=== PATIENT | female | born 1955 | race Caucasian/White ===

== ENCOUNTER 2020-05-07 06:13 | Outpatient (REF) | payer OTHER, SELFPAY ==
[2020-05-07 07:21] LABS: COVID-19 Test Negative (Negative)
== END 2020-05-07 06:14 | disposition home or self-care (01) ==
LOC: HO.EMPCOV 06:13
PROVIDERS: Visit Provider Internal Medicine
DX: Z20.828 Contact with and (suspected) exposure to other viral communicable diseases (principal)
CPT/HCPCS: 87635; C9803

== ENCOUNTER 2020-05-07 15:28 | Outpatient (REF) | payer OTHER, SELFPAY ==
--- NOTE | 2020-05-07 | MM_ITS ---
EXAMINATION: MM SCREENING DIGITAL BREAST TOMOSYNTHESIS, BILATERAL CLINICAL INFORMATION: Screening. Asymptomatic. The lifetime risk of breast cancer based on the Tyrer-Cuzick Model is 3%. COMPARISON: Mammography: 05/05/2019, 04/19/2018, 04/13/2017, 04/10/2016 TECHNIQUE: Digital breast tomosynthesis is performed in both the craniocaudal and mediolateral oblique views along with computer-aided detection (CAD). Synthesized 2D images are generated from the tomosynthesis. FINDINGS: The breasts are heterogeneously dense, which may obscure small masses (ACR BI-RADS breast composition Category c). There are no significant masses, abnormal calcifications, or other abnormalities. Parenchymal pattern is similar to prior studies. There is no developing density. The axilla and skin contours are unremarkable. MM/MM tomosynthesis screening BI IMPRESSION: No mammographic evidence of malignancy. ASSESSMENT: BI-RADS 1: Negative RECOMMENDATION: Routine annual mammography screening. This patient's information was entered into a reminder system with a target due date for their next mammogram.
== END 2020-05-07 15:29 | disposition home or self-care (01) ==
LOC: HO.MAMMO 15:28
PROVIDERS: Visit Provider Internal Medicine
DX: Z12.31 Encounter for screening mammogram for malignant neoplasm of breast (principal)
CPT/HCPCS: 77063; 77067

== ENCOUNTER 2020-05-28 06:59 | Outpatient (REF) | payer OTHER, SELFPAY ==
[2020-06-25 09:49] LABS: SARS-COV-2 PCR UMBRL Not Detected
== END 2020-05-28 07:00 | disposition home or self-care (01) ==
LOC: HO.LAB 06:59
PROVIDERS: Visit Provider Internal Medicine
DX: Z20.828 Contact with and (suspected) exposure to other viral communicable diseases (principal)
CPT/HCPCS: C9803; U0003

== ENCOUNTER 2020-07-30 10:12 | Outpatient (REF) | payer OTHER, SELFPAY ==
--- NOTE | ~2020-07-30 | XR_ITS ---
EXAMINATION: XR BILATERAL SHOULDERS CLINICAL INFORMATION: Pain. COMPARISON: Right shoulder . TECHNIQUE: 3 views each shoulder. FINDINGS: Right Shoulder: There is loss of right glenohumeral joint space with moderate inferior periarticular spurring. There are several amorphous loose bodies seen along the lateral aspect of the proximal humerus and the neck. These are new since 2013 right shoulder exam. No visible fracture or lytic process seen. Left Shoulder: There is moderate loss of glenohumeral joint space with inferior periarticular spurring. There is a small loose body seen inferior to the periarticular spur. The AC joint is unremarkable. The soft tissues are normal. XR/XR shoulder LT min 2V IMPRESSION: Several amorphous loose bodies seen in the right shoulder joint, question old injury or pigmented villonodular synovitis or synovial osteochondromatosis. Consider MRI of both shoulders. There is a solitary loose body seen in the left shoulder joint. Significant loss of glenohumeral joint space with inferior periarticular spurring both joints, likely secondary to osteoarthritis.
--- NOTE | ~2020-07-30 | XR_ITS ---
EXAMINATION: XR BILATERAL SHOULDERS CLINICAL INFORMATION: Pain. COMPARISON: Right shoulder . TECHNIQUE: 3 views each shoulder. FINDINGS: Right Shoulder: There is loss of right glenohumeral joint space with moderate inferior periarticular spurring. There are several amorphous loose bodies seen along the lateral aspect of the proximal humerus and the neck. These are new since 2013 right shoulder exam. No visible fracture or lytic process seen. Left Shoulder: There is moderate loss of glenohumeral joint space with inferior periarticular spurring. There is a small loose body seen inferior to the periarticular spur. The AC joint is unremarkable. The soft tissues are normal. XR/XR shoulder RT min 2V IMPRESSION: Several amorphous loose bodies seen in the right shoulder joint, question old injury or pigmented villonodular synovitis or synovial osteochondromatosis. Consider MRI of both shoulders. There is a solitary loose body seen in the left shoulder joint. Significant loss of glenohumeral joint space with inferior periarticular spurring both joints, likely secondary to osteoarthritis.
== END 2020-07-30 10:13 | disposition home or self-care (01) ==
LOC: HO.HOSX 10:12
PROVIDERS: Visit Provider Orthopaedic Surgery
DX: M25.511 Pain in right shoulder (principal); M25.512 Pain in left shoulder
CPT/HCPCS: 73030

== ENCOUNTER → 2020-07-31 13:36 | Outpatient (BNVA) | payer OTHER, SELFPAY | PROVIDERS: Visit Provider Orthopaedic Surgery | DX: M25.519 Pain in unspecified shoulder (principal); M25.511 Pain in right shoulder | CPT/HCPCS: 99212 ==

== ENCOUNTER → 2020-08-09 09:02 | Outpatient (BNVA) | payer OTHER, SELFPAY | PROVIDERS: PCP Internal Medicine; Visit Provider Orthopaedic Surgery | DX: M75.40 Impingement syndrome of unspecified shoulder (principal) | CPT/HCPCS: 20610; J1040 ==

== ENCOUNTER 2020-09-30 06:13 | Outpatient (REF) | payer OTHER, SELFPAY ==
[2020-09-30 07:54] LABS: MANUAL DIFF FLAG NO
[2020-09-30 08:05] LABS: Basophils Percent Auto 0.8 % (0-2); Eosinophils Absolute Auto 0.2 X10*3/uL (0.0-0.4); Eosinophils Percent Auto 4.5 % (0-4); Hematocrit 38.5 % (37-47); Hemoglobin 12.8 g/dl (12.0-16.0); Imm Gran Abs Auto 0.01 X10*3/uL (0.00-0.03); Imm Gran Pct Auto 0.3 % (0.0-0.4); Lymphocytes Percent Auto 25.9 % (20-40); Mean Corpuscular HGB Conc 33.2 g/dl (31.0-35.0); Mean Corpuscular Hemoglobin 32.9 pg (27.0-33.0); Mean Platelet Volume 9.3 fL (9.4-12.3); Monocytes Absolute Auto 0.4 X10*3/uL (0.1-1.2); Monocytes Percent Auto 9.3 % (2-11); Neutrophils Absolute Auto 2.2 X10*3/uL (2.0-8.3); Neutrophils Percent Auto 59.2 % (45-73); Platelet Count 201 X10*3/uL (160-400); Red Blood Count 3.89 X10*6/uL (4.20-5.50); White Blood Count 3.8 X10*3/uL (4.8-10.8)
[2020-09-30 08:23] LABS: Alanine Aminotransferase 23 U/L (0-31); Albumin Level 4.1 g/dL (3.5-5.0); Alkaline Phosphatase 83 U/L (39-117); Anion Gap 15 (12-20); Aspartate Amino Transferase 29 U/L (5-31); Bilirubin Total 0.7 mg/dL (0.0-1.0); Blood Urea Nitrogen 19 mg/dL (9-16); Calcium 8.7 mg/dL (8.4-10.2); Carbon Dioxide 23 mmol/L (22-29); Chloride 104 mmol/L (96-108); Cholesterol 230 mg/dL; Estimated Glomerular Filt Rate > 60; Glucose Fasting 111 mg/dL (60-99); HDL Cholesterol 99 mg/dL; LDL Cholesterol Calculated 121 mg/dl; Potassium 4.3 mmol/L (3.3-5.1); Sodium 138 mmol/L (135-145); Total Protein 6.9 g/dL (6.5-8.0); Triglycerides 50 mg/dL
[2020-09-30 08:44] LABS: Free T4 (Free Thyroxine) 0.84 ng/dL (0.71-1.85)
== END 2020-09-30 06:14 | disposition home or self-care (01) ==
LOC: HO.LAB 06:13
PROVIDERS: PCP Internal Medicine; Visit Provider Internal Medicine
DX: I10 Essential (primary) hypertension (principal); E03.9 Hypothyroidism, unspecified; K21.9 Gastro-esophageal reflux disease without esophagitis
CPT/HCPCS: 36415; 80053; 80061; 84439; 84443; 85025

== ENCOUNTER 2020-10-13 17:39 | Emergency (ER) | payer OTHER, SELFPAY ==
--- NOTE | ~2020-10-13 | XR_ITS ---
EXAMINATION: 1. RADIOGRAPHS LEFT HIP 2. RADIOGRAPHS LEFT KNEE CLINICAL INFORMATION: Pain. No trauma. COMPARISON: Pelvic and left hip x-rays 07/02/2015 TECHNIQUE: 2 views of the left tibia and 4 views of the left knee were obtained. FINDINGS: Left hip: Metallic ring is intact. Sacroiliac joints are symmetric. Left total hip arthroplasty again demonstrated with good anatomical alignment. There is no periprosthetic fracture. Heterotopic ossifications again noted adjacent to the greater trochanter. There are mild degenerative changes of the right hip. Left knee: No fracture or dislocation. No suprapatellar joint effusion. Medial and lateral joint spaces are well-maintained. Tiny marginal osteophytes noted of the medial and lateral joint compartments. Subtle chondrocalcinosis appreciated. XR/XR hip LT w PEL1V IMPRESSION: 1. No dislocation of the left femoral prosthesis. No periprosthetic fracture. 2. Minimal degenerative changes of the left knee.
--- NOTE | ~2020-10-13 | US_ITS ---
EXAMINATION: LEFT LOWER EXTREMITY DEEP VENOUS ULTRASOUND CLINICAL INFORMATION: Pain in left calf and behind left knee COMPARISON: None. TECHNIQUE: Duplex Doppler imaging with compression maneuvers were performed of the left lower extremity deep venous system. FINDINGS: The visualized common femoral, femoral and popliteal veins demonstrate normal compressibility and color flow without evidence of venous thrombosis. Visualized portions of the calf veins demonstrate normal color fill-in suggesting patency. There is no evidence of a Gaitan's cyst. US/US venous duplex LE LT IMPRESSION: No evidence of deep venous thrombosis involving the left lower extremity.
--- NOTE | ~2020-10-13 | XR_ITS ---
EXAMINATION: 1. RADIOGRAPHS LEFT HIP 2. RADIOGRAPHS LEFT KNEE CLINICAL INFORMATION: Pain. No trauma. COMPARISON: Pelvic and left hip x-rays 07/02/2015 TECHNIQUE: 2 views of the left tibia and 4 views of the left knee were obtained. FINDINGS: Left hip: Metallic ring is intact. Sacroiliac joints are symmetric. Left total hip arthroplasty again demonstrated with good anatomical alignment. There is no periprosthetic fracture. Heterotopic ossifications again noted adjacent to the greater trochanter. There are mild degenerative changes of the right hip. Left knee: No fracture or dislocation. No suprapatellar joint effusion. Medial and lateral joint spaces are well-maintained. Tiny marginal osteophytes noted of the medial and lateral joint compartments. Subtle chondrocalcinosis appreciated. XR/XR knee LT 4V IMPRESSION: 1. No dislocation of the left femoral prosthesis. No periprosthetic fracture. 2. Minimal degenerative changes of the left knee.
[2020-10-13 17:42] VITALS: BP 197/91; PULSE 84; RESP 16; TEMP 36.8; O2SAT 97; BMI 23.3
--- NOTE | 2020-10-13 19:35 | ED_ITS ---
HPI - General Adult General Chief complaint: Extremity Problem Stated complaint: leg pain Time Seen by Provider: 10/13/20 19:17 Source: patient Mode of arrival: ambulatory Limitations: no limitations History of Present Illness HPI narrative: 65-year-old female with a past medical history of a left hip replacement, hypothyroidism, hypertension here with complaints of left hip and left knee pain x3 days. No injury or trauma. Patient tells me that she feels pain when she bears weight on her legs both in her knee and her hip.. No redness, swelling, warmth, fevers, chills. Also complaining of right ankle swelling status post twisting injury several weeks ago. Seen at Urgent Care and had x-rays which were negative. Patient tells me that she has no pain but still has some residual swelling She does have some left calf pain, and pain in the left posterior knee. No swelling of the leg. No CP/SOB. No h/o DVT/PE. Related Data Home Medications Medication Instructions Recorded Confirmed allopurinol 300 mg tablet 150 mg PO DAILY 07/31/20 cephalexin 750 mg capsule 750 mg PO BID 07/31/20 levothyroxine 25 mcg capsule 25 mcg PO DAILY 07/31/20 losartan 50 mg tablet 50 mg PO BID 07/31/20 trazodone 50 mg tablet 25 mg PO DAILY 07/31/20 Previous Rx's Medication Instructions Recorded oxycodone 5 mg PO Q6H PRN #10 tab 10/13/20 Allergies Allergy/AdvReac Type Severity Reaction Status Date / Time diphenhydramine Allergy Intermediate ANXIETY/HYP Unverified 03/07/20 15:00 [From BENADRYL] ERALERTNESS Sulfa (Sulfonamide Allergy Intermediate SWELLING, Unverified 03/07/20 15:00 Antibiotics) facial swelling Benadryl Allergy Unknown aggitation Unverified 11/01/19 00:00 latex [LATEX] Allergy Unknown RASH Unverified 03/07/20 15:00 Latex Allergy Unknown Uncoded 04/20/19 00:00 latex Allergy Unknown Uncoded 11/01/19 00:00 Review of Systems Review of Systems: Yes all other systems are reviewed and are negative Constitutional: Constitutional: Reports no additional constitutional complaints, Denies body ache(s), Denies chills, Denies fever(s), Denies headache(s) and Denies weakness Eyes: Eyes: Reports no additional eye complaints and Denies change in vision ENT: Reports system reviewed and no additional complaints, except as documented, Denies dizziness, Denies headache(s), Denies nasal congestion, Denies nasal discharge and Denies neck pain Cardiovascular: Cardiovascular: Reports no additional cardiovascular complaints, Denies chest pain, Denies leg edema and Denies dyspnea Respiratory: Respiratory: Reports no additional respiratory complaints, Denies cough and Denies dyspnea Gastrointestinal: Gastrointestinal: Reports no additional gastrointestinal complaints, Denies abdominal pain, Denies diarrhea, Denies nausea and Denies vomiting Genitourinary: Genitourinary: Reports no additional female genitourinary complaints and Denies urinary incontinence Musculoskeletal: Musculoskeletal: Reports no additional musculoskeletal complaints, Denies back pain, Reports arthralgias, Reports joint swelling, Denies neck pain, Denies numbness and Denies tingling Integumentary/Breasts: Skin/Breast: Reports system reviewed and no additional complaints, except as docu and Denies rash Neurologic: Reports system reviewed and no additional complaints, except as documented, Denies Abnormal speech present, Denies dizziness, Denies headache(s), Denies numbness, Denies tingling and Denies weakness PMFSH Past Medical History Attestation statement: The following information was validated with the patient. 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[employer] 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 Physical Exam Vital Signs: Vital Signs: Last Vital Signs Temp 98.3 F 10/13/20 17:42 Pulse 84 10/13/20 17:42 Resp 16 10/13/20 17:42 BP 197/91 H 10/13/20 17:42 Pulse Ox 97 10/13/20 17:42 Body Mass Index 23.3 Const: General: cooperative, healthy appearing, comfortable and no acute distress Orientation/consciousness: patient oriented x3 Limitations: no limitations HENMT: Head: Yes normal to inspection Ears: hearing grossly normal bilaterally General nose exam: Normal external nose present Face and sinus: Yes normal facial exam Mouth: Normal oral and palatal mucosa present Throat: Yes posterior oropharynx normal Eyes: General: appearance normal, both eyes and all related structures Pupils: Equal, round and reactive pupils present Neck: Neck: Yes normal visual inspection Chest: Chest palpation & inspection: normal inspection of the chest Resp: Effort & Inspection: normal respiratory effort Auscultation: clear to auscultation bilaterally Cardio: Rate: regular rate Rhythm: regular rhythm Peripheral pulses: Peripheral pulses 2+ throughout GI: Inspection: Yes normal to inspection Palpation (GI): Soft to palpation and nontender Auscultation: normal bowel sounds Back/Spine/Pelvis: Thoracic/Lumbar Spine: thoracic and lumbar spine normal to inspection Skin: General skin exam: no rashes or lesions noted Neuro: General: patient oriented x3, no focal motor deficits and normal sensat ion to monofilament Cranial nerves: Yes Equal, round and reactive pupils present Cognition (Neuro): normal cognition Speech: No Abnormal speech present Gait exam (Neuro): Normal gait present Motor exam (neuro): 5/5 mo tor strength present throughout Extrem: Other: Tenderness to the left lateral hip with pain with abduction and abduction. No obvious shortening, rotation or deformity. Tenderness to the left anterior knee and posterior knee. Full range of motion. No ligamental laxity. Tenderness to the left calf with no swelling or warmth noted. Neurovascularly intact distally Mild swelling to the right lateral ankle with full range of motion and no pain on exam General: Yes normal to inspection Course Course Course Narrative: 65 yo female here with complaints left hip and left knee pain which is worsened with weight-bearing. No injury or trauma. On exam the patient has more pain over the left knee both anterior and posterior however has full range of motion with no erythema, warmth or swelling. There is some mild posterior tenderness and left calf tenderness. No swelling or erythema in the calf noted. No shortness of breath or chest pain. Will check x-rays of hip and knee. Also check ultrasound to rule out DVT. 2100-x-ray of left hip show stable joint replacement with no fracture or dislocation. X-ray of the left knee shows degenerative changes. Ultrasound negative for DVT or Gaitan cyst. Reviewed findings with the patient. Recommended follow-up outpatient with orthopedics. Reviewed worrisome signs and symptoms of when to return to the emergency department. Comfortable discharge home. Medical Decision Making Medical Records Medical records reviewed: Yes I reviewed the patient's medical records. Lab Data Lab results reviewed: Yes I reviewed the patient's lab results. Imaging Data left hip/knee xray: Attestation: I personally reviewed and interpreted this imaging study as follows: Radiologist's impression: IMPRESSION: 1. No dislocation of the left femoral prosthesis. No periprosthetic fracture. 2. Minimal degenerative changes of the left kne Venous US: Attestation: I personally reviewed and interpreted this imaging study as follows: Radiologist's impression: CLINICAL INFORMATION: Pain in left calf and behind left knee COMPARISON: None. TECHNIQUE: Duplex Doppler imaging with compression maneuvers were performed of the left lower extremity deep venous system. FINDINGS: The visualized common femoral, femoral and popliteal veins demonstrate normal compressibility and color flow without evidence of venous thrombosis. Visualized portions of the calf veins demonstrate normal color fill-in suggesting patency. There is no evidence of a Gaitan's cyst. US/US venous duplex LE LT IMPRESSION: No evidence of deep venous thrombosis involving the left lower extremity. Discharge Plan Discharge Clinical Impression: Osteoarthritis Qualifiers: Osteoarthritis location: knee Osteoarthritis type: primary Laterality: left Qualified Code(s): M17.12 - Unilateral primary osteoarthritis, left knee Patient Disposition: Home, Self-Care Instructions: Arthritis (ED) Additional Instructions: Heat or ice Gentle stretching Follow-up with [facility] Prescriptions: New oxycodone 5 mg tablet 5 mg PO Q6H PRN (Reason: pain) Qty: 10 RF: 0 Referrals: Brooklyn Marks MD [Physician] - 2 days Stand Alone Forms: Work/School Release Discharge Date/Time: 10/13/20 21:10
[2020-10-13] MEDS: Ibuprofen 800 MG TABLET PO (20:36)
== END 2020-10-13 21:10 | disposition home or self-care (01) ==
PROVIDERS: Emergency Provider Emergency Medicine Emergency Medical Services; PCP Internal Medicine
DX: M17.12 Unilateral primary osteoarthritis, left knee (principal); M25.562 Pain in left knee; R60.0 Localized edema; Z79.899 Other long term (current) drug therapy
CPT/HCPCS: 73502; 73564; 93971; 99284

== ENCOUNTER → 2020-10-18 09:52 | Outpatient (BNVA) | payer OTHER, SELFPAY | PROVIDERS: Visit Provider Physician Assistant ==

== ENCOUNTER 2020-11-08 09:00 | Outpatient (RCR) | payer OTHER, SELFPAY ==
--- NOTE | 2020-10-25 09:48 | MHC.PT.EP ---
[facility] [place] Office [place] Office [place] Office [address] Myrna Christine [address] [phone] F: [phone] F: [phone] F: [phone] F: [phone] Physical Therapy Plan of Care Date of Evaluation: Date of Surgery: N/A Diagnosis: sciatica Assessment: pt's signs and symptoms consistent w/ lumbar radiculopathy. pt presents to physical therapy with pain, decreased range of motion, decreased strength, impaired functional mobility, impaired postural awareness, and gait deviations. pt is a good candidate for skilled PT due to age, potential remediation of impairments, typical disease/condition progression and prognosis, comorbidities, and motivation. pt would benefit from tailored strengthening and stretching exercise program, functional training, gait training, postural re-training, neuromuscular re-education, modalities as needed for pain, equipment safety demonstration. Frequency and Duration: The patient will be seen 2x/wk for 4 wks Short Term Goals: pt will be I w/ HEP to promote self-management of condition. pt will demo proper sitting posture w/ lumbar roll to facilitate neutral spine. Long-Term Goals: pt will report a statistically significant improvement in self-reported outcome measure, Loreta, to promote return to PLOF. pt will lift 20# from floor height x 5 reps w/ subjective reports of <1/10 back pain using proper lifting mechanics to facilitate pain-free return to work. Treatment Plan: Modalities to reduce pain, spasms and effusion. Manual therapy to restore motion and function. Therapeutic exercise to improve strength and flexibility. Neuromuscular re-education for posture and balance. Therapeutic activities to return to functional activities of daily living. Electronically signed by: Patricia Gonsales PT, DPT Please sign and return to therapist. Thank you for your referral.
--- NOTE | 2020-12-03 11:26 | MHC.PT.DC ---
[facility] [place] Office [place] Office [place] Office [address] Myrna Christine 140 [facility] [phone] F: [phone] F: [phone] F: [phone] F: [phone] Physical Therapy Discharge Report Diagnosis: sciatica Date of Surgery: N/A Date of Evaluation: 10/25/20 Date of Discharge: 12/03/20 Treatments to Date: 4 Cancellations to Date: 6 No Shows to Date: 0 Discharge Status: Visit Non-compliance Discharge Summary: The patient called to cancel the remainder of her appointments. She has not called to reschedule any future appointments. She has not been seen in this office for 25 days. She is discharged from this physical therapy plan of care. Electronically signed by: Patricia Gonsales PT, DPT Please sign and return to therapist. Thank you for your referral.
== END 2020-12-03 11:27 | disposition other institution (70) ==
LOC: HO.PT 09:00
PROVIDERS: Visit Provider Physician Assistant
DX: M54.30 Sciatica, unspecified side (principal)
CPT/HCPCS: 97110; 97112; 97161

== ENCOUNTER 2020-12-25 11:23 | Outpatient (REF) | payer OTHER, SELFPAY ==
--- NOTE | ~2020-12-25 | XR_ITS ---
EXAMINATION: XR SHOULDER, LEFT XR CERVICAL SPINE CLINICAL INFORMATION: Shoulder pain. COMPARISON: 07/31/2020 TECHNIQUE: Three views left shoulder and 5-view cervical spine. FINDINGS: There is no evidence of acute fracture or dislocation of the left shoulder. There is some narrowing of the glenohumeral joint space with prominent inferior spurring about the femoral head and question loose body. There is also noted to be calcification in the subcoracoid location consistent with subcoracoid bursitis. No widening of the coracoclavicular space is noted. Views of the cervical spine do not demonstrate any abnormal prevertebral soft tissue swelling. No acute cervical spine fracture is noted. There is mild narrowing of the C5-C6 and C6-C7 disc spaces. There is degenerative change within the facet joints bilaterally, predominantly at the C2 through C4 levels. There is some spurring of the joints of Luschka present causing what appears to be moderate left-sided neural foraminal narrowing at the C6-C7 level. There is mild anterior neural foraminal encroachment on the right at the C6-C7 level. XR/XR cervical spine min 6V IMPRESSION: Degenerative change of the glenohumeral joint left shoulder. Question loose body inferior aspect of the glenohumeral joint. Left subcoracoid calcific bursitis. Cervical spondylosis at the C5 through C7 levels with some neural foraminal encroachment, left greater than right, at the C6-C7 levels.
--- NOTE | ~2020-12-25 | XR_ITS ---
EXAMINATION: XR SHOULDER, LEFT XR CERVICAL SPINE CLINICAL INFORMATION: Shoulder pain. COMPARISON: 07/31/2020 TECHNIQUE: Three views left shoulder and 5-view cervical spine. FINDINGS: There is no evidence of acute fracture or dislocation of the left shoulder. There is some narrowing of the glenohumeral joint space with prominent inferior spurring about the femoral head and question loose body. There is also noted to be calcification in the subcoracoid location consistent with subcoracoid bursitis. No widening of the coracoclavicular space is noted. Views of the cervical spine do not demonstrate any abnormal prevertebral soft tissue swelling. No acute cervical spine fracture is noted. There is mild narrowing of the C5-C6 and C6-C7 disc spaces. There is degenerative change within the facet joints bilaterally, predominantly at the C2 through C4 levels. There is some spurring of the joints of Luschka present causing what appears to be moderate left-sided neural foraminal narrowing at the C6-C7 level. There is mild anterior neural foraminal encroachment on the right at the C6-C7 level. XR/XR shoulder LT min 2V IMPRESSION: Degenerative change of the glenohumeral joint left shoulder. Question loose body inferior aspect of the glenohumeral joint. Left subcoracoid calcific bursitis. Cervical spondylosis at the C5 through C7 levels with some neural foraminal encroachment, left greater than right, at the C6-C7 levels.
== END 2020-12-25 11:24 | disposition home or self-care (01) ==
LOC: HO.XRAY 11:23
PROVIDERS: PCP Internal Medicine; Visit Provider Internal Medicine
DX: M54.2 Cervicalgia (principal); M25.512 Pain in left shoulder
CPT/HCPCS: 72052; 73030

== ENCOUNTER 2021-01-08 08:54 | Outpatient (REF) | payer OTHER, SELFPAY ==
--- NOTE | ~2021-01-08 | MR_ITS ---
MR CERVICAL SPINE WITHOUT IV CONTRAST CLINICAL INFORMATION: Neck pain radiating to the left shoulder. Rule out stenosis. COMPARISON: None available. TECHNIQUE: MRI of the cervical spine was obtained using routine sequences without contrast. FINDINGS: Straightening of the cervical lordosis. There is mild anterior subluxation of C3 on C4. The vertebral body heights are maintained. There is mild to moderate disc volume loss at the C5-C6 and C6-C7 levels. There is significant marrow edema involving the left C2 and C3 facets, most likely degenerative or inflammatory however septic facet arthritis should be considered in the appropriate clinical context. C2-C3: Disc osteophyte and ligamentum flavum thickening mildly narrow the central canal. Uncovertebral joint spurring and advanced facet arthropathy result in moderate left-sided foraminal stenosis. C3-C4: Mild anterior subluxation. Advanced bilateral facet arthropathy and uncovertebral joint spurring result in moderate bilateral foraminal stenosis. C4-C5: Right paracentral disc osteophyte mildly narrows the central canal. Advanced facet arthropathy and uncovertebral joint spurring result in severe right-sided foraminal stenosis. C5-C6: Disc osteophyte and ligamentum flavum thickening mildly narrow the central canal. Uncovertebral joint spurring and facet arthropathy result in mild bilateral foraminal encroachment. C6-C7: Disc osteophyte mildly narrows the central canal. Uncovertebral joint spurring and facet arthropathy result in moderate bilateral foraminal stenosis. C7-T1: Disc contour is normal. No central canal stenosis and no foraminal stenosis. MR/MR cervical spine wo con IMPRESSION: - There is junctional prominence versus aneurysmal dilatation of the basilar artery tip that would be better assessed with a CTA or MRA of the head. -There is significant marrow edema involving the left C2 and C3 facets, most likely degenerative or inflammatory however septic facet arthritis should be considered in the appropriate clinical context. - Multilevel cervical spondylosis. Spondylitic changes result in moderate left C2-C3, moderate bilateral C3-C4, severe right C4-C5, and moderate bilateral C6-C7 foraminal stenosis. No severe central canal stenosis within the cervical spine.
== END 2021-01-08 08:55 | disposition home or self-care (01) ==
LOC: HO.MRI 08:54
PROVIDERS: PCP Internal Medicine; Visit Provider Internal Medicine
DX: M54.2 Cervicalgia (principal); M25.512 Pain in left shoulder
CPT/HCPCS: 72141

== ENCOUNTER 2021-04-17 07:38 | Outpatient (REF) | payer MEDICARE, SELFPAY ==
--- NOTE | ~2021-04-17 | XR_ITS ---
EXAMINATION: XR KNEE, BILATERAL XR KNEE, RIGHT CLINICAL INFORMATION: Pain COMPARISON: 10/13/2020 TECHNIQUE: AP standing view of both knees. 2 views of the right knee. FINDINGS: Right knee: No fracture or subluxation. Compartmental joint spaces are maintained. Small marginal osteophytes at the lateral compartment. Small joint effusion. Left knee: On this single frontal view there is no fracture or subluxation. Mild narrowing of the medial compartment with small medial and lateral compartmental marginal osteophytes. XR/XR knee standing BI IMPRESSION: Small marginal osteophytes of the right knee lateral compartment. Small joint effusion.
--- NOTE | ~2021-04-17 | XR_ITS ---
EXAMINATION: XR KNEE, BILATERAL XR KNEE, RIGHT CLINICAL INFORMATION: Pain COMPARISON: 10/13/2020 TECHNIQUE: AP standing view of both knees. 2 views of the right knee. FINDINGS: Right knee: No fracture or subluxation. Compartmental joint spaces are maintained. Small marginal osteophytes at the lateral compartment. Small joint effusion. Left knee: On this single frontal view there is no fracture or subluxation. Mild narrowing of the medial compartment with small medial and lateral compartmental marginal osteophytes. XR/XR knee RT 2V IMPRESSION: Small marginal osteophytes of the right knee lateral compartment. Small joint effusion.
== END 2021-04-17 07:39 | disposition home or self-care (01) ==
LOC: HO.HOSX 07:38
PROVIDERS: Visit Provider Physician Assistant
DX: M17.11 Unilateral primary osteoarthritis, right knee (principal)
CPT/HCPCS: 73560; 73565; 99212

== ENCOUNTER 2021-08-02 08:56 | Outpatient (REF) | payer MEDICARE, SELFPAY ==
--- NOTE | ~2021-08-02 | MM_ITS ---
EXAMINATION: MM SCREENING DIGITAL BREAST TOMOSYNTHESIS, BILATERAL CLINICAL INFORMATION: Screening. Asymptomatic. The lifetime risk of breast cancer based on the Tyrer-Cuzick Model is 5%. COMPARISON: Mammography: 05/07/2020, 05/05/2019, 04/19/2018 TECHNIQUE: Digital breast tomosynthesis is performed in both the craniocaudal and mediolateral oblique views along with computer-aided detection (CAD). Synthesized 2D images are generated from the tomosynthesis. FINDINGS: The breasts are heterogeneously dense, which may obscure small masses (ACR BI-RADS breast composition Category c). There are no significant masses, abnormal calcifications, or other abnormalities. There are scattered stable minor asymmetries similar to prior studies. No developing density. No significant changes. MM/MM tomosynthesis screening BI IMPRESSION: No mammographic evidence of malignancy. ASSESSMENT: BI-RADS 2: Benign RECOMMENDATION: Routine annual mammography screening. This patient's information was entered into a reminder system with a target due date for their next mammogram.
== END 2021-08-02 08:57 | disposition home or self-care (01) ==
LOC: HO.MAMMO 08:56
PROVIDERS: PCP Internal Medicine; Visit Provider Internal Medicine
DX: Z12.31 Encounter for screening mammogram for malignant neoplasm of breast (principal)
CPT/HCPCS: 77063; 77067

== ENCOUNTER 2021-12-31 18:40 | Inpatient (IN) | payer MEDICARE, SELFPAY ==
--- NOTE | ~2021-12-31 | XR_ITS ---
EXAMINATION: XR shoulder LT min 2V, XR forearm LT 2V CLINICAL INFORMATION: Reason for Exam fall. Fracture? COMPARISON: Left shoulder radiographs 12/25/2020, left wrist radiographs 08/03/2016 TECHNIQUE: 2 views left forearm; 3 views left shoulder FINDINGS: Left forearm: Mildly displaced ulnar styloid fracture, new since prior of 2016. No other acute fracture or dislocation. Left shoulder: No acute fracture or dislocation. Severe glenohumeral joint space narrowing with [id number] apposition, subchondral sclerosis, large humeral head marginal osteophyte and 6 mm intra-articular body in the axillary pouch region. Appearance is similar to prior. Acromiohumeral interval is maintained. AC joint is congruent and intact. Visualized left upper lung is grossly clear. XR/XR forearm LT 2V IMPRESSION: 1. Mildly displaced ulnar styloid fracture. 2. No acute fracture identified elsewhere in the forearm or the left shoulder. 3. Severe left glenohumeral joint osteoarthritis.
--- NOTE | ~2021-12-31 | XR_ITS ---
EXAMINATION: XR tibia fibula LT 2V, XR tibia fibula RT 2V CLINICAL INFORMATION: Reason for Exam ecchymosis . fall COMPARISON: None. TECHNIQUE: AP and lateral views of the tibia and fibula bilaterally FINDINGS: Right tibia and fibula: No fracture or malalignment. No osseous lesion. Mild spurring of the tibial spines at the knee. Left tibia and fibula: No fracture or malalignment. Mild spurring of the tibial spines at the knee and mild chondrocalcinosis. No osseous lesion. XR/XR tibia fibula RT 2V IMPRESSION: No acute fracture or dislocation identified.
--- NOTE | ~2021-12-31 | XR_ITS ---
EXAMINATION: XR FOREARM, RIGHT CLINICAL INFORMATION: ECMO cysts and fall COMPARISON: None TECHNIQUE: AP and lateral views of the right forearm were obtained. FINDINGS: No acute fracture or dislocation. No appreciable elbow joint effusion. Pronator fat pad is intact. XR/XR forearm RT 2V IMPRESSION: No acute fracture identified.
--- NOTE | ~2021-12-31 | XR_ITS ---
EXAMINATION: XR tibia fibula LT 2V, XR tibia fibula RT 2V CLINICAL INFORMATION: Reason for Exam ecchymosis . fall COMPARISON: None. TECHNIQUE: AP and lateral views of the tibia and fibula bilaterally FINDINGS: Right tibia and fibula: No fracture or malalignment. No osseous lesion. Mild spurring of the tibial spines at the knee. Left tibia and fibula: No fracture or malalignment. Mild spurring of the tibial spines at the knee and mild chondrocalcinosis. No osseous lesion. XR/XR tibia fibula LT 2V IMPRESSION: No acute fracture or dislocation identified.
--- NOTE | ~2021-12-31 | XR_ITS ---
EXAMINATION: XR shoulder LT min 2V, XR forearm LT 2V CLINICAL INFORMATION: Reason for Exam fall. Fracture? COMPARISON: Left shoulder radiographs 12/25/2020, left wrist radiographs 08/03/2016 TECHNIQUE: 2 views left forearm; 3 views left shoulder FINDINGS: Left forearm: Mildly displaced ulnar styloid fracture, new since prior of 2016. No other acute fracture or dislocation. Left shoulder: No acute fracture or dislocation. Severe glenohumeral joint space narrowing with [id number] apposition, subchondral sclerosis, large humeral head marginal osteophyte and 6 mm intra-articular body in the axillary pouch region. Appearance is similar to prior. Acromiohumeral interval is maintained. AC joint is congruent and intact. Visualized left upper lung is grossly clear. XR/XR shoulder LT min 2V IMPRESSION: 1. Mildly displaced ulnar styloid fracture. 2. No acute fracture identified elsewhere in the forearm or the left shoulder. 3. Severe left glenohumeral joint osteoarthritis.
--- NOTE | ~2021-12-31 | CT_ITS ---
EXAMINATION: CT CHEST, ABDOMEN AND PELVIS WITHOUT CONTRAST CLINICAL INFORMATION: Reason for Exam fall down stairs COMPARISON: CT abdomen pelvis 01/08/2019 TECHNIQUE: Multidetector volumetric imaging was performed from the thoracic inlet through the pubic symphysis without IV contrast. Sagittal and coronal reformatted images were obtained on the technologist's workstation. This CT examination was performed using dose optimization techniques as appropriate, variously including the following: *Automated exposure control *Adjustment of mA and/or kV according to patient size (this includes techniques or standardized protocols for targeted exams where dose is matched to indication/reason for exam; i.e. extremities or head) *Use of iterative reconstruction technique DLP: 252 plus 531 mGy-cm FINDINGS: CHEST: Lungs and Pleura: Biapical pleural-parenchymal scarring is present. Emphysematous changes are present. Some small pulmonary micronodules are seen, none larger than 3 mm. The lungs are otherwise clear without worrisome focal opacity or nodule. Mediastinum: The mediastinum is normal. The central vascular structures are unremarkable. No hilar or mediastinal lymphadenopathy. Pericardium/Pleura: No significant effusion. No pleural mass or thickening. Chest Wall/Axilla: Unremarkable ABDOMEN/PELVIS: Peritoneal Space: No significant free air or free fluid identified. Liver, Gallbladder, Biliary Tree: The liver is enlarged measuring over 19 cm in greatest length and demonstrates decreased attenuation consistent with hepatic steatosis. No focal hepatic lesion or biliary ductal dilatation is present. The gallbladder is unremarkable with no evidence of radiopaque gallstones, gallbladder wall thickening, or obvious pericholecystic inflammatory changes. Pancreas: Unremarkable. The small hypodensity seen in the pancreas is again noted and measures fat density (-103 Hounsfield units) consistent with a tiny lipoma. Spleen: Unremarkable Adrenal Glands: Unremarkable Kidneys and Ureters: The kidneys are normal in size, shape, and attenuation. No hydronephrosis, hydroureter, or calculi seen. No perinephric stranding. Bladder: Unremarkable Gastrointestinal Tract: The small and large bowel are unremarkable. The appendix is is not identified but there is no evidence of appendicitis.. Abdominal Wall: No significant hernia is appreciated. Lymph Nodes: No lymphadenopathy. Vascular: Marked calcific changes present in the aorta and iliofemoral vessels without aneurysm.. The IVC appears unremarkable. PELVIC VISCERA: An small anteverted uterus is present with calcified fibroid OSSEUS STRUCTURES: Moderate degenerative changes are noted in the spine, predominantly at L4-L5. No bony destructive lesions are seen. Left hip prosthesis is present. No traumatic acute fractures are seen. CT/CT abdomen pelvis wo con IMPRESSION: 1. No evidence of a traumatic injury in the chest abdomen or pelvis. 2. Enlarged liver fatty liver. 3. Other incidental findings described above including small uterus with fibroids, small pancreatic lipoma, degenerative changes L4-L5 and other findings described above Fleischner guidelines were followed.
--- NOTE | ~2021-12-31 | CT_ITS ---
EXAMINATION: NONCONTRAST HEAD CT NONCONTRAST CERVICAL SPINE CT INDICATION INFORMATION: Fall down stairs COMPARISON: Head CT 04/05/2019 TECHNIQUE: Separate noncontrast CT examinations of the head and cervical spine were performed. Coronal and sagittal images were created for each examination at the technologist workstation. This CT examination was performed using dose optimization techniques as appropriate, variously including the following: *Automated exposure control *Adjustment of mA and/or kV according to patient size (this includes techniques or standardized protocols for targeted exams where dose is matched to indication/reason for exam; i.e. extremities or head) *Use of iterative reconstruction technique DLP: 950 mGy-cm FINDINGS: HEAD: No intra or extra-axial fluid collection, hemorrhage, or mass. No ventriculomegaly. No midline shift or herniation. Basal cisterns are patent. Short-white matter differentiation is maintained. No territorial encephalomalacia. No significant volume loss. There is no abnormal attenuation within the brain parenchyma. No calvarial fracture or soft tissue abnormality. The mastoid air cells and visualized portions of the paranasal sinuses are well aerated. CERVICAL SPINE: Alignment: Slight reversal the normal cervical lordosis. Minimal grade 1 anterolisthesis at C2-C3, C3-C4, C4-C5. Mild retrolisthesis at C6-C7. Vertebra: No acute fracture. No prevertebral soft tissue swelling. Degenerative disc disease: Moderate disc height loss at C5-C6 and C6-C7 with endplate sclerosis and proliferative change. Otherwise, mild multilevel degenerative disc disease throughout the remainder the cervical spine. Advanced multilevel bilateral facet arthrosis most marked at C2-C3 and C3-C4 and on the right at C4-C5. Other findings: Biapical pleural parenchymal thickening/scarring. Thyroid gland appears relatively diminutive/atrophic. No cervical lymphadenopathy or mass identified. CT/CT cervical spine wo con IMPRESSION: 1. No intracranial hemorrhage or calvarial fracture. 2. No traumatic subluxation or acute cervical spine fracture.
[2021-12-31 18:46] VITALS: BP 110/60; BP 130/86; PULSE 100; PULSE 105; RESP 18; TEMP 37.2; O2SAT 96; O2SAT 98; BMI 24.0
--- NOTE | 2021-12-31 19:05 | PC.NURSE ---
pt states she fell going up stairs yesterday carrying laundry. ecchymosis to bilateral knees. multiple scabs to upper and lower extremities in different stages of healing. pt states she then fell backwards on the stairs and landed on her rt shoulder. ecchymosis to rt shoulder. ambulatory at home, states that she came in today after her daughter told her to come
[2021-12-31 19:13] VITALS: PULSE 105; RESP 17; O2SAT 98
--- NOTE | 2021-12-31 19:15 | ECG_ITS ---
Test Reason : FTT Blood Pressure : / mmHG Vent. Rate : 080 BPM Atrial Rate : 080 BPM P-R Int : 162 ms QRS Dur : 080 ms QT Int : 392 ms P-R-T Axes : 046 011 059 degrees QTc Int : 452 ms Normal sinus rhythm Normal ECG When compared with ECG of 06-APR-2019 06:57, No significant change was found Referred By: Jose D Beasley Electronically Signed By:JIMMIE COLEMAN MD
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
[2021-12-31] MEDS: 0.9 % Sodium Chloride 1,000 ML 999 ML IV ×2 (19:30→21:26)
[2021-12-31 20:00] LABS: MANUAL DIFF FLAG NO
[2021-12-31 20:13] LABS: Ethanol 145 mg/dL
[2021-12-31 20:16] LABS: Basophils Percent Auto 0.2 % (0-2); Hematocrit 32.7 % (37.0-47.0); Hemoglobin 11.2 g/dl (12.0-16.0); Imm Gran Abs Auto 0.01 X10*3/uL (0.00-0.03); Imm Gran Pct Auto 0.2 % (0.0-0.4); Lymphocytes Absolute Auto 0.8 X10*3/uL (1.2-4.9); Lymphocytes Percent Auto 14.8 % (20-40); Mean Corpuscular HGB Conc 34.3 g/dl (31.0-35.0); Mean Corpuscular Hemoglobin 34.9 pg (27.0-33.0); Mean Corpuscular Volume 101.9 fL (80.0-98.0); Mean Platelet Volume 9.6 fL (9.4-12.3); Monocytes Absolute Auto 0.5 X10*3/uL (0.1-1.2); Neutrophils Absolute Auto 4.1 x10*3/uL (2.0-8.3); Neutrophils Percent Auto 75.8 % (45-73); Platelet Count 156 X10*3/uL (160-400); Red Blood Count 3.21 X10*6/uL (4.20-5.50); Red Cell Distribution Width 14.6 % (11.0-16.0); White Blood Count 5.3 X10*3/uL (4.8-10.8)
[2021-12-31 20:20] LABS: Alanine Aminotransferase 166 U/L (0-31); Albumin Level 4.3 g/dL (3.5-5.0); Alkaline Phosphatase 264 U/L (39-117); Anion Gap 20 (12-20); Aspartate Amino Transferase 207 U/L (5-31); Bilirubin Total 1.4 mg/dL (0.0-1.0); Blood Urea Nitrogen 31 mg/dL (9-16); Carbon Dioxide 19 mmol/L (22-29); Chloride 103 mmol/L (96-108); Creatinine Clr Calc Pharmacy 18.4; Estimated Glomerular Filt Rate 17; Glucose Random 100 mg/dL (60-115); Magnesium 1.6 mg/dL (1.6-2.6); Potassium 3.7 mmol/L (3.3-5.1); Sodium 138 mmol/L (135-145); Total Protein 7.6 g/dL (6.5-8.0)
[2021-12-31 20:22] LABS: Troponin-I High Sensitivity 11.7 ng/L (<3.5-17.0)
[2021-12-31 20:23] LABS: COVID-19 Test Negative (Negative); IDNOW Serial# 16C4AD1C
[2021-12-31] MEDS: chlordiazePOXIDE HCl 25 MG CAPSULE 50 MG PO (21:25)
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
[2021-12-31 23:28] VITALS: BP 128/57; PULSE 82; RESP 16; TEMP 36.8; O2SAT 97
[2021-12-31 23:54] LABS: Troponin-I High Sensitivity 7.5 ng/L (<3.5-17.0)
[2022-01-01] VITALS (7 sets, daily range): BP systolic 109–143; BP diastolic 53–70; PULSE 61–97; RESP 12–18; TEMP 36–36.7; O2SAT 91–99; BMI 24.0
[2022-01-01 00:02] LABS: Alanine Aminotransferase 133 U/L (0-31); Albumin Level 3.7 g/dL (3.5-5.0); Alkaline Phosphatase 221 U/L (39-117); Anion Gap 18 (12-20); Aspartate Amino Transferase 158 U/L (5-31); Bilirubin Total 1.2 mg/dL (0.0-1.0); Blood Urea Nitrogen 29 mg/dL (9-16); Carbon Dioxide 17 mmol/L (22-29); Chloride 109 mmol/L (96-108); Creatinine Clr Calc Pharmacy 23.8; Estimated Glomerular Filt Rate 23; Glucose Random 98 mg/dL (60-115); Potassium 3.8 mmol/L (3.3-5.1); Sodium 140 mmol/L (135-145); Total Protein 6.4 g/dL (6.5-8.0)
[2022-01-01] MEDS: Thiamine HCL 100 MG TABLET PO ×2 (01:52→07:52)
[2022-01-01] MEDS: oxyCODONE HCl Immed Release 5 MG TABLET PO ×2 (01:52→21:08)
[2022-01-01] MEDS: Acetaminophen 325 MG TABLET 650 MG PO ×2 (01:52→21:09)
[2022-01-01] MEDS: Lactated Ringers 1,000 ML 125 ML IVCONT ×2 (01:53→13:52)
--- NOTE | 2022-01-01 03:31 | PC.NURSE ---
pt resting in bed comfortably. in no distress.
[2022-01-01 04:32] LABS: MANUAL DIFF FLAG NO
[2022-01-01 04:33] LABS: Basophils Percent Auto 0.5 % (0-2); Eosinophils Percent Auto 0.3 % (0-4); Hematocrit 26.3 % (37.0-47.0); Hemoglobin 8.8 g/dl (12.0-16.0); Imm Gran Abs Auto 0.01 X10*3/uL (0.00-0.03); Imm Gran Pct Auto 0.3 % (0.0-0.4); Lymphocytes Absolute Auto 0.8 X10*3/uL (1.2-4.9); Lymphocytes Percent Auto 20.2 % (20-40); Mean Corpuscular HGB Conc 33.5 g/dl (31.0-35.0); Mean Corpuscular Hemoglobin 34.2 pg (27.0-33.0); Mean Corpuscular Volume 102.3 fL (80.0-98.0); Mean Platelet Volume 9.5 fL (9.4-12.3); Monocytes Absolute Auto 0.5 X10*3/uL (0.1-1.2); Neutrophils Absolute Auto 2.5 x10*3/uL (2.0-8.3); Neutrophils Percent Auto 65.7 % (45-73); Platelet Count 104 X10*3/uL (160-400); Red Blood Count 2.57 X10*6/uL (4.20-5.50); Red Cell Distribution Width 14.6 % (11.0-16.0); White Blood Count 3.9 X10*3/uL (4.8-10.8)
[2022-01-01 04:47] LABS: Anion Gap 12 (12-20); Blood Urea Nitrogen 31 mg/dL (9-16); Calcium 7.7 mg/dL (8.4-10.2); Carbon Dioxide 18 mmol/L (22-29); Chloride 107 mmol/L (96-108); Creatinine Clr Calc Pharmacy 28.8; Estimated Glomerular Filt Rate 29; Glucose Random 119 mg/dL (60-115); Potassium 3.6 mmol/L (3.3-5.1); Sodium 133 mmol/L (135-145)
--- NOTE | 2022-01-01 06:02 | PM.IMHP ---
History of Present Illness Date of Service: 01/01/22 Chief Complaint: dehydration, frequent falls this is a 66-year-old female past medical history of hypertension hyperthyroidism who presents to the hospital after frequent falls and heavy drinking. Patient was brought in by her family stating that she has had frequent falls. Patient is alert, oriented, but has evidence of withdrawals, with shaking, anxious, reports that she has been falling specially: Of the stairs in her house, reports no loss of consciousness, she reports dizziness, although she denies alcohol use, patient is currently intoxicated. according to her daughter patient has been drinking heavily in the past 2 weeks due to depression. Patient herself denies any chest pain, no shortness of breath, no abdominal pain nausea or vomiting, no diarrhea constipation, no urinary symptoms and no lower extremity edema. No headache or change in vision, no numbness tingling. On arrival to the ED patient hemodynamically stable with a heart rate of 105 otherwise no significant abnormality in vitals Labs are significant for WBC count 3.9 ( chronically low), hemoglobin of 8.8, hematocrit 26.3, MCV of 102.3, BUN of 31, creatinine of 2.76, total bili of 1.4, AST of 207, ALT of 166, alk-phos of 264, CPK of 387, ethyl level of 145 patient underwent multiple imaging studies which showed ulnar fracture with no other abnormality has high CIWA score patient will be admitted for further evaluation Review of Systems Review of Systems: Yes all other systems are reviewed and are negative [facility] Medical History Hypertension Hyperthyroidism Social History Alcohol intake: current Alcohol intake frequency: 0-2 drinks per day Alcohol type: hard liquor Patient Tobacco Use Status: Never used Tobacco Use of substances other than those prescribed or required for medical reasons: No Advance Directives: No Advance Directives Information Provided: Yes Current occupational status: retired 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[place] - 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 Meds Allergies Allergy/AdvReac Type Severity Reaction Status Date / Time diphenhydramine Allergy Intermediate ANXIETY/HYP Verified 04/17/21 10:38 [From BENADRYL] ERALERTNESS Sulfa (Sulfonamide Allergy Intermediate SWELLING, Verified 04/17/21 10:38 Antibiotics) facial swelling Benadryl Allergy Unknown aggitation Verified 04/17/21 10:38 latex [LATEX] Allergy Unknown RASH Verified 04/17/21 10:38 Latex Allergy Mild rash Uncoded 04/17/21 10:38 latex Allergy Mild rash Uncoded 04/17/21 10:38 Active Medications: Current Medications Acetaminophen (Acetaminophen 325 Mg Tablet) 650 mg PO Q6H PRN PRN Reason: Pain, Mild (Pain Scale 1-3) Last Admin: 01/01/22 01:52 Dose: 650 mg Folic Acid (Folic Acid 1 Mg Tablet) 1 mg PO DAILY [facility] Lactated Ringer's (Lr) 1,000 mls @ 125 mls/hr IVCONT .Q8H [facility] Last Admin: 01/01/22 01:53 Dose: 125 mls/hr Ondansetron HCl (Ondansetron Hcl 4 Mg/2 Ml Vial) 4 mg IVPUSH Q8H PRN PRN Reason: Nausea and Vomiting Oxycodone HCl (Oxycodone Hcl Immed Release 5 Mg Tablet) 5 mg PO Q6H PRN PRN Reason: Pain, Severe (Pain Scale 7-10) Last Admin: 01/01/22 01:52 Dose: 5 mg Pharmacy Consult (Consult Rx Etoh Phenob Po Only) 1 each MISCELLANE ONCE PRN; Protocol PRN Reason: Consult order Phenobarbital 100 mg/Phenobarbital 60 mg/Phenobarbital 15 mg 175 mg PO Q3H [facility] Stop: 01/01/22 08:16 Sodium Chloride (0.9 % Sodium Chloride Flush 3 Ml Syringe) 3 ml IVFLUSH QSHIFT [facility] Thiamine HCl (Thiamine Hcl 100 Mg Tablet) 100 mg PO DAILY [facility] Last Admin: 01/01/22 01:52 Dose: 100 mg Home Medications Medication Instructions Recorded Confirmed Last Taken Type levothyroxine 25 mcg capsule 25 mcg PO DAILY 07/31/20 01/01/22 Unknown History losartan 50 mg tablet 50 mg PO BID 07/31/20 01/01/22 Unknown History amlodipine 5 mg tablet 1 tab PO DAILY 01/01/22 01/01/22 Unknown History hydroxyzine HCl 25 mg tablet 1 tab PO DAILY 01/01/22 01/01/22 Unknown History trazodone 150 mg tablet 1 tab PO BEDTIME 01/01/22 01/01/22 Unknown History Physical Exam Vital Signs and Narrative: Vital Signs: Last Vital Signs Temp 97.6 F 01/01/22 04:57 Pulse 74 01/01/22 04:57 Resp 14 01/01/22 04:57 BP 109/53 L 01/01/22 04:57 Pulse Ox 94 01/01/22 04:57 O2 Del Method 01/01/22 04:57 BMI result Body Mass Index 24.0 Const: General: cooperative and no acute distress Orientation/consciousness: patient oriented x3 Eyes: General: appearance normal, both eyes and all related structures Resp: Effort & Inspection: normal respiratory effort Auscultation: clear to auscultation bilaterally Cardio: Rate: regular rate Rhythm: regular rhythm GI: Palpation (GI): Soft to palpation Auscultation: normal bowel sounds Skin: General skin exam: no rashes or lesions noted Neuro: Other: asterixis present General: patient oriented x3 Cognition (Neuro): normal cognition Extrem: General: Yes normal to inspection and Yes no pedal edema Results Labs CBC and Chem 7: 01/01/22 04:23 01/01/22 04:23 Labs: Laboratory Results - last 24 hr 12/31/21 12/31/21 12/31/21 19:54 19:54 19:54 MCV 101.9 H MCH 34.9 H MCHC 34.3 RDW 14.6 Plt Count 156 L MPV 9.6 Immature Gran % (Auto) 0.2 Neut % (Auto) 75.8 H Lymph % (Auto) 14.8 L [place] % (Auto) 9.0 Eos % (Auto) 0.0 Baso % (Auto) 0.2 Lymph # (Auto) 0.8 L [place] # (Auto) 0.5 Eos # (Auto) 0.0 Baso # (Auto) 0.0 Abs Immat Gran (auto) 0.01 Absolute Neuts (auto) 4.1 Absolute Nucleated RBC 0.000 Nucleated RBC % (auto) 0.0 Anion Gap 20 Estim Creat Clear Calc 18.4 Estimated GFR 17 Random Glucose 100 Calcium 9.0 Magnesium 1.6 Total Bilirubin 1.4 H AST 207 H ALT 166 H Alkaline Phosphatase 264 H D Total Creatine Kinase 387 H Troponin I High Sens Total Protein 7.6 Albumin 4.3 Ethyl Alcohol 145 COVID-19 (RANJIT) COVID-19 Clin Com 12/31/21 12/31/21 12/31/21 19:54 19:54 19:54 MCV MCH MCHC RDW Plt Count MPV Immature Gran % (Auto) Neut % (Auto) Lymph % (Auto) [place] % (Auto) Eos % (Auto) Baso % (Auto) Lymph # (Auto) [place] # (Auto) Eos # (Auto) Baso # (Auto) Abs Immat Gran (auto) Absolute Neuts (auto) Absolute Nucleated RBC Nucleated RBC % (auto) Anion Gap Estim Creat Clear Calc Estimated GFR Random Glucose Calcium Magnesium Total Bilirubin AST ALT Alkaline Phosphatase Total Creatine Kinase Cancelled Troponin I High Sens 11.7 Total Protein Albumin Ethyl Alcohol COVID-19 (RANJIT) Negative COVID-19 Clin Com See Note 12/31/21 12/31/21 01/01/22 23:27 23:27 04:23 MCV 102.3 H MCH 34.2 H MCHC 33.5 RDW 14.6 Plt Count 104 L D MPV 9.5 Immature Gran % (Auto) 0.3 Neut % (Auto) 65.7 Lymph % (Auto) 20.2 [place] % (Auto) 13.0 H Eos % (Auto) 0.3 Baso % (Auto) 0.5 Lymph # (Auto) 0.8 L [place] # (Auto) 0.5 Eos # (Auto) 0.0 Baso # (Auto) 0.0 Abs Immat Gran (auto) 0.01 Absolute Neuts (auto) 2.5 Absolute Nucleated RBC 0.000 Nucleated RBC % (auto) 0.0 Anion Gap 18 Estim Creat Clear Calc 23.8 Estimated GFR 23 Random Glucose 98 Calcium 8.0 L D Magnesium Total Bilirubin 1.2 H AST 158 H ALT 133 H Alkaline Phosphatase 221 H Total Creatine Kinase Troponin I High Sens 7.5 Total Protein 6.4 L Albumin 3.7 Ethyl Alcohol COVID-19 (RANJIT) COVID-19 Clin Com 01/01/22 04:23 MCV MCH MCHC RDW Plt Count MPV Immature Gran % (Auto) Neut % (Auto) Lymph % (Auto) [place] % (Auto) Eos % (Auto) Baso % (Auto) Lymph # (Auto) [place] # (Auto) Eos # (Auto) Baso # (Auto) Abs Immat Gran (auto) Absolute Neuts (auto) Absolute Nucleated RBC Nucleated RBC % (auto) Anion Gap 12 Estim Creat Clear Calc 28.8 Estimated GFR 29 Random Glucose 119 H Calcium 7.7 L Magnesium Total Bilirubin AST ALT Alkaline Phosphatase Total Creatine Kinase Troponin I High Sens Total Protein Albumin Ethyl Alcohol COVID-19 (RANJIT) COVID-19 Clin Com Imaging Radiologist's Impressions: Impressions Forearm X-Ray 12/31/21 19:45 IMPRESSION: 1. Mildly displaced ulnar styloid fracture. 2. No acute fracture identified elsewhere in the forearm or the left shoulder. 3. Severe left glenohumeral joint osteoarthritis. Forearm X-Ray 12/31/21 19:45 IMPRESSION: No acute fracture identified. Shoulder X-Ray 12/31/21 19:45 IMPRESSION: 1. Mildly displaced ulnar styloid fracture. 2. No acute fracture identified elsewhere in the forearm or the left shoulder. 3. Severe left glenohumeral joint osteoarthritis. Tibia/Fibula X-Ray 12/31/21 19:45 IMPRESSION: No acute fracture or dislocation identified. Tibia/Fibula X-Ray 12/31/21 19:45 IMPRESSION: No acute fracture or dislocation identified. Abdomen/Pelvis CT 12/31/21 19:55 IMPRESSION: 1. No evidence of a traumatic injury in the chest abdomen or pelvis. 2. Enlarged liver fatty liver. 3. Other incidental findings described above including small uterus with fibroids, small pancreatic lipoma, degenerative changes L4-L5 and other findings described above Fleischner guidelines were followed. Cervical Spine CT 12/31/21 19:55 IMPRESSION: 1. No intracranial hemorrhage or calvarial fracture. 2. No traumatic subluxation or acute cervical spine fracture. Chest CT 12/31/21 19:55 IMPRESSION: 1. No evidence of a traumatic injury in the chest abdomen or pelvis. 2. Enlarged liver fatty liver. 3. Other incidental findings described above including small uterus with fibroids, small pancreatic lipoma, degenerative changes L4-L5 and other findings described above Fleischner guidelines were followed. Head CT 12/31/21 19:55 IMPRESSION: 1. No intracranial hemorrhage or calvarial fracture. 2. No traumatic subluxation or acute cervical spine fracture. Assessment and Plan (1) Acute kidney failure: Status: Acute (2) Alcohol abuse with withdrawal: Status: Acute (3) Fall: Status: Acute (4) Macrocytic anemia: Status: Acute Plan 66-year-old female with past medical history of hypothyroidism and hypertension presents to the hospital with alcohol intoxication, multiple falls, found to have PIEDAD # PIEDAD - likely secondary to alcohol abuse, low oral intake, dehydration - abdominal CT negative for any obstruction, - UA pending - will treat with IV fluids - follow BMP # alcohol abuse with withdrawal - drinks heavily daily according to her daughter - has a high CIWA - will treat with phenobarb protocol - folic acid and thiamine supplement # acute microcytic anemia - likely in the setting of alcohol abuse - no overt blood loss this time - will obtain B12, folic acid, ferritin levels - occult stool blood test - follow CBC # frequent falls - likely secondary to intoxication - consider PT OT prior to discharge # hypertension - stable - continue amlodipine, hold losartan in the setting of PIEDAD # hypothyroidism - continue levothyroxine DVT prophylaxis: Lovenox given the PIEDAD, as well as severe alcohol withdrawal patient will require minimum 2 night hospital stay for IV fluids and further monitoring Quality Stroke Does the patient have a stroke diagnosis?: No VTE Prior VTE?: No VTE Risk Level:: Medical - moderate - high VTE Device Contraindication: Treatment Not Indicated VTE Drug Contraindication: N/A - Med Ordered
[2022-01-01 07:07] LABS: Ferritin 719 ng/mL (10-250)
--- NOTE | 2022-01-01 07:17 | PC.NURSE ---
Report received from ED. Pt resting in stretcher, NAD and sleeping at this time. Chest rise and fall visualized, pt snoring. Provided with breakfast tray. Daughter called and was updated. Callbell and belongings within reach.
[2022-01-01] MEDS: amLODIPine Besylate 5 MG TABLET PO (07:51)
[2022-01-01] MEDS: hydrOXYzine HCL 25 MG TABLET PO (07:52)
[2022-01-01] MEDS: Folic Acid 1 MG TABLET PO (07:52)
[2022-01-01] MEDS: Levothyroxine Sodium 75 MCG TABLET PO (08:27)
[2022-01-01 08:54] LABS: Folate 2.9 ng/mL (> or = 4.0); Vitamin B12 322 pg/mL (200-900)
[2022-01-01 10:08] LABS: Hematocrit 26.8 % (37.0-47.0); Hemoglobin 8.9 g/dl (12.0-16.0); Mean Corpuscular HGB Conc 33.2 g/dl (31.0-35.0); Mean Corpuscular Hemoglobin 34.6 pg (27.0-33.0); Mean Corpuscular Volume 104.3 fL (80.0-98.0); Mean Platelet Volume 10.5 fL (9.4-12.3); Red Blood Count 2.57 X10*6/uL (4.20-5.50); Red Cell Distribution Width 14.6 % (11.0-16.0); White Blood Count 3.6 X10*3/uL (4.8-10.8)
[2022-01-01 10:12] LABS: Platelet Count 96 X10*3/uL (160-400)
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
--- NOTE | 2022-01-01 13:15 | MHC.CM.PN ---
Met with patient in regards to discharge planning. Patient was seen by NANCY Slade last night because patient was originally a case management consult. Patient was admitted. IMM explained and signed. HCP verified to be on file. Patient received 3 Pfizer vaccines. Patient feels she can safely return home when medically stable and her daughter will transport her. Daughter is concern about patient's alcohol abuse. Patient may need a recovery team consult prior to discharge. Continue to monitor for d/c needs.
[2022-01-01 14:13] LABS: Hematocrit 27.4 % (37.0-47.0); Hemoglobin 9.2 g/dl (12.0-16.0); Mean Corpuscular HGB Conc 33.6 g/dl (31.0-35.0); Mean Corpuscular Hemoglobin 34.3 pg (27.0-33.0); Mean Corpuscular Volume 102.2 fL (80.0-98.0); Platelet Count 108 X10*3/uL (160-400); Red Blood Count 2.68 X10*6/uL (4.20-5.50); Red Cell Distribution Width 14.6 % (11.0-16.0)
[2022-01-01 14:41] LABS: Lactate Dehydrogenase 460 U/L (122-220)
--- NOTE | 2022-01-01 15:57 | MHC.RECOVRN ---
Pt asleep when t/w attempted to meet. Chart reviewed, will follow up tomorrow.
--- NOTE | 2022-01-01 16:47 | PHA.MEDREC ---
Pharmacy Consult ? Medication Reconciliation Pharmacy has completed the medication reconciliation. Reviewed med rec done by nursing.
--- NOTE | 2022-01-01 16:47 | PC.NURSE ---
PATIENT WAS VERY UNSTEADY TO BEDSIDE COMMODE ,VOIDED LARGE AMOUNT .
--- NOTE | 2022-01-01 18:43 | PC.NURSE ---
pt IV pump beeping while pt eating dinner. IV dislodged from her arm. fluid stopped at this time until new IV inserted
[2022-01-01] MEDS: PHENobarbitaL 15 MG TABLET 45 MG PO (21:08)
[2022-01-02 03:56] VITALS: BP 130/74; PULSE 76; RESP 18; TEMP 36.3; O2SAT 94
[2022-01-02] MEDS: Lactated Ringers 1,000 ML 80 ML IVCONT ×2 (04:09→14:40)
[2022-01-02] MEDS: Levothyroxine Sodium 75 MCG TABLET PO (06:29)
[2022-01-02 07:58] VITALS: BP 148/85; PULSE 66; RESP 20; TEMP 36.9; O2SAT 98
[2022-01-02] MEDS: Folic Acid 1 MG TABLET PO (09:19)
[2022-01-02] MEDS: Thiamine HCL 100 MG TABLET PO (09:19)
[2022-01-02] MEDS: PHENobarbitaL 15 MG TABLET 45 MG PO (09:19)
[2022-01-02] MEDS: hydrOXYzine HCL 25 MG TABLET PO (09:19)
[2022-01-02 09:25] LABS: Hematocrit 32.1 % (37.0-47.0); Hemoglobin 10.9 g/dl (12.0-16.0); Mean Corpuscular Hemoglobin 34.8 pg (27.0-33.0); Mean Corpuscular Volume 102.6 fL (80.0-98.0); Mean Platelet Volume 9.6 fL (9.4-12.3); Platelet Count 122 X10*3/uL (160-400); Red Blood Count 3.13 X10*6/uL (4.20-5.50); Red Cell Distribution Width 14.5 % (11.0-16.0); White Blood Count 3.8 X10*3/uL (4.8-10.8)
[2022-01-02 11:32] VITALS: BP 137/72; PULSE 79; RESP 20; TEMP 36.7; O2SAT 96
[2022-01-02 13:59] LABS: Alanine Aminotransferase 117 U/L (0-31); Albumin Level 3.5 g/dL (3.5-5.0); Alkaline Phosphatase 273 U/L (39-117); Anion Gap 12 (12-20); Aspartate Amino Transferase 161 U/L (5-31); Bilirubin Total 1.1 mg/dL (0.0-1.0); Blood Urea Nitrogen 21 mg/dL (9-16); Calcium 8.2 mg/dL (8.4-10.2); Carbon Dioxide 23 mmol/L (22-29); Chloride 106 mmol/L (96-108); Creatinine Clr Calc Pharmacy 42.9; Estimated Glomerular Filt Rate 45; Glucose Random 109 mg/dL (60-115); Potassium 4.3 mmol/L (3.3-5.1); Sodium 137 mmol/L (135-145); Total Protein 6.2 g/dL (6.5-8.0)
[2022-01-02 14:26] VITALS: BP 137/72; PULSE 79; O2SAT 96
[2022-01-02] MEDS: Acetaminophen 325 MG TABLET 650 MG PO (14:38)
[2022-01-02 15:22] VITALS: BP 174/89; PULSE 94; RESP 18; TEMP 36.2; O2SAT 98
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
--- NOTE | 2022-01-02 15:38 | MHC.CM.PN ---
PLAN IS DC HOME BY WEDNESDAY RN AWARE.
--- NOTE | 2022-01-02 15:41 | P.DS_ITS ---
DS: Providers Provider Date of Service: 01/02/22 Date of admission: 01/01/22 00:55 Primary care physician: Nadeem Conn MD Consults: 01/01/22 06:04 Consult to Care Team Routine Comment: Reason for consultation: alcohol abuse, depression DS: Diagnosis Discharge Diagnosis (1) Acute kidney failure: Status: Acute (2) Alcohol abuse with withdrawal: Status: Acute (3) Fall: Status: Acute (4) Macrocytic anemia: Status: Acute DS: Summary Hospital Course Hospital Course: From the admission H&P: this is a 66-year-old female past medical history of hypertension hyperthyroidism who presents to the hospital after frequent falls and heavy drinking.? Patient was brought in by her family stating that she has had frequent falls.? Patient is alert, oriented, but has evidence of withdrawals, with shaking, anxious, reports that she has been falling specially: Of the stairs in her house, reports no loss of consciousness, she reports dizziness, although she denies alcohol use, patient is currently intoxicated. according to her daughter patient has been drinking heavily in the past 2 weeks due to depression. ? Patient herself denies any chest pain, no shortness of breath, no abdominal pain nausea or vomiting, no diarrhea constipation, no urinary symptoms and no lower extremity edema.? No headache or change in vision, no numbness tingling.? On arrival to the ED patient hemodynamically stable with a heart rate of 105 otherwise no significant abnormality in vitals Labs are significant for WBC count 3.9? ( chronically low), hemoglobin of 8.8, hematocrit 26.3,? MCV of 102.3, BUN of 31, creatinine of 2.76, total bili of 1.4, AST of 207, ALT of 166, alk-phos of 264, CPK of 387,? ethyl level of 145 ?patient underwent multiple imaging studies which showed ulnar fracture with no other abnormality ?has high CIWA score ?patient will be admitted for further evaluation Hospital Course: Patient was started on phenobarbital for alcohol withdrawal. For her acute kidney injury she was treated with aggressive fluid resuscitation. With these measures her alcohol withdrawal resolved and her renal function normalized. Patient was seen by Addiction Medicine and will be following up with them early next week to start treatment for alcohol dependence. Patient was evaluated by Physical therapy who recommended short-term rehabilitation, however the patient declined and opted to go home without services. Patient is to have repeat chemistries completed in 1 week and should follow-up with PCP in the same timeframe as well. Of note, patient has a wrist fracture sustained from her fall. This has been placed in the splint. She should follow-up with orthopedics in several weeks. Time Spent with Patient Time attestation: Total time spent providing and/or coordinating discharge services: Discharge coordination time: Greater than 30 minutes Quality: Safe Use of Opioids Does Pt have an Active Cancer Diagnosis on the Problem List?: No Quality: Stroke Does the patient have a stroke diagnosis?: No Physical Exam Vital Signs: Vital Signs: Last Vital Signs Temp 97.1 F 01/02/22 15: Pulse 94 01/02/22 15:22 Resp 18 01/02/22 15:22 BP 174/89 H 01/02/22 15:22 Pulse Ox 98 01/02/22 15:22 O2 Del Method 01/02/22 15:22 BMI result Body Mass Index 24.0 Const: Other: General - no acute distress, appears comfortable Cardiovascular - regular rate and rhythm, S1-S2 Lungs - normal respiratory effort, clear to auscultation bilaterally, no wheezing Abdomen - soft, nontender, no rebound or guarding Extremities - L wrist in splint Neuro - awake and alert, no focal deficits; aaox3 skin -- multiple areas of brusing at different stages throughout the body DS: Data Data Completed and Pending Labs on day of discharge: Laboratory Results - last 24 hr 01/02/22 01/02/22 09:19 13:20 WBC 3.8 L RBC 3.13 L Hgb 10.9 L Hct 32.1 L MCV 102.6 H MCH 34.8 H MCHC 34.0 RDW 14.5 Plt Count 122 L MPV 9.6 Absolute Nucleated RBC 0.000 Nucleated RBC % (auto) 0.0 Sodium 137 Potassium 4.3 Chloride 106 Carbon Dioxide 23 Anion Gap 12 BUN 21 H Creatinine 1.19 Estim Creat Clear Calc 42.9 Estimated GFR 45 Random Glucose 109 Calcium 8.2 L D Total Bilirubin 1.1 H AST 161 H ALT 117 H Alkaline Phosphatase 273 H D Total Protein 6.2 L Albumin 3.5 Discharge Plan Discharge Patient Disposition: Home, Self-Care Discharge Diagnosis: PIEDAD Alcohol abuse and dependence, withdrawal Alcoholic liver disease Referrals: Nadeem Conn MD [Primary Care Provider] - 1 Week Bill Blas PA-C [Physician Radio Antenna Installer] - 1 Week Discharge Medications: Continued amlodipine 5 mg tablet 1 tab PO DAILY hydroxyzine HCl 25 mg tablet 1 tab PO DAILY trazodone 150 mg tablet 1 tab PO BEDTIME levothyroxine 75 mcg tablet 1 tab PO MOTUWETHFRSA Rx Instructions: 75 mcg M-SA 112.5 mcg SUN levothyroxine 75 mcg tablet 112.5 mcg PO POTTER losartan 50 mg tablet 50 mg PO BID Discharge Orders: Discharge Order (Routine); Ordered 01/02/22 Ordered By: Chevy Molina Diet: Advance to usual diet Activity on Discharge: As tolerated Stand Alone Forms: Patient Portal Discharge page Other Ambulatory Orders: Comprehensive Met. Panel (Routine) Timeframe: 1 Week Facility: [facility] - Location: Laboratory Ordered By: Chevy Molina Care Plan Goals: To stay healthy and out of the hospital. To get treatment for alcohol dependence Health Concerns: Alcohol abuse and dependence Acute kidney injury Abnormal LFTs Plan of Treatment: Stop drinking alcohol and follow-up with Addiction Medicine for further treatment. Take your medications as you normally do. Repeat blood work next week Follow-up with Dr. Conn Assessment: see discharge summary
--- NOTE | 2022-01-02 15:53 | MHC.RECOVRN ---
[facility], CM aware.
[2022-01-02] MEDS: amLODIPine Besylate 5 MG TABLET PO (16:12)
--- NOTE | 2022-01-02 16:58 | HO.ADDICTCON ---
History of Present Illness Date of Service: 01/02/2022 Chief Complaint: PIEDAD Reason for Consult: AUD HPI Narrative: Patient is a 66 year old female medically admitted after presenting to ED with fall-presumed to be related to alcohol intoxication. Patient met with [facility] following consult to address alcohol use, and patient expressed interest in trial of naltrexone. Please [facility]N note for further details. Patient denies any treatment history and somewhat limited insight into current alcohol use and concern related to this. She does identify hand tremors when she does not have anything to drink. Denies any hx of seizures or other complications of alcohol withdrawal. Reviewed medication goals, dosing, side effects and follow up with patient. Questions answered. Review of Systems Constitutional: Reports as per HPI Diagnostics Vital Signs (24Hr): Vital Signs - 24 hr 01/01/22 20:42 01/01/22 23:42 01/02/22 03:56 Temperature 97.4 F 96.8 F 97.3 F Pulse Rate 97 61 76 Respiratory Rate 18 18 18 Blood Pressure 143/69 H 129/70 130/74 Pulse Oximetry 99 94 94 Oxygen Delivery Method Room Air Room Air Room Air 01/02/22 07:58 01/02/22 11:32 01/02/22 14:26 Temperature 98.4 F 98.0 F Pulse Rate 66 79 79 Respiratory Rate 20 20 Blood Pressure 148/85 H 137/72 137/72 Pulse Oximetry 98 96 96 Oxygen Delivery Method Room Air Room Air 01/02/22 15:22 Temperature 97.1 F Pulse Rate 94 Respiratory Rate 18 Blood Pressure 174/89 H Pulse Oximetry 98 Oxygen Delivery Method Room Air BMI result Body Mass Index 24.0 Labs Results: 01/02/22 09:19 01/02/22 13:20 Labs: Laboratory Results - last 48 hr 12/31/21 12/31/21 12/31/21 19:54 19:54 19:54 WBC 5.3 RBC 3.21 L Hgb 11.2 L Hct 32.7 L MCV 101.9 H MCH 34.9 H MCHC 34.3 RDW 14.6 Plt Count 156 L MPV 9.6 Immature Gran % (Auto) 0.2 Neut % (Auto) 75.8 H Lymph % (Auto) 14.8 L Donley % (Auto) 9.0 Eos % (Auto) 0.0 Baso % (Auto) 0.2 Lymph # (Auto) 0.8 L Donley # (Auto) 0.5 Eos # (Auto) 0.0 Baso # (Auto) 0.0 Abs Immat Gran (auto) 0.01 Absolute Neuts (auto) 4.1 Absolute Nucleated RBC 0.000 Nucleated RBC % (auto) 0.0 Sodium 138 Potassium 3.7 Chloride 103 Carbon Dioxide 19 L Anion Gap 20 BUN 31 H Creatinine 2.76 H Estim Creat Clear Calc 18.4 Estimated GFR 17 Random Glucose 100 Calcium 9.0 Magnesium 1.6 Ferritin Total Bilirubin 1.4 H AST 207 H ALT 166 H Alkaline Phosphatase 264 H D Lactate Dehydrogenase Total Creatine Kinase 387 H Troponin I High Sens Total Protein 7.6 Albumin 4.3 Vitamin B12 Folate Ethyl Alcohol 145 COVID-19 (RANJIT) COVID-19 Clin Com BELINDA, Polyspecific Positive BELINDA Work-up 12/31/21 12/31/21 12/31/21 19:54 19:54 19:54 WBC RBC Hgb Hct MCV MCH MCHC RDW Plt Count MPV Immature Gran % (Auto) Neut % (Auto) Lymph % (Auto) Donley % (Auto) Eos % (Auto) Baso % (Auto) Lymph # (Auto) Donley # (Auto) Eos # (Auto) Baso # (Auto) Abs Immat Gran (auto) Absolute Neuts (auto) Absolute Nucleated RBC Nucleated RBC % (auto) Sodium Potassium Chloride Carbon Dioxide Anion Gap BUN Creatinine Estim Creat Clear Calc Estimated GFR Random Glucose Calcium Magnesium Ferritin Total Bilirubin AST ALT Alkaline Phosphatase Lactate Dehydrogenase Total Creatine Kinase Cancelled Troponin I High Sens 11.7 Total Protein Albumin Vitamin B12 Folate Ethyl Alcohol COVID-19 (RANJIT) Negative COVID-19 Clin Com See Note BELINDA, Polyspecific Positive BELINDA Work-up 12/31/21 12/31/21 01/01/22 23:27 23:27 04:23 WBC 3.9 L RBC 2.57 L Hgb 8.8 L D Hct 26.3 L MCV 102.3 H MCH 34.2 H MCHC 33.5 RDW 14.6 Plt Count 104 L D MPV 9.5 Immature Gran % (Auto) 0.3 Neut % (Auto) 65.7 Lymph % (Auto) 20.2 Donley % (Auto) 13.0 H Eos % (Auto) 0.3 Baso % (Auto) 0.5 Lymph # (Auto) 0.8 L Donley # (Auto) 0.5 Eos # (Auto) 0.0 Baso # (Auto) 0.0 Abs Immat Gran (auto) 0.01 Absolute Neuts (auto) 2.5 Absolute Nucleated RBC 0.000 Nucleated RBC % (auto) 0.0 Sodium 140 Potassium 3.8 Chloride 109 H Carbon Dioxide 17 L Anion Gap 18 BUN 29 H Creatinine 2.14 H Estim Creat Clear Calc 23.8 Estimated GFR 23 Random Glucose 98 Calcium 8.0 L D Magnesium Ferritin Total Bilirubin 1.2 H AST 158 H ALT 133 H Alkaline Phosphatase 221 H Lactate Dehydrogenase Total Creatine Kinase Troponin I High Sens 7.5 Total Protein 6.4 L Albumin 3.7 Vitamin B12 Folate Ethyl Alcohol COVID-19 (RANJIT) COVID-19 Clin Com BELINDA, Polyspecific Positive EBLINDA Work-up 01/01/22 01/01/22 01/01/22 04:23 06:14 06:14 WBC RBC Hgb Hct MCV MCH MCHC RDW Plt Count MPV Immature Gran % (Auto) Neut % (Auto) Lymph % (Auto) Donley % (Auto) Eos % (Auto) Baso % (Auto) Lymph # (Auto) Donley # (Auto) Eos # (Auto) Baso # (Auto) Abs Immat Gran (auto) Absolute Neuts (auto) Absolute Nucleated RBC Nucleated RBC % (auto) Sodium 133 L Potassium 3.6 Chloride 107 Carbon Dioxide 18 L Anion Gap 12 BUN 31 H Creatinine 1.77 H Estim Creat Clear Calc 28.8 Estimated GFR 29 Random Glucose 119 H Calcium 7.7 L Magnesium Ferritin 719 H Total Bilirubin AST ALT Alkaline Phosphatase Lactate Dehydrogenase Total Creatine Kinase Troponin I High Sens Total Protein Albumin Vitamin B12 322 Folate 2.9 L Ethyl Alcohol COVID-19 (RANJIT) COVID-19 Clin Com BELINDA, Polyspecific Positive BELINDA Work-up 01/01/22 01/01/22 01/01/22 09:39 09:39 14:07 WBC 3.6 L 3.0 L RBC 2.57 L 2.68 L Hgb 8.9 L 9.2 L Hct 26.8 L 27.4 L MCV 104.3 H 102.2 H MCH 34.6 H 34.3 H MCHC 33.2 33.6 RDW 14.6 14.6 Plt Count 96 L 108 L MPV 10.5 10.0 Immature Gran % (Auto) Neut % (Auto) Lymph % (Auto) Donley % (Auto) Eos % (Auto) Baso % (Auto) Lymph # (Auto) Donley # (Auto) Eos # (Auto) Baso # (Auto) Abs Immat Gran (auto) Absolute Neuts (auto) Absolute Nucleated RBC 0.000 0.000 Nucleated RBC % (auto) 0.0 0.0 Sodium Potassium Chloride Carbon Dioxide Anion Gap BUN Creatinine Estim Creat Clear Calc Estimated GFR Random Glucose Calcium Magnesium Ferritin Total Bilirubin AST ALT Alkaline Phosphatase Lactate Dehydrogenase Total Creatine Kinase Troponin I High Sens Total Protein Albumin Vitamin B12 Folate Ethyl Alcohol COVID-19 (RANJIT) COVID-19 Clin Com BELINDA, Polyspecific NEGATIVE Positive BELINDA Work-up TNP 01/01/22 01/02/22 01/02/22 14:07 09:19 13:20 WBC 3.8 L RBC 3.13 L Hgb 10.9 L Hct 32.1 L MCV 102.6 H MCH 34.8 H MCHC 34.0 RDW 14.5 Plt Count 122 L MPV 9.6 Immature Gran % (Auto) Neut % (Auto) Lymph % (Auto) Donley % (Auto) Eos % (Auto) Baso % (Auto) Lymph # (Auto) Donley # (Auto) Eos # (Auto) Baso # (Auto) Abs Immat Gran (auto) Absolute Neuts (auto) Absolute Nucleated RBC 0.000 Nucleated RBC % (auto) 0.0 Sodium 137 Potassium 4.3 Chloride 106 Carbon Dioxide 23 Anion Gap 12 BUN 21 H Creatinine 1.19 Estim Creat Clear Calc 42.9 Estimated GFR 45 Random Glucose 109 Calcium 8.2 L D Magnesium Ferritin Total Bilirubin 1.1 H AST 161 H ALT 117 H Alkaline Phosphatase 273 H D Lactate Dehydrogenase 460 H Total Creatine Kinase Troponin I High Sens Total Protein 6.2 L Albumin 3.5 Vitamin B12 Folate Ethyl Alcohol COVID-19 (RANJIT) COVID-19 Clin Com BELINDA, Polyspecific Positive BELINDA Work-up Imaging Radiology Impressions: ITS Impressions Forearm X-Ray 12/31/21 19:45 IMPRESSION: 1. Mildly displaced ulnar styloid fracture. 2. No acute fracture identified elsewhere in the forearm or the left shoulder. 3. Severe left glenohumeral joint osteoarthritis. Forearm X-Ray 12/31/21 19:45 IMPRESSION: No acute fracture identified. Shoulder X-Ray 12/31/21 19:45 IMPRESSION: 1. Mildly displaced ulnar styloid fracture. 2. No acute fracture identified elsewhere in the forearm or the left shoulder. 3. Severe left glenohumeral joint osteoarthritis. Tibia/Fibula X-Ray 12/31/21 19:45 IMPRESSION: No acute fracture or dislocation identified. Tibia/Fibula X-Ray 12/31/21 19:45 IMPRESSION: No acute fracture or dislocation identified. Abdomen/Pelvis CT 12/31/21 19:55 IMPRESSION: 1. No evidence of a traumatic injury in the chest abdomen or pelvis. 2. Enlarged liver fatty liver. 3. Other incidental findings described above including small uterus with fibroids, small pancreatic lipoma, degenerative changes L4-L5 and other findings described above Fleischner guidelines were followed. Cervical Spine CT 12/31/21 19:55 IMPRESSION: 1. No intracranial hemorrhage or calvarial fracture. 2. No traumatic subluxation or acute cervical spine fracture. Chest CT 12/31/21 19:55 IMPRESSION: 1. No evidence of a traumatic injury in the chest abdomen or pelvis. 2. Enlarged liver fatty liver. 3. Other incidental findings described above including small uterus with fibroids, small pancreatic lipoma, degenerative changes L4-L5 and other findings described above Fleischner guidelines were followed. Head CT 12/31/21 19:55 IMPRESSION: 1. No intracranial hemorrhage or calvarial fracture. 2. No traumatic subluxation or acute cervical spine fracture. Mental Status Exam Mental Status Exam Patient Appearance: Appropriate Level of Consciousness: Awake and Alert Patient Behavior: Guarded and Cooperative Judgement: Fair Medications Medications Current Medications Acetaminophen (Acetaminophen 325 Mg Tablet) 650 mg PO Q6H PRN PRN Reason: Pain, Mild (Pain Scale 1-3) Last Admin: 01/02/22 14:38 Dose: 650 mg Folic Acid (Folic Acid 1 Mg Tablet) 1 mg PO DAILY [facility] Last Admin: 01/02/22 09:19 Dose: 1 mg Hydroxyzine HCl (Hydroxyzine Hcl 25 Mg Tablet) 25 mg PO DAILY [facility] Last Admin: 01/02/22 09:19 Dose: 25 mg Lactated Ringer's (Lr) 1,000 mls @ 80 mls/hr IVCONT .[id number] [facility] Last Admin: 01/02/22 14:40 Dose: 80 mls/hr Levothyroxine Sodium (Levothyroxine Sodium 75 Mcg Tablet) 75 mcg PO [id number] [facility] Last Admin: 01/02/22 06:29 Dose: 75 mcg Levothyroxine Sodium (Levothyroxine Sodium 112 Mcg Tablet) 112 mcg PO [email or web address] [facility] Ondansetron HCl (Ondansetron Hcl 4 Mg/2 Ml Vial) 4 mg IVPUSH Q8H PRN PRN Reason: Nausea and Vomiting Oxycodone HCl (Oxycodone Hcl Immed Release 5 Mg Tablet) 5 mg PO Q6H PRN PRN Reason: Pain, Severe (Pain Scale 7-10) Last Admin: 01/01/22 21:08 Dose: 5 mg Pharmacy Consult (Consult Rx Etoh Phenob Po Only) 1 each MISCELLANE ONCE PRN; Protocol PRN Reason: Consult order Phenobarbital (Phenobarbital 15 Mg Tablet) 45 mg PO BID [facility]; Protocol Stop: 01/03/22 09:01 Last Admin: 01/02/22 09:19 Dose: 45 mg Phenobarbital (Phenobarbital 30 Mg Tablet) 30 mg PO BID [facility]; Protocol Stop: 01/05/22 09:01 Phenobarbital (Phenobarbital 30 Mg Tablet) 30 mg PO DAILY [facility]; Protocol Stop: 01/07/22 09:01 Sodium Chloride (0.9 % Sodium Chloride Flush 3 Ml Syringe) [facility] Last Admin: 01/02/22 09:22 Dose: Not Given Thiamine HCl (Thiamine Hcl 100 Mg Tablet) 100 mg PO DAILY [facility] Last Admin: 01/02/22 09:19 Dose: 100 mg Allergies Allergies Allergy/AdvReac Type Severity Reaction Status Date / Time diphenhydramine Allergy Intermediate ANXIETY/HYP Verified 04/17/21 10:38 [From BENADRYL] ERALERTNESS Sulfa (Sulfonamide Allergy Intermediate SWELLING, Verified 04/17/21 10:38 Antibiotics) facial swelling Benadryl Allergy Unknown aggitation Verified 04/17/21 10:38 latex [LATEX] Allergy Unknown RASH Verified 04/17/21 10:38 Latex Allergy Mild rash Uncoded 04/17/21 10:38 latex Allergy Mild rash Uncoded 04/17/21 10:38 Assessment & Plan Assessment & Plan (1) Alcohol use disorder, severe, dependence: Status: Acute Code(s): F10.20 - Alcohol dependence, uncomplicated Assessment and Plan: naltrexone prescription sent to patients pharmacy reviewed medication interactions follow up appt at [facility] scheduled for 01/08 I spent 35_ minutes with the patient and/or on the patient floor today, greater than?50% of which was spent counseling/coordinating care. 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
== END 2022-01-02 17:50 | disposition home or self-care (01) | DRG 683 ==
LOC: HO.ED 01-01 01:16 → HO.EDOVER 01-01 01:35 → HO.S3 01-01 18:37
PROVIDERS: Physician Assistant; Admitting Provider Internal Medicine; Emergency Provider Student in an Organized Health Care Education/Training Program; PCP Internal Medicine; Visit Provider Family Medicine
DX: N17.9 Acute kidney failure, unspecified (principal); F10.239 Alcohol dependence with withdrawal, unspecified; S52.612A Displaced fracture of left ulna styloid process, initial encounter for closed fracture; E03.9 Hypothyroidism, unspecified; I10 Essential (primary) hypertension; E86.0 Dehydration; R29.6 Repeated falls; D64.9 Anemia, unspecified; W10.9XXA Fall (on) (from) unspecified stairs and steps, initial encounter; Z91.81 History of falling; Z20.822 Contact with and (suspected) exposure to COVID-19; Z91.040 Latex allergy status; Z88.2 Allergy status to sulfonamides; Z88.8 Allergy status to other drugs, medicaments and biological substances; Z79.890 Hormone replacement therapy; Z79.899 Other long term (current) drug therapy
CPT/HCPCS: 36415; 70450; 71250; 72125; 73030; 73090; 73590; 74176; 80048; 80053; 82077; 82550; 82607; 82728; 82746; 83615; 83735; 84484; 85025; 85027; 86880; 87635; 93005; 96360; 97162; 99218; 99285

== ENCOUNTER 2022-01-07 09:50 | Outpatient (REF) | payer MEDICARE, SELFPAY ==
[2022-01-07 10:36] LABS: Basophils Percent Auto 0.9 % (0-2); Eosinophils Absolute Auto 0.1 X10*3/uL (0.0-0.4); Hematocrit 30.4 % (37.0-47.0); Hemoglobin 10.2 g/dl (12.0-16.0); Imm Gran Abs Auto 0.02 X10*3/uL (0.00-0.03); Imm Gran Pct Auto 0.6 % (0.0-0.4); Lymphocytes Absolute Auto 0.7 X10*3/uL (1.2-4.9); Lymphocytes Percent Auto 20.8 % (20-40); MANUAL DIFF FLAG SCAN; Mean Corpuscular HGB Conc 33.6 g/dl (31.0-35.0); Mean Corpuscular Hemoglobin 34.3 pg (27.0-33.0); Mean Corpuscular Volume 102.4 fL (80.0-98.0); Mean Platelet Volume 9.3 fL (9.4-12.3); Monocytes Absolute Auto 0.7 X10*3/uL (0.1-1.2); Monocytes Percent Auto 20.5 % (2-11); Neutrophils Absolute Auto 1.9 x10*3/uL (2.0-8.3); Neutrophils Percent Auto 55.2 % (45-73); Platelet Count 242 X10*3/uL (160-400); Red Blood Count 2.97 X10*6/uL (4.20-5.50); Red Cell Distribution Width 14.6 % (11.0-16.0); SCAN SMEAR FLAG 1; White Blood Count 3.5 X10*3/uL (4.8-10.8)
[2022-01-07 10:48] LABS: Alanine Aminotransferase 56 U/L (0-31); Albumin Level 3.7 g/dL (3.5-5.0); Alkaline Phosphatase 241 U/L (39-117); Anion Gap 14 (12-20); Aspartate Amino Transferase 47 U/L (5-31); Bilirubin Total 0.9 mg/dL (0.0-1.0); Blood Urea Nitrogen 5 mg/dL (9-16); Calcium 8.3 mg/dL (8.4-10.2); Carbon Dioxide 26 mmol/L (22-29); Chloride 104 mmol/L (96-108); Cholesterol 196 mg/dL; Estimated Glomerular Filt Rate > 60; Glucose Fasting 99 mg/dL (60-99); HDL Cholesterol 59 mg/dL; LDL Cholesterol Calculated 116 mg/dl; Potassium 3.9 mmol/L (3.3-5.1); Sodium 140 mmol/L (135-145); Total Protein 6.7 g/dL (6.5-8.0); Triglycerides 108 mg/dL
[2022-01-07 10:53] LABS: Alanine Aminotransferase 56 U/L (0-31); Albumin Level 3.7 g/dL (3.5-5.0); Alkaline Phosphatase 242 U/L (39-117); Anion Gap 14 (12-20); Aspartate Amino Transferase 47 U/L (5-31); Bilirubin Total 0.9 mg/dL (0.0-1.0); Blood Urea Nitrogen 5 mg/dL (9-16); Calcium 8.2 mg/dL (8.4-10.2); Carbon Dioxide 27 mmol/L (22-29); Chloride 104 mmol/L (96-108); Estimated Glomerular Filt Rate > 60; Glucose Random 100 mg/dL (60-115); Sodium 141 mmol/L (135-145); Total Protein 6.7 g/dL (6.5-8.0)
[2022-01-07 11:12] LABS: Free T4 (Free Thyroxine) 1.12 ng/dL (0.71-1.85); Thyroid Stimulating Hormone 0.94 uIU/mL (0.32-4.0)
[2022-01-07 11:21] LABS: SLIDE REVIEW VERIFIED
== END 2022-01-07 09:51 | disposition home or self-care (01) ==
LOC: HO.10HDL 09:50
PROVIDERS: Internal Medicine; Visit Provider Family Medicine
DX: I12.9 Hypertensive chronic kidney disease with stage 1 through stage 4 chronic kidney disease, or unspecified chronic kidney disease (principal); N18.9 Chronic kidney disease, unspecified; N17.9 Acute kidney failure, unspecified; E78.00 Pure hypercholesterolemia, unspecified; K21.9 Gastro-esophageal reflux disease without esophagitis; E03.9 Hypothyroidism, unspecified
CPT/HCPCS: 36415; 80053; 80061; 84439; 84443; 85025

== ENCOUNTER → 2022-01-08 10:27 | Outpatient (BNVA) | payer MEDICARE, SELFPAY | PROVIDERS: PCP Internal Medicine; Visit Provider Nurse Practitioner Psychiatric/Mental Health | DX: F10.20 Alcohol dependence, uncomplicated (principal) | CPT/HCPCS: 99212 ==

== ENCOUNTER 2022-01-14 11:16 | Outpatient (REF) | payer MEDICARE, SELFPAY | END 2022-01-14 11:17 | disposition home or self-care (01) | LOC: HO.10HDL 11:16 | PROVIDERS: Visit Provider Internal Medicine | DX: L03.115 Cellulitis of right lower limb (principal) | CPT/HCPCS: 87071; 87077; 87186; 87205 ==

== ENCOUNTER → 2022-01-22 08:57 | Outpatient (BNVA) | payer MEDICARE, SELFPAY | PROVIDERS: PCP Internal Medicine; Visit Provider Nurse Practitioner Psychiatric/Mental Health | DX: Z51.81 Encounter for therapeutic drug level monitoring (principal); F10.20 Alcohol dependence, uncomplicated | CPT/HCPCS: 99212 ==

== ENCOUNTER → 2022-02-05 09:00 | Outpatient (BNVA) | payer MEDICARE, SELFPAY | PROVIDERS: PCP Internal Medicine; Visit Provider Nurse Practitioner Psychiatric/Mental Health | DX: F10.20 Alcohol dependence, uncomplicated (principal) | CPT/HCPCS: 99212 ==

== ENCOUNTER → 2022-02-18 09:52 | Outpatient (BNVA) | payer MEDICARE, SELFPAY | PROVIDERS: PCP Internal Medicine; Visit Provider Nurse Practitioner Psychiatric/Mental Health | DX: Z51.81 Encounter for therapeutic drug level monitoring (principal); F10.20 Alcohol dependence, uncomplicated; Z79.899 Other long term (current) drug therapy | CPT/HCPCS: 99212 ==

== ENCOUNTER → 2022-03-04 09:58 | Outpatient (BNVA) | payer MEDICARE, SELFPAY | PROVIDERS: PCP Internal Medicine; Visit Provider Nurse Practitioner Psychiatric/Mental Health | DX: F10.20 Alcohol dependence, uncomplicated (principal) | CPT/HCPCS: 80305; 99212 ==

== ENCOUNTER 2022-03-10 10:16 | Outpatient (REF) | payer MEDICARE, SELFPAY ==
[2022-03-10 11:02] LABS: MANUAL DIFF FLAG NO
[2022-03-10 11:15] LABS: Basophils Percent Auto 1.1 % (0-2); Eosinophils Absolute Auto 0.1 X10*3/uL (0.0-0.4); Eosinophils Percent Auto 1.9 % (0-4); Hematocrit 36.3 % (37.0-47.0); Hemoglobin 11.8 g/dl (12.0-16.0); Imm Gran Abs Auto 0.01 X10*3/uL (0.00-0.03); Imm Gran Pct Auto 0.3 % (0.0-0.4); Lymphocytes Absolute Auto 0.8 X10*3/uL (1.2-4.9); Lymphocytes Percent Auto 21.3 % (20-40); Mean Corpuscular HGB Conc 32.5 g/dl (31.0-35.0); Mean Corpuscular Hemoglobin 31.8 pg (27.0-33.0); Mean Corpuscular Volume 97.8 fL (80.0-98.0); Mean Platelet Volume 9.2 fL (9.4-12.3); Monocytes Absolute Auto 0.4 X10*3/uL (0.1-1.2); Monocytes Percent Auto 11.2 % (2-11); Neutrophils Absolute Auto 2.4 x10*3/uL (2.0-8.3); Neutrophils Percent Auto 64.2 % (45-73); Platelet Count 307 X10*3/uL (160-400); Red Blood Count 3.71 X10*6/uL (4.20-5.50); Red Cell Distribution Width 12.6 % (11.0-16.0); White Blood Count 3.7 X10*3/uL (4.8-10.8)
[2022-03-10 11:44] LABS: Alanine Aminotransferase 16 U/L (0-31); Albumin Level 4.1 g/dL (3.5-5.0); Alkaline Phosphatase 101 U/L (39-117); Anion Gap 16 (12-20); Aspartate Amino Transferase 16 U/L (5-31); Bilirubin Total 0.4 mg/dL (0.0-1.0); Blood Urea Nitrogen 7 mg/dL (9-16); Calcium 9.8 mg/dL (8.4-10.2); Carbon Dioxide 26 mmol/L (22-29); Chloride 103 mmol/L (96-108); Estimated Glomerular Filt Rate > 60; Glucose Random 97 mg/dL (60-115); Potassium 4.4 mmol/L (3.3-5.1); Sodium 141 mmol/L (135-145); Total Protein 7.1 g/dL (6.5-8.0)
[2022-03-10 12:04] LABS: Free T4 (Free Thyroxine) 1.11 ng/dL (0.71-1.85); Thyroid Stimulating Hormone 0.19 uIU/mL (0.32-4.0)
== END 2022-03-10 10:17 | disposition home or self-care (01) ==
LOC: HO.10HDL 10:16
PROVIDERS: Visit Provider Internal Medicine
DX: D64.9 Anemia, unspecified (principal); E03.9 Hypothyroidism, unspecified
CPT/HCPCS: 36415; 80053; 84439; 84443; 85025

== ENCOUNTER 2022-03-18 10:24 | Outpatient (REF) | payer MEDICARE, SELFPAY ==
[2022-03-25 08:31] LABS: Codeine, Ur NEGATIVE; Hydrocodone, Ur NEGATIVE; Hydromorphone, Ur NEGATIVE; Morphine, Ur NEGATIVE; Norhydrocodone, Ur NEGATIVE; Noroxycodone, Ur NEGATIVE; Oxycodone, Ur NEGATIVE; Oxymorphone, Ur NEGATIVE
== END 2022-03-18 10:25 | disposition home or self-care (01) ==
LOC: HO.LAB 10:24
PROVIDERS: Visit Provider Nurse Practitioner Psychiatric/Mental Health
DX: F10.20 Alcohol dependence, uncomplicated (principal); Z51.81 Encounter for therapeutic drug level monitoring; Z79.899 Other long term (current) drug therapy
CPT/HCPCS: 80305; 80364; 80365; 99212

== ENCOUNTER → 2022-04-01 09:50 | Outpatient (BNVA) | payer MEDICARE, SELFPAY | PROVIDERS: PCP Internal Medicine; Visit Provider Nurse Practitioner Psychiatric/Mental Health | DX: Z51.81 Encounter for therapeutic drug level monitoring (principal); F10.20 Alcohol dependence, uncomplicated | CPT/HCPCS: 80305; 99212 ==

== ENCOUNTER → 2022-04-06 10:01 | Outpatient (RCR) | payer OTHER, SELFPAY ==
[2020-04-30 06:37] LABS: COVID-19 Test Negative (Negative)
[2020-05-14 09:37] LABS: COVID-19 Test Negative (Negative); IDNOW Serial# 55D5AD1C
[2020-05-21 07:29] LABS: COVID-19 Test Negative (Negative)
[2020-06-07 13:20] LABS: SARS-COV-2 PCR UMBRL Not Detected
[2020-06-13 12:32] LABS: SARS-COV-2 PCR UMBRL Not Detected
[2020-06-27 09:45] LABS: SARS-COV-2 PCR UMBRL Not Detected
[2020-07-04 13:26] LABS: SARS-COV-2 PCR UMBRL Not Detected
== END | disposition home or self-care (01) ==
LOC: HO.EMPCOV 04-30 06:10
PROVIDERS: Visit Provider Internal Medicine
DX: Z20.828 Contact with and (suspected) exposure to other viral communicable diseases (principal)
CPT/HCPCS: 36415; 87635; C9803; U0003

== ENCOUNTER → 2022-04-22 09:47 | Outpatient (BNVA) | payer MEDICARE, SELFPAY | PROVIDERS: PCP Internal Medicine; Visit Provider Nurse Practitioner Psychiatric/Mental Health | DX: Z51.81 Encounter for therapeutic drug level monitoring (principal); F10.20 Alcohol dependence, uncomplicated | CPT/HCPCS: 80305; 99212 ==

== ENCOUNTER → 2022-05-07 09:16 | Outpatient (BNVA) | payer MEDICARE, SELFPAY | PROVIDERS: PCP Internal Medicine; Visit Provider Nurse Practitioner Psychiatric/Mental Health | DX: Z51.81 Encounter for therapeutic drug level monitoring (principal); F10.20 Alcohol dependence, uncomplicated | CPT/HCPCS: 99212 ==

== ENCOUNTER → 2022-05-21 09:16 | Outpatient (BNVA) | payer MEDICARE, SELFPAY | PROVIDERS: PCP Internal Medicine; Visit Provider Nurse Practitioner Psychiatric/Mental Health | DX: Z51.81 Encounter for therapeutic drug level monitoring (principal); F11.20 Opioid dependence, uncomplicated | CPT/HCPCS: 80305; 99212 ==

== ENCOUNTER 2022-06-09 09:58 | Outpatient (REF) | payer MEDICARE, SELFPAY ==
[2022-06-09 10:26] LABS: MANUAL DIFF FLAG NO
[2022-06-09 10:35] LABS: Basophils Absolute Auto 0.1 X10*3/uL (0.0-0.2); Basophils Percent Auto 1.5 % (0-2); Eosinophils Absolute Auto 0.2 X10*3/uL (0.0-0.4); Eosinophils Percent Auto 7.4 % (0-4); Hematocrit 36.3 % (37.0-47.0); Hemoglobin 12.2 g/dl (12.0-16.0); Imm Gran Abs Auto 0.01 X10*3/uL (0.00-0.03); Imm Gran Pct Auto 0.3 % (0.0-0.4); Lymphocytes Absolute Auto 0.9 X10*3/uL (1.2-4.9); Mean Corpuscular HGB Conc 33.6 g/dl (31.0-35.0); Mean Corpuscular Hemoglobin 29.2 pg (27.0-33.0); Mean Corpuscular Volume 86.8 fL (80.0-98.0); Mean Platelet Volume 8.7 fL (9.4-12.3); Monocytes Absolute Auto 0.4 X10*3/uL (0.1-1.2); Monocytes Percent Auto 13.2 % (2-11); Neutrophils Absolute Auto 1.6 x10*3/uL (2.0-8.3); Neutrophils Percent Auto 49.6 % (45-73); Platelet Count 262 X10*3/uL (160-400); Red Blood Count 4.18 X10*6/uL (4.20-5.50); Red Cell Distribution Width 13.6 % (11.0-16.0); White Blood Count 3.3 X10*3/uL (4.8-10.8)
[2022-06-09 14:07] LABS: Alanine Aminotransferase 16 U/L (0-31); Albumin Level 4.1 g/dL (3.5-5.0); Alkaline Phosphatase 105 U/L (39-117); Anion Gap 14 (12-20); Aspartate Amino Transferase 21 U/L (5-31); Bilirubin Total 0.3 mg/dL (0.0-1.0); Blood Urea Nitrogen 10 mg/dL (9-16); Calcium 9.4 mg/dL (8.4-10.2); Carbon Dioxide 26 mmol/L (22-29); Chloride 102 mmol/L (96-108); Estimated Glomerular Filt Rate > 60; Free T4 (Free Thyroxine) 1.04 ng/dL (0.71-1.85); Glucose Fasting 106 mg/dL (60-99); Potassium 4.6 mmol/L (3.3-5.1); Sodium 137 mmol/L (135-145); Thyroid Stimulating Hormone 1.63 uIU/mL (0.32-4.0)
== END 2022-06-09 09:59 | disposition home or self-care (01) ==
LOC: HO.10HDL 09:58
PROVIDERS: Visit Provider Internal Medicine
DX: F10.20 Alcohol dependence, uncomplicated (principal); I10 Essential (primary) hypertension; E03.9 Hypothyroidism, unspecified; Z51.81 Encounter for therapeutic drug level monitoring; Z79.899 Other long term (current) drug therapy
CPT/HCPCS: 36415; 80053; 80305; 82306; 84439; 84443; 85025; 99212

== ENCOUNTER → 2022-07-07 13:40 | Outpatient (BNVA) | payer MEDICARE, SELFPAY | PROVIDERS: PCP Internal Medicine; Visit Provider Physician Assistant | DX: M19.012 Primary osteoarthritis, left shoulder (principal); M75.02 Adhesive capsulitis of left shoulder | CPT/HCPCS: 99212 ==

== ENCOUNTER 2022-07-20 13:16 | Outpatient (REF) | payer MEDICARE, SELFPAY ==
--- NOTE | ~2022-07-20 | FL_ITS ---
EXAMINATION: FL LEFT SHOULDER ARTHROGRAM/STEROID INJECTION CLINICAL INFORMATION: Primary osteoarthritis left shoulder. COMPARISON: None TECHNIQUE: Following explaining fluoroscopy-guided left shoulder arthrogram and steroid injection procedure, benefits and risks, a written consent was obtained. Patient was placed supine on fluoroscopy table and anterior aspect left shoulder was cleaned and draped in usual sterile manner. 1% Xylocaine was inserted at puncture site. A 22-gauge needle was advanced from the skin into the joint space under fluoroscopy. 2 mL of nonionic contrast was injected and single image was obtained. Subsequently 7 mL 1% lidocaine and 1 mL of 80 mg of Depo-Medrol was injected and needle withdrawn. Complete hemostasis achieved at puncture site. Sterile Band-Aid applied postprocedure. Patient tolerated the procedure extremely well. FINDINGS: On preliminary imaging of left shoulder is severe loss of left glenohumeral joint space with a large osteophyte arising off the inferior head of the humerus. No lytic process seen. The AC joint is unremarkable. Fluoroscopy-guided left shoulder arthrogram and steroid injection performed. FLUOROSCOPY TIME: 1.5 minutes DOSE AREA PRODUCT: 4.345 uGy-m2 (microgray-meter squared) FL/FL arthrogram shoulder LT IMPRESSION: Successful fluoroscopy-guided left shoulder steroid injection.
== END 2022-07-20 13:17 | disposition home or self-care (01) ==
LOC: HO.XRAY 13:16
PROVIDERS: PCP Internal Medicine; Visit Provider Physician Assistant
DX: M19.012 Primary osteoarthritis, left shoulder (principal); M75.02 Adhesive capsulitis of left shoulder
CPT/HCPCS: 23350; 73040

== ENCOUNTER 2022-08-05 10:01 | Outpatient (REF) | payer MEDICARE, SELFPAY ==
--- NOTE | ~2022-08-05 | MM_ITS ---
EXAMINATION: MM SCREENING DIGITAL BREAST TOMOSYNTHESIS, BILATERAL CLINICAL INFORMATION: Screening. Asymptomatic. The lifetime risk of breast cancer based on the Tyrer-Cuzick Model is 3%. COMPARISON: Mammography: 08/02/2021, 05/07/2020, 05/05/2019 TECHNIQUE: Digital breast tomosynthesis is performed in both the craniocaudal and mediolateral oblique views along with computer-aided detection (CAD). Synthesized 2D images are generated from the tomosynthesis. Additional left MLO view is provided. FINDINGS: The breasts are heterogeneously dense, which may obscure small masses (ACR BI-RADS breast composition Category c). There are no significant masses, abnormal calcifications, or other abnormalities. Parenchymal pattern is similar to prior studies. There is no developing density or architectural abnormality. The axilla and skin contours are unremarkable. No significant changes. MM/MM tomosynthesis screening BI IMPRESSION: No mammographic evidence of malignancy. ASSESSMENT: BI-RADS 1: Negative RECOMMENDATION: Routine annual mammography screening. This patient's information was entered into a reminder system with a target due date for their next mammogram.
== END 2022-08-05 10:02 | disposition home or self-care (01) ==
LOC: HO.MAMMO 10:01
PROVIDERS: PCP Internal Medicine; Visit Provider Internal Medicine
DX: Z12.31 Encounter for screening mammogram for malignant neoplasm of breast (principal)
CPT/HCPCS: 77063; 77067

== ENCOUNTER 2022-11-26 11:03 | Outpatient (REF) | payer MEDICARE, SELFPAY ==
[2022-11-26 13:10] LABS: MANUAL DIFF FLAG NO
[2022-11-26 13:29] LABS: Basophils Percent Auto 0.8 % (0-2); Eosinophils Percent Auto 1.1 % (0-4); Hemoglobin 11.7 g/dl (12.0-16.0); Imm Gran Abs Auto 0.01 X10*3/uL (0.00-0.03); Imm Gran Pct Auto 0.3 % (0.0-0.4); Lymphocytes Absolute Auto 0.8 X10*3/uL (1.2-4.9); Lymphocytes Percent Auto 22.5 % (20-40); Mean Corpuscular HGB Conc 32.5 g/dl (31.0-35.0); Mean Corpuscular Hemoglobin 28.9 pg (27.0-33.0); Mean Corpuscular Volume 88.9 fL (80.0-98.0); Monocytes Absolute Auto 0.4 X10*3/uL (0.1-1.2); Monocytes Percent Auto 9.8 % (2-11); Neutrophils Absolute Auto 2.3 x10*3/uL (2.0-8.3); Neutrophils Percent Auto 65.5 % (45-73); Platelet Count 318 X10*3/uL (160-400); Red Blood Count 4.05 X10*6/uL (4.20-5.50); Red Cell Distribution Width 13.2 % (11.0-16.0); White Blood Count 3.6 X10*3/uL (4.8-10.8)
[2022-11-26 13:45] LABS: Alanine Aminotransferase 20 U/L (0-31); Albumin Level 4.4 g/dL (3.5-5.0); Alkaline Phosphatase 113 U/L (39-117); Anion Gap 13 (12-20); Aspartate Amino Transferase 23 U/L (5-31); Bilirubin Total 0.4 mg/dL (0.0-1.0); Blood Urea Nitrogen 13 mg/dL (9-16); Calcium 9.7 mg/dL (8.4-10.2); Carbon Dioxide 27 mmol/L (22-29); Chloride 102 mmol/L (96-108); Cholesterol 211 mg/dL; Estimated Glomerular Filt Rate 51; Glucose Random 93 mg/dL (60-115); HDL Cholesterol 63 mg/dL; LDL Cholesterol Calculated 134 mg/dl; Potassium 4.9 mmol/L (3.3-5.1); Sodium 137 mmol/L (135-145); Total Protein 7.5 g/dL (6.5-8.0); Triglycerides 72 mg/dL
[2022-11-26 13:58] LABS: Free T4 (Free Thyroxine) 1.09 ng/dL (0.71-1.85)
== END 2022-11-26 11:04 | disposition home or self-care (01) ==
LOC: HO.10HDL 11:03
PROVIDERS: Visit Provider Internal Medicine
DX: I10 Essential (primary) hypertension (principal); K21.9 Gastro-esophageal reflux disease without esophagitis; E03.9 Hypothyroidism, unspecified
CPT/HCPCS: 36415; 80053; 80061; 84439; 85025

== ENCOUNTER 2023-02-25 11:05 | Outpatient (REF) | payer MEDICARE, SELFPAY ==
[2023-02-25 11:57] LABS: MANUAL DIFF FLAG NO
[2023-02-25 12:22] LABS: Eosinophils Absolute Auto 0.1 X10*3/uL (0.0-0.4); Eosinophils Percent Auto 2.6 % (0-4); Hematocrit 35.4 % (37.0-47.0); Hemoglobin 11.4 g/dl (12.0-16.0); Imm Gran Abs Auto 0.01 X10*3/uL (0.00-0.03); Imm Gran Pct Auto 0.3 % (0.0-0.4); Lymphocytes Percent Auto 26.3 % (20-40); Mean Corpuscular HGB Conc 32.2 g/dl (31.0-35.0); Mean Corpuscular Hemoglobin 27.3 pg (27.0-33.0); Mean Corpuscular Volume 84.9 fL (80.0-98.0); Mean Platelet Volume 9.1 fL (9.4-12.3); Monocytes Absolute Auto 0.4 X10*3/uL (0.1-1.2); Monocytes Percent Auto 10.5 % (2-11); Neutrophils Absolute Auto 2.3 x10*3/uL (2.0-8.3); Neutrophils Percent Auto 59.3 % (45-73); Platelet Count 301 X10*3/uL (160-400); Red Blood Count 4.17 X10*6/uL (4.20-5.50); Red Cell Distribution Width 14.2 % (11.0-16.0); White Blood Count 3.9 X10*3/uL (4.8-10.8)
[2023-02-25 12:44] LABS: Alanine Aminotransferase 19 U/L (0-31); Albumin Level 4.5 g/dL (3.5-5.0); Alkaline Phosphatase 105 U/L (39-117); Anion Gap 12 (12-20); Aspartate Amino Transferase 24 U/L (5-31); Bilirubin Total 0.3 mg/dL (0.0-1.0); Blood Urea Nitrogen 12 mg/dL (9-16); Calcium 9.7 mg/dL (8.4-10.2); Carbon Dioxide 28 mmol/L (22-29); Chloride 101 mmol/L (96-108); Estimated Glomerular Filt Rate 56; Glucose Random 101 mg/dL (60-115); Iron 47 mcg/dL (30-160); Percent Iron Saturation 11 % (15-50); Potassium 4.6 mmol/L (3.3-5.1); Sodium 136 mmol/L (135-145); Total Iron Binding Capacity 436 mcg/dL (228-428); Total Protein 7.8 g/dL (6.5-8.0); Unsaturated Iron Binding 389 ug/dL
[2023-02-25 12:47] LABS: Free T4 (Free Thyroxine) 0.88 ng/dL (0.71-1.85)
== END 2023-02-25 11:06 | disposition home or self-care (01) ==
LOC: HO.10HDL 11:05
PROVIDERS: Visit Provider Internal Medicine
DX: I12.9 Hypertensive chronic kidney disease with stage 1 through stage 4 chronic kidney disease, or unspecified chronic kidney disease (principal); N18.9 Chronic kidney disease, unspecified; D64.9 Anemia, unspecified; E03.9 Hypothyroidism, unspecified
CPT/HCPCS: 36415; 80053; 83540; 84439; 84443; 85025

== ENCOUNTER 2023-05-27 09:55 | Outpatient (REF) | payer MEDICARE, SELFPAY ==
[2023-05-27 10:23] LABS: MANUAL DIFF FLAG NO
[2023-05-27 11:27] LABS: Basophils Absolute Auto 0.1 X10*3/uL (0.0-0.2); Basophils Percent Auto 1.3 % (0-2); Eosinophils Absolute Auto 0.1 X10*3/uL (0.0-0.4); Eosinophils Percent Auto 2.3 % (0-4); Hematocrit 34.6 % (37.0-47.0); Hemoglobin 11.1 g/dl (12.0-16.0); Imm Gran Abs Auto 0.01 X10*3/uL (0.00-0.03); Imm Gran Pct Auto 0.3 % (0.0-0.4); Lymphocytes Percent Auto 24.4 % (20-40); Mean Corpuscular HGB Conc 32.1 g/dl (31.0-35.0); Mean Corpuscular Hemoglobin 27.1 pg (27.0-33.0); Mean Corpuscular Volume 84.6 fL (80.0-98.0); Mean Platelet Volume 8.5 fL (9.4-12.3); Monocytes Absolute Auto 0.4 X10*3/uL (0.1-1.2); Monocytes Percent Auto 10.3 % (2-11); Neutrophils Absolute Auto 2.4 x10*3/uL (2.0-8.3); Neutrophils Percent Auto 61.4 % (45-73); Platelet Count 308 X10*3/uL (160-400); Red Blood Count 4.09 X10*6/uL (4.20-5.50); Red Cell Distribution Width 14.4 % (11.0-16.0); White Blood Count 3.9 X10*3/uL (4.8-10.8)
[2023-05-27 12:02] LABS: Alanine Aminotransferase 18 U/L (0-31); Albumin Level 4.3 g/dL (3.5-5.0); Alkaline Phosphatase 99 U/L (39-117); Anion Gap 12 (12-20); Aspartate Amino Transferase 24 U/L (5-31); Bilirubin Total 0.3 mg/dL (0.0-1.0); Blood Urea Nitrogen 14 mg/dL (9-16); Calcium 9.4 mg/dL (8.4-10.2); Carbon Dioxide 30 mmol/L (22-29); Chloride 101 mmol/L (96-108); Estimated Glomerular Filt Rate > 60; Glucose Random 98 mg/dL (60-115); Potassium 4.6 mmol/L (3.3-5.1); Sodium 138 mmol/L (135-145); Total Protein 7.5 g/dL (6.5-8.0)
[2023-05-27 12:12] LABS: Thyroid Stimulating Hormone 3.18 uIU/mL (0.32-4.0)
== END 2023-05-27 09:56 | disposition home or self-care (01) ==
LOC: HO.LAB 09:55
PROVIDERS: PCP Internal Medicine; Visit Provider Internal Medicine
DX: I12.9 Hypertensive chronic kidney disease with stage 1 through stage 4 chronic kidney disease, or unspecified chronic kidney disease (principal); D64.9 Anemia, unspecified; E03.9 Hypothyroidism, unspecified; N18.9 Chronic kidney disease, unspecified; D63.1 Anemia in chronic kidney disease
CPT/HCPCS: 36415; 80053; 84439; 84443; 85025

== ENCOUNTER 2023-08-11 10:18 | Outpatient (REF) | payer MEDICARE, SELFPAY | END 2023-08-11 10:19 | disposition home or self-care (01) | LOC: HO.MAMMO 10:18 | PROVIDERS: PCP Internal Medicine; Visit Provider Internal Medicine | DX: Z12.31 Encounter for screening mammogram for malignant neoplasm of breast (principal) | CPT/HCPCS: 77063; 77067 ==

== ENCOUNTER → 2023-08-11 10:30 | Outpatient (BNV) | payer MEDICARE, SELFPAY | PROVIDERS: PCP Internal Medicine; Visit Provider Radiology Diagnostic Radiology | DX: Z12.31 Encounter for screening mammogram for malignant neoplasm of breast (principal) | CPT/HCPCS: 77063; 77067 ==

== ENCOUNTER 2023-08-26 10:31 | Outpatient (REF) | payer MEDICARE, SELFPAY ==
--- NOTE | ~2023-08-26 | XR_ITS ---
EXAMINATION: XR HIP, RIGHT CLINICAL INFORMATION: Right hip pain. COMPARISON: Radiographs pelvis of 10/13/2020. TECHNIQUE: Two views of the right hip. FINDINGS: The bones are diffusely demineralized. Degenerative changes on limited images of the lower lumbar spine. Moderate degenerative changes in the right sacroiliac joint. Coarse, heterogeneous calcifications in the pelvis is characteristic of fibroid and CT scan abdomen and pelvis of 12/31/2021 demonstrated calcified fibroids. Progression of [id number] degenerative changes in the right hip, loss of the joint space, particularly along the superior medial aspects, hypertrophic change and subchondral cystic and lucent changes. Increased periosteal reaction along the medial right intertrochanteric region. XR/XR hip RT min 2V IMPRESSION: Progression of [id number] degenerative changes in the right hip. Increased periosteal reaction along the medial right intertrochanteric region. Additional imaging with MRI recommended if there is clinical concern for fracture or an underlying pathology.
== END 2023-08-26 10:32 | disposition home or self-care (01) ==
LOC: HO.XRAY 10:31
PROVIDERS: PCP Internal Medicine; Visit Provider Internal Medicine
DX: M25.551 Pain in right hip (principal)
CPT/HCPCS: 73502

== ENCOUNTER 2023-09-07 13:04 | Outpatient (REF) | payer MEDICARE, SELFPAY ==
--- NOTE | ~2023-09-07 | US_ITS ---
EXAMINATION: BILATERAL LOWER EXTREMITY DUPLEX CLINICAL INFORMATION: PAD COMPARISON: None TECHNIQUE: Real-time ultrasound and Doppler techniques (integrating B-mode 2-D vascular images, Doppler spectral analysis and color flow Doppler imaging) were utilized to interrogate the lower extremities. FINDINGS: RIGHT LEG: Common femoral artery: 201 cm/s, triphasic Profunda femoris artery: 142 cm/s, triphasic Superficial femoral artery (proximal): 153 cm/s, triphasic Superficial femoral artery (mid): 101 cm/s, triphasic Superficial femoral artery (distal): 91.9 cm/s, triphasic Popliteal artery: 62.5 cm/s, biphasic Posterior tibial artery: 73.1 cm/s, biphasic LEFT LEG: Common femoral artery: 148 cm/s, triphasic Profunda femoris artery: 139 cm/s, triphasic Superficial femoral artery (proximal): 190 cm/s, triphasic Superficial femoral artery (mid): 89.7 cm/s, triphasic Superficial femoral artery (distal): 109 cm/s, triphasic Popliteal artery: 63.6 cm/s, triphasic Posterior tibial artery: 74.5 cm/s, biphasic US/US arterial duplex LE BI IMPRESSION: Small amount of plaque in the bilateral common femoral arteries causing at most mild stenosis.
== END 2023-09-07 13:05 | disposition home or self-care (01) ==
LOC: HO.US 13:04
PROVIDERS: PCP Internal Medicine; Visit Provider Internal Medicine
DX: I73.9 Peripheral vascular disease, unspecified (principal)
CPT/HCPCS: 93925

== ENCOUNTER 2023-09-08 08:57 | Outpatient (REF) | payer MEDICARE, SELFPAY ==
--- NOTE | ~2023-09-08 | MM_ITS ---
EXAMINATION: BONE DENSITOMETRY CLINICAL INDICATION: Post menopausal. COMPARISON: Previous BD dated 07/07/2016 and baseline BD dated 10/01/2009. TECHNIQUE: Using a [employer] DXA System (software version: 13.1) manufactured by [employer], dual-energy x-ray absorptiometry was performed of the lumbar spine and right hip. The patient has had a left hip replacement. The images are of good technical quality. Summary results are attached. FINDINGS: AP SPINE L1-L4: Current: BMD 1.180 g/cm2, Z-score 1.1, T-score 0.0, normal, 1.5% increase from previous, 11.4% increase from baseline (<5% change is not significant). Prior: BMD 1.162 g/cm2. Baseline: BMD 1.059 g/cm2. RIGHT FEMUR, NECK: Current: BMD 0.891 g/cm2, Z-score 0.2, T-score -1.1, osteopenia. Prior: BMD 0.886 g/cm2. Baseline: BMD 0.947 g/cm2. RIGHT FEMUR, TOTAL: Current: BMD 0.849 g/cm2, Z-score -0.3, T-score -1.3, osteopenia, 5.7% decrease from previous, 12.6% decrease from baseline (<5% change is not significant). Prior: BMD 0.900 g/cm2. Baseline: BMD 0.971 g/cm2. IDENTIFIED RISK FACTORS: History of adult fracture. Alcohol (3 or more units per day). Height loss. Parental hip fracture. Secondary osteoporosis (hyperthyroidism, early menopause). HISTORY OF FRACTURE: Spine. Femur/hip. Wrist. MEDICATIONS: Calcium supplement and/or multivitamin. Vitamin D. MM/XR DEXA axial skeleton IMPRESSION: 1. DIAGNOSIS: Osteopenia based on the lowest T-score value of -1.3 in the total femur applying World Health Organization criteria. 2. 10-YEAR FRACTURE RISK PREDICTION, FRAX: Major osteoporotic fracture (clinical spine, forearm, hip or shoulder) 25.8%. Hip fracture 4.0%. 3. Treatment Recommendations: NOF guidelines recommend consideration for treatment in postmenopausal women and men age 50 and older presenting with the following: -A hip or vertebral (clinical or morphometric) fracture. -T-score less than or equal to -2.5 at the femoral neck or spine after appropriate evaluation to exclude secondary causes. -Low bone mass at the hip or spine and a 10-year fracture probability by FRAX of greater than or equal to 3% for hip fracture or greater than or equal to 20% for major osteoporotic fracture based on the [place] adapted WHO algorithm. 4. Other Recommendations: All treatment decisions require clinical judgment and consideration of individual patient factors, including patient preferences, comorbidities, previous drug use, risk factors not captured in the FRAX model (e.g. frailty, falls, vitamin D deficiency, increased bone turnover, interval significant decline in bone density) and possible under or overestimation of fracture risk by FRAX. Additional medical evaluation for secondary cause of low bone mineral density may be appropriate. FUTURE SCAN RECOMMENDATION: People with diagnosed cases of osteoporosis or at high risk for fracture should have regular bone mineral density tests. For patients eligible for Medicare, routine testing is allowed once every 2 years. The testing frequency can be increased to one year for patients who have rapidly progressing disease, those who are receiving or discontinuing medical therapy to restore bone mass, or have additional risk factors.
== END 2023-09-08 08:58 | disposition home or self-care (01) ==
LOC: HO.MAMMO 08:57
PROVIDERS: PCP Internal Medicine; Visit Provider Internal Medicine
DX: Z13.820 Encounter for screening for osteoporosis (principal); Z78.0 Asymptomatic menopausal state
CPT/HCPCS: 77080

== ENCOUNTER 2023-11-26 10:53 | Outpatient (REF) | payer MEDICARE, SELFPAY ==
[2023-11-26 13:24] LABS: MANUAL DIFF FLAG NO
[2023-11-26 13:29] LABS: Basophils Percent Auto 0.9 % (0-2); Eosinophils Absolute Auto 0.1 X10*3/uL (0.0-0.4); Eosinophils Percent Auto 1.9 % (0-4); Hematocrit 34.5 % (37.0-47.0); Hemoglobin 11.2 g/dl (12.0-16.0); Imm Gran Abs Auto 0.02 X10*3/uL (0.00-0.03); Imm Gran Pct Auto 0.5 % (0.0-0.4); Lymphocytes Percent Auto 23.2 % (20-40); Mean Corpuscular HGB Conc 32.5 g/dl (31.0-35.0); Mean Corpuscular Hemoglobin 27.3 pg (27.0-33.0); Mean Corpuscular Volume 84.1 fL (80.0-98.0); Mean Platelet Volume 8.5 fL (9.4-12.3); Monocytes Absolute Auto 0.3 X10*3/uL (0.1-1.2); Monocytes Percent Auto 6.5 % (2-11); Neutrophils Absolute Auto 2.9 x10*3/uL (2.0-8.3); Platelet Count 291 X10*3/uL (160-400); Red Cell Distribution Width 16.1 % (11.0-16.0); White Blood Count 4.3 X10*3/uL (4.8-10.8)
[2023-11-26 13:55] LABS: Alanine Aminotransferase 19 U/L (0-31); Albumin Level 4.4 g/dL (3.5-5.0); Alkaline Phosphatase 106 U/L (39-117); Anion Gap 14 (12-20); Aspartate Amino Transferase 24 U/L (5-31); Bilirubin Total 0.3 mg/dL (0.0-1.0); Blood Urea Nitrogen 9 mg/dL (9-16); Calcium 9.5 mg/dL (8.4-10.2); Carbon Dioxide 26 mmol/L (22-29); Chloride 101 mmol/L (96-108); Estimated Glomerular Filt Rate > 60; Glucose Random 108 mg/dL (60-115); Potassium 3.9 mmol/L (3.3-5.1); Sodium 137 mmol/L (135-145); Total Protein 7.6 g/dL (6.5-8.0)
[2023-11-26 13:58] LABS: Free T4 (Free Thyroxine) 1.05 ng/dL (0.71-1.85); Thyroid Stimulating Hormone 1.57 uIU/mL (0.32-4.0); Vitamin D 25-OH Total 62.6 ng/mL (>30)
== END 2023-11-26 10:54 | disposition home or self-care (01) ==
LOC: HO.10HDL 10:53
PROVIDERS: Visit Provider Internal Medicine
DX: M19.91 Primary osteoarthritis, unspecified site (principal); E03.9 Hypothyroidism, unspecified; K21.9 Gastro-esophageal reflux disease without esophagitis
CPT/HCPCS: 36415; 80053; 82306; 84439; 84443; 85025

== ENCOUNTER → 2024-08-15 10:00 | Outpatient (BNV) | payer MEDICARE, SELFPAY | PROVIDERS: PCP Internal Medicine; Visit Provider Internal Medicine | DX: Z12.31 Encounter for screening mammogram for malignant neoplasm of breast (principal) | CPT/HCPCS: 77063; 77067 ==

== ENCOUNTER 2024-08-15 10:06 | Outpatient (REF) | payer MEDICARE, SELFPAY ==
--- OUTSIDE RECORDS SUMMARY | 2024-08-15 11:49 | XMS_ITS | Data Portability ---
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 HPI: 68-year-old woman, refractory left shoulder pain taken to the operating room for reverse arthroplasty. Past medical history:GERD, hypertension, thyroid disease Review of systems: Negative Medications:Levoth yroxine, omeprazole, trazodone, losartan, hydroxyzine Allergies: Latex, sulfa, Benadrryl Past surgical history:Left total hip arthroplasty Social history: Alcohol use: Social Smoker: Negative PHYSICAL EXAMINATION: The patient is well appearing and in no apparent distress. Alert and oriented x3. Height 5 feet 6 inches Weight 1184 pounds Gait: symmetri HEENT: Benign Chest: Clear to auscultation bilaterally Heart: Regular rate and rhythm, no murmurs or gallops Abdomen: Soft and nontender, no masses Neurovascular: Within normal limits Skin: Within normal limits Pertinent extremity exam:Left shoulder limited motion with pain DIAGNOSIS:Left shoulder end-stage arthritis PLAN:The patient is taken to the operating room for left reverse total shoulder arthroplasty. Detailed discussion regarding the patient? s pathoanatomy, and treatment options conducted. The risks and benefits, potential complications including but not limited to infection, stiffness, neurovascular injury, fracture, early or late prosthetic loosening, need for hardware removal, dislocation all discussed in detail. I explained that not all patients experience complete pain relief and temple of full function with this procedure, and that significant limitations in use, as well as pain, may be present in spite of the operation. I explained that patients who have undergone shoulder arthroplasty are not cleared for unlimited use of the shoulder, and that they should expect permanent functional restrictions to be recommended after the procedure. I explained that failure to adhere to these restrictions may result in prosthetic failure and need for revision surgery. The patient was given the opportunity to ask questions to their satisfaction. Based on our discussion, I believe the patient has made an informed decision to proceed with surgery. tereso Not available 02/03/2024 11:14:49 03/01/2024 03/01/2024 Procedure/Date:L ef t rTSA 02/23/2024 History: Doing well, no complications Exam: Wound benignComment neurovascular intact Radiographs: 4 views, no implant complications Clinical Status: Doing well postoperatively Work Status/Plan:Not applicable Physical Therapy Status: Continue per protocol Medication Prescriptions: [none given] Plan/Follow up:6 weeks [employer] [facility] speech recognition ceo ziff dav[employer] software was used to create portions of this document. An attempt at proofreading has been made to minimize errors. Please call for corrections. [email or web address] Not available 03/01/2024 17:00:44 06/12/2024 06/12/2024 Dx:left rTSA 02/23/2024 Interval History:doing well, minimal pain, happy with status. SocHx: nonsmoker, nondrinker Past Medical/Surgical History/Meds/Aller gies reviewed and charted ROS: negative Physical Exam: afebrile, vital signs stable, in no apparent distress, oriented to person/place/time. Gait symmetric. Skin intact without erythema. Heart RRR Lungs: clear Abdomen soft, nontender. leftSHOULDER: no redness, warmth, deformity. Range of motionactive forward elevation 120, ER 30 comfortably . Neurovascular Exam wnl. New Studies: none Impression:doing well status post left rTSA Plan: 1.precautions reviewed, follow-up 3 months, sooner with any issues. [employer] [facility] speech recognition ceo ziff davis software was used to create portions of this document. An attempt at proofreading has been made to minimize errors. Please call for corrections. tereso Not available 06/12/2024 15:26:11 Plan of Treatment Reminders Order Date Submit Date Provider Last Modified By Organization Details Last Modified Time Details Appointments RECHECK 15 2024 08:15A M Johan Lake PA-C Not available Not available Not available Lab None recorded. Referral physical therapist referral - Start PROM, Flexion to 90 degrees (No IR) ER 30 degrees immediate ly post opStart PROM, Flexion to 120 degrees (No IR), ER to tolerate 3 wks post opStart AA/AROM (P) IR less than 50 degrees 6 wks post opStart PS/Delt/R C light strengthe tommie 9 wks post opProgres s strengthe tommie 12 wks post opIndepen dant HEP 9 wks post op 2023 024 [email or web address] [place], [address] [place], [address], [place], [address], 04/12/2024 12:08:02 Procedures None recorded. Surgeries None recorded. Imaging XR, shoulder, 2 or more view - 4v lt shoulder with marker room 212 2023 024 [email or web address] [facility] Office, [address], [place], [address], 02/29/2024 11:53:06 Medication Orders None recorded. Patient TargetsNo targets recorded. Patient InstructionsNo instructions recorded. Reason for Referral Physical Therapist Referral for History of reverse prosthetic total arthroplasty of left shoulder Start PROM, Flexion to 90 degrees (No IR) ER 30 degrees immediately post opStart PROM, Flexion to 120 degrees (No IR), ER to tolerate 3 wks post opStart AA/AROM (P) IR less than 50 degrees 6 wks post opStart PS/Delt/RC light strengthening 9 wks post opProgress strengthening 12 wks post opIndependant HEP 9 wks post op Referring Physician: Mehul Mendez, Orthopedic Surgery, [id number] Encounter Date: 03/21/2024 Results Created Date Observation Date Name Description Value Unit Range Abnormal Flag Note LastModifiedBy Organization Detail LastModifiedTime 02/03/20 24 02/03/2024 XR, shoul isela, 2 or more view [email or web address]:/ [email or web address] ?Encry pted=s hAaTro YD8dLq bEUv6g %2BXZw aYqtaq 0bqfl% 2Fg9IQ a4ajBk vP9nXo QUaueC m3YtLR FvZlgJ JJ8mAn HZtai3 7n9631 AC0KoY 3iDVaP eUC8mr 84%3D INTERFACE [facility] [address], [place], [address], 02/03/2024 10:41:47 02/03/20 24 02/03/2024 XR, susan isela, 2 or more view [email or web address] ?Encry pted=s hAaTro YD8dLq bEUv6g %2BXZw aYqtaq 0bqfl% 2Fg9IQ a4ajBk vP9nXo QUaueC m3YtLR FvZlgJ JJ8mAn HZtai3 1t8432 AC0KoY 3iDVaP eUC8mr 84%3D INTERFACE [facility] [address], [place], [address], 02/03/2024 10:41:49 02/18/20 24 07/05/2023 imagi ng/di agnos tic resul t No observ ation record ed. [email or web address] Not Available 01/21 15:58:08 03/01/20 24 03/01/2024 NEERU, susan weiss, 2 or more view [email or web address]:/ [email or web address] ?Encry pted=s hAaTro YD8dLq bEUv6g %2BXZw aYqtaq 0bqfl% 2Fg9IQ a4ajBk vP9nXo QUaueC m3YtLR FvZlgJ JJ8mAn HZtai3 6p8619 AC0Kqa n6FU6K jKiQtr MwF INTERFACE [facility] [address], [place], [address], 03/01/2024 15:58:13 03/01/20 24 03/01/2024 XR, shoul isela, 2 or more view [email or web address]:/ [email or web address] ?Encry pted=s Jesse YD8dLq bEUv6g %2BXZw aYqtaq 0bqfl% 2Fg9IQ a4ajBk vP9nXo QUaueC m3YtLR FvZlgJ JJ8mAn HZtai3 8g6178 AC0Kqa n6FU6K jKiQtr MwF INTERFACE [facility] [address], [place], [address], 03/01/2024 15:58:15 Result Notes None recorded. Procedures Surgical History None recorded. Imaging Results Imaging Date Name Status LastModified by [facility]iz [facility] Details LastModified Time 02/03/2024 XR, shoulder, 2 or more view completed INTERFACE [facility] [address], [place], [address], 02/03/2024 10:41:47 02/03/2024 XR, shoulder, 2 or more view completed INTERFACE [facility] [address], [place], [address], 02/03/2024 10:41:49 07/05/2023 imaging/diag nostic result completed [email or web address] Information not available 02/18/2024 15:58:08 03/01/2024 XR, shoulder, 2 or more view completed INTERFACE [facility] [address], [place], [address], 03/01/2024 15:58:13 03/01/2024 XR, shoulder, 2 or more view completed [facility]FACE [facility] [address], [place], [address], 03/01/2024 15:58:15 Procedure Notes None recorded. Medical Equipment None Reported. Allergies Allergen ID Allergen Name Allergen Category Reaction Reaction Severity Criticality Documentation Date Start Date Code Code System Note Provider Name and Address Organization Details Recorded Time 772045 latex environme nt,medica tion Not available Not available Not available 12/14/20232023 59523 91 RxNorm Not Available [facility] 4 09:09:41 843510 Substance with sulfonami de structure and antibacte rial mechanism of action (substanc e) medicatio n Not available Not available Not available 12/14/20232023 56652 8003 SNOMED Not Available [facility] 4 09:09:41 572531 Benadryl medicatio n Not available Not available Not available 02/02/202414029 7 RxNorm LASHONDA nunez [place] - [place] [facility] 4 12:46:30 Medications Name Sig Start Date Stop Date Status Note LastModified by Organization Details LastModified Time losartan 50 mg tablet TAKE 1 TABLET BY MOUTH TWICE A DAY active Not Available Not Available No t Available ibuprofen 800 mg tablet TAKE 1 TABLET BY MOUTH 3 TIMES A DAY NEEDED FOR PAIN active Not Available Not Available No t Available naltrexone 50 mg tablet TAKE 1 TABLET BY MOUTH EVERY DAY 03/21 completed Not Available Not Available Not Available omeprazole 40 mg capsule,del ayed release TAKE 1 CAPSULE BY MOUTH EVERY DAY active Not Available Not Available No t Available tramadol 50 mg tablet TAKE 1 TABLET EVERY 4 TO 6 HOURS DIRECTED NEEDED FOR PAIN DO NOT DRIVE 03/21 completed Not Available Not Available Not Available levothyroxi ne 75 mcg tablet TAKE 1 TABLET BY MOUTH EVERY DAY AND TAKE 1 AND 1/2 TABLET ON WEDNESDAY active Not Available Not Available No t Available trazodone 150 mg tablet TAKE 1 TABLET BY MOUTH EVERYDAY AT BEDTIME active Not Available Not Available No t Available prednisone 50 mg tablet TAKE 1 TABLET BY MOUTH EVERY DAY FOR 5 DAYS active Not Available Not Available No t Available hydroxyzine HCl 25 mg tablet TAKE 1 TABLET BY MOUTH EVERY DAY active Not Available Not Available No t Available gabapentin 100 mg capsule TAKE 1 CAPSULE(S ) BY MOUTH THREE TIMES A DAY NEEDED active Not Available Not Available No t Available ibuprofen 600 mg tablet TAKE 1 TABLET BY MOUTH THREE TIMES A DAY NEEDED FOR PAIN 03/21 completed Not Available Not Available Not Available oxycodone 5 mg tablet TAKE 1 TABLET EVERY 4-6 HOURS BY ORAL ROUTE NEEDED FOR 7 DAYS, FOR POST OPERATIVE PAIN. 03/21 completed Not Available Not Available Not Available Paxlovid 300 mg (150 mg x 2)-100 mg tablets in a dose pack TAKE 3 TABLET (ORAL) EVERY 12 HOURS FOR 5 DAYS 03/21 completed Not Available Not Available Not Available Vitals Date Recorded Body height Body mass index (BMI) Body weight Provider Name and Address Organization Details Last Updated DateTime 03/21/2024 167.64 cm 29.7 kg/m2 08323 g Daniela Bowen [facility] 03/21/2024 09:54:59 Date Recorded Body height Body mass index (BMI) Body weight Provider Name and Address Organization Details Last Updated DateTime 06/12/2024 167.64 cm 29.7 kg/m2 82869 g LASHONDA CARLISLE [facility] 06/12/2024 14:46:47 Social History None recorded. Functional Status None recorded. Mental Status None recorded. Family History Nothing Reported. Medical History No medical history recorded. Gynecological HistoryNo gynecological history recorded. Obstetrics History GPAL:G 0 P 0 0 0 0 Past Encounters Encounter ID Performer Location Encounter Start Date Encounter Closed Date Diagnosis/Indication Diagnosis SNOMED-CT Code Diagnosis ICD10 Code Diagnosis Note [id number] MD Roman Duque [facility] [address] [place] [address] 02/03/2024 10:14:18 02/29/2024 11:53:05 Pain of left shoulder joint 9057155851 6064185 M25.897 [id number] MD Roman Duque [facility] [address] [place] [address] 03/01/2024 14:45:50 03/22/2024 10:47:37 History of reverse prosthetic total arthroplasty of left shoulder 2618746021 1452829 Z96.175 [id number] MARTY Nair [facility] [address] [place] [address] 03/21/2024 09:19:23 04/12/2024 12:08:02 History of reverse prosthetic total arthroplasty of left shoulder 6507068026 2472797 Z96.224 [id number] MD Roman Duque [facility] [address] [place] [address] 06/12/2024 14:31:29 06/30/2024 16:21:35 History of reverse prosthetic total arthroplasty of left shoulder 3323061657 5723268 Z96.612 Health Concerns Section Related Observation LastModified by Organization Detai ls LastModified Time None Recorded Concern Status LastModified by Organization Details LastModified Time None Recorded Advance Directives Directive None Recorded Payers Encounter Date Sequence Insurance Name Policy Number Policy Recinos Covered Member ID Recinos Member ID Guarantor Name 02/03/2024 1 [employer] (MEDICARE REPLACEMENT PPO) [id number] Sanket Osuna [id number] Sanket Osuna 02/03/2024 2 [place] [employer] [employer] Sanket Osuna [id number] Sanket Osuna 03/01/2024 1 [employer] (MEDICARE REPLACEMENT PPO) [id number] Sanket Osuna [id number] Sanket Osuna 03/21/2024 1 [employer] (MEDICARE REPLACEMENT PPO) [id number] Sanket Osuna [id number] Sanket Osuna 06/12/2024 1 [employer] (MEDICARE REPLACEMENT PPO) [id number] Sanket Osuna [id number] Sanket Osuna Notes Date Note Type Note Provider Name and Address Organization Details Recorded Time text/html I am seeing the patient today under the supervision of Dr. Latif who was available but who did not see the patient.Procedure/Date:Lef t rTSA 02/23/2024History: Ms. Osuna returns now 1 month from surgery. Doing well. Performing home exercise pendulums without issue. Denies any local or systemic signs of infection.Exam: Incision is nicely healed. Tolerates passive low-level glide of the shoulder comfortably. Deltoid is intact with 2+ pulses distally.Radiographs: 4 views, no implant complicationsClinical Status: Doing well postoperativelyWork Status/Plan:Not applicablePhysical Therapy Status: PT printed out and providedMedication Prescriptions: None requiredPlan/Follow up: [facility] speech recognition ceo ziff dav[employer] software was used to create portions of this document. An attempt at proofreading has been made to minimize errors. Please call for corrections. MARTY [address], [place], [address], [facility] - [place] [facility] 03/21/2024 10:12:22 OBGyn Episode No OBEpisode recorded.
--- OUTSIDE RECORDS SUMMARY | 2024-08-15 11:49 | XMS_ITS ---
Author Organization [facility] Address [address] [place] [address] Care Team Providers Care Wireless Sales Consultant Name Role Phone Nadeem Conn MD Primary Care Provider Unavaila Pallavi Linda Unavailable [phone] Allergies Allergen (clinical drug ingredient) Drug/Non Drug Allergy documented on EMR Reaction Allergy Type Onset Date Status Latex Latex Unknown Allergy Active Substance with sulfonamide structure and antibacterial mechanism of action (substance) Sulfa Antibiotics rash Drug Allergy Active REASON FOR VISIT Painful Nail(s) aggrevated by shoes and causing difficulty standing/walking., Toe Irritation Medications Medication SIG (Take, Route, Frequency, Duration) Notes Start Date End Date Status Cipro 500 MG 1 tablet Orally ever y 12 hrs for 10 day(s) 02/12/2020 Not-Taking Keflex 500 MG 1 capsule Orally yina ry 12 hrs for 10 day(s) 11/02/2017 Not-Taking traMADol HCl 50 MG 1 tablet as needed Orally every 6 hrs Not-Taking Bactrim DS 800-160 MG 1 tablet Orally Tw ice a day for 10 day(s) 02/07/2020 Not-Taking LamISIL 250 MG 1 tablet Orally Once a day for 7 days then stop for 3 weeks repeat cylce for 12 months for 365 days 06/07/2017 Not-Taking amLODIPine Besylate 5 MG 1 tablet Orally Once a day Not-Taking Keflex 750 MG as directed Orally B ID for 10 days 07/26/2020 Not-Taking Ibuprofen 600 MG 1 tablet Orally Thre e times a day Active Work Note . . . . for . Not-Ta wolf hydrOXYzine HCl 25 MG 1 tablet as needed Orally every 8 hrs Active Trazodone & Diet Manage Prod Active Losartan Potassium 25 MG 1 tablet Orally Once a day Active Levothyroxine Sodium 25 MCG 1 tablet every morning on an empty stomach Orally Once a day for 30 day(s) Active Omeprazole Active Skin Beauty & Wellness Active Social History Tobacco Use: Social History Observation Description Date Details (start date - stop date) Former Smoker NA - NA Tobacco Use/Smoking Question Answer Notes Are you a: former smoker Additional Findings: Tobacco Non-User Current no n-smoker Alcohol Screen Question Answer Notes Did you have a drink containing alcohol in the p ast year? No Points 0 Interpretation Negative Tobacco use other than smoking: Question Answer Notes Are you an other tobacco user? No Section Notes: Pt has been sober for 9 willis hs Vital Signs Height 5ft 6in in 02/09/2024 Weight 183 lbs 02/09/2024 BMI 29.53 kg/m2 02/09/2024 Procedures Procedure Date Ordered Date Performed Result Body Sit e 30171-[id number] NAIL, 6 OR MORE 02/09/2024 N/A Encounters Encounter Location Date Provider Diagnosis [facility] [address] [address] 02/09/2024 Pallavi Black Tinea unguium B35.1 ; Other hammer toe(s) (acquired), right foot M20.41 ; Pain in right toe(s) M79.674 ; Pain in left toe(s) M79.675 and Other hammer toe(s) (acquired), left foot M20.42 Assessments Encounter Date Diagnosis (ICD Code) Assessment Notes Treatment Notes Treatment Clinical Notes Section Notes 02/09/2024 Tinea unguium (ICD-10 - B35.1) 02/09/2024 Other hammer toe(s) (acquired), right foot (ICD-10 - M20.41) 02/09/2024 Pain in right toe(s) (ICD-10 - M79.674) 02/09/2024 Pain in left toe(s) (ICD-10 - M79.675) 02/09/2024 Other hammer toe(s) (acquired), left foot (ICD-10 - M20.42) Plan Of Treatment Pending Test Test Name Order Date 81303-KIXGAIE NAIL, 6 OR MORE 02/09/2024 Next Appt Details Follow Up: prn, Reason: Provider Name:Pallavi Dover Speedy , 11/14/2024 09:00:00 AM, [address] [facility], [place], [address], Procedure Notes * Category Sub-Category Detail Notes Debride Nail 6-10 Nail debridement Nail debridem ent performed extensively to reduce/remove overall nail length and girth, subungual debris, and necrotic tissue, by manual and electrical means with use of a nail nipper and/or dremel, to more viable healthy nail plate or bed tissue 6-10. Silver nitrate used for any petechial bleeding as necessary. Patient chooses, no pharmaceutical tx (07888) Progress Notes * ENRRIQUE Sanket ADOB: (68 yo F)Acc No.[id number]:02/09/2024 Progress Note Patient:?Sanket Osuna Provider:?Pallavi Ruff DPM :1955???Age:68 Y???Sex:Female D ate:02/09/2024 Address:[address] [place], [place] [id number] Pcp:Nadeem Conn MD Subjective: * Chief Complaints: * ???Painful Nail(s) aggrevate d by shoes and causing difficulty standing/walking.Toe Irritation * HPI: ???Painful Nails:?Pt States Last PCP Visit:?Date:?11/11/2023 ???Toe pain:?Nature:?stiffness , aching.?Location:?B/L feet , 2nd toe.?Duration:?several years.?Aggravated by:?shoes, any pressure.?Treatments:?change in shoes-.? * ROS:?General/Constitutional:?Nausea?denies.?Vomiting?denies.?Hunger Thirst?denies.?Loss appetite?denies.?Chills?denies.?Fatigue?denies.?Fever?denies.?Night Sweats?denies.?Unexplained weight loss?denies.?Unexplained weight gain?denies.?HEENTM:?Dentures?denies.?Dizziness?denies.?Glasses/contacts?denies.?Retinopathy?de nies.?Blurred/double vision?denies.?TMJ?denies.?Discharge/drainage?denies.?Implants?denies.?Sore throat?denies.?Dental implants?denies.?Hard of hearing ?denies.?Difficulty chewing/swallowing/speaking?denies.?Nose bleeds?denies.?Sore mouth?denies.?Respiratory:?On Oxygen?denies.?Pneumonia/pleurisy?denies.?Bronchitis?denies.?Emphysema?denies.?C oughing?denies.?Cough blood?denies.?Shortness of breath?denies.?Wheezing?denies.?Cardiovascular:?Pacemaker?denies.?MVP?denies.?WPW?denies.?CHF?denies.?Heart attack?denies.?Septal defect?denies.?Rapid beat?denies.?Chest pain ?denies.?Atrial Fib.?denies.?Murmur/Palpitations?denies.?Gastrointestinal:?Hemorrhoids?denies.?Stomach/Abdominal pain?denies.?Dark blood stool?denies.?Irritable bowel ?denies.?Constipation?denies.?Diarrhea?denies.?Hematology:?Swelling?denies.?Clots?denies.?Varicose Veins?denies.?Bruising?denies.?Bleeding problem?denies.?Genitourinary:?Blood urine?denies.?Frequent/Painfu/urination/bladder control?denies.?Kidney stones?denies.?Infection (UTI)?denies.?Nephropathy?denies.?sex trans dis (STD)?denies.?Prostate?denies.?Musculoskeletal:?Hammertoes?admits.?Bunions?denies.?Back Pain?denies.?Muscle Cramps/ Resting?denies.?Muscle cramps / walking?denies.?Generalized aches and pains?denies.?Weakness?denies.?Integ.:?García?denies.?Scars?denies.?Corns/calluses?denies.?Ingrown nails?denies.?Painful nails?admits.?Open Sores?denies.?Rashes?denies.?Neurologic:?Difficulty sleeping?denies.?Brain disorder?denies.?Numbness?denies.?Balance trouble?denies.?Confusion?denies.?Fainting/blackouts?denies.?Tingling?denies.?Tr emors?denies.? * Medical History:? * Surgical History:?foot surge ry 1998left hip replacement 07/16/2014 * Hospitalization/Major Diagno stic Procedure:?Went to [facility] for severe contusion to left rib 01/2014[facility] Hip Replacement 07/16/2014[facility] Hypertension 04/05/19[facility]- Sprained ankle 09/2020[facility] fell 01/02/22 * Family History:?Mother: dece ased, diagnosed with Other malignant neoplasm of unspecified site.?Father: .?Daughter(s): alive.?Son(s): alive.?Paternal Grand Mother: kidney/liver disease.?1 son(s) , 1 daughter(s) . .? * Social History:?Tobacco Use:?Tobacco Use/Smoking?Are you a:?former smoker ?Additional Findings: Tobacco Non-User?Current non-smoker ?Tobacco use other than smoking?Are you an other tobacco user??No ???Drugs/Alcohol:?Drugs?Have you used drugs other than those for medical reasons in the past 12 months??No ?Alcohol Screen?Did you have a drink containing alcohol in the past year??No ?Points?0 ?Interpretation?Negative ???Miscellaneous:?Caffeine: yes, frequency:, 1-2 cups per day. ?Children: yes, two. ?Exercise: yes, walking. ?Marital status: . 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 ???Pt has been sober for 9 months. * Medications:?TakingLevothyro xine Sodium 25 MCG Tablet 1 tablet every morning on an empty stomach Orally Once a dayOmeprazole Trazodone & Diet Manage Prod Losartan Potassium 25 MG Tablet 1 tablet Orally Once a daySkin Beauty & Wellness hydrOXYzine HCl 25 MG Tablet 1 tablet as needed Orally every 8 hrsIbuprofen 600 MG Tablet 1 tablet Orally Three times a dayTaking Levothyroxine Sodium 25 MCG Tablet 1 tablet every morning on an empty stomach Orally Once a dayTaking Omeprazole Taking Trazodone & Diet Manage Prod Taking Losartan Potassium 25 MG Tablet 1 tablet Orally Once a dayTaking Skin Beauty & Wellness Taking hydrOXYzine HCl 25 MG Tablet 1 tablet as needed Orally every 8 hrsTaking Ibuprofen 600 MG Tablet 1 tablet Orally Three times a dayNot-Taking/PRNWork Note . . . . .amLODIPine Besylate 5 MG Tablet 1 tablet Orally Once a dayKeflex 750 MG Capsule as directed Orally BIDCipro 500 MG Tablet 1 tablet Orally every 12 hrsBactrim DS 800-160 MG Tablet 1 tablet Orally Twice a dayLamISIL 250 MG Tablet 1 tablet Orally Once a day for 7 days then stop for 3 weeks repeat cylce for 12 monthsKeflex 500 MG Capsule 1 capsule Orally every 12 hrstraMADol HCl 50 MG Tablet 1 tablet as needed Orally every 6 hrsMedication List reviewed and reconciled with the patientNot-Taking/PRN Work Note . . . . .Not-Taking/PRN amLODIPine Besylate 5 MG Tablet 1 tablet Orally Once a dayNot-Taking/PRN Keflex 750 MG Capsule as directed Orally BIDNot-Taking/PRN Cipro 500 MG Tablet 1 tablet Orally every 12 hrsNot-Taking/PRN Bactrim DS 800-160 MG Tablet 1 tablet Orally Twice a dayNot-Taking/PRN LamISIL 250 MG Tablet 1 tablet Orally Once a day for 7 days then stop for 3 weeks repeat cylce for 12 monthsNot-Taking/PRN Keflex 500 MG Capsule 1 capsule Orally every 12 hrsNot-Taking/PRN traMADol HCl 50 MG Tablet 1 tablet as needed Orally every 6 hrsMedication List reviewed and reconciled with the patient * Allergies:?Sulfa Antibiotics : rashLatexyes[Allergies Verified] Objective: * Vitals:?Ht: 5ft 6in, Wt:183, BMI:29.53, Shoe size: 8, Ht-cm: 167.64 cm, Wt-k.01 kg. * Examination: ???General Examination: ?GENERAL APPEARANCE:?Reveals a pleasant, alert, well nourished, well- developed, well hydrated individual, who demonstrates proper attention to hygiene/body habitus, and is in no acute distress.?Vascular: ?DORSALIS PEDIS PULSE:?2/4, B/L.?POSTERIOR TIBIAL PULSE:?2/4, B/L.?Dermatologic: ?SKIN FINDINGS:?Skin exam reveals normal texture, elasticity, and tugor. There are no masses. The interspaces are clear , Skin exam reveals Keratotic lesion(s) located at , DIPJ , T1 , T6.?Nails: ?NAILS are:?elongated,overgrown,dystrophic,greater than 3mm thick,discolored and friable with crumbly malodorous subungual debris, with pain on palpation, 1-5 Right foot, 2-5 Left foot.?Orthopedic: ?MUSCLE STRENGTH:?5/5 all groups in a symmetrical fashion , B/L.?DIGITAL DEFORMITIES:?Digital contracture, PIPJ, 2-5 B/L, incompl-reducible to push-up test, no over, nor underlapping, Reveals resolving swelling/redness/enlargement of PIPJs, with evidence of NO shoe producing skin irritation 2nd digits b/l.?FOOTWEAR:?worn, nonsupportive, shoegear properties exacerbate patient's foot/toe deformity .?Neurological: ?SENSORY:?Neurological exam reveals intact sensorium, pain sensation normal, vibration sensation intact, pinprick sensation is normal in the lower extremities, Pt denies, anesthesia, burning, paresthesia, tingling, B/L.?TINEL'S COMPRESSION:?Negative tarsal tunnel, reji pedis, and medial calcaneal nerves.?Neuroma Pain: ?PALPATION:?No interspace pain noted on palpation , B/L.? Assessment: * Assessment: 1.?Tinea unguium - B35.1?2.? Other hammer toe(s) (acquired), right foot - M20.41 (Primary), Chronic problem, Stable (1=3,2=4)?3.?Pain in right toe(s) - M79.674?4.?Pain in left toe(s) - M79.675?5.?Other hammer toe(s) (acquired), left foot - M20.42, Chronic problem, Stable (1=3,2=4)? Plan: * Treatment: * Procedures:?Debride Nail 6-10:?Nail debridement?Nail debridement performed extensively to reduce/remove overall nail length and girth, subungual debris, and necrotic tissue, by manual and electrical means with use of a nail nipper and/or dremel, to more viable healthy nail plate or bed tissue 6-10. Silver nitrate used for any petechial bleeding as necessary. Patient chooses, no pharmaceutical tx (63575).? * Procedure Codes:?33961 DEBRI DE NAIL, 6 OR MORE, Modifiers: XS * Preventive Medicine:? ??Counseling:?Discussion:?-13: Office or other outpatient visit for the evaluation and management of an established patient, which required a medically appropriate history and/or examination and LOW level of DECISION MAKING for: 1 STABLE ACUTE UNCOMPLICATED PROBLEM, 2 OR MORE MINOR PROBLEMS, OR 1 STABLE CHRONIC PROBLEM, THAT POSE(S) A LOW RISK FOR MORBIDITY/MORTALITY. The visit on the day of the encounter encompassed interpreting the data and educating the patient as to the nature of their condition, treatment options available according to their individual PMH, meds, allergies, and overall health/living conditions, as well as any potential risks or complications that may occur from a failure to adhere to, and participate in, the recommended course of therapy. The discussion included a complete verbal, and/or written explanation of the examination results, any x-rays taken, the proposed diagnosis, and outline of the treatment plan. A schedule for future care needs was also explained. The patient verbalized an understanding of the instructions at this time and agreed to be an active participant in their treatment. If the patient should think of any questions or concerns after the visit, I have encouraged the patient to call the office.?Digital Treatment:?Recomm, rest, ice, proper shoegear, padding, orthotics, anti-inflammatories or tylenol as tolerated, topical analgesics, cortisone injections.?Shoe Gear Counseling:?The patient and I reviewed the types of shoes they should be wearing. My recommendation included obtaining a well-fitted shoe with a good supportive, non-foldable nor twistable sole, plenty of toe/room for the forefoot, and proper arch support. Based on todays examination, I recommended the patient look for new shoes, by having their feet professionally measured. We discussed that generally the best time of the day for a shoe fitting is the afternoon. Different shoes types and brands to best match the patients occupation and vocation were discussed. Specific brand selection will be up to the patient, their individual foot condition/deformities, and fit. The patient and I reviewed the standard new shoe break in period by wearing them for a few hours a day while checking for redness or sores as wear time is increased. The patient verbally confirmed to understanding the information discussed.? * Follow Up:?prn * Images: * Sign off status: Completed true * Provider:?Pallavi Ruff DPM Date:?2023 Generated for Luis F umaña/Hong/Tristansmitting on:?08/15/2024 11:48 AM EST History and Physical Notes * HPI (History of Present Illness) Category Sub-Category Detail Notes Category Not es Toe pain Nature: stiffness , aching Location: B/L feet , 2nd toe Duration: several years Aggravated by: shoes, any pressure Treatments: change in shoes- Painful Nails Pt States Last PCP Visit: Date:: 11/11/2023 Examination Category Sub-Category Detail Notes Category Not es Neuroma Pain PALPATION: No interspace pain noted on palpation , B/L Neurological SENSORY: Neurological exa m reveals intact sensorium, pain sensation normal, vibration sensation intact, pinprick sensation is normal in the lower extremities, Pt denies, anesthesia, burning, paresthesia, tingling, B/L TINEL'S COMPRESSION: Negative tarsal artie cristofer, reji pedis, and medial calcaneal nerves Dermatologic SKIN FINDINGS: Skin exam reveal s normal texture, elasticity, and tugor. There are no masses. The interspaces are clear , Skin exam reveals Keratotic lesion(s) located at , DIPJ , T1 , T6 Orthopedic FOOTWEAR: worn, nonsupport sindy, shoegear properties exacerbate patient's foot/toe deformity DIGITAL DEFORMITIES: Digital contracture , PIPJ, 2-5 B/L, incompl-reducible to push-up test, no over, nor underlapping, Reveals resolving swelling/redness/enlargement of PIPJs, with evidence of NO shoe producing skin irritation 2nd digits b/l MUSCLE STRENGTH: 5/5 all groups in a symmetrical fashion , B/L Vascular DORSALIS PEDIS PULSE: 2/4, B/L POSTERIOR TIBIAL PULSE: 2/4, B/L General Examination GENERAL APPEARANCE: Reveals a pleasant, alert, well nourished, well-developed, well hydrated individual, who demonstrates proper attention to hygiene/body habitus, and is in no acute distress Nails NAILS are: elongated,overgr own,dystrophic,greater than 3mm thick,discolored and friable with crumbly malodorous subungual debris, with pain on palpation, 1-5 Right foot, 2-5 Left foot
--- OUTSIDE RECORDS SUMMARY | 2024-08-15 11:49 | XMS_ITS ---
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 Supervisor Name Role Phone Nadeem Conn MD Primary Care Provider Unavaila Pallavi Linda Unavailable [phone] Allergies Allergen (clinical drug ingredient) Drug/Non Drug Allergy documented on EMR Reaction Allergy Type Onset Date Status diphenhydramine Benadryl Unknown Drug Allergy A ctive Latex Latex Unknown Allergy Active Substance with sulfonamide structure and antibacterial mechanism of action (substance) Sulfa Antibiotics rash Drug Allergy A ctive REASON FOR VISIT Painful nail(s) aggravated by shoes causing difficulty standing/walking, At Risk Footcare Medications Medication SIG (Take, Route, Frequency, Duration) Notes Start Date End Date Status amLODIPine Besylate 5 MG 1 tablet Orally Once a day Not-Taking Work Note . . . . for . Not-Ta wolf Cipro 500 MG 1 tablet Orally ever y 12 hrs for 10 day(s) 02/12/2020 Not-Taking Keflex 750 MG as directed Orally B ID for 10 days 07/26/2020 Not-Taking Bactrim DS 800-160 MG 1 tablet Orally Tw ice a day for 10 day(s) 02/07/2020 Not-Taking Ibuprofen 600 MG 1 tablet Orally Thre e times a day Active hydrOXYzine HCl 25 MG 1 tablet as needed Orally every 8 hrs Active Trazodone & Diet Manage Prod Active Skin Beauty & Wellness Active Losartan Potassium 25 MG 1 tablet Orally Once a day Active Levothyroxine Sodium 25 MCG 1 tablet every morning on an empty stomach Orally Once a day for 30 day(s) Active Keflex 500 MG 1 capsule Orally yina ry 12 hrs for 10 day(s) 11/02/2017 Not-Taking Omeprazole Active LamISIL 250 MG 1 tablet Orally Once a day for 7 days then stop for 3 weeks repeat cylce for 12 months for 365 days 06/07/2017 Not-Taking traMADol HCl 50 MG 1 tablet as needed Orally every 6 hrs Not-Taking Social History Tobacco Use: Social History Observation Description Date Details (start date - stop date) Never Smoker NA - NA Tobacco use other than smoking: Question Answer Notes Are you an other tobacco user? No Tobacco Control (Standard) Question Answer Notes Tobacco use: Nonsmoker Additional Findings: Tobacco non-user Current no nsmoker AUDIT-C (Standard) Question Answer Notes Did you have a drink containing alcohol in the p ast year? No Points 0 Interpretation Negative Section Notes: Pt has been sober for 9 willis hs Problems Problem Type SNOMED Code ICD Code Onset Dates Problem Status W/U Status Risk Notes Problem Atherosclerosis of [place] artery of both lower extremities, with unspecified presence of clinical manifestation (I70.203) Active confirmed Q7(A), Q8(2B), Q9(1B,2C) Vital Signs Height 5ft 6in in 05/12/2024 Weight 189 lbs 05/12/2024 BMI 30.5 kg/m2 05/12/2024 Encounters Encounter Location Date Provider Diagnosis [facility] [address] [address] 05/12/2024 Pallavi Black Onychomycosis B35.1 ; Atherosclerosis of [place] artery of both lower extremities, with unspecified presence of clinical manifestation I70.203 ; Pain in right toe(s) M79.674 and Pain in left toe(s) M79.675 Assessments Encounter Date Diagnosis (ICD Code) Assessment Notes Treatment Notes Treatment Clinical Notes Section Notes 05/12/2024 Onychomycosis (ICD-10 - B35.1) 05/12/2024 Atherosclerosis of [place] artery of both lower extremities, with unspecified presence of clinical manifestation (ICD-10 - I70.203) Q7(A), Q8(2B), Q9(1B,2C) 05/12/2024 Pain in right toe(s) (ICD-10 - M79.674) 05/12/2024 Pain in left toe(s) (ICD-10 - M79.675) Plan Of Treatment Next Appt Details Follow Up: prn, Reason: Provider Name:Pallavi Ruff , 11/14/2024 09:00:00 AM, [address] [facility], [place], [address], Procedure Notes * Category Sub-Category Detail Notes Debride Nail 6-10 Nail debridement Performance o f this nail treatment by a nonprofessional would put this patients foot and overall health at risk. Therefore, debridement to affected nail(s), as described in exam, was performed extensively to reduce/remove overall nail length, girth, thickness, subungual debris, and necrotic tissue, by manual and/or electrical means through the use of a nail nipper and/or dremel-type rubber grinder, to a more viable healthy nail plate or bed tissue 6-10 nails in total. Silver nitrate was used for any petechial bleeding as necessary. Definitive antifungal treatment options, both pharmaceutical and surgical, have been reviewed and discussed with the patient. The patient solely prefers the use of intermittent/as needed professional debridement services for their nail condition and understands the need for additional periodic treatments to maintain effectiveness in symptomatic relief - 02993 Keratoma Treatment Parring or Cutting o f Benign Hyperkeratotic Lesion(s) , (-57) More than 4 Lesions - The Benign hyperkeratotic lesions, ( 7 ) in total, locations as stated and described in exam, were pared, and/or cut utilizing a sterile 15 blade, tissue nippers, and/or power dremel instrumentation - 83492 Progress Notes * Sanket OSUNA ADOB: (69 yo F)Acc No.[id number]:05/12/2024 Progress Note Patient:?Sanket OSUNA Provider:?Pallavi Ruff DPM :1955???Age:69 Y???Sex:Female D ate:05/12/2024 Address:[address] [place] [id number] Pcp:Nadeem Conn MD Subjective: * Chief Complaints: * ???Painful nail(s) aggravate d by shoes causing difficulty standing/walkingAt Risk Footcare * HPI: ???Painful Nails:?Pt States Last PCP Visit:?Date:?11/11/2023 ???At Risk footcare:?Pt States Last PCP Visit:?Date?11/11/2023 * Medical History:? * Surgical History:?foot surge ry 1998left hip replacement 07/16/2014 * Hospitalization/Major Diagno stic Procedure:?Went to [facility] for severe contusion to left rib 01/2014[facility] Hip Replacement 07/16/2014[facility] Hypertension 04/05/19[facility]- Sprained ankle 09/2020[facility] fell 01/02/22 * Family History:?Mother: dece ased, diagnosed with Other malignant neoplasm of unspecified site.?Father: .?Daughter(s): alive.?Son(s): alive.?Paternal Grand Mother: kidney/liver disease.?1 son(s) , 1 daughter(s) . .? * Social History:?Tobacco Use:?Tobacco use other than smoking?Are you an other tobacco user??No ?Tobacco Control (Standard)?Tobacco use:?Nonsmoker ?Additional Findings: Tobacco non-user?Current nonsmoker ???Drugs/Alcohol:?Drugs?Have you used drugs other than those for medical reasons in the past 12 months??No ???Miscellaneous:?Caffeine: yes, frequency:, 1-2 cups per day. ?Children: yes, two. ?Exercise: yes, walking. ?Marital status: . 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 ???Drug/Alcohol:?AUDIT-C (Standard)?Did you have a drink containing alcohol in the past year??No ?Points?0 ?Interpretation?Negative ???Pt has been sober for 9 months. * Medications:?TakingLevothyro xine Sodium 25 MCG Tablet 1 tablet every morning on an empty stomach Orally Once a day Omeprazole Trazodone & Diet Manage Prod Losartan Potassium 25 MG Tablet 1 tablet Orally Once a day Skin Beauty & Wellness hydrOXYzine HCl 25 MG Tablet 1 tablet as needed Orally every 8 hrs Ibuprofen 600 MG Tablet 1 tablet Orally Three times a day Taking Levothyroxine Sodium 25 MCG Tablet 1 tablet every morning on an empty stomach Orally Once a day Taking Omeprazole Taking Trazodone & Diet Manage Prod Taking Losartan Potassium 25 MG Tablet 1 tablet Orally Once a day Taking Skin Beauty & Wellness Taking hydrOXYzine HCl 25 MG Tablet 1 tablet as needed Orally every 8 hrs Taking Ibuprofen 600 MG Tablet 1 tablet Orally Three times a day Not-Taking/PRNWork Note . . . . . amLODIPine Besylate 5 MG Tablet 1 tablet Orally Once a day Keflex 750 MG Capsule as directed Orally BID Cipro 500 MG Tablet 1 tablet Orally every 12 hrs Bactrim DS 800-160 MG Tablet 1 tablet Orally Twice a day LamISIL 250 MG Tablet 1 tablet Orally Once a day for 7 days then stop for 3 weeks repeat cylce for 12 months Keflex 500 MG Capsule 1 capsule Orally every 12 hrs traMADol HCl 50 MG Tablet 1 tablet as needed Orally every 6 hrs Medication List reviewed and reconciled with the patientNot-Taking/PRN Work Note . . . . . Not-Taking/PRN amLODIPine Besylate 5 MG Tablet 1 tablet Orally Once a day Not-Taking/PRN Keflex 750 MG Capsule as directed Orally BID Not-Taking/PRN Cipro 500 MG Tablet 1 tablet Orally every 12 hrs Not-Taking/PRN Bactrim DS 800-160 MG Tablet 1 tablet Orally Twice a day Not-Taking/PRN LamISIL 250 MG Tablet 1 tablet Orally Once a day for 7 days then stop for 3 weeks repeat cylce for 12 months Not-Taking/PRN Keflex 500 MG Capsule 1 capsule Orally every 12 hrs Not-Taking/PRN traMADol HCl 50 MG Tablet 1 tablet as needed Orally every 6 hrs Medication List reviewed and reconciled with the patient * Allergies:?Sulfa Antibiotics : rashLatexBenadrylyes[Allergies Verified] Objective: * Vitals:?Ht: 5ft 6in, Wt:189, BMI:30.5, Shoe size: 8, Ht-cm: 167.64 cm, Wt-k.73 kg. * Examination: ???General Examination: ?GENERAL APPEARANCE:?Reveals a pleasant, alert, well nourished, well- developed, well hydrated individual, who demonstrates proper attention to hygiene/body habitus, and is in no acute distress, Pt serves as own historian for office visit today.?ORIENTED:?person, place, and time.?Nails: ?NAILS are:??elongated,overgrown,dystrophic,greater than 3mm thick,discolored and friable with crumbly malodorous subungual debris, with pain on palpation, 1- 5 Right foot, 2-5 Left foot.?Vascular: ?DP PULSES(B):?, 1/4, B/L.?PT PULSES(B):? 0/4, B/L.?CAPILLARY FILL TIME:? delayed, all digits, B/L.?TROPHIC CONDITION-TEXTURE/ELASTICITY/TURGOR/HAIR GROWTH(B):? decreased, fragile, thin, shiny skin, with sparse to absent hair growth, B/L.?TEMPERTURE GRADIENT(C):? decreased, cool to cool, proximal to distal, B/L.?PIGMENTATION:?pale, B/L.?EDEMA(C):?, 1/4, B/L.?CLAUDICATION(C):?denies, B/L.?REST PAIN:?denies, B/L.?PARESTHESIA(C):?absent, B/L.?BURNING(C):?absent, B/L.?Dermatologic: ?SKIN FINDINGS:?Skin exam reveals Keratotic lesion(s) located at, IPJ, TA, T5, SUB MTH (s), 1, 2, 5, Right, 1, 5, Left , Skin exam reveals normal texture, elasticity, and tugor. There are no masses. The interspaces are clear ,.?Orthopedic: ?MUSCLE STRENGTH:?5/5 all groups in a symmetrical fashion, B/L.?Neurological: ?SENSORY:?Neurological exam reveals intact sensorium, pain sensation normal, vibration sensation intact, pinprick sensation is normal in the lower extremities, Pt denies, anesthesia, burning, paresthesia, tingling, B/L.? Assessment: * Assessment: 1.?Onychomycosis - B35.1???2 .?Atherosclerosis of [place] artery of both lower extremities, with unspecified presence of clinical manifestation - I70.203 (Primary)???Notes :Q7(A), Q8(2B), Q9(1B,2C)???3.?Pain in right toe(s) - M79.674???4.?Pain in left toe(s) - M79.675??? Plan: * Treatment: * Procedures:?Debride Nail 6-10:?Nail debridement?Performance of this nail treatment by a nonprofessional would put this patients foot and overall health at risk. Therefore, debridement to affected nail(s), as described in exam, was performed extensively to reduce/remove overall nail length, girth, thickness, subungual debris, and necrotic tissue, by manual and/or electrical means through the use of a nail nipper and/or dremel-type rubber grinder, to a more viable healthy nail plate or bed tissue 6-10 nails in total. Silver nitrate was used for any petechial bleeding as necessary. Definitive antifungal treatment options, both pharmaceutical and surgical, have been reviewed and discussed with the patient. The patient solely prefers the use of intermittent/as needed professional debridement services for their nail condition and understands the need for additional periodic treatments to maintain effectiveness in symptomatic relief - 81135.?Keratoma Treatment:?Parring or Cutting of Benign Hyperkeratotic Lesion(s)?, (-57) More than 4 Lesions - The Benign hyperkeratotic lesions, ( 7 ) in total, locations as stated and described in exam, were pared, and/or cut utilizing a sterile 15 blade, tissue nippers, and/or power Padcom instrumentation - 10323.? * Procedure Codes:?63207 DEBRI DE NAIL, 6 OR MORE, Modifiers: XS 67639 TRIM SKIN LESIONS, OVER 4, Modifiers: Q8 , XS * Follow Up:?prn * Images: * Sign off status: Completed true * Provider:?Pallavi Ruff DPM Date:?2023 Generated for Luis F umaña/Hong/eTransmitting on:?08/15/2024 11:49 AM EST History and Physical Notes * HPI (History of Present Illness) Category Sub-Category Detail Notes Category Not es Painful Nails Pt States Last PCP Visit: Date:: 11/11/2023 At Risk footcare Pt States Last PCP Visit: Date: Examination Category Sub-Category Detail Notes Category Not es Neurological SENSORY: Neurological exa m reveals intact sensorium, pain sensation normal, vibration sensation intact, pinprick sensation is normal in the lower extremities, Pt denies, anesthesia, burning, paresthesia, tingling, B/L Dermatologic SKIN FINDINGS: Skin exam reveal s Keratotic lesion(s) located at, IPJ, TA, T5, SUB MTH (s), 1, 2, 5, Right, 1, 5, Left , Skin exam reveals normal texture, elasticity, and tugor. There are no masses. The interspaces are clear , Orthopedic MUSCLE STRENGTH: 5/5 all groups in a symmetrical fashion, B/L General Examination GENERAL APPEARANCE: Reveals a pleasant, alert, well nourished, well-developed, well hydrated individual, who demonstrates proper attention to hygiene/body habitus, and is in no acute distress, Pt serves as own historian for office visit today ORIENTED: person, place, and t max Vascular DP PULSES (B): , 1/4, B/L PT PULSES (B): 0/4, B/L CAPILLARY FILL TIME: delayed, all digits , B/L TEMPERTURE GRADIENT (C): decreased, cool to cool, proximal to distal, B/L TROPHIC CONDITION-TEXTURE/ELASTICITY/TURGOR/HAIR GROWTH (B): decreased, fragile, thin, shiny skin, wi th sparse to absent hair growth, B/L EDEMA (C): , 1/4, B/L CLAUDICATION (C): denies, B/L REST PAIN: denies, B/L PIGMENTATION: pale, B/L PARESTHESIA (C): absent, B/L BURNING (C): absent, B/L Nails NAILS are: elongated,overgr own,dystrophic,greater than 3mm thick,discolored and friable with crumbly malodorous subungual debris, with pain on palpation, 1-5 Right foot, 2-5 Left foot
--- OUTSIDE RECORDS SUMMARY | 2024-08-15 11:49 | XMS_ITS ---
Author Organization [facility] Address [address] [place] [address] Care Team Providers Care Compliance Program Manager Name Role Phone Nadeem Conn MD Primary Care Provider Unavaila Pallavi Linda Unavailable [phone] Allergies Allergen (clinical drug ingredient) Drug/Non Drug Allergy documented on EMR Reaction Allergy Type Onset Date Status diphenhydramine Benadryl Unknown Drug Allergy A ctive Latex Latex Unknown Allergy Active Substance with sulfonamide structure and antibacterial mechanism of action (substance) Sulfa Antibiotics rash Drug Allergy A ctive REASON FOR VISIT At Risk Footcare, Painful nail(s) aggravated by shoes causing difficulty standing/walking, Ingrown Nail, Open sore - Toe Medications Medication SIG (Take, Route, Frequency, Duration) Notes Start Date End Date Status traMADol HCl 50 MG 1 tablet as needed Orally every 6 hrs Not-Taking Keflex 500 MG 1 capsule Orally yina ry 12 hrs for 10 day(s) 11/02/2017 Not-Taking LamISIL 250 MG 1 tablet Orally Once a day for 7 days then stop for 3 weeks repeat cylce for 12 months for 365 days 06/07/2017 Not-Taking Bactrim DS 800-160 MG 1 tablet Orally Tw ice a day for 10 day(s) 02/07/2020 Not-Taking Cipro 500 MG 1 tablet Orally ever y 12 hrs for 10 day(s) 02/12/2020 Not-Taking hydrOXYzine HCl 25 MG 1 tablet as needed Orally every 8 hrs Active Keflex 750 MG as directed Orally B ID for 10 days 07/26/2020 Not-Taking amLODIPine Besylate 5 MG 1 tablet Orally Once a day Not-Taking Work Note . . . . for . Not-Ta wolf Ibuprofen 600 MG 1 tablet Orally Thre e times a day Active Skin Beauty & Wellness Active Losartan Potassium 25 MG 1 tablet Orally Once a day Active Trazodone & Diet Manage Prod Active Omeprazole Active Levothyroxine Sodium 25 MCG 1 tablet every morning on an empty stomach Orally Once a day for 30 day(s) Active Social History Tobacco Use: Social History [...] 9 willis hs Vital Signs Height 5ft 6 in in 08/11/2024 Weight 189 lbs 08/11/2024 BMI 30.5 kg/m2 08/11/2024 Blood pressure systolic 149 mm Hg 08/11/19 25 Blood pressure diastolic 92 mm Hg 025 Heart Rate 88 /min 08/11/2024 Procedures Procedure Date Ordered Date Performed Result Body Sit e 99068-XDOPZJP NAIL, 6 OR MORE 08/11/2024 N/A 00943-Pewbkatn Plate 08/11/2024 N/A 46114- Debride <25 sq cm 08/11/2024 N/A 39059-ZYGT SKIN LESIONS, OVER 4 08/11/2024 N/A Encounters Encounter Location Date Provider Diagnosis [facility] [address] [address] 08/11/2024 Pallavi Black Onychomycosis B35.1 ; Atherosclerosis of [place] artery of both lower extremities, with unspecified presence of clinical manifestation I70.203 ; Pain in right toe(s) M79.674 ; Pain in left toe(s) M79.675 ; Ingrown nail L60.0 and Skin ulcer of toe of left foot, limited to breakdown of skin L97.521 Assessments Encounter Date Diagnosis (ICD Code) Assessment Notes Treatment Notes Treatment Clinical Notes Section Notes 08/11/2024 Onychomycosis (ICD-10 - B35.1) 08/11/2024 Atherosclerosis of [place] artery of both lower extremities, with unspecified presence of clinical manifestation (ICD-10 - I70.203) Q7(A), Q8(2B), Q9(1B,2C) 08/11/2024 Pain in right toe(s) (ICD-10 - M79.674) 08/11/2024 Pain in left toe(s) (ICD-10 - M79.675) 08/11/2024 Ingrown nail (ICD-10 - L60.0) 08/11/2024 Skin ulcer of toe of left foot, limited to breakdown of skin (ICD-10 - L97.521) Response to treatment Nonapplicable Patient Educated with: WOUND CARE INSTRUCTIONS. pdf (WOUND CARE INSTRUCTIONS. pdf) 08/11/2024 Other Plan Of Treatment Treatment Notes Assessment Notes Skin ulcer of toe of left fo ot, limited to breakdown of skin Patient Educated with: WOUND CARE INSTRUCTIONS.pdf (WOUND CARE INSTRUCTIONS.pdf) Pending Test Test Name Order Date 46982-KANYEQM NAIL, 6 OR MORE 08/11/2024 94947-Ftcidfgo Plate 08/11/2024 67584- Debride <25 sq cm 08/11/2024 92248-MVWL SKIN LESIONS, OVER 4 08/11/19 Next Appt Details Follow Up: 3-4 Weeks, Reason : Provider Name:Pallavi Dover Speedy , 11/14/2024 09:00:00 AM, [address] [facility], [place], [address], Procedure Notes * Category Sub-Category Detail Notes Nail Avulsion Procedure A fine sterile e levator was placed between the eponychium, nail fold, and nail plate to separate the structures. A sterile nail splitter, and/or sterile 316 blade, was then used to longitudinally section the nail along its entire length through the eponychium to the area under the nail fold. The offending portion of nail was from the nail bed with a rolling action and then removed with a hemostat. No underlying bone was identified. There was minimal bleeding as hemostasis was achieved through the temporary use of either a digital tourniquet or the aforementioned local with epinephrine. A bacitracin sterile dressing was applied. Local wound aftercare instructions were discussed and dispensed. The patient was informed of both conservative and future surgical procedures to prevent recurrence. Tylenol or Motrin was recommended for pain or discomfort (16951), CIRCULATION: Matricectomy deferred at this time due to compromised circulation risk Anesthesia , was accomplished T OPICALLY with Lidocaine Hydrochloride Jelly 2 percent Location , Bilateral nail bor isela, T2 Debride Nail 6-10 Nail debridement Due to the cl inical pathology outlined in the exam findings, performance of this nail treatment is medically necessary as its management by an unskilled/untrained nonprofessional would put this patients foot and overall health at risk. Therefore, debridement to affected nail(s), as described in exam ( TA, T3, T4, T5, T6, T7, T8, T9, ), was performed exclusively by the physician of record to reduce/remove overall nail length, girth, thickness, subungual debris, and necrotic tissue, by manual and/or electrical means through the use of a nail nipper and/or dremel-type centerless grinder set up operator, to a more viable healthy nail plate [...] to maintain effectiveness in symptomatic relief - 80869 Debride skin< 25 sq cm Open wound Physician of record performed open wound selective debridement of first 25 sq cm or less, of devitilized necrotic/nonviable soft tissue, fibrin, and exudate extending from the epidermis through the dermis, utilizing sharp dissection with sterile 15 blade, and/or tissue nippers. Sterile antibiotic dressing applied, ANESTHESIA- was accomplished TOPICALLY with Lidocaine Hydrochloride Jelly 2 percent. Hemostasis was achieved through direct pressure. Post debridement measurements: 5 mm x 6 mm x 2mm. Character of the wound post debridement is stable (63511) Keratoma Treatment Parring or Cutting o f Benign Hyperkeratotic Lesion(s) (-57) More than 4 Lesions - Due to the at risk nature of the patients medical condition as documented in the exam findings, performance of this keratoderma treatment is medically necessary as its management by an unskilled/untrained nonprofessional would put this patients foot and overall health at risk. Therefore, the benign hyperkeratotic lesions, ( 7 ) in total, locations as stated and described in the exam ( IPJ, TA, T5, SUB MTH (s), 1, 2, 5, Right, 1, 5, Left , ), were pared, and/or cut utilizing a sterile 15 blade, tissue nippers, and/or power dremel instrumentation by the physician of record - 63439 Progress Notes * Sanket OSUNA ADOB: [birth year] (69 yo F)Acc No.[id number]:08/11/2024 Progress Note Patient:?Sanket OSUNA Provider:?Pallavi Ruff DPM :1955???Age:69 Y???Sex:Female D ate:08/11/2024 Address:[address] [place] [id number] Pcp:Nadeem Conn MD Subjective: * Chief Complaints: * ???At Risk FootcarePainful n ail(s) aggravated by shoes causing difficulty standing/walkingIngrown NailOpen sore - Toe * HPI: ???Painful Nails:?Pt States Last PCP Visit:?Date:?07/12/2024 ???At Risk footcare:?Pt States Last PCP Visit:?Date?07/12/2024 ???Skin problems:?Treatments:?, none.? * ROS:?General/Constitutional:?Nausea?denies.?Vomiting?denies.?Hunger Thirst?denies.?Loss appetite?denies.?Chills?denies.?Fatigue?denies.?Fever?denies.?Night Sweats?denies.?Unexplained weight loss?denies.?Unexplained weight gain?denies.?HEENTM:?Dentures?denies.?Dizziness?denies.?Glasses/contacts?denies.?Retinopathy?de nies.?Blurred/double vision?denies.?TMJ?denies.?Discharge/drainage?denies.?Implants?denies.?Sore throat?denies.?Dental implants?denies.?Hard of hearing ?denies.?Difficulty chewing/swallowing/speaking?denies.?Nose bleeds?denies.?Sore mouth?denies.?Respiratory:?On Oxygen?denies.?Pneumonia/pleurisy?denies.?Bronchitis?denies.?Emphysema?denies.?C oughing?denies.?Cough blood?denies.?Shortness of breath?denies.?Wheezing?denies.?Cardiovascular:?Pacemaker?denies.?MVP?denies.?WPW?denies.?CHF?denies.?Heart attack?denies.?Septal defect?denies.?Rapid beat?denies.?Chest pain ?denies.?Atrial Fib.?denies.?Murmur/Palpitations?denies.?Gastrointestinal:?Hemorrhoids?denies.?Stomach/Abdominal pain?denies.?Dark blood stool?denies.?Irritable bowel ?denies.?Constipation?denies.?Diarrhea?denies.?Hematology:?Swelling?denies.?Clots?denies.?Varicose Veins?denies.?Bruising?denies.?Bleeding problem?denies.?Genitourinary:?Blood urine?denies.?Frequent/Painfu/urination/bladder control?denies.?Kidney stones?denies.?Infection (UTI)?denies.?Nephropathy?denies.?sex trans dis (STD)?denies.?Prostate?denies.?Musculoskeletal:?Hammertoes?admits.?Bunions?denies.?Back Pain?denies.?Muscle Cramps/ Resting?denies.?Muscle cramps / walking?denies.?Generalized aches and pains?denies.?Weakness?denies.?Integ.:?García?denies.?Scars?denies.?Corns/calluses?admits.?Ingrown nails?, admits.?Painful nails?admits.?Open Sores?, admits.?Rashes?denies.?Neurologic:?Difficulty sleeping?denies.?Brain disorder?denies.?Numbness?denies.?Balance trouble?denies.?Confusion?denies.?Fainting/blackouts?denies.?Tingling?denies.?Tr emors?denies.? * Medical History:? * Surgical History:?foot surge ry 1998left hip replacement 07/16/2014shoulder replacement 02/23/2024 * Hospitalization/Major Diagno stic Procedure:?Went to [facility] for severe contusion to left rib 01/2014[facility] Hip Replacement 07/16/2014[facility] Hypertension 04/05/19[facility]- Sprained ankle 09/2020[facility] fell 01/02/22 * Family History:?Mother: dece ased, diagnosed with Other malignant neoplasm of unspecified site.?Father: .?Daughter(s): alive.?Son(s): alive.?Paternal Grand Mother: kidney/liver disease.?Spouse: alive.?1 son(s) , 1 daughter(s) . .? * [...] Allergies:?Sulfa Antibiotics : rashLatexBenadrylyes[Allergies Verified] Objective: * Vitals:?Ht:5ft 6 in, Wt:189, BMI:30.5, Shoe size:8, BP:149/92mm Hg, HR:88/min, Ht-cm: 167.64 cm, Wt-k.73 kg. * Examination: ???General Examination: ?GENERAL APPEARANCE:?Reveals a pleasant, alert, well nourished, well- developed, well hydrated individual, who demonstrates proper attention to hygiene/body habitus, and is in no acute distress, Pt serves as own historian for office visit today.?ORIENTED:?person, place, and time.?Nails: ?NAILS are:?elongated,overgrown,dystrophic,greater than 3mm thick,discolored and friable with crumbly malodorous subungual debris, with pain on palpation, , TA,? T3, T4, T5, T6, T7, T8, T9.?Vascular: ?DP PULSES (B):?, 1, B/L.?PT PULSES (B):? 0/4, B/L.?CAPILLARY FILL TIME:? delayed, all digits, B/L.?TROPHIC CONDITION-TEXTURE/ELASTICITY/TURGOR/HAIR GROWTH (B):? decreased, fragile, thin, shiny skin, with sparse to absent hair growth, B/L.?TEMPERTURE GRADIENT (C):? decreased, cool to cool, proximal to distal, B/L.?PIGMENTATION:?pale, B/L.?EDEMA (C):?, 1/4, B/L.?CLAUDICATION (C):?denies, B/L.?REST PAIN:?denies, B/L.?PARESTHESIA (C):?absent, B/L.?BURNING (C):?absent, B/L.?Dermatologic: ?SKIN FINDINGS:?Skin exam reveals Keratotic lesion(s) located at, IPJ, TA, T5, SUB MTH (s), 1, 2, 5, Right, 1, 5, Left ,.?ULCER:? LOCATION,Distal,T1, SIZE, 4mm X 5mm X 2mm, BASE, granular, RIM, hyperkeratotic, UNDERMINING, absent, TRACKING, Full thickness breakdown of skin, DRAINAGE, serosanguineous, mild, NECROTIC TISSUE, loosely-adherent, yellow slough, MALODOR, absent, CALOR, absent, ERYTHEMA, absent, PAIN ON PALPATION, present.?Neurological: ?SENSORY:?Neurological exam reveals intact sensorium, pain sensation normal, vibration sensation intact, pinprick sensation is normal in the lower extremities, Pt denies, anesthesia, burning, paresthesia, tingling, B/L.?Ingrown Nail: ?INSPECTION:?Reveals nail incurvation, pain on palpation, groove hypertrophy, groove ischemia, Bilateral nail borders, T2.? Assessment: * Assessment: 1.?Onychomycosis - B35.1???2 .?Atherosclerosis of [place] artery of both lower extremities, with unspecified presence of clinical manifestation - I70.203 (Primary)???Notes :Q7(A), Q8(2B), Q9(1B,2C)???3.?Pain in right toe(s) - M79.674???4.?Pain in left toe(s) - M79.675???5.?Ingrown nail - L60.0???6.?Skin ulcer of toe of left foot, limited to breakdown of skin - L97.521???Notes :Response to treatment Nonapplicable??? Plan: * Treatment: 2.?Onychomycosis?Procedure: 41629-FDIYUST NAIL, 6 OR MORE 3.?Ingrown nail?Procedure: 63240-Kvxixdkq Plate 4.?Skin ulcer of toe of left foot, limited to breakdown of skin?Procedure: 41094- Debride <25 sq cm Notes: Patient Educated with: WOUND CARE INSTRUCTIONS.pdf (WOUND CARE INSTRUCTIONS.pdf)?? * Procedures:?Debride Nail 6-10:?Nail debridement?Due to the clinical pathology outlined in the exam findings, performance of this nail treatment is medically necessary as its management by an unskilled/untrained nonprofessional would put this patients foot and overall health at risk. Therefore, debridement to affected nail(s), as described in exam ( TA, T3, T4, T5, T6, T7, T8, T9, ), was performed exclusively by the physician of record to reduce/remove overall nail length, girth, thickness, subungual debris, and necrotic tissue, by manual and/or electrical means through the use of a nail nipper and/or dremel-type centerless grinder set up operator, to a more viable healthy nail plate [...] to maintain effectiveness in symptomatic relief - 43892.?Debride skin< 25 sq cm:?Open wound?Physician of record performed open wound selective debridement of first 25 sq cm or less, of devitilized necrotic/nonviable soft tissue, fibrin, and exudate extending from the epidermis through the dermis, utilizing sharp dissection with sterile 15 blade, and/or tissue nippers. Sterile antibiotic dressing applied, ANESTHESIA- was accomplished TOPICALLY with Lidocaine Hydrochloride Jelly 2 percent. Hemostasis was achieved through direct pressure. Post debridement measurements: 5 mm x 6 mm x 2mm. Character of the wound post debridement is stable (35222).?Keratoma Treatment:?Parring or Cutting of Benign Hyperkeratotic Lesion(s)?(-57) More than 4 Lesions - Due to the at risk nature of the patients medical condition as documented in the exam findings, performance of this keratoderma treatment is medically necessary as its management by an unskilled/untrained nonprofessional would put this patients foot and overall health at risk. Therefore, the benign hyperkeratotic lesions, ( 7 ) in total, locations as stated and described in the exam ( IPJ, TA, T5, SUB MTH (s), 1, 2, 5, Right, 1, 5, Left , ), were pared, and/or cut utilizing a sterile 15 blade, tissue nippers, and/or power dremel instrumentation by the physician of record - 19419.?Nail Avulsion:?Location?, Bilateral nail border, T2.?Anesthesia?, was accomplished TOPICALLY with Lidocaine Hydrochloride Jelly 2 percent.?Procedure?A fine sterile elevator was placed between the eponychium, nail fold, and nail plate to separate the structures. A sterile nail splitter, and/or sterile 316 blade, was then used to longitudinally section the nail along its entire length through the eponychium to the area under the nail fold. The offending portion of nail was from the nail bed with a rolling action and then removed with a hemostat. No underlying bone was identified. There was minimal bleeding as hemostasis was achieved through the temporary use of either a digital tourniquet or the aforementioned local with epinephrine. A bacitracin sterile dressing was applied. Local wound aftercare instructions were discussed and dispensed. The patient was informed of both conservative and future surgical procedures to prevent recurrence. Tylenol or Motrin was recommended for pain or discomfort (35416), CIRCULATION: Matricectomy deferred at this time due to compromised circulation risk.? * Procedure Codes:?57790 DEBRI DE NAIL, 6 OR MORE, Modifiers: XS 43381 Avulsion Plate, Modifiers: T2 31498 ACTIVE WOUND CARE/20 CM OR <, Modifiers: T1 53949 TRIM SKIN LESIONS, OVER 4, Modifiers: Q8 , XS * Preventive Medicine:? ??Counseling:?Ulcer:?The patient is to cont the local wound care as directed till completely healed.? ??Screening/Special Tests:?Fall Risk?Screening:?No falls in the past year ?FALLS: Screening for Future Fall Risk?Have you had any falls with injury in the past year??No * Follow Up:?3-4 Weeks * Images: * Sign off status: Completed true * Provider:?Pallavi Ruff DPM Date:?2024 Generated for Luis F umaña/Hong/eTclintsmlukas on:?08/15/2024 11:49 AM EST History and Physical Notes * HPI (History of Present Illness) Category Sub-Category Detail Notes Category Not es Painful Nails Pt States Last PCP Visit: Date:: 07/12/2024 Skin problems Treatments: , none At Risk footcare Pt States Last PCP Visit: Date: Examination Category Sub-Category Detail Notes Category Not es Ingrown Nail INSPECTION: Reveals nail inc urvation, pain on palpation, groove hypertrophy, groove ischemia, Bilateral nail borders, T2 Neurological SENSORY: Neurological exa m reveals intact sensorium, pain sensation normal, vibration sensation intact, pinprick sensation is normal in the lower extremities, Pt denies, anesthesia, burning, paresthesia, tingling, B/L Dermatologic SKIN FINDINGS: Skin exam reveal s Keratotic lesion(s) located at, IPJ, TA, T5, SUB MTH (s), 1, 2, 5, Right, 1, 5, Left , ULCER: LOCATION,Distal,T1, SIZE, 4mm X 5mm X 2mm, BASE, granular, RIM, hyperkeratotic, UNDERMINING, absent, TRACKING, Full thickness breakdown of skin, DRAINAGE, serosanguineous, mild, NECROTIC TISSUE, loosely-adherent, yellow slough, MALODOR, absent, CALOR, absent, ERYTHEMA, absent, PAIN ON PALPATION, present General Examination GENERAL APPEARANCE: Reveals a pleasant, [...] malodorous subungual debris, with pain on palpation, , TA, T3, T4, T5, T6, T7, T8, T9
== END 2024-08-15 10:07 | disposition home or self-care (01) ==
LOC: HO.MAMMO 10:06
PROVIDERS: PCP Internal Medicine; Visit Provider Internal Medicine
DX: Z12.31 Encounter for screening mammogram for malignant neoplasm of breast (principal)
CPT/HCPCS: 77063; 77067

== ENCOUNTER 2024-09-07 09:09 | Outpatient (AMB) | payer MEDICARE, SELFPAY ==
--- NOTE | 2024-09-07 09:12 | A.OFFPC_ITS ---
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 Required: No Accompanied by: Self / Same As Patient Allergies diphenhydramine [From BENADRYL] Allergy (Intermediate, Verified 09/07/24 09:12) ANXIETY/HYPERALERTNESS Sulfa (Sulfonamide Antibiotics) Allergy (Intermediate, Verified 09/07/24 09:12) SWELLING, facial swelling Benadryl Allergy (Unknown, Verified 09/07/24 09:12) aggitation latex [LATEX] Allergy (Unknown, Verified 09/07/24 09:12) RASH Latex Allergy (Mild, Uncoded 09/07/24 09:12) rash latex Allergy (Mild, Uncoded 09/07/24 09:12) rash Tobacco use date assessed: 09/07/24 Fall risk assessment: No Falls in past year Last assessed Fall Risk: 09/07/24 Dental Screening Dental Screen Date: 09/07/24 Did you have a dental visit in the last 12 months?: No Did you have a dental problem in the last 6 months where you did not have access to dental care?: No Was dental information given to patient?: No (has dentures) HPI HPI Comments History of Present Illness Details The patient is a 69 year old female with a past medical history of hypothyroid, hypertension, GERD, CKD, OA, presenting for follow up Endocrine: hypothyroid on levothyroxine BH: insomnia on trazodone, hydroxyzine. continued sobriety x 3 years MSK: On gabapentin, ibuprofen.-right hip oa sp replacement. Painful 1.5cm boil left shoulder. No head or exudate but mildly fluctuant Mammogram 07/2024 DXA 08/2023 Colonoscopy 10/2013-recommend repeat 5 years. ROS see hpi PHYSICAL EXAM: GENERAL: Alert and oriented x 3. NAD EYES: EOMI. Anicteric. HENT: Moist mucous membranes. No scleral icterus. No cervical lymphadenopathy. LUNGS: Clear to auscultation bilaterally. CARDIOVASCULAR: Regular rate and rhythm. No murmur. No JVD. ABDOMEN: Soft, non-tender +bs EXTREMITIES: No edema. Non-tender. SKIN: boil left shoulder NEUROLOGIC: No focal neurological deficits. CN II-XII grossly intact PSYCHIATRIC: Cooperative. Appropriate mood and affect [facility] Medical History Macrocytic anemia Fall Alcohol abuse with withdrawal Acute kidney failure Hyperthyroidism Hypertension Family History Father No problems noted. Mother Alcohol abuse Cancer Social History Housing: House Do you presently have visiting nurse or other home services: No Alcohol intake: current Alcohol intake frequency: does not drink Patient Tobacco Use Status: Former Tobacco user Advance Directives Date on File: 01/01/22 service: No Current occupational status: retired Cognitive needs: No Hearing needs: No Vision needs: Yes (rx glasses) Questionnaire PHQ-9 Over the last 2 weeks, how often have you been bothered by any of the following problems? 1. Little interest or pleasure in doing things: not at all 2. Feeling down, depressed, or hopeless: not at all 3. Trouble falling or staying asleep, or sleeping too much: not at all 4. Feeling tired or having little energy: not at all 5. Poor appetite or overeating: not at all 6. Feeling bad about yourself - or that you are a failure or have let yourself or your family down: not at all 7. Trouble concentrating on things, such as reading the newspaper or watching television: not at all 8. Moving or speaking so slowly that other people could have noticed. Or the opposite - being so fidgety or restless that you have been moving around a lot more than usual: not at all 9. Thoughts that you would be better off or of hurting yourself in some way: not at all Total score: 0 Depression Screening Interpretation: Negative Depression Screening Done: Yes 97975 - PHQ-9 Billing: Yes Source: Developed by Drs. Smith Rosas, Kianna Hector, Elan Hagan and colleagues, with an educational keron from [employer]. Thrive Questionnaire Date Thrive assessed: 09/07/24 I am a: Patient What is your living situation today?: I have a steady place to live Within the past 12 months, did the food you bought not last and you didn't have the money to get more?: Never true Within the past 12 months, did you worry whether your food would run out before you got money to buy more?: Never true Do you have trouble paying for medicines?: No Do you have trouble getting transportation to medical appointments?: No Do you have trouble paying your heating and electricity bill?: No Do you have trouble taking care of your child, family member or friend?: No Do you have trouble with day-to-day activities such as bathing, preparing meals, shopping, managing finances, etc.?: No Are you currently unemployed and looking for a job?: No Are you interested in more education?: No Please select the resources that you would like help with: None THRIVE Score: 0 AUDIT C Alcohol Use Questionnaire (AUDIT-C) 1. How often do you have a drink containing alcohol?: Never 3. How often do you have six or more drinks on one occasion?: Never Total Score: 0 FRANCIS-7 AMB Questionnaire FRANCIS-7 Date FRANCIS - 7 assessed: 09/07/24 Feeling nervous, anxious, or on edge: 0 = Not at all Not being able to stop or control worryin = Not at all Worrying too much about different things: 0 = Not at all Trouble relaxin = Not at all Being so restless that it is hard to sit still: 0 = Not at all Becoming easily annoyed or irritable: 0 = Not at all Feeling afraid as if something awful might happen: 0 = Not at all Total FRANCIS-7 score (0-4 normal; 5-9 mild; 10-14 moderate; 15-21 severe): 0 Source: Developed by Drs. Smith Rosas, Kianna Hector, Elan Hagan and colleagues, with an educational keron from [employer]. Physical exam (Primary Care) Vital Signs: Last Vital Signs Temp 97.9 F 09/07/24 09:14 Pulse 82 09/07/24 09:14 Resp 16 09/07/24 09:14 BP 138/88 09/07/24 09:14 Pulse Ox 99 09/07/24 09:14 Oxygen Delivery Method Room Air 09/07/24 09:14 BMI result Body Mass Index 30.1 Tobacco/Smoking Status: Tobacco use Status Tobacco use date assessed 09/07/24 09/07/24 09:23 Patient Tobacco Use Status Former Tobacco user 09/07/24 09:23 PHQ-9: PHQ-9 Score PHQ-9: Total score 0 09/07/24 09:23 Depression Screening Interpretation: Negative Thrive Assessment: Date of Thrive Assessment Date Thrive assessed 09/07/24 09/07/24 09:23 Coding Level of Care Code New Pt Level 4 (43943) Complex EM visit Add On G2211 Diagnoses Encounter to establish care Z76.89 Primary hypertension I10 Hypertension type: primary hypertension Hypothyroidism, unspecified type E03.9 Hypothyroidism type: unspecified Anemia, unspecified type D64.9 Anemia type: unspecified type Additional Codes PHQ-9 - 09889 - PHQ-9 Billing: Yes ([id number]) Time Spent (min) 50 Assessment & Plan Assessment & Plan (1) Encounter to establish care: Code(s): Z76.89 - Persons encountering health services in other specified circumstances Category: Medical (2) Hypertension: Code(s): I10 - Essential (primary) hypertension Category: Medical Qualifiers: Hypertension type: primary hypertension Qualified Code(s): I10 - Essential (primary) hypertension (3) Hypothyroid: Code(s): E03.9 - Hypothyroidism, unspecified Category: Medical Qualifiers: Hypothyroidism type: unspecified Qualified Code(s): E03.9 - Hypothyroidism, unspecified (4) Anemia: Code(s): D64.9 - Anemia, unspecified Category: Medical Qualifiers: Anemia type: unspecified type Qualified Code(s): D64.9 - Anemia, unspecified Plan 69 y/o to establish care. Past medical, surgical, social, family history reviewed Medications reconciled Due for labs -ordered BP well controlled Colonoscopy due-referral placed left shoulder boil-referral gen surg. doxy ordered Orders: Orders Complete Blood Count Auto Diff Today D64.9 - Anemia, unspecified, E03.9 - Hypothyroidism, unspecified, I10 - Essential (primary) hypertension IRON PROFILE Today D64.9 - Anemia, unspecified, E03.9 - Hypothyroidism, unspecified, I10 - Essential (primary) hypertension Comprehensive Met. Panel Today D64.9 - Anemia, unspecified, E03.9 - Hypothyroidism, unspecified, I10 - Essential (primary) hypertension Lipid Panel Today D64.9 - Anemia, unspecified, E03.9 - Hypothyroidism, unspecified, I10 - Essential (primary) hypertension TSH reflex Free T4 Today D64.9 - Anemia, unspecified, E03.9 - Hypothyroidism, unspecified, I10 - Essential (primary) hypertension Hemoglobin A1c Today D64.9 - Anemia, unspecified, E03.9 - Hypothyroidism, unspecified, I10 - Essential (primary) hypertension Referrals General Surgery Referral L02.92 - Furuncle, unspecified Gastroenterology Referral Z12.11 - Encounter for screening for malignant shadi plasm of colon Medications: New cholecalciferol (vitamin D3) 25 mcg PO DAILY 90 caps 3RF gabapentin 100 mg PO TID 270 caps 3RF doxycycline hyclate 100 mg PO BID 20 tabs 0RF Changed From trazodone 1 tab PO BEDTIME To trazodone 150 mg PO BEDTIME 90 tabs 3RF From levothyroxine 112.5 mcg PO POTTER To levothyroxine 75 mcg PO DAILY 90 days 90 tabs 3RF From hydroxyzine HCl 25 mg PO DAILY To hydroxyzine HCl 25 mg PO BEDTIME 90 tabs 3RF Discontinued naltrexone Discontinued Reason: Doctor's Order 50 mg PO DAILY 30 tabs 5RF
[2024-09-07 09:14] VITALS: BP 138/88; PULSE 82; RESP 16; TEMP 36.6; O2SAT 99; BMI 30.1
--- OUTSIDE RECORDS SUMMARY | 2024-09-07 09:45 | XMS_ITS | Patient Health Record ---
Author Organization [facility] Address [address] [place] [address] Care Team Providers Care Embalmer/Funeral Director Name Role Phone Nadeem Conn MD Primary Care Provider Unavaila nereida RuffBlanke Unavailable [phone] Allergies Allergen (clinical drug ingredient) Drug/Non Drug Allergy documented on EMR Reaction Allergy Type Onset Date Status diphenhydramine Benadryl Unknown Drug Allergy A ctive Latex Latex Unknown Allergy Active Substance with sulfonamide structure and antibacterial mechanism of action (substance) Sulfa Antibiotics rash Drug Allergy A ctive Reason For Referral No Information Medications Medication SIG (Take, Route, Frequency, Duration) Notes Start Date End Date Status hydrOXYzine HCl 25 MG 1 tablet as needed Orally every 8 hrs Active Skin Beauty & Wellness Active Losartan Potassium 25 MG 1 tablet Orally Once a day Active traMADol HCl 50 MG 1 tablet as needed Orally every 6 hrs Not-Taking Trazodone & Diet Manage Prod Active Keflex 500 MG 1 capsule Orally yina ry 12 hrs for 10 day(s) 11/02/2017 Not-Taking Omeprazole Active LamISIL 250 MG 1 tablet Orally Once a day for 7 days then stop for 3 weeks repeat cylce for 12 months for 365 days 06/07/2017 Not-Taking Levothyroxine Sodium 25 MCG 1 tablet every morning on an empty stomach Orally Once a day for 30 day(s) Active Bactrim DS 800-160 MG 1 tablet Orally [...] Orally Thre e times a day Active Immunizations Vaccine Route Administration Date Status Comme nts COVID-19 Pfizer BioNT[employer] Vaccine Unknown 06/27/2020 Administered 1st vaccine Social History Tobacco Use: Social History Observation [...] has been sober for 9 willis hs Pt has been sober for 9 willis hs Pt has been sober for 9 willis hs Pt has been sober for 9 iwllis hs Problems Problem Type SNOMED Code ICD Code Onset Dates Problem Status W/U Status Risk Notes Problem Acquired hammer toe of right foot ([id number] 40297) Other hammer toe(s) (acquired), right foot (M20.41) Active confirmed Problem Acquired hammer toe of left foot (34303275860 26538) Other hammer toe(s) (acquired), left foot (M20.42) Active confirmed Problem Non-pressure ulcer lower limb (808375438) Non-pressure chronic ulcer of other part of right foot limited to breakdown of 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) Active confirmed Problem Atherosclerosis of [place] artery of both lower extremities, with unspecified presence of clinical manifestation (I70.203) Active confirmed Q7(A), Q8(2B), Q9(1B,2C ) Vital Signs Heart Rate 88 /min 08/11/2024 Blood pressure diastolic 92 mm Hg 08/11/2024 Height 5ft 6 in in 08/11/2024 Blood pressure systolic 149 mm Hg 08/11/2024 Weight 189 lbs 08/11/2024 BMI 30.5 kg/m2 08/11/2024 Procedures Procedure Date Ordered Date Performed Result Body Sit e 53987-JUBKGKN NAIL, 6 OR MORE 02/09/2024 N/A 08644-UDGSVBU NAIL, 6 OR MORE 08/11/2024 N/A 19241-Hjtgsbvd Plate 08/11/2024 N/A 83907- Debride <25 sq cm 08/11/2024 N/A 06363-KTWF SKIN LESIONS, OVER 4 08/11/2024 N/A Encounters Encounter Location Date Provider Diagnosis [address] [address] 02/09/2024 Pallavi Black Tinea unguium B35.1 ; Other hammer toe(s) (acquired), right foot M20.41 ; Pain in right toe(s) M79.674 ; Pain in left toe(s) M79.675 and Other hammer toe(s) (acquired), left foot M20.[address] [address] 05/12/2024 Pallavi Black Onychomycosis B35.1 ; Atherosclerosis of [place] artery of both lower extremities, with unspecified presence of clinical manifestation I70.203 ; Pain in right toe(s) M79.674 and Pain in left toe(s) M79.[address] [address] 08/11/2024 Pallavi Black Onychomycosis B35.1 ; Atherosclerosis of [place] artery of both lower extremities, with unspecified presence of clinical manifestation I70.203 ; Pain in right toe(s) M79.674 ; Pain in left toe(s) M79.675 ; Ingrown nail L60.0 and Skin ulcer of toe of left foot, limited to breakdown of skin L97.521 Assessments Encounter Date Diagnosis (ICD Code) Assessment Notes Treatment Notes Treatment Clinical Notes Section Notes 02/09/2024 Tinea unguium (ICD-10 - B35.1) 05/12/2024 Onychomycosis (ICD-10 - B35.1) 05/12/2024 Atherosclerosis of [place] artery of both lower extremities, with unspecified presence of clinical manifestation (ICD-10 - I70.203) Q7(A), Q8(2B), Q9(1B,2C) 08/11/2024 Onychomycosis (ICD-10 - B35.1) 08/11/2024 Atherosclerosis of [place] artery of both lower extremities, with unspecified presence of clinical manifestation (ICD-10 - I70.203) Q7(A), Q8(2B), Q9(1B,2C) 08/11/2024 Pain in right toe(s) (ICD-10 - M79.674) 05/12/2024 Pain in right toe(s) (ICD-10 - M79.674) 02/09/2024 Other hammer toe(s) (acquired), right foot (ICD-10 - M20.41) 05/12/2024 Pain in left toe(s) (ICD-10 - M79.675) 08/11/2024 Pain in left toe(s) (ICD-10 - M79.675) 02/09/2024 Pain in right toe(s) (ICD-10 - M79.674) 02/09/2024 Pain in left toe(s) (ICD-10 - M79.675) 08/11/2024 Ingrown nail (ICD-10 - L60.0) 08/11/2024 Skin ulcer of toe of left foot, limited to breakdown of skin (ICD-10 - L97.521) Response to treatment Nonapplicable Patient Educated with: WOUND CARE INSTRUCTIONS. pdf (WOUND CARE INSTRUCTIONS. pdf) 02/09/2024 Other hammer toe(s) (acquired), left foot (ICD-10 - M20.42) 08/11/2024 Other Plan Of Treatment Pending Test Test Name Order Date X ray : Foot, right 2V 02/01/2013 *Wound Culture 02/07/2020 *Liver Function Test (LFT) 06/01/2017 X ray : Foot, right 3V 01/18/2013 X ray : Foot, right 3V 03/01/2012 X ray : Foot, right 3V 02/14/2013 00946-ZYZYPOT NAIL, 6 OR MORE 05/16/2013 72105-MOUAZGA NAIL, 6 OR MORE 09/10/2015 43833-HDHEPTW NAIL, 6 OR MORE 03/29/2012 27641-ZLQUZHH NAIL, 6 OR MORE 11/03/2012 91829-TONYEWU NAIL, 6 OR MORE 02/14/2013 15084-TZXFLNP NAIL, 6 OR MORE 03/03/2011 21158-TGRGYSG NAIL, 6 OR MORE 05/05/2011 07536-VWWRQBT NAIL, 6 OR MORE 08/18/2011 52013-BOIREOR NAIL, 6 OR MORE 11/17/2011 26665-NJKTBYE NAIL, 6 OR MORE 08/15/2013 73156-SDWXWAY NAIL, 6 OR MORE 11/14/2013 78272-VUXFYUP NAIL, 6 OR MORE 03/13/2014 56384-VHITRXX NAIL, 6 OR MORE 06/12/2014 40866-CEYSIXK NAIL, 6 OR MORE 01/05/2020 95646-RMULQEP NAIL, 6 OR MORE 05/02/2019 31987-RIKFURI NAIL, 6 OR MORE 10/17/2019 00829-ZWAUUFB NAIL, 6 OR MORE 10/05/2017 62164-PSZCDCO NAIL, 6 OR MORE 02/01/2018 10037-GXSYHWV NAIL, 6 OR MORE 05/03/2018 03399-OALNTEF NAIL, 6 OR MORE 07/12/2018 99885-EVGFCWO NAIL, 6 OR MORE 09/20/2018 11113-BRUFJNS NAIL, 6 OR MORE 02/24/2019 92784-HGQTXOI NAIL, 6 OR MORE 03/15/2020 82863-YDONOGO NAIL, 6 OR MORE 07/24/2020 35195-QSXPWHF NAIL, 6 OR MORE 10/04/2020 68152-WTWXDKI NAIL, 6 OR MORE 12/13/2020 04375-WPYZIXF NAIL, 6 OR MORE 07/08/2021 37293-KUKIFAF NAIL, 6 OR MORE 10/07/2021 30526-HBKWETZ NAIL, 6 OR MORE 03/20/2022 49429-UGGGXUV NAIL, 6 OR MORE 06/02/2022 67549-MHGVHLM NAIL, 6 OR MORE 08/11/2022 42355-HYHBRNN NAIL, 6 OR MORE 10/20/2022 08717-OSVPJEE NAIL, 6 OR MORE 01/06/2023 55435-ZYQFSHT NAIL, 6 OR MORE 02/09/2024 75616-RZXTACE NAIL, 6 OR MORE 08/11/2024 11777-Fugyufvm Plate 08/11/2024 97806-Bbsmjwir Plate 10/07/2021 28247-Noplqfxf Plate 12/13/2020 46103-Dskngski Plate 07/26/2020 61165-Denvdyvv Plate 03/15/2020 71266-Xaxrgcia Plate 06/12/2014 33669-Xlhsslfw Plate 03/13/2014 40528-Lezmykqe Plate 09/10/2015 78279-Vpdyxsne Plate 12/29/2016 59306-Vhyhcgxs Plate 10/04/2014 35998-Ahgifqan Plate 01/08/2015 59068-Sjnakury Plate Each Additional 97903- Debride <25 sq cm 08/23/2014 44586- Debride <25 sq cm 01/08/2015 21700- Debride <25 sq cm 07/09/2015 56049- Debride <25 sq cm 03/30/2017 48174- Debride <25 sq cm 05/16/2013 55632- Debride <25 sq cm 03/24/2016 20030- Debride <25 sq cm 06/02/2016 72036- Debride <25 sq cm 08/18/2016 33877- Debride <25 sq cm 10/20/2016 52906- Debride <25 sq cm 11/24/2016 70878- Debride <25 sq cm 12/29/2016 45907- Debride <25 sq cm 12/01/2019 83391- Debride <25 sq cm 01/05/2020 43656- Debride <25 sq cm 11/02/2017 56692- Debride <25 sq cm 11/26/2017 79282- Debride <25 sq cm 08/23/2020 46925- Debride <25 sq cm 08/11/2024 50096 I&D ABSCESS- SIMPLE,SINGLE 021 73061-LVVF SKIN LESIONS, OVER 4 08/11/19 25 09926-Lzsd. Subungual Hematoma 8 81059-Jdyy. Subungual Hematoma 9 14876 - Tenotomy, open flexor 10/05/2017 Next Appt Details Provider Name:Pallavi Dover Speedy , 11/14/2024 09:00:00 AM, [address] [facility], [place], [address], Insurance Providers Payer Name Payer Address Payer Phone Subscriber Number Group Number Insured Name Patient Relationship to Insured Coverage Start Date Coverage End Date [employer] Medicare Open [address] [place] [address] [id number] Enrrique Sanket Self - patient is the insured Medical (General) History Medical History History ICD Code joint implants/screws ingrown nails Surgical History Surgery Date(Month/Year) foot surgery 1997 left hip replacement 07/16/2014 shoulder replacement 02/23/2024 Hospitalization History Reason Date(Month/Year) [facility] [place]22 urgent Care- Sprained ankle 09/2020 [facility] [place] Hypertension 04/05/19 [facility] Hip Replacement 07/16/2014 Went to [facility] for severe contusion to left rib 01/2014
--- OUTSIDE RECORDS SUMMARY | 2024-09-07 09:45 | XMS_ITS ---
Author Organization [facility] Address [address] [place] [address] Care Team Providers Care Animal Therapist Name Role Phone Nadeem Conn MD Primary Care Provider Unavaila Pallavi Linda Unavailable [phone] Allergies Allergen (clinical drug ingredient) Drug/Non Drug [...] Ordered Date Performed Result Body Sit e 10135-LQURJWS NAIL, 6 OR MORE 02/09/2024 N/A Encounters Encounter Location Date Provider Diagnosis [facility] [address] [address] 02/09/2024 Pallavi Black Tinea unguium B35.1 ; [...] Treatment Pending Test Test Name Order Date 19220-AZLDADM NAIL, 6 OR MORE 02/09/2024 Next Appt Details Follow Up: prn, Reason: Provider Name:Pallavi Dover Speedy , 11/14/2024 09:00:00 AM, [address] [facility], [place], [address], Procedure Notes * Category Sub-Category Detail Notes [...] as necessary. Patient chooses, no pharmaceutical tx (11470) Progress Notes * ENRRIQUE Sanket ADOB: (68 yo F)Acc No.[id number]:02/09/2024 Progress Note Patient:?Sanket Osuna Provider:?Pallavi Ruff DPM :1955???Age:68 Y???Sex:Female D ate:02/09/2024 Address:[address] [place], [place] [address] Pcp:Nadeem Conn MD Subjective: * Chief Complaints: [...] 07/16/2014 * Hospitalization/Major Diagno stic Procedure:?Went to [facility] for severe contusion to left rib 01/2014[facility] Hip Replacement 07/16/2014[facility] [place] Hypertension 04/05/19urgent Care- Sprained [...] as necessary. Patient chooses, no pharmaceutical tx (69004).? * Procedure Codes:?00606 DEBRI DE NAIL, 6 OR MORE, Modifiers: [...] DPM Date:?2023 Generated for Luis F umaña/Hong/eTransmitting on:?09/07/2024 09:45 AM EDT History and Physical Notes * HPI (History [...]
--- OUTSIDE RECORDS SUMMARY | 2024-09-07 09:46 | XMS_ITS ---
Author Organization [facility] Address [address] [place] [address] Care Team Providers Care Attorney Name Role Phone Nadeem Conn MD Primary Care Provider Unavaila Pallavi Linda Unavailable [phone] Allergies Allergen (clinical drug ingredient) Drug/Non Drug [...] W/U Status Risk Notes Problem Atherosclerosis of [place] artery of both lower extremities, with unspecified presence of clinical manifestation (I70.203) Active confirmed Q7(A), Q8(2B), Q9(1B,2C) Vital Signs Height 5ft 6in in 05/12/2024 Weight 189 lbs 05/12/2024 BMI 30.5 kg/m2 05/12/2024 Encounters Encounter Location Date Provider Diagnosis [facility] [address] [address] 05/12/2024 Pallavi Black Onychomycosis B35.1 ; Atherosclerosis of [place] artery of both lower extremities, with unspecified presence of clinical manifestation I70.203 ; Pain in right toe(s) M79.674 and Pain in left toe(s) M79.675 Assessments Encounter Date Diagnosis (ICD Code) Assessment Notes Treatment Notes Treatment Clinical Notes Section Notes 05/12/2024 Onychomycosis (ICD-10 - B35.1) 05/12/2024 Atherosclerosis of [place] artery of both lower extremities, with unspecified presence of clinical manifestation (ICD-10 - I70.203) Q7(A), Q8(2B), Q9(1B,2C) 05/12/2024 Pain in right toe(s) (ICD-10 - M79.674) 05/12/2024 Pain in left toe(s) (ICD-10 - M79.675) Plan Of Treatment Next Appt Details Follow Up: prn, Reason: Provider Name:Pallavi Ruff , 11/14/2024 09:00:00 AM, [address] [facility], [place], [address], Procedure Notes * Category Sub-Category Detail Notes [...] use of a nail nipper and/or dremel-type hardboard grinder, to a more viable healthy nail [...] to maintain effectiveness in symptomatic relief - 19604 Keratoma Treatment Parring or Cutting o f Benign Hyperkeratotic Lesion(s) , (-57) More than 4 Lesions - The Benign hyperkeratotic lesions, ( 7 ) in total, locations as stated and described in exam, were pared, and/or cut utilizing a sterile 15 blade, tissue nippers, and/or power dremel instrumentation - 08580 Progress Notes * Sanket OSUNA ADOB: (69 yo F)Acc No.[id number]:05/12/2024 Progress Note Patient:?Sanket OSUNA Provider:?Pallavi Ruff DPM :1955???Age:69 Y???Sex:Female D ate:05/12/2024 Address:[address] [place] [phone] Pcp:Nadeem Conn MD Subjective: * Chief Complaints: * ???Painful nail(s) aggravate d by shoes causing difficulty standing/walkingAt Risk Footcare * HPI: ???Painful Nails:?Pt States Last PCP Visit:?Date:?11/11/2023 ???At Risk footcare:?Pt States Last PCP Visit:?Date?11/11/2023 * Medical History:? * Surgical History:?foot surge ry 1998left hip replacement 07/16/2014 * Hospitalization/Major Diagno stic Procedure:?Went to [facility] for severe contusion to left rib 01/2014[facility] [place] [place] 04/05/19urgent Care- Sprained ankle 09/2020[facility] fell [...] * Assessment: 1.?Onychomycosis - B35.1???2 .?Atherosclerosis of [place] artery of both lower extremities, with unspecified [...] use of a nail nipper and/or dremel-type hardboard grinder, to a more viable healthy nail [...] to maintain effectiveness in symptomatic relief - 75802.?Keratoma Treatment:?Parring or Cutting of Benign Hyperkeratotic Lesion(s)?, (-57) More than 4 Lesions - The Benign hyperkeratotic lesions, ( 7 ) in total, locations as stated and described in exam, were pared, and/or cut utilizing a sterile 15 blade, tissue nippers, and/or power [employer] instrumentation - 80605.? * Procedure Codes:?96559 DEBRI DE NAIL, 6 OR MORE, Modifiers: XS 40072 TRIM SKIN LESIONS, OVER 4, Modifiers: Q8 [...]
--- OUTSIDE RECORDS SUMMARY | 2024-09-07 09:46 | XMS_ITS ---
[facility] Organization [facility] Address [address] [place] [address] Care Team Providers Care Quality Assurance Clerk Name Role Phone Nadeem Conn MD Primary Care Provider Unavaila Pallavi Linda Unavailable [phone] Allergies Allergen (clinical drug ingredient) Drug/Non Drug [...] Ordered Date Performed Result Body Sit e 50191-THUWJJO NAIL, 6 OR MORE 08/11/2024 N/A 86983-Lfnqmjda Plate 08/11/2024 N/A 23862- Debride <25 sq cm 08/11/2024 N/A 88510-ZXRP SKIN LESIONS, OVER 4 08/11/2024 N/A Encounters Encounter Location Date Provider Diagnosis [facility] [address] [address] 08/11/2024 Pallavi Black Onychomycosis B35.1 ; Atherosclerosis of cantwell artery of both lower extremities, with unspecified [...] Onychomycosis (ICD-10 - B35.1) 08/11/2024 Atherosclerosis of cantwell artery of both lower extremities, with unspecified [...] INSTRUCTIONS.pdf) Pending Test Test Name Order Date 66746-GYBQHCV NAIL, 6 OR MORE 08/11/2024 94386-Bfkbgmxl Plate 08/11/2024 40541- Debride <25 sq cm 08/11/2024 72096-TPES SKIN LESIONS, OVER 4 08/11/19 Next Appt Details Follow Up: 3-4 Weeks, Reason : Provider Name:Pallavi Dover Speedy , 11/14/2024 09:00:00 AM, [address] [facility], [place], [address], Procedure Notes * Category Sub-Category Detail Notes [...] Motrin was recommended for pain or discomfort (24251), CIRCULATION: Matricectomy deferred at this time due [...] use of a nail nipper and/or dremel-type shear grinder operator helper, to a more viable healthy nail plate [...] to maintain effectiveness in symptomatic relief - 39379 Debride skin< 25 sq cm Open wound [...] of the wound post debridement is stable (31058) Keratoma Treatment Parring or Cutting o f [...] instrumentation by the physician of record - 22262 Progress Notes * Sanket OSUNA ADOB: 4 (69 yo F)Acc No.[id number]:08/11/2024 Progress Note Patient:?Sanket OSUNA Provider:?Pallavi Ruff DPM :1955???Age:69 Y???Sex:Female D ate:08/11/2024 Address:[address] [place] [phone] Pcp:Nadeem Conn MD Subjective: * Chief Complaints: [...] 02/23/2024 * Hospitalization/Major Diagno stic Procedure:?Went to [facility] for severe contusion to left rib 01/2014[facility] Hip Replacement 07/16/2014[facility] Hypertension 04/05/19urgent Care- Sprained ankle 09/2020[facility] fell 01/02/22 * Family History:?Mother: dece ased, [...] * Assessment: 1.?Onychomycosis - B35.1???2 .?Atherosclerosis of cantwell artery of both lower extremities, with unspecified presence of clinical manifestation - I70.203 (Primary)???Notes :Q7(A), Q8(2B), Q9(1B,2C)???3.?Pain in right toe(s) - M79.674???4.?Pain in left toe(s) - M79.675???5.?Ingrown nail - L60.0???6.?Skin ulcer of toe of left foot, limited to breakdown of skin - L97.521???Notes :Response to treatment Nonapplicable??? Plan: * Treatment: 2.?Onychomycosis?Procedure: 27798-JLWVHFZ NAIL, 6 OR MORE 3.?Ingrown nail?Procedure: 93090-Mznxrxmh Plate 4.?Skin ulcer of toe of left foot, limited to breakdown of skin?Procedure: 28384- Debride <25 sq cm Notes: Patient Educated [...] use of a nail nipper and/or dremel-type shear grinder operator helper, to a more viable healthy nail plate [...] to maintain effectiveness in symptomatic relief - 14174.?Debride skin< 25 sq cm:?Open wound?Physician of record [...] of the wound post debridement is stable (98040).?Keratoma Treatment:?Parring or Cutting of Benign Hyperkeratotic Lesion(s)?(-57) [...] instrumentation by the physician of record - 39766.?Nail Avulsion:?Location?, Bilateral nail border, T2.?Anesthesia?, was accomplished [...] Motrin was recommended for pain or discomfort (36914), CIRCULATION: Matricectomy deferred at this time due to compromised circulation risk.? * Procedure Codes:?52162 DEBRI DE NAIL, 6 OR MORE, Modifiers: XS 21076 Avulsion Plate, Modifiers: T2 82369 ACTIVE WOUND CARE/20 CM OR <, Modifiers: T1 29190 TRIM SKIN LESIONS, OVER 4, Modifiers: Q8 [...] Ruff DPM Date:?2024 Generated for Luis F umaña/Hong/eTransmitting on:?09/07/2024 09:46 AM EDT History and Physical Notes * [...]
== END 2024-09-07 10:07 | disposition home or self-care (01) ==
LOC: HO.HMCHD 09:09
PROVIDERS: PCP Internal Medicine; Visit Provider Internal Medicine
DX: Z76.89 Persons encountering health services in other specified circumstances (principal); I10 Essential (primary) hypertension; E03.9 Hypothyroidism, unspecified; D64.9 Anemia, unspecified

== ENCOUNTER → 2024-09-07 09:09 | Outpatient (BNVA) | payer MEDICARE, SELFPAY | PROVIDERS: PCP Internal Medicine; Visit Provider Internal Medicine ==

== ENCOUNTER 2024-09-07 09:54 | Outpatient (REF) | payer MEDICARE, SELFPAY ==
[2024-09-07 10:24] LABS: MANUAL DIFF FLAG NO
[2024-09-07 10:29] LABS: Basophils Percent Auto 0.7 % (0-2); Eosinophils Absolute Auto 0.1 X10*3/uL (0.0-0.4); Eosinophils Percent Auto 1.5 % (0-4); Hematocrit 36.8 % (37.0-47.0); Hemoglobin 12.2 g/dl (12.0-16.0); Imm Gran Abs Auto 0.02 X10*3/uL (0.00-0.03); Imm Gran Pct Auto 0.3 % (0.0-0.4); Lymphocytes Absolute Auto 1.2 X10*3/uL (1.2-4.9); Lymphocytes Percent Auto 19.4 % (20-40); Mean Corpuscular HGB Conc 33.2 g/dl (31.0-35.0); Mean Corpuscular Hemoglobin 28.1 pg (27.0-33.0); Mean Corpuscular Volume 84.8 fL (80.0-98.0); Mean Platelet Volume 8.6 fL (9.4-12.3); Monocytes Absolute Auto 0.5 X10*3/uL (0.1-1.2); Neutrophils Absolute Auto 4.3 x10*3/uL (2.0-8.3); Neutrophils Percent Auto 70.1 % (45-73); Platelet Count 314 X10*3/uL (160-400); Red Blood Count 4.34 X10*6/uL (4.20-5.50); Red Cell Distribution Width 13.8 % (11.0-16.0); White Blood Count 6.1 X10*3/uL (4.8-10.8)
[2024-09-07 10:37] LABS: Estimated Average Glucose 108 mg/dL; Hemoglobin A1c % 5.4 % (<6.0)
[2024-09-07 11:23] LABS: Alanine Aminotransferase 19 U/L (0-31); Albumin Level 4.5 g/dL (3.5-5.0); Alkaline Phosphatase 145 U/L (39-117); Anion Gap 13 (12-20); Aspartate Amino Transferase 28 U/L (5-31); Bilirubin Total 0.3 mg/dL (0.0-1.0); Blood Urea Nitrogen 8 mg/dL (9-16); Calcium 9.7 mg/dL (8.4-10.2); Carbon Dioxide 27 mmol/L (22-29); Chloride 102 mmol/L (96-108); Cholesterol 243 mg/dL (<200); Estimated Glomerular Filt Rate > 60; Glucose Random 91 mg/dL (60-115); HDL Cholesterol 60 mg/dL (>40); Iron 47 mcg/dL (30-160); LDL Cholesterol Calculated 148 mg/dL (<100); Percent Iron Saturation 11 % (15-50); Potassium 4.1 mmol/L (3.3-5.1); Sodium 138 mmol/L (135-145); Total Iron Binding Capacity 424 mcg/dL (228-428); Total Protein 8.5 g/dL (6.5-8.0); Triglycerides 179 mg/dL (<150); Unsaturated Iron Binding 377 ug/dL
== END 2024-09-07 09:55 | disposition home or self-care (01) ==
LOC: HO.10HDL 09:54
PROVIDERS: Visit Provider Internal Medicine
DX: Z76.89 Persons encountering health services in other specified circumstances (principal); I10 Essential (primary) hypertension; E03.9 Hypothyroidism, unspecified; D64.9 Anemia, unspecified; Z13.30 Encounter for screening examination for mental health and behavioral disorders, unspecified; Z13.1 Encounter for screening for diabetes mellitus
CPT/HCPCS: 36415; 80053; 80061; 83036; 83540; 84443; 85025; 96127; 99202

== ENCOUNTER 2024-09-19 08:42 | Outpatient (REF) | payer MEDICARE, SELFPAY | END 2024-09-19 08:43 | disposition home or self-care (01) | LOC: HO.LNP 08:42 | PROVIDERS: PCP Internal Medicine; Visit Provider Surgery | DX: L72.0 Epidermal cyst (principal); L02.92 Furuncle, unspecified; L72.3 Sebaceous cyst | CPT/HCPCS: 11404; 88304; 99212; J2004 ==

== ENCOUNTER 2024-09-19 08:42 | Outpatient (AMB) | payer MEDICARE, SELFPAY ==
--- NOTE | 2024-09-19 08:50 | MHC.OFFVIS ---
Intake Visit Reasons: Furuncle Intake Note: Patient referred by pcp Dr. Marvin for furuncle on Lt shoulder. Present for 1yr. Completed Doxycycline course yesterday. Patient c/o: itchy, tender to touch. Denies oozing. No hx of skin CA. Talent Acquisition Relationship Manager Required: No Accompanied by: Self / Same As Patient Allergies diphenhydramine [From BENADRYL] Allergy (Intermediate, Verified 09/19/24 08:54) ANXIETY/HYPERALERTNESS Sulfa (Sulfonamide Antibiotics) Allergy (Intermediate, Verified 09/19/24 08:54) SWELLING, facial swelling Benadryl Allergy (Unknown, Verified 09/19/24 08:54) aggitation latex [LATEX] Allergy (Unknown, Verified 09/19/24 08:54) RASH Latex Allergy (Mild, Uncoded 09/19/24 08:54) rash latex Allergy (Mild, Uncoded 09/19/24 08:54) rash Medication List - Last Reconciled 09/19/24 by Bo Baird MD cholecalciferol (vitamin D3) 25 mcg PO DAILY gabapentin 100 mg PO TID hydroxyzine HCl 25 mg PO BEDTIME ibuprofen 800 mg PO TID PRN levothyroxine 75 mcg PO DAILY 90 days losartan 50 mg PO DAILY mecobalamin (vitamin B12) 1,000 mcg PO DAILY trazodone 150 mg PO BEDTIME HPI Comments Details: Patient presents here for excision of a symptomatic left upper back sebaceous cyst. She has had this many months time. It has been inflamed and symptomatic. Currently it is quiescent and she would like to have it excised. She has no such lesions elsewhere. Chart was reviewed and patient evaluated [facility] Medical History Macrocytic anemia Fall Alcohol abuse with withdrawal Acute kidney failure Hyperthyroidism Hypertension Family History Father No problems noted. Mother Alcohol abuse Cancer Social History Housing: House Do you presently have visiting nurse or other home services: No Alcohol intake: current Alcohol intake frequency: does not drink Patient Tobacco Use Status: Former Tobacco user Advance Directives Date on File: 07/14/22 service: No Current occupational status: retired Cognitive needs: No Hearing needs: No Vision needs: Yes (rx glasses) Physical Exam Back/Spine/Pelvis Other: Left upper back roughly 4 x 4 cm large sebaceous cyst Office Procedures Excision Details: Risks, benefits, alternatives of excision of her left upper back sebaceous cyst were reviewed with the patient included but not limited to bleeding, infection, recurrence, numbness, pain, scarring and the patient wished to proceed. All questions answered. Consent signed. After appropriate positioning, patient underwent 1% lidocaine and Betadine prep and a transverse by elliptical incision around the cyst with dimensions as described above was uneventfully performed. This excised sent to pathology. Wound was irrigated, secured hemostasis, and closed using running subcuticular 3-0 Vicryl suture followed by Steri-Strips and sterile dressings. Patient tolerated procedure well. 18178-luirf/arms/legs 3.1-4cm Procedure code (CPT) selection complete Office Meds lidocaine 1 %-epinephrine 1:100,000 injection solution Performing Provider: Bo Baird MD Performing Location: [facility] Administered by: Bo Baird MD on 09/19/24 09:29 Dose Route Admin Location Dispensed Lot Number Expiration Date [facility] Steam Press Operator 20 mL Infiltration 20 mL Assessment & Plan Assessment & Plan (1) Sebaceous cyst: Code(s): L72.3 - Sebaceous cyst Category: Surgical Plan: Patient was been given local instructions including avoiding strenuous activities, ice periodically, Tylenol and Motrin for pain, may shower day after tomorrow only removing outside dressing leaving Steri-Strips intact and patient will see me as directed or p.r.n.. All questions answered. Orders: Orders Surgical Today L02.92 - Furuncle, unspecified, L72.0 - Epidermal cyst AMB Excision Today L72.3 - Sebaceous cyst Medications: New lidocaine-epinephrine 1 %-1:100,000 20 mL Infiltration ONCE 30 mL 0RF L72.3 - Sebaceous cyst Coding Level of Care Code New Pt Level 5 (24256) Diagnoses Sebaceous cyst L72.3 CPT Codes Trunk/Arms/Legs - CPT: 27075-gyrvu/arms/legs 3.1-4cm ([id number])
--- OUTSIDE RECORDS SUMMARY | 2024-09-19 09:06 | XMS_ITS ---
Author Organization [facility] Address [address] [place] [address] Care Team Providers Care French Teacher Name Role Phone Nadeem Conn MD Primary Care Provider Unavaila Pallavi Linda Unavailable [phone] Allergies Allergen (clinical drug ingredient) Drug/Non Drug [...] Ordered Date Performed Result Body Sit e 91169-WGGWERO NAIL, 6 OR MORE 08/11/2024 N/A 11384-Txlqjgzz Plate 08/11/2024 N/A 94113- Debride <25 sq cm 08/11/2024 N/A 20064-ZJID SKIN LESIONS, OVER 4 08/11/2024 N/A Encounters Encounter Location Date Provider Diagnosis [facility] [address] [address] 08/11/2024 Pallavi Black Onychomycosis B35.1 ; Atherosclerosis of little traverse artery of both lower extremities, with unspecified [...] Onychomycosis (ICD-10 - B35.1) 08/11/2024 Atherosclerosis of little traverse artery of both lower extremities, with unspecified [...] INSTRUCTIONS.pdf) Pending Test Test Name Order Date 26815-XRNCRXT NAIL, 6 OR MORE 08/11/2024 20533-Nswarmmm Plate 08/11/2024 20137- Debride <25 sq cm 08/11/2024 43523-GQBR SKIN LESIONS, OVER 4 08/11/19 Next Appt Details Follow Up: 3-4 Weeks, Reason : Provider Name:Pallavi Dover Speedy , 11/14/2024 09:00:00 AM, [address] [facility], [place], [address], Procedure Notes * Category Sub-Category Detail Notes [...] Motrin was recommended for pain or discomfort (23968), CIRCULATION: Matricectomy deferred at this time due [...] use of a nail nipper and/or dremel-type jewel bearing grinder, to a more viable healthy nail [...] to maintain effectiveness in symptomatic relief - 04000 Debride skin< 25 sq cm Open wound [...] of the wound post debridement is stable (45983) Keratoma Treatment Parring or Cutting o f [...] instrumentation by the physician of record - 59990 Progress Notes * Sanket OSUNA ADOB: 4 (69 yo F)Acc No.[id number]:08/11/2024 Progress Note Patient:?Sanket OSUNA Provider:?Pallavi Ruff DPM :1955???Age:69 Y???Sex:Female D ate:08/11/2024 Address:[address] [place] [phone] Pcp:Nadeem Conn MD Subjective: * Chief Complaints: [...] 02/23/2024 * Hospitalization/Major Diagno stic Procedure:?Went to [facility] for severe contusion to left rib 01/2014[facility] Replacement 07/16/2014[facility] Hypertension 04/05/19urgent Care- Sprained ankle 09/2020[facility] fell 01/02/22 * Family History:?Mother: dece ased, [...] * Assessment: 1.?Onychomycosis - B35.1???2 .?Atherosclerosis of little traverse artery of both lower extremities, with unspecified presence of clinical manifestation - I70.203 (Primary)???Notes :Q7(A), Q8(2B), Q9(1B,2C)???3.?Pain in right toe(s) - M79.674???4.?Pain in left toe(s) - M79.675???5.?Ingrown nail - L60.0???6.?Skin ulcer of toe of left foot, limited to breakdown of skin - L97.521???Notes :Response to treatment Nonapplicable??? Plan: * Treatment: 2.?Onychomycosis?Procedure: 11569-PKQAROM NAIL, 6 OR MORE 3.?Ingrown nail?Procedure: 31622-Oisotsft Plate 4.?Skin ulcer of toe of left foot, limited to breakdown of skin?Procedure: 78830- Debride <25 sq cm Notes: Patient Educated [...] use of a nail nipper and/or dremel-type jewel bearing grinder, to a more viable healthy nail [...] to maintain effectiveness in symptomatic relief - 87267.?Debride skin< 25 sq cm:?Open wound?Physician of record [...] of the wound post debridement is stable (47140).?Keratoma Treatment:?Parring or Cutting of Benign Hyperkeratotic Lesion(s)?(-57) [...] instrumentation by the physician of record - 46409.?Nail Avulsion:?Location?, Bilateral nail border, T2.?Anesthesia?, was accomplished [...] Motrin was recommended for pain or discomfort (52856), CIRCULATION: Matricectomy deferred at this time due to compromised circulation risk.? * Procedure Codes:?64323 DEBRI DE NAIL, 6 OR MORE, Modifiers: XS 78371 Avulsion Plate, Modifiers: T2 35594 ACTIVE WOUND CARE/20 CM OR <, Modifiers: T1 82551 TRIM SKIN LESIONS, OVER 4, Modifiers: Q8 [...] DPM Date:?2024 Generated for Luis F umaña/Hong/eTransmitting on:?09/19/2024 09:06 AM EDT History and Physical Notes * [...]
--- OUTSIDE RECORDS SUMMARY | 2024-09-19 09:06 | XMS_ITS | Patient Health Record ---
Author Organization [facility] Address [address] [place] [address] Care Team Providers Care Mud Worker Name Role Phone Nadeem Conn MD Primary Care Provider Unavaila nereida RuffBlanke Unavailable [phone] Allergies Allergen (clinical drug ingredient) Drug/Non Drug [...] Problem Acquired hammer toe of right foot ([id number] 63528) Other hammer toe(s) (acquired), right foot (M20.41) Active confirmed Problem Acquired hammer toe of left foot (38485815665 69202) Other hammer toe(s) (acquired), left foot (M20.42) Active confirmed Problem Non-pressure ulcer lower limb (516831008) Non-pressure chronic ulcer of other part of right foot limited to breakdown of 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) Active confirmed Problem Atherosclerosis of wales artery of both lower extremities, with unspecified presence of clinical manifestation (I70.203) Active confirmed Q7(A), Q8(2B), Q9(1B,2C ) Vital Signs Heart Rate 88 /min 08/11/2024 Blood pressure diastolic 92 mm Hg 08/11/2024 Height 5ft 6 in in 08/11/2024 Blood pressure systolic 149 mm Hg 08/11/2024 Weight 189 lbs 08/11/2024 BMI 30.5 kg/m2 08/11/2024 Procedures Procedure Date Ordered Date Performed Result Body Sit e 85284-BNJTYJW NAIL, 6 OR MORE 08/11/2024 N/A 20747-Gjcxgchb Plate 08/11/2024 N/A 64221- Debride <25 sq cm 08/11/2024 N/A 90088-KAUY SKIN LESIONS, OVER 4 08/11/2024 N/A 08922-VFOGSGL NAIL, 6 OR MORE 02/09/2024 N/A Encounters Encounter Location Date Provider Diagnosis [address] [address] 02/09/2024 Pallavi Black Tinea unguium B35.1 ; Other hammer toe(s) (acquired), right foot M20.41 ; Pain in right toe(s) M79.674 ; Pain in left toe(s) M79.675 and Other hammer toe(s) (acquired), left foot M20.[address] [address] 05/12/2024 Pallavi Black Onychomycosis B35.1 ; Atherosclerosis of wales artery of both lower extremities, with unspecified presence of clinical manifestation I70.203 ; Pain in right toe(s) M79.674 and Pain in left toe(s) M79.[address] [address] 08/11/2024 Pallavi Black Onychomycosis B35.1 ; Atherosclerosis of wales artery of both lower extremities, with unspecified [...] Onychomycosis (ICD-10 - B35.1) 05/12/2024 Atherosclerosis of wales artery of both lower extremities, with unspecified presence of clinical manifestation (ICD-10 - I70.203) Q7(A), Q8(2B), Q9(1B,2C) 08/11/2024 Onychomycosis (ICD-10 - B35.1) 08/11/2024 Atherosclerosis of wales artery of both lower extremities, with unspecified [...] X ray : Foot, right 3V 02/14/2013 11252-MQYFYRR NAIL, 6 OR MORE 05/16/2013 20993-IXNDBPP NAIL, 6 OR MORE 09/10/2015 77873-YDSCZFD NAIL, 6 OR MORE 03/29/2012 18136-ISIMTXW NAIL, 6 OR MORE 11/03/2012 21968-AYYOZRA NAIL, 6 OR MORE 02/14/2013 66161-HFZVRDO NAIL, 6 OR MORE 03/03/2011 52818-GROZCBL NAIL, 6 OR MORE 05/05/2011 93405-PSQTLFK NAIL, 6 OR MORE 08/18/2011 89088-WTYGQJV NAIL, 6 OR MORE 11/17/2011 03916-HEEPIUB NAIL, 6 OR MORE 08/15/2013 55935-GULWXJV NAIL, 6 OR MORE 11/14/2013 23885-ELWNVBO NAIL, 6 OR MORE 03/13/2014 25859-DONRVDE NAIL, 6 OR MORE 06/12/2014 87581-SCYVCOQ NAIL, 6 OR MORE 01/05/2020 93222-WQTLEQV NAIL, 6 OR MORE 05/02/2019 29654-UQOKLSO NAIL, 6 OR MORE 10/17/2019 45280-NMSVFJQ NAIL, 6 OR MORE 10/05/2017 03294-AQMDLUE NAIL, 6 OR MORE 02/01/2018 73445-ATQRZDU NAIL, 6 OR MORE 05/03/2018 93281-WHFNTQH NAIL, 6 OR MORE 07/12/2018 11229-XMFEQOX NAIL, 6 OR MORE 09/20/2018 63143-PZHZBIZ NAIL, 6 OR MORE 02/24/2019 03140-XFNJNNV NAIL, 6 OR MORE 03/15/2020 35164-ITQIJSY NAIL, 6 OR MORE 07/24/2020 26485-KNBJIOM NAIL, 6 OR MORE 10/04/2020 66123-KWCABHJ NAIL, 6 OR MORE 12/13/2020 27077-ZHGUVEH NAIL, 6 OR MORE 07/08/2021 38541-QZFUAHJ NAIL, 6 OR MORE 10/07/2021 40344-NRAZENJ NAIL, 6 OR MORE 03/20/2022 26739-VBFPJOA NAIL, 6 OR MORE 06/02/2022 08859-HHOTAIR NAIL, 6 OR MORE 08/11/2022 12090-XSMGNMB NAIL, 6 OR MORE 10/20/2022 97506-YGAXICG NAIL, 6 OR MORE 01/06/2023 01585-RPAEHIX NAIL, 6 OR MORE 02/09/2024 29772-OEZXPUW NAIL, 6 OR MORE 08/11/2024 43077-Odcyqbiv Plate 08/11/2024 12330-Jnkanlrx Plate 10/07/2021 86365-Ndeljejo Plate 12/13/2020 21972-Xoexxewl Plate 07/26/2020 47207-Yotlfvww Plate 03/15/2020 08452-Xwjzyxoc Plate 06/12/2014 64728-Vsrtjexc Plate 03/13/2014 36700-Stxsroez Plate 09/10/2015 25374-Wabzadxn Plate 12/29/2016 74601-Fkispvgi Plate 10/04/2014 94465-Wgikgbob Plate 01/08/2015 39373-Eetayspu Plate Each Additional 94054- Debride <25 sq cm 08/23/2014 23843- Debride <25 sq cm 01/08/2015 09676- Debride <25 sq cm 07/09/2015 45191- Debride <25 sq cm 03/30/2017 24259- Debride <25 sq cm 05/16/2013 77982- Debride <25 sq cm 03/24/2016 05436- Debride <25 sq cm 06/02/2016 70309- Debride <25 sq cm 08/18/2016 42251- Debride <25 sq cm 10/20/2016 06703- Debride <25 sq cm 11/24/2016 22762- Debride <25 sq cm 12/29/2016 20772- Debride <25 sq cm 12/01/2019 16703- Debride <25 sq cm 01/05/2020 36555- Debride <25 sq cm 11/02/2017 95993- Debride <25 sq cm 11/26/2017 26467- Debride <25 sq cm 08/23/2020 55902- Debride <25 sq cm 08/11/2024 54263 I&D ABSCESS- SIMPLE,SINGLE 021 16479-PHIG SKIN LESIONS, OVER 4 08/11/19 25 43373-Vuxc. Subungual Hematoma 8 66446-Wywn. Subungual Hematoma 9 12692 - Tenotomy, open flexor 10/05/2017 Next Appt Details Provider Name:Pallavi Dover Speedy , 11/14/2024 09:00:00 AM, [address] [facility], [place], [address], Insurance Providers Payer Name Payer Address Payer Phone Subscriber Number Group Number Insured Name Patient Relationship to Insured Coverage Start Date Coverage End Date [employer] Medicare Open [address] [place] [address] [id number] Enrrique Sanket Self - patient is the insured Medical (General) History Medical History History ICD Code joint implants/screws ingrown nails Surgical History Surgery Date(Month/Year) foot surgery 1997 left hip replacement 07/16/2014 shoulder replacement 02/23/2024 Hospitalization History Reason Date(Month/Year) [facility] fell 01/02/22 urgent Care- Sprained ankle 09/2020 [facility] Hypertension 04/05/19 [facility] Replacement 07/16/2014 Went to [facility] for severe contusion to left rib 01/2014
--- OUTSIDE RECORDS SUMMARY | 2024-09-19 09:06 | XMS_ITS | Data Portability ---
Author Organization [facility], [facility] Address [address] [place] [address] Care Team Providers Care Program Associate Name Role Phone SAURABH JACOBO Primary Care [...] all patients experience complete pain relief and presybeterian of full function with this procedure, and [...] Medication Prescriptions: [none given] Plan/Follow up:6 weeks [facility] speech recognition legal research analyst software was used to create portions of [...] follow-up 3 months, sooner with any issues. [facility] speech recognition legal research analyst software was used to create portions of this document. An attempt at proofreading has been made to minimize errors. Please call for corrections. tereso Not available 06/12/2024 15:26:11 Plan of Treatment Reminders Order Date Submit Date Provider Last Modified By Organization Details Last Modified Time Details Appointments None recorded. Lab None recorded. Referral physical therapist referral - Start PROM, Flexion to 90 degrees (No IR) ER 30 degrees immediately post opStart PROM, Flexion to 120 degrees (No IR), ER to tolerate 3 wks post opStart AA/AROM (P) IR less than 50 degrees 6 wks post opStart PS/Delt/RC light strengtheni ng 9 wks post opProgress strengtheni ng 12 wks post opIndependa nt HEP 9 wks post op 2023 024 [email or web address] [place], [address] [place], [address], [place], [address], 4 12:08:02 Procedures None recorded. Surgeries None recorded. Imaging XR, shoulder, 2 or more view - 4v lt shoulder with marker room 212 2023 024 [email or web address] [facility], [address], [address], [place], [address], 4 11:53:06 Medication Orders None recorded. Patient TargetsNo [...] op Referring Physician: Mehul Mendez, Orthopedic Surgery, [id number] Encounter Date: 03/21/2024 Results Created Date Observation Date Name Description Value Unit Range Abnormal Flag Note LastModifiedBy Organization Detail LastModifiedTime 02/03/20 24 02/03/2024 XR, shoul isela, 2 or more view [email or web address] ?Encry pted=s hAaTro YD8dLq bEUv6g %2BXZw aYqtaq 0bqfl% 2Fg9IQ a4ajBk vP9nXo QUaueC m3YtLR FvZlgJ JJ8mAn HZtai3 8i3682 AC0KoY 3iDVaP eUC8mr 84%3D INTERFACE [facility] [address], [place], [address], 02/03/2024 10:41:47 02/03/20 24 02/03/2024 XR, shoul isela, 2 or more view [email or web address] ?Encry pted=s hAaTro YD8dLq bEUv6g %2BXZw aYqtaq 0bqfl% 2Fg9IQ a4ajBk vP9nXo QUaueC m3YtLR FvZlgJ JJ8mAn HZtai3 7o0596 AC0KoY 3iDVaP eUC8mr 84%3D INTERFACE [facility] [address], [place], [address], 02/03/2024 10:41:49 02/18/20 24 07/05/2023 imagi ng/di agnos tic resul t No observ ation record ed. [email or web address] Not Available 01/21 15:58:08 03/01/20 24 03/01/2024 XR, shoul isela, 2 or more view [email or web address] ?Encry pted=s hAaTro YD8dLq bEUv6g %2BXZw aYqtaq 0bqfl% 2Fg9IQ a4ajBk vP9nXo QUaueC m3YtLR FvZlgJ JJ8mAn HZtai3 3z9307 AC0Kqa n6FU6K jKiQtr MwF INTERFACE [facility] [address], [place], [address], 03/01/2024 15:58:13 03/01/20 24 03/01/2024 XR, shoul isela, 2 or more view [email or web address] ?Encry pted=s hAaTro YD8dLq bEUv6g %2BXZw aYqtaq 0bqfl% 2Fg9IQ a4ajBk vP9nXo QUaueC m3YtLR FvZlgJ JJ8mAn HZtai3 7t0090 AC0Kqa n6FU6K jKiQtr MwF INTERFACE [facility] [address], [place], [address], 03/01/2024 15:58:15 Result Notes None recorded. Procedures Surgical History None recorded. Imaging Results Imaging Date Name Status LastModified by Organiz ation Details LastModified Time 02/03/2024 XR, shoulder, 2 or more view completed INTER[facility] [address], [place], [address], 02/03/2024 10:41:47 02/03/2024 XR, shoulder, 2 or more view completed INTERFACE [facility] [address], [place], [address], 02/03/2024 10:41:49 07/05/2023 imaging/diag nostic result completed [email or web address] Information not available 02/18/2024 15:58:08 03/01/2024 XR, shoulder, 2 or more view completed INTERFACE [facility] [address], [place], [address], 03/01/2024 15:58:13 03/01/2024 XR, shoulder, 2 or more view completed INTERFACE [facility] [address], [place], [address], 03/01/2024 15:58:15 Procedure Notes None recorded. Medical Equipment None Reported. Allergies Allergen ID Allergen Name Allergen Category Reaction Reaction Severity Criticality Documentation Date Start Date Code Code System Note Provider Name and Address Organization Details Recorded Time 389350 latex environme nt,medica tion Not available Not available Not available 12/14/20232023 30759 91 RxNorm Not Available [facility] 4 09:09:41 173426 Substance with sulfonami de structure and antibacte rial mechanism of action (substanc e) medicatio n Not available Not available Not available 12/14/20232023 96341 8003 SNOMED Not Available [facility] 4 09:09:41 843859 Benadryl medicatio n Not available Not available Not available 02/02/2024 18006 7 RxNorm LASHONDA nunez [place] - [facility] 4 12:46:30 Medications Name Sig Start [...] Updated DateTime 03/21/2024 167.64 cm 29.7 kg/m2 46877 g Daniela Bowen [facility] 03/21/2024 09:54:59 Date Recorded Body height Body mass index (BMI) Body weight Provider Name and Address Organization Details Last Updated DateTime 06/12/2024 167.64 cm 29.7 kg/m2 20178 g LASHONDA GUADARRAMADEN [facility] 06/12/2024 14:46:47 Social History None recorded. Functional Status None recorded. Mental Status None recorded. Family History Nothing Reported. Medical History No medical history recorded. Gynecological HistoryNo gynecological history recorded. Obstetrics History GPAL:G 0 P 0 0 0 0 Past Encounters Encounter ID Performer Location Encounter Start Date Encounter Closed Date Diagnosis/Indication Diagnosis SNOMED-CT Code Diagnosis ICD10 Code Diagnosis Note [id number] MD Roman Duque [address] [place] [address] 02/03/2024 10:14:18 02/29/2024 11:53:05 Pain of left shoulder joint 6569365297 0753140 M25.567 [id number] MD Roman Duque 2[address] [place] [address] 03/01/2024 14:45:50 03/22/2024 10:47:37 History of reverse prosthetic total arthroplasty of left shoulder 8152873997 2982882 Z96.128 [id number] MARTY Nair [address] [place] [address] 03/21/2024 09:19:23 04/12/2024 12:08:02 History of reverse prosthetic total arthroplasty of left shoulder 6075027868 9632948 Z96.475 [id number] MD Roman [facility]que [address] [place] [address] 06/12/2024 14:31:29 06/30/2024 16:21:35 History of reverse prosthetic total arthroplasty of left shoulder 9177044633 1949512 Z96.612 Health Concerns Section Related Observation LastModified by Organization Detai ls LastModified Time None Recorded Concern Status LastModified by Organization Details LastModified Time None Recorded Advance Directives Directive None Recorded Payers Encounter Date Sequence Insurance Name Policy Number Policy Recinos Covered Member ID Recinos Member ID Guarantor Name 02/03/2024 1 [employer] (MEDICARE REPLACEMENT PPO) [id number] Sanket Osuna [id number] Sanket Osuna 02/03/2024 2 MEDICARE B-[place]: [employer] Sanket Osuna [id number] Sanket Osuna 03/01/2024 1 [employer] (MEDICARE REPLACEMENT PPO) [id number] Sanket Treviñoe [id number] Sanket Treviñoe 03/21/2024 1 [employer] (MEDICARE REPLACEMENT PPO) [id number] Sanket Enrrique [id number] Sanket Treviñoe 06/12/2024 1 [employer] (MEDICARE REPLACEMENT PPO) [id number] Sanket Treviñoe [id number] Sanket Osuna Notes Date Note Type Note Provider Name and Address Organization Details Recorded Time 4 text/html I am seeing the patient today [...] and providedMedication Prescriptions: None requiredPlan/Follow up: [facility] speech recognition legal research analyst software was used to create portions of this document. An attempt at proofreading has been made to minimize errors. Please call for corrections. Mehul Mendez PA-C [address] [place] [address] [address], [place], [address], [facility] - [facility] 03/21/2024 10:12:22 OBGyn Episode No OBEpisode recorded.
--- OUTSIDE RECORDS SUMMARY | 2024-09-19 09:06 | XMS_ITS ---
Author Organization [facility] Address [address] [place] [address] Care Team Providers Care Patient Intake Coordinator Name Role Phone Nadeem Conn MD Primary Care Provider Unavaila Pallavi Linda Unavailable [phone] Allergies Allergen (clinical drug ingredient) Drug/Non Drug [...] W/U Status Risk Notes Problem Atherosclerosis of [place] artery of both lower extremities, with unspecified presence of clinical manifestation (I70.203) Active confirmed Q7(A), Q8(2B), Q9(1B,2C) Vital Signs Height 5ft 6in in 05/12/2024 Weight 189 lbs 05/12/2024 BMI 30.5 kg/m2 05/12/2024 Encounters Encounter Location Date Provider Diagnosis [facility] [address] [address] 05/12/2024 Pallavi Black Onychomycosis B35.1 ; Atherosclerosis of [place] artery of both lower extremities, with unspecified presence of clinical manifestation I70.203 ; Pain in right toe(s) M79.674 and Pain in left toe(s) M79.675 Assessments Encounter Date Diagnosis (ICD Code) Assessment Notes Treatment Notes Treatment Clinical Notes Section Notes 05/12/2024 Onychomycosis (ICD-10 - B35.1) 05/12/2024 Atherosclerosis of [place] artery of both lower extremities, with unspecified presence of clinical manifestation (ICD-10 - I70.203) Q7(A), Q8(2B), Q9(1B,2C) 05/12/2024 Pain in right toe(s) (ICD-10 - M79.674) 05/12/2024 Pain in left toe(s) (ICD-10 - M79.675) Plan Of Treatment Next Appt Details Follow Up: prn, Reason: Provider Name:Pallavi Ruff , 11/14/2024 09:00:00 AM, [address] [facility], [place], [address], Procedure Notes * Category Sub-Category Detail Notes [...] use of a nail nipper and/or dremel-type precision grinder, to a more viable healthy nail [...] to maintain effectiveness in symptomatic relief - 69774 Keratoma Treatment Parring or Cutting o f Benign Hyperkeratotic Lesion(s) , (-57) More than 4 Lesions - The Benign hyperkeratotic lesions, ( 7 ) in total, locations as stated and described in exam, were pared, and/or cut utilizing a sterile 15 blade, tissue nippers, and/or power dremel instrumentation - 95240 Progress Notes * Sanket OSUNA ADOB: (69 yo F)Acc No.[id number]:05/12/2024 Progress Note Patient:?Sanket OSUNA Provider:?Pallavi Ruff DPM :1955???Age:69 Y???Sex:Female D ate:05/12/2024 Address:[address] [place] [address] Pcp:Nadeem Conn MD Subjective: * Chief Complaints: * ???Painful nail(s) aggravate d by shoes causing difficulty standing/walkingAt Risk Footcare * HPI: ???Painful Nails:?Pt States Last PCP Visit:?Date:?11/11/2023 ???At Risk footcare:?Pt States Last PCP Visit:?Date?11/11/2023 * Medical History:? * Surgical History:?foot surge ry 1998left hip replacement 07/16/2014 * Hospitalization/Major Diagno stic Procedure:?Went to [facility] for severe contusion to left rib 01/2014[facility] [place] [place] 04/05/19[facility]- [facility] fell [...] * Assessment: 1.?Onychomycosis - B35.1???2 .?Atherosclerosis of [place] artery of both lower extremities, with unspecified [...] use of a nail nipper and/or dremel-type precision grinder, to a more viable healthy nail [...] to maintain effectiveness in symptomatic relief - 63798.?Keratoma Treatment:?Parring or Cutting of Benign Hyperkeratotic Lesion(s)?, (-57) More than 4 Lesions - The Benign hyperkeratotic lesions, ( 7 ) in total, locations as stated and described in exam, were pared, and/or cut utilizing a sterile 15 blade, tissue nippers, and/or power [employer] instrumentation - 83439.? * Procedure Codes:?48485 DEBRI DE NAIL, 6 OR MORE, Modifiers: XS 59645 TRIM SKIN LESIONS, OVER 4, Modifiers: Q8 , XS * Follow Up:?prn * Images: * Sign off status: Completed true * Provider:?Pallavi Ruff DPM Date:?2023 Generated for Luis F umaña/Hong/eTransmitting on:?09/19/2024 09:06 [...]
--- OUTSIDE RECORDS SUMMARY | 2024-09-19 09:06 | XMS_ITS | Patient Health Record ---
Author Organization [facility] Address [address] [place] [address] Care Team Providers Care Chyron Operator Name Role Phone Daphne Penaloza M.D. Primary Care Provider Gerhard Miller Jr, Kavon Unavailable Allergies Allergen (clinical drug ingredient) Drug/Non Drug Allergy documented on EMR Reaction Allergy Type Onset Date Status Sulfa Unknown Drug Allergy Active diphenhydramine Benadryl Unknown Drug Allergy A ctive Reason For Referral No Information Medications Medication SIG (Take, Route, Fr equency, Duration) Notes Start Date End Date Status Lisinopril 5mg Activ e Omeprazole 20mg 06/21/2024 06/21/2024 Ac tive Ibuprofen 800mg Acti ve Levothyroxine Sodium Active MoviPrep 100 GM as directed before colonoscopy Orally for 1 dose 06/08/2013 Ac tive Anusol-HC 25 MG 1 suppository Rectal Twice a day for 14 day(s) 06/08/2013 Active traZODone HCl Active Problems Problem Type SNOMED Code ICD Code Onset Dates Problem Status W/U Status Risk Notes Problem Esophageal reflux (664283410) Esophageal reflux (530.81) Active confirmed Problem Change in bowel habit (32686679) Change in bowel habits (787.99) Active confirmed Problem Colon cancer screening (915030643) Colon cancer screening (V76.51) Active confirmed Plan Of Treatment Future Test Test Name Order Date COLONOSCOPY 06/08/2013 Next Appt Details Provider Name:Kavon lucia Jr, 12/11/2024 10:40:00 AM, [address], [address], [place], [address], Insurance Providers Payer Name Payer Address Payer Phone Subscriber Number Group Number Insured Name Patient Relationship to Insured Coverage Start Date Coverage End Date [employer] [address] [address] [place] [address] [id number] HUMZA LYN Self - patient is the insured Medical (General) History Medical History History ICD Code colonoscopy 09/20/2009 hyperthyroidism disc disease GERD Denies [place],DM,CVA,Lung disease,renal dise ase Surgical History Surgery Date(Month/Year) toe surgery
--- OUTSIDE RECORDS SUMMARY | 2024-09-19 09:06 | XMS_ITS ---
Author Organization [facility] Address [address] [place] [address] Care Team Providers Care Medical Reception Name Role Phone Nadeem Conn MD Primary Care Provider Unavaila Pallavi Linda Unavailable [phone] Allergies Allergen (clinical drug ingredient) Drug/Non Drug [...] Ordered Date Performed Result Body Sit e 00470-SWRVVSZ NAIL, 6 OR MORE 02/09/2024 N/A Encounters Encounter Location Date Provider Diagnosis [facility] [address] [address] 02/09/2024 Pallavi Black Tinea unguium B35.1 ; [...] Treatment Pending Test Test Name Order Date 12365-UPUDCOC NAIL, 6 OR MORE 02/09/2024 Next Appt Details Follow Up: prn, Reason: Provider Name:Pallavi Dover Speedy , 11/14/2024 09:00:00 AM, [address] [facility], [place], [address], Procedure Notes * Category Sub-Category Detail Notes [...] as necessary. Patient chooses, no pharmaceutical tx (86624) Progress Notes * ENRRIQUE Sanket ADOB: (68 yo F)Acc No.[id number]:02/09/2024 Progress Note Patient:?Sanket Osuna Provider:?Pallavi Ruff DPM :1955???Age:68 Y???Sex:Female D ate:02/09/2024 Address:[address] [place], [place] [address] Pcp:Nadeem Conn MD Subjective: * Chief Complaints: [...] 07/16/2014 * Hospitalization/Major Diagno stic Procedure:?Went to [facility] for severe contusion to left rib 01/2014[facility] [place] [place]- [facility] ankle [facility]2020[facility] fell [...] as necessary. Patient chooses, no pharmaceutical tx (69627).? * Procedure Codes:?14317 DEBRI DE NAIL, 6 OR MORE, Modifiers: [...] Date:?2023 Generated for Luis F umaña/Hong/eTransmitting on:?09/19/2024 09:05 AM EDT History and Physical Notes * [...] , DIPJ , T1 , T6 Orthopedic FOOTWEAR EVALUATION: worn, nonsu pportive, shoegear properties exacerbate patient's foot/toe deformity DIGITAL [...]
== END 2024-09-19 09:26 | disposition home or self-care (01) ==
LOC: HO.HGS 08:43
PROVIDERS: PCP Internal Medicine; Visit Provider Surgery
DX: L72.3 Sebaceous cyst (principal); L72.0 Epidermal cyst
CPT/HCPCS: 11404; 99214

== ENCOUNTER 2024-09-27 08:38 | Outpatient (AMB) | payer MEDICARE, SELFPAY ==
--- NOTE | 2024-09-27 08:43 | MHC.OFFVIS ---
Intake Visit Reasons: s/p Furuncle excision Intake Note: Patient here s/p cyst on Left upper posterior choulder excision. Reports incision healing well. Patient c/o: steri strips getting irritated. Denies itch, pain, tenderness. Physical Integration Practitioner Required: No Accompanied by: Self / Same As Patient Allergies diphenhydramine [From BENADRYL] Allergy (Intermediate, Verified 09/27/24 08:44) ANXIETY/HYPERALERTNESS Sulfa (Sulfonamide Antibiotics) Allergy (Intermediate, Verified 09/27/24 08:44) SWELLING, facial swelling Benadryl Allergy (Unknown, Verified 09/27/24 08:44) aggitation latex [LATEX] Allergy (Unknown, Verified 09/27/24 08:44) RASH Latex Allergy (Mild, Uncoded 09/27/24 08:44) rash latex Allergy (Mild, Uncoded 09/27/24 08:44) rash HPI Comments Details: Patient presents for follow-up. No wound issues or complaints. Pathology was benign. [facility] Medical History Macrocytic anemia Fall Alcohol abuse with withdrawal Acute kidney failure Hyperthyroidism Hypertension Family History Father No problems noted. Mother Alcohol abuse Cancer Social History Housing: House Do you presently have visiting nurse or other home services: No Alcohol intake: current Alcohol intake frequency: does not drink Patient Tobacco Use Status: Former Tobacco user Advance Directives Date on File: 01/01/22 service: No Current occupational status: retired Cognitive needs: No Hearing needs: No Vision needs: Yes (rx glasses) Physical Exam Neck Other: Incision clean dry and intact healing very well Assessment & Plan Assessment & Plan (1) Encounter for postoperative wound check: Code(s): Z48.89 - Encounter for other specified surgical aftercare Category: Surgical Plan Patient was been given local instructions, and otherwise follow-up p.r.n.. All questions answered. Coding Level of Care Code Global (53943) Diagnoses Encounter for postoperative wound check Z48.89
--- OUTSIDE RECORDS SUMMARY | 2024-09-27 08:55 | XMS_ITS ---
Author Organization [facility] Address [address] [place] [address] Care Team Providers Care Hardwood Floor Refinisher Name Role Phone Nadeem Conn MD Primary Care Provider Unavaila Pallavi Linda Unavailable [phone] Allergies Allergen (clinical drug ingredient) Drug/Non Drug [...] W/U Status Risk Notes Problem Atherosclerosis of [place] artery of both lower extremities, with unspecified presence of clinical manifestation (I70.203) Active confirmed Q7(A), Q8(2B), Q9(1B,2C) Vital Signs Height 5ft 6in in 05/12/2024 Weight 189 lbs 05/12/2024 BMI 30.5 kg/m2 05/12/2024 Encounters Encounter Location Date Provider Diagnosis [facility] [address] [address] 05/12/2024 Pallavi Black Onychomycosis B35.1 ; Atherosclerosis of [place] artery of both lower extremities, with unspecified presence of clinical manifestation I70.203 ; Pain in right toe(s) M79.674 and Pain in left toe(s) M79.675 Assessments Encounter Date Diagnosis (ICD Code) Assessment Notes Treatment Notes Treatment Clinical Notes Section Notes 05/12/2024 Onychomycosis (ICD-10 - B35.1) 05/12/2024 Atherosclerosis of [place] artery of both lower extremities, with unspecified presence of clinical manifestation (ICD-10 - I70.203) Q7(A), Q8(2B), Q9(1B,2C) 05/12/2024 Pain in right toe(s) (ICD-10 - M79.674) 05/12/2024 Pain in left toe(s) (ICD-10 - M79.675) Plan Of Treatment Next Appt Details Follow Up: prn, Reason: Provider Name:Pallavi Ruff , 11/14/2024 09:00:00 AM, 1984 [facility], [place], [address], Procedure Notes * Category Sub-Category Detail Notes [...] use of a nail nipper and/or dremel-type lap grinder, to a more viable healthy nail [...] to maintain effectiveness in symptomatic relief - 79285 Keratoma Treatment Parring or Cutting o f Benign Hyperkeratotic Lesion(s) , (-57) More than 4 Lesions - The Benign hyperkeratotic lesions, ( 7 ) in total, locations as stated and described in exam, were pared, and/or cut utilizing a sterile 15 blade, tissue nippers, and/or power dremel instrumentation - 81942 Progress Notes * Sanket OSUNA ADOB: (69 yo F)Acc No.[id number]:05/12/2024 Progress Note Patient:?Sanket OSUNA Provider:?Pallavi Ruff DPM :1955???Age:69 Y???Sex:Female D ate:05/12/2024 Address:[address] [place] [phone] Pcp:Nadeem Conn MD Subjective: * Chief Complaints: * ???Painful nail(s) aggravate d by shoes causing difficulty standing/walkingAt Risk Footcare * HPI: ???Painful Nails:?Pt States Last PCP Visit:?Date:?11/11/2023 ???At Risk footcare:?Pt States Last PCP Visit:?Date?11/11/2023 * Medical History:? * Surgical History:?foot surge ry 1998left hip replacement 07/16/2014 * Hospitalization/Major Diagno stic Procedure:?Went to [facility] for severe contusion to left rib 01/2014[facility] [place] [place] 04/[place]/19[facility]- [facility] fell [...] * Assessment: 1.?Onychomycosis - B35.1???2 .?Atherosclerosis of [place] artery of both lower extremities, with unspecified [...] use of a nail nipper and/or dremel-type lap grinder, to a more viable healthy nail [...] to maintain effectiveness in symptomatic relief - 51685.?Keratoma Treatment:?Parring or Cutting of Benign Hyperkeratotic Lesion(s)?, (-57) More than 4 Lesions - The Benign hyperkeratotic lesions, ( 7 ) in total, locations as stated and described in exam, were pared, and/or cut utilizing a sterile 15 blade, tissue nippers, and/or power [employer] instrumentation - 02395.? * Procedure Codes:?68133 DEBRI DE NAIL, 6 OR MORE, Modifiers: XS 93543 TRIM SKIN LESIONS, OVER 4, Modifiers: Q8 , XS * Follow Up:?prn * Images: * Sign off status: Completed true * Provider:?Pallavi Ruff DPM Date:?2023 Generated for Luis F umaña/Hong/eTransmitting on:?09/27/2024 08:55 AM EDT History and Physical Notes * [...]
--- OUTSIDE RECORDS SUMMARY | 2024-09-27 08:55 | XMS_ITS ---
Author Organization [facility] Address [address] [place] [address] Care Team Providers Care Ocean Export Agent Name Role Phone Nadeem Conn MD Primary Care Provider Unavaila Pallavi Linda Unavailable [phone] Allergies Allergen (clinical drug ingredient) Drug/Non Drug [...] Ordered Date Performed Result Body Sit e 50636-IMFFQAT NAIL, 6 OR MORE 02/09/2024 N/A Encounters Encounter Location Date Provider Diagnosis [facility] [address] [address] 02/09/2024 Pallavi Black Tinea unguium B35.1 ; [...] Treatment Pending Test Test Name Order Date 88524-FGQNEGL NAIL, 6 OR MORE 02/09/2024 Next Appt Details Follow Up: prn, Reason: Provider Name:Pallavi Dover Speedy , 11/14/2024 09:00:00 AM, [address] [facility], [place], [address], Procedure Notes * Category Sub-Category Detail Notes [...] as necessary. Patient chooses, no pharmaceutical tx (96795) Progress Notes * ENRRIQUE Sanket ADOB: (68 yo F)Acc No.[id number]:02/09/2024 Progress Note Patient:?Sanket Osuna Provider:?Pallavi Ruff DPM :1955???Age:68 Y???Sex:Female D ate:02/09/2024 Address:[address] [place], [place] [address] Pcp:Nadeem Conn MD Subjective: * Chief Complaints: [...] 07/16/2014 * Hospitalization/Major Diagno stic Procedure:?Went to [facility] for severe contusion to left rib 01/2014[facility] Hip Replacement 07/16/2014[facility] Hypertension 04/05/19[facility]- Sprained ankle 09/2020[facility] fell [...] as necessary. Patient chooses, no pharmaceutical tx (12774).? * Procedure Codes:?50710 DEBRI DE NAIL, 6 OR MORE, Modifiers: [...] Date:?2023 Generated for Luis F umaña/Hong/eTransmitting on:?09/27/2024 08:54 AM EDT History and Physical Notes * [...]
--- OUTSIDE RECORDS SUMMARY | 2024-09-27 08:55 | XMS_ITS ---
Author Organization [facility] Address [address] [place] [address] Care Team Providers Care Machine Setter Supervisor Name Role Phone Nadeem Conn MD Primary Care Provider Unavaila Pallavi Linda Unavailable [phone] Allergies Allergen (clinical drug ingredient) Drug/Non Drug [...] Ordered Date Performed Result Body Sit e 09974-CQATTIB NAIL, 6 OR MORE 08/11/2024 N/A 31086-Eoxlkymu Plate 08/11/2024 N/A 11148- Debride <25 sq cm 08/11/2024 N/A 13069-UBJM SKIN LESIONS, OVER 4 08/11/2024 N/A Encounters Encounter Location Date Provider Diagnosis [facility] [address] [address] 08/11/2024 Pallavi Black Onychomycosis B35.1 ; Atherosclerosis of [place] artery of both lower extremities, with unspecified [...] Onychomycosis (ICD-10 - B35.1) 08/11/2024 Atherosclerosis of ek[place] artery of both lower extremities, with unspecified [...] INSTRUCTIONS.pdf) Pending Test Test Name Order Date 84690-TATVKOQ NAIL, 6 OR MORE 08/11/2024 11220-Vpscjfjp Plate 08/11/2024 70494- Debride <25 sq cm 08/11/2024 04700-CVMF SKIN LESIONS, OVER 4 08/11/19 Next Appt Details Follow Up: 3-4 Weeks, Reason : Provider Name:Pallavi Dover Speedy , 11/14/2024 09:00:00 AM, [address] [facility], [place], [address], Procedure Notes * Category Sub-Category Detail Notes [...] Motrin was recommended for pain or discomfort (15594), CIRCULATION: Matricectomy deferred at this time due [...] use of a nail nipper and/or dremel-type jig grinder set up operator, to a more [...] to maintain effectiveness in symptomatic relief - 64276 Debride skin< 25 sq cm Open wound [...] of the wound post debridement is stable (68828) Keratoma Treatment Parring or Cutting o f [...] instrumentation by the physician of record - 53157 Progress Notes * Sanket OSUNA ADOB: 4 (69 yo F)Acc No.[id number]:08/11/2024 Progress Note Patient:?Sanket OSUNA Provider:?Pallavi Ruff DPM :1955???Age:69 Y???Sex:Female D ate:08/11/2024 Address:[address] [place] [phone] Pcp:Nadeem Conn MD Subjective: * Chief Complaints: [...] 02/23/2024 * Hospitalization/Major Diagno stic Procedure:?Went to [facility] for severe contusion to left rib 01/2014[facility] Re[place] [place] 04/[place]- Sprained ankle 09/2020[facility] [place] [place] 01/02/22 * Family [...] * Assessment: 1.?Onychomycosis - B35.1???2 .?Atherosclerosis of ek[place] artery of both lower extremities, with unspecified presence of clinical manifestation - I70.203 (Primary)???Notes :Q7(A), Q8(2B), Q9(1B,2C)???3.?Pain in right toe(s) - M79.674???4.?Pain in left toe(s) - M79.675???5.?Ingrown nail - L60.0???6.?Skin ulcer of toe of left foot, limited to breakdown of skin - L97.521???Notes :Response to treatment Nonapplicable??? Plan: * Treatment: 2.?Onychomycosis?Procedure: 71261-DYZZUQX NAIL, 6 OR MORE 3.?Ingrown nail?Procedure: 20066-Nppedgkf Plate 4.?Skin ulcer of toe of left foot, limited to breakdown of skin?Procedure: 51670- Debride <25 sq cm Notes: Patient Educated [...] use of a nail nipper and/or dremel-type jig grinder set up operator, to a more [...] to maintain effectiveness in symptomatic relief - 32957.?Debride skin< 25 sq cm:?Open wound?Physician of record [...] of the wound post debridement is stable (86412).?Keratoma Treatment:?Parring or Cutting of Benign Hyperkeratotic Lesion(s)?(-57) [...] instrumentation by the physician of record - 44190.?Nail Avulsion:?Location?, Bilateral nail border, T2.?Anesthesia?, was accomplished [...] Motrin was recommended for pain or discomfort (36794), CIRCULATION: Matricectomy deferred at this time due to compromised circulation risk.? * Procedure Codes:?02603 DEBRI DE NAIL, 6 OR MORE, Modifiers: XS 66093 Avulsion Plate, Modifiers: T2 67915 ACTIVE WOUND CARE/20 CM OR <, Modifiers: T1 02220 TRIM SKIN LESIONS, OVER 4, Modifiers: Q8 [...] DPM Date:?2024 Generated for Luis F umaña/Hong/eTransmitting on:?09/27/2024 08:55 [...]
--- OUTSIDE RECORDS SUMMARY | 2024-09-27 08:55 | XMS_ITS | Patient Health Record ---
Author Organization [facility] Address [address] [place] [address] Care Team Providers Care Director Medical Affairs Name Role Phone Daphne Penaloza M.D. Primary [...] W/U Status Risk Notes Problem Esophageal reflux (817423391) Esophageal reflux (530.81) Active confirmed Problem Change in bowel habit (83958473) Change in bowel habits (787.99) Active confirmed Problem Colon cancer screening (015508858) Colon cancer screening (V76.51) Active confirmed Plan Of Treatment Future Test Test Name Order Date COLONOSCOPY 06/08/2013 Next Appt Details Provider Name:Kavon lucia Jr, 12/11/2024 10:40:00 AM, [address], [address], [place], [address], Insurance Providers Payer Name Payer Address Payer Phone Subscriber Number Group Number Insured Name Patient Relationship to Insured Coverage Start Date Coverage End Date [employer] [address] [address] [place] [address] [id number] HUMZA LYN Self - patient is the insured Medical (General) History Medical History History ICD Code colonoscopy 09/20/2009 hyperthyroidism disc disease GERD Denies ND,DM,CVA,Lung disease,renal dise ase Surgical History Surgery Date(Month/Year) toe surgery
--- OUTSIDE RECORDS SUMMARY | 2024-09-27 08:55 | XMS_ITS | Patient Health Record ---
Author Organization [facility] Address [address] [place] [address] Care Team Providers Care Director Learning Name Role Phone Nadeem Conn MD Primary Care Provider Unavaila nereida RuffBlanke Unavailable [phone] Allergies Allergen (clinical drug ingredient) Drug/Non Drug [...] Problem Acquired hammer toe of right foot (59178167509 49250) Other hammer toe(s) (acquired), right foot (M20.41) Active confirmed Problem Acquired hammer toe of left foot (29604591985 91938) Other hammer toe(s) (acquired), left foot (M20.42) Active confirmed Problem Non-pressure ulcer lower limb (936713028) Non-pressure chronic ulcer of other part of right foot limited to breakdown of 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) Active confirmed Problem Atherosclerosis of [place] artery of both lower extremities, with unspecified presence of clinical manifestation (I70.203) Active confirmed Q7(A), Q8(2B), Q9(1B,2C ) Vital Signs Heart Rate 88 /min 08/11/2024 Blood pressure diastolic 92 mm Hg 08/11/2024 Height 5ft 6 in in 08/11/2024 Blood pressure systolic 149 mm Hg 08/11/2024 Weight 189 lbs 08/11/2024 BMI 30.5 kg/m2 08/11/2024 Procedures Procedure Date Ordered Date Performed Result Body Sit e 74848-CASQXON NAIL, 6 OR MORE 02/09/2024 N/A 08546-IWYQUOQ NAIL, 6 OR MORE 08/11/2024 N/A 63757-Cryrtfpr Plate 08/11/2024 N/A 49604- Debride <25 sq cm 08/11/2024 N/A 93157-LAFY SKIN LESIONS, OVER 4 08/11/2024 N/A Encounters Encounter Location Date Provider Diagnosis [address] [address] 02/09/2024 Pallavi Black Tinea unguium B35.1 ; Other hammer toe(s) (acquired), right foot M20.41 ; Pain in right toe(s) M79.674 ; Pain in left toe(s) M79.675 and Other hammer toe(s) (acquired), left foot M20.[address] [address] 05/12/2024 Pallavi Black Onychomycosis B35.1 ; Atherosclerosis of [place] artery of both lower extremities, with unspecified presence of clinical manifestation I70.203 ; Pain in right toe(s) M79.674 and Pain in left toe(s) M79.[address] [address] 08/11/2024 Pallavi Black Onychomycosis B35.1 ; Atherosclerosis of [place] artery of both lower extremities, with unspecified [...] Onychomycosis (ICD-10 - B35.1) 05/12/2024 Atherosclerosis of [place] artery of both lower extremities, with unspecified presence of clinical manifestation (ICD-10 - I70.203) Q7(A), Q8(2B), Q9(1B,2C) 08/11/2024 Onychomycosis (ICD-10 - B35.1) 08/11/2024 Atherosclerosis of [place] artery of both lower extremities, with unspecified [...] X ray : Foot, right 3V 02/14/2013 01245-GDDZYXN NAIL, 6 OR MORE 05/16/2013 19244-YUPJBUR NAIL, 6 OR MORE 09/10/2015 66855-BFTHUBX NAIL, 6 OR MORE 03/29/2012 81009-VNOAJDK NAIL, 6 OR MORE 11/03/2012 02195-SGOZOBA NAIL, 6 OR MORE 02/14/2013 67678-CPJNNII NAIL, 6 OR MORE 03/03/2011 79994-NVQUCIB NAIL, 6 OR MORE 05/05/2011 33889-JXPDVON NAIL, 6 OR MORE 08/18/2011 95243-MZIPXUX NAIL, 6 OR MORE 11/17/2011 18471-GTAAYZY NAIL, 6 OR MORE 08/15/2013 54771-HLAIZQI NAIL, 6 OR MORE 11/14/2013 26989-FDSEFTR NAIL, 6 OR MORE 03/13/2014 23075-VCGNBFM NAIL, 6 OR MORE 06/12/2014 79172-BWFCTCC NAIL, 6 OR MORE 01/05/2020 09792-TDDTFHD NAIL, 6 OR MORE 05/02/2019 36538-WOQXVFX NAIL, 6 OR MORE 10/17/2019 28480-YBXKNCZ NAIL, 6 OR MORE 10/05/2017 82324-WCPHBYE NAIL, 6 OR MORE 02/01/2018 43732-VMVHCPB NAIL, 6 OR MORE 05/03/2018 29925-GUMNXEW NAIL, 6 OR MORE 07/12/2018 24174-HPBAQAF NAIL, 6 OR MORE 09/20/2018 92455-BOBAVUU NAIL, 6 OR MORE 02/24/2019 28282-ERJKIHJ NAIL, 6 OR MORE 03/15/2020 07026-MFSJRCR NAIL, 6 OR MORE 07/24/2020 30929-PITZMCT NAIL, 6 OR MORE 10/04/2020 66499-ILVVZYG NAIL, 6 OR MORE 12/13/2020 89062-QCWZDZK NAIL, 6 OR MORE 07/08/2021 44525-BCHNMGM NAIL, 6 OR MORE 10/07/2021 44406-GFFZSIE NAIL, 6 OR MORE 03/20/2022 92676-DGYBWUS NAIL, 6 OR MORE 06/02/2022 64649-IMFMFJV NAIL, 6 OR MORE 08/11/2022 31626-UPQZKZV NAIL, 6 OR MORE 10/20/2022 22420-DIAYXFX NAIL, 6 OR MORE 01/06/2023 48515-IQTNAPY NAIL, 6 OR MORE 02/09/2024 99546-HNWWKDH NAIL, 6 OR MORE 08/11/2024 28964-Bgtdhmgz Plate 08/11/2024 10524-Eynnjxxd Plate 10/07/2021 99809-Sfyahwjw Plate 12/13/2020 98624-Txcrfeyr Plate 07/26/2020 58220-Nzekcezr Plate 03/15/2020 15626-Hootingq Plate 06/12/2014 04768-Xwxjqngk Plate 03/13/2014 30423-Vljfxqpg Plate 09/10/2015 88951-Nhkfyell Plate 12/29/2016 72453-Fbpoegsu Plate 10/04/2014 74948-Gkoksoys Plate 01/08/2015 54377-Obxgmupy Plate Each Additional 06924- Debride <25 sq cm 08/23/2014 19637- Debride <25 sq cm 01/08/2015 93710- Debride <25 sq cm 07/09/2015 48958- Debride <25 sq cm 03/30/2017 19316- Debride <25 sq cm 05/16/2013 26876- Debride <25 sq cm 03/24/2016 92586- Debride <25 sq cm 06/02/2016 23039- Debride <25 sq cm 08/18/2016 63980- Debride <25 sq cm 10/20/2016 70686- Debride <25 sq cm 11/24/2016 15824- Debride <25 sq cm 12/29/2016 32441- Debride <25 sq cm 12/01/2019 54868- Debride <25 sq cm 01/05/2020 90733- Debride <25 sq cm 11/02/2017 99104- Debride <25 sq cm 11/26/2017 03237- Debride <25 sq cm 08/23/2020 42901- Debride <25 sq cm 08/11/2024 94912 I&D ABSCESS- SIMPLE,SINGLE 021 02584-TMRY SKIN LESIONS, OVER 4 08/11/19 25 54278-Afwr. Subungual Hematoma 8 84035-Xqta. Subungual Hematoma 9 06803 - Tenotomy, open flexor 10/05/2017 Next Appt Details Provider Name:Pallavi Dover Speedy , 11/14/2024 09:00:00 AM, [address] [facility], [place], [address], Insurance Providers Payer Name Payer Address Payer Phone Subscriber Number Group Number Insured Name Patient Relationship to Insured Coverage Start Date Coverage End Date A[employer] Medicare Open [address] [place] [address] [phone] [id number] Enrrique Sanket Self - patient is the insured Medical (General) History Medical History History ICD Code joint implants/screws ingrown nails Surgical History Surgery Date(Month/Year) foot surgery 1997 left hip replacement 07/16/2014 shoulder replacement 02/23/2024 Hospitalization History Reason Date(Month/Year) [facility] [place] 01/02/22 urgent Care- Sprained ankle 09/2020 [facility] [place] [place] Hypertension 04/05/19 [facility] Replacement 07/16/2014 Went to [facility] for severe contusion to left rib 01/2014
== END 2024-09-27 09:08 | disposition home or self-care (01) ==
LOC: HO.HGS 08:38
PROVIDERS: PCP Internal Medicine; Visit Provider Surgery
DX: Z48.89 Encounter for other specified surgical aftercare (principal)
CPT/HCPCS: 99024

== ENCOUNTER → 2024-09-27 08:38 | Outpatient (BNVA) | payer MEDICARE, SELFPAY | PROVIDERS: PCP Internal Medicine; Visit Provider Surgery | DX: Z09 Encounter for follow-up examination after completed treatment for conditions other than malignant neoplasm (principal); Z98.890 Other specified postprocedural states | CPT/HCPCS: 99212 ==

== ENCOUNTER 2024-10-20 14:52 | Outpatient (AMB) | payer MEDICARE, SELFPAY ==
--- OUTSIDE RECORDS SUMMARY | 2024-10-20 14:56 | XMS_ITS | Data Portability ---
Author Organization [facility], [facility] Address [address] [place] [address] Care Team Providers Care Portable Machine Sander Name Role Phone SAURABH JACOBO Primary Care [...] all patients experience complete pain relief and hinduism of full function with this procedure, and [...] Medication Prescriptions: [none given] Plan/Follow up:6 [facility] speech recognition front end application developer software was used to create portions of [...] follow-up 3 months, sooner with any issues. [employer] [facility] speech recognition front end application developer software was used to create portions of [...] 2023 024 [email or web address] [place], [address], [place], [address], 4 12:08:02 Procedures None recorded. Surgeries None recorded. Imaging XR, shoulder, 2 or more view - 4v lt shoulder with marker room 212 2023 024 [email or web address] [facility], [address], [address], [place], [address], 4 11:53:06 Medication Orders None recorded. Patient [...] op Referring Physician: Mehul Mendez, Orthopedic Surgery, [id number] Encounter Date: 03/21/2024 Results Created Date Observation Date Name Description Value Unit Range Abnormal Flag Note LastModifiedBy Organization Detail LastModifiedTime 02/03/20 24 02/03/2024 XR, shoul isela, 2 or more view [email or web address] ?Encry pted=s hAaTro YD8dLq bEUv6g %2BXZw aYqtaq 0bqfl% 2Fg9IQ a4ajBk vP9nXo QUaueC m3YtLR FvZlgJ JJ8mAn HZtai3 3y7689 AC0KoY 3iDVaP eUC8mr 84%3D INTERFACE [facility] [address], [place], [address], 02/03/2024 10:41:47 02/03/20 24 02/03/2024 XR, shoul isela, 2 or more view [email or web address] ?Encry pted=s hAaTro YD8dLq bEUv6g %2BXZw aYqtaq 0bqfl% 2Fg9IQ a4ajBk vP9nXo QUaueC m3YtLR FvZlgJ JJ8mAn HZtai3 9e3564 AC0KoY 3iDVaP eUC8mr 84%3D INTERFACE [facility] [address], [place], [address], 02/03/2024 10:41:49 02/18/20 24 07/05/2023 imagi ng/di agnos tic resul t No observ ation record ed. [email or web address] Not Available 01/21 15:58:08 03/01/20 24 03/01/2024 XR, shoul isela, 2 or more view [email or web address] ?Encry pted=s hAaTro YD8dLq bEUv6g %2BXZw aYqtaq 0bqfl% 2Fg9IQ a4ajBk vP9nXo QUaueC m3YtLR FvZlgJ JJ8mAn HZtai3 4x0508 AC0Kqa n6FU6K jKiQtr MwF INTERFACE [facility] [address], [place], [address], 03/01/2024 15:58:13 03/01/20 24 03/01/2024 XR, shoul isela, 2 or more view [email or web address] ?Encry pted=s hAaTro YD8dLq bEUv6g %2BXZw aYqtaq 0bqfl% 2Fg9IQ a4ajBk vP9nXo QUaueC m3YtLR FvZlgJ JJ8mAn HZtai3 3l7021 AC0Kqa n6FU6K jKiQtr MwF INTERFACE [facility] [address], [place], [address], 03/01/2024 15:58:15 Result Notes None recorded. Procedures Surgical History None recorded. Imaging Results Imaging Date Name Status LastModified by Organiz ation Details LastModified Time 02/03/2024 XR, shoulder, 2 or more view completed INTERFACE [facility] [address], [place], [address], 02/03/2024 10:41:47 02/03/2024 XR, shoulder, 2 or more view completed INTERFACE [facility] [address], [place], [address], 02/03/2024 10:41:49 07/05/2023 imaging/diag nostic result completed [email or web address] Information not available 02/18/2024 15:58:08 03/01/2024 XR, shoulder, 2 or more view completed INTERFACE [facility] [address], [place], [address], 03/01/2024 15:58:13 03/01/2024 XR, shoulder, 2 or more view completed INTERFACE [facility] [address], [place], [address], 03/01/2024 15:58:15 Procedure Notes None recorded. Medical Equipment None Reported. Allergies Allergen ID Allergen Name Allergen Category Reaction Reaction Severity Criticality Documentation Date Start Date Code Code System Note Provider Name and Address Organization Details Recorded Time 872680 latex environme nt,medica tion Not available Not available Not available 12/14/20232023 94321 91 RxNorm Not Available [facility] 4 09:09:41 309384 Substance with sulfonami de structure and antibacte rial mechanism of action (substanc e) medicatio n Not available Not available Not available 12/14/20232023 09249 8003 SNOMED Not Available [facility] 4 09:09:41 429168 Benadryl medicatio n Not available Not available Not available 02/02/202497529 7 RxNorm LASHONDA nunez [place] - [facility] 4 12:46:30 Medications Name Sig Start [...] Updated DateTime 03/21/2024 167.64 cm 29.7 kg/m2 26936 g Daniela Bowen [facility] 03/21/2024 09:54:59 Date Recorded Body height Body mass index (BMI) Body weight Provider Name and Address Organization Details Last Updated DateTime 06/12/2024 167.64 cm 29.7 kg/m2 46747 yasmin LASHONDACHERELLE GUADARRAMADEN [facility] 06/12/2024 14:46:47 Social History None recorded. Functional Status None recorded. Mental Status None recorded. Family History Nothing Reported. Medical History No medical history recorded. Gynecological HistoryNo gynecological history recorded. Obstetrics History GPAL:G 0 P 0 0 0 0 Past Encounters Encounter ID Performer Location Encounter Start Date Encounter Closed Date Diagnosis/Indication Diagnosis SNOMED-CT Code Diagnosis ICD10 Code Diagnosis Note [id number] MD Roman Duque [address] [place] [address] 02/03/2024 10:14:18 02/29/2024 11:53:05 Pain of left shoulder joint 3023652577 8783591 M25.209 [id number] MD Roman [facility] [address] [place] [address] 03/01/2024 14:45:50 03/22/2024 10:47:37 History of reverse prosthetic total arthroplasty of left shoulder 0077214876 7616528 Z96.259 [id number] MARTY Nair [address] [place] [address] 03/21/2024 09:19:23 04/12/2024 12:08:02 History of reverse prosthetic total arthroplasty of left shoulder 6656130944 5385877 Z96.667 [id number] MD Roman [facility] [address] [place] [address] 06/12/2024 14:31:29 06/30/2024 16:21:35 History of reverse prosthetic total arthroplasty of left shoulder 2321179220 4200137 Z96.612 Health Concerns Section Related Observation LastModified by Organization Detai ls LastModified Time None Recorded Concern Status LastModified by Organization Details LastModified Time None Recorded Advance Directives Directive None Recorded Payers Encounter Date Sequence Insurance Name Policy Number Policy Recinos Covered Member ID Recinos Member ID Guarantor Name 02/03/2024 1 [employer] (MEDICARE REPLACEMENT PPO) [id number] Sanket Osuna [id number] Sanket Osuna 02/03/2024 2 [place]IC[place]: [employer] Sanket Osuna [id number] Sanket Osuna 03/01/2024 1 [employer] (MEDICARE REPLACEMENT PPO) [id number] Sanket Enrrique [id number] Sanket Enrrique 03/21/2024 1 [employer] (MEDICARE REPLACEMENT PPO) [id number] Sanket Enrrique [id number] Sanket Enrrique 06/12/2024 1 [employer] (MEDICARE REPLACEMENT PPO) [id number] Sanket Enrrique [id number] Sanket Osuna Notes Date Note Type Note [...] and providedMedication Prescriptions: None requiredPlan/Follow up: [facility] speech recognition front end application developer software was used to create portions of this document. An attempt at proofreading has been made to minimize errors. Please call for corrections. Mehul Mendez PA-C [address] [facility] [address], [place], [address], [facility] 03/21/2024 10:12:22 OBGyn Episode No OBEpisode recorded.
--- OUTSIDE RECORDS SUMMARY | 2024-10-20 14:56 | XMS_ITS | Patient Health Record ---
Author Organization [facility] Address [address] [place] [address] Care Team Providers Care Lacquer Mixer Name Role Phone Nadeem Conn MD Primary Care Provider Unavaila nereida RuffBlanke Unavailable [phone] Allergies Allergen (clinical drug ingredient) Drug/Non Drug [...] Problem Acquired hammer toe of right foot (11744898216 23174) Other hammer toe(s) (acquired), right foot (M20.41) Active confirmed Problem Acquired hammer toe of left foot (23620900685 17567) Other hammer toe(s) (acquired), left foot (M20.42) Active confirmed Problem Non-pressure ulcer lower limb (421451842) Non-pressure chronic ulcer of other part of right foot limited to breakdown of 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) Active confirmed Problem Atherosclerosis of marshall artery of both lower extremities, with unspecified presence of clinical manifestation (I70.203) Active confirmed Q7(A), Q8(2B), Q9(1B,2C ) Vital Signs Heart Rate 88 /min 08/11/2024 Blood pressure diastolic 92 mm Hg 08/11/2024 Height 5ft 6 in in 08/11/2024 Blood pressure systolic 149 mm Hg 08/11/2024 Weight 189 lbs 08/11/2024 BMI 30.5 kg/m2 08/11/2024 Procedures Procedure Date Ordered Date Performed Result Body Sit e 05650-TXTKIYR NAIL, 6 OR MORE 02/09/2024 N/A 11480-EDOUZLZ NAIL, 6 OR MORE 08/11/2024 N/A 27675-Mjhtxsrv Plate 08/11/2024 N/A 67487- Debride <25 sq cm 08/11/2024 N/A 15863-IWRQ SKIN LESIONS, OVER 4 08/11/2024 N/A Encounters Encounter Location Date Provider Diagnosis [address] [address] 02/09/2024 Pallavi Black Tinea unguium B35.1 ; Other hammer toe(s) (acquired), right foot M20.41 ; Pain in right toe(s) M79.674 ; Pain in left toe(s) M79.675 and Other hammer toe(s) (acquired), left foot M20.[address] [address] 05/12/2024 Pallavi Black Onychomycosis B35.1 ; Atherosclerosis of marshall artery of both lower extremities, with unspecified presence of clinical manifestation I70.203 ; Pain in right toe(s) M79.674 and Pain in left toe(s) M79.[address] [address] 08/11/2024 Pallavi Black Onychomycosis B35.1 ; Atherosclerosis of marshall artery of both lower extremities, with unspecified [...] Onychomycosis (ICD-10 - B35.1) 05/12/2024 Atherosclerosis of marshall artery of both lower extremities, with unspecified presence of clinical manifestation (ICD-10 - I70.203) Q7(A), Q8(2B), Q9(1B,2C) 08/11/2024 Onychomycosis (ICD-10 - B35.1) 08/11/2024 Atherosclerosis of marshall artery of both lower extremities, with unspecified [...] X ray : Foot, right 3V 02/14/2013 34413-QLCOQYM NAIL, 6 OR MORE 05/16/2013 11515-SLTKQQE NAIL, 6 OR MORE 09/10/2015 35396-HBVYBKW NAIL, 6 OR MORE 03/29/2012 59544-RFYPFOF NAIL, 6 OR MORE 11/03/2012 23979-EAMKUYL NAIL, 6 OR MORE 02/14/2013 19414-HKOEOHP NAIL, 6 OR MORE 03/03/2011 43245-ATRXFRX NAIL, 6 OR MORE 05/05/2011 11340-LSXWFAS NAIL, 6 OR MORE 08/18/2011 50396-QOHTAPI NAIL, 6 OR MORE 11/17/2011 65618-KIJPSHH NAIL, 6 OR MORE 08/15/2013 10716-UYPUJVJ NAIL, 6 OR MORE 11/14/2013 28075-BRKXYNI NAIL, 6 OR MORE 03/13/2014 96075-OXODTVY NAIL, 6 OR MORE 06/12/2014 75068-FXMKNIX NAIL, 6 OR MORE 01/05/2020 95422-QLXEYFS NAIL, 6 OR MORE 05/02/2019 49959-VNQDSSH NAIL, 6 OR MORE 10/17/2019 10886-AJMMGDE NAIL, 6 OR MORE 10/05/2017 81084-QRZTFQH NAIL, 6 OR MORE 02/01/2018 53417-IXDPJFH NAIL, 6 OR MORE 05/03/2018 94481-PONWDKH NAIL, 6 OR MORE 07/12/2018 13486-YWHKUQE NAIL, 6 OR MORE 09/20/2018 97193-UMUJWXE NAIL, 6 OR MORE 02/24/2019 73760-WGDRHNN NAIL, 6 OR MORE 03/15/2020 94954-PGDRKAH NAIL, 6 OR MORE 07/24/2020 86333-JHKYAOA NAIL, 6 OR MORE 10/04/2020 12663-LTQKDTN NAIL, 6 OR MORE 12/13/2020 85050-CIPBUGH NAIL, 6 OR MORE 07/08/2021 14653-TOKRKFX NAIL, 6 OR MORE 10/07/2021 39196-BSRDRJX NAIL, 6 OR MORE 03/20/2022 45474-SRTMJWL NAIL, 6 OR MORE 06/02/2022 91160-DXDHPCI NAIL, 6 OR MORE 08/11/2022 38259-ACRPZNZ NAIL, 6 OR MORE 10/20/2022 11543-XNOWVCS NAIL, 6 OR MORE 01/06/2023 98359-ZZTQYXZ NAIL, 6 OR MORE 02/09/2024 16802-EBNTPAU NAIL, 6 OR MORE 08/11/2024 30396-Wfntnyyb Plate 08/11/2024 40359-Qcgvhslv Plate 10/07/2021 80064-Fgwrgyps Plate 12/13/2020 51840-Afwirzhm Plate 07/26/2020 18425-Tqeeuudh Plate 03/15/2020 04982-Ncjsulah Plate 06/12/2014 69097-Iiagiajx Plate 03/13/2014 18622-Esjphznb Plate 09/10/2015 62122-Mpsiwaye Plate 12/29/2016 92177-Nhgrodhy Plate 10/04/2014 93563-Vyrmifid Plate 01/08/2015 38521-Wojgjmhi Plate Each Additional 11063- Debride <25 sq cm 08/23/2014 00766- Debride <25 sq cm 01/08/2015 98784- Debride <25 sq cm 07/09/2015 91541- Debride <25 sq cm 03/30/2017 19148- Debride <25 sq cm 05/16/2013 69404- Debride <25 sq cm 03/24/2016 55048- Debride <25 sq cm 06/02/2016 96851- Debride <25 sq cm 08/18/2016 33466- Debride <25 sq cm 10/20/2016 73743- Debride <25 sq cm 11/24/2016 45930- Debride <25 sq cm 12/29/2016 09179- Debride <25 sq cm 12/01/2019 29878- Debride <25 sq cm 01/05/2020 66648- Debride <25 sq cm 11/02/2017 72534- Debride <25 sq cm 11/26/2017 31079- Debride <25 sq cm 08/23/2020 02895- Debride <25 sq cm 08/11/2024 61505 I&D ABSCESS- SIMPLE,SINGLE 021 96074-AGKW SKIN LESIONS, OVER 4 08/11/19 25 80417-Zdhz. Subungual Hematoma 8 82856-Cphq. Subungual Hematoma 9 44878 - Tenotomy, open flexor 10/05/2017 Next Appt Details Provider Name:Pallavi Dover Speedy , 11/14/2024 09:00:00 AM, [address] [facility], [place], [address], Insurance Providers Payer Name Payer Address Payer Phone Subscriber Number Group Number Insured Name Patient Relationship to Insured Coverage Start Date Coverage End Date [employer] Medicare Open [address] [place] [address] [id number] Enrrique Sanket Self - patient is the insured Medical (General) History Medical History History ICD Code joint implants/screws ingrown nails Surgical History Surgery Date(Month/Year) foot surgery 1997 left hip replacement 07/16/2014 shoulder replacement 02/23/2024 Hospitalization History Reason Date(Month/Year) [facility] [place] fell 01/02/22 urgent Care- Sprained ankle 09/2020 [facility] [place] Hypertension 04/05/19 [facility] Hip Replacement 07/16/2014 Went to [facility] for severe contusion to left rib 01/2014
--- OUTSIDE RECORDS SUMMARY | 2024-10-20 14:57 | XMS_ITS ---
Author Organization [facility] Address [address] [place] [address] Care Team Providers Care Liquor Grinder Mill Operator Name Role Phone Nadeem Conn MD Primary Care Provider Unavaila Pallavi Linda Unavailable [phone] Allergies Allergen (clinical drug ingredient) Drug/Non Drug [...] sober for 9 willis hs Vital Signs Blood pressure systolic 149 mm Hg 08/11/19 25 Blood pressure diastolic 92 mm Hg 025 Heart Rate 88 /min 08/11/2024 Height 5ft 6 in in 08/11/2024 Weight 189 lbs 08/11/2024 BMI 30.5 kg/m2 08/11/2024 Procedures Procedure Date Ordered Date Performed Result Body Sit e 98432-VXHFHMK NAIL, 6 OR MORE 08/11/2024 N/A 12053-Mdurxqam Plate 08/11/2024 N/A 30767- Debride <25 sq cm 08/11/2024 N/A 77283-DLLV SKIN LESIONS, OVER 4 08/11/2024 N/A Encounters Encounter Location Date Provider Diagnosis [facility] [address] [address] 08/11/2024 Pallavi Black Onychomycosis B35.1 ; Atherosclerosis of council artery of both lower extremities, with unspecified [...] Onychomycosis (ICD-10 - B35.1) 08/11/2024 Atherosclerosis of council artery of both lower extremities, with unspecified [...] INSTRUCTIONS.pdf) Pending Test Test Name Order Date 25792-HZQZACJ NAIL, 6 OR MORE 08/11/2024 04595-Chzgldhn Plate 08/11/2024 24922- Debride <25 sq cm 08/11/2024 36800-UTBB SKIN LESIONS, OVER 4 08/11/19 Next Appt Details Follow Up: 3-4 Weeks, Reason : Provider Name:Pallavi Dover Speedy , 11/14/2024 09:00:00 AM, [address] [facility], [place], [address], Procedure Notes * Category Sub-Category Detail Notes [...] Motrin was recommended for pain or discomfort (53687), CIRCULATION: Matricectomy deferred at this time due [...] use of a nail nipper and/or dremel-type snuff grinder, to a more viable healthy nail [...] to maintain effectiveness in symptomatic relief - 14124 Debride skin< 25 sq cm Open wound [...] of the wound post debridement is stable (09201) Keratoma Treatment Parring or Cutting o f [...] instrumentation by the physician of record - 08037 Progress Notes * Sanket OSUNA ADOB: 4 (69 yo F)Acc No.[id number]:08/11/2024 Progress Note Patient:?Sanket OSUNA Provider:?Pallavi Ruff DPM :1955???Age:69 Y???Sex:Female D ate:08/11/2024 Address:[address] [place] [address] Pcp:Nadeem Conn MD Subjective: * Chief Complaints: [...] 02/23/2024 * Hospitalization/Major Diagno stic Procedure:?Went to [facility] for severe contusion to left rib 01/2014[facility] Hip Replacement 07/16/2014[facility] [place] Hypertension 04/05/19urgent Care- Sprained ankle 09/2020[facility] fell 01/02/22 * Family History:?Mother: dece ased, [...] * Assessment: 1.?Onychomycosis - B35.1???2 .?Atherosclerosis of council artery of both lower extremities, with unspecified presence of clinical manifestation - I70.203 (Primary)???Notes :Q7(A), Q8(2B), Q9(1B,2C)???3.?Pain in right toe(s) - M79.674???4.?Pain in left toe(s) - M79.675???5.?Ingrown nail - L60.0???6.?Skin ulcer of toe of left foot, limited to breakdown of skin - L97.521???Notes :Response to treatment Nonapplicable??? Plan: * Treatment: 2.?Onychomycosis?Procedure: 69862-ULRJEKZ NAIL, 6 OR MORE 3.?Ingrown nail?Procedure: 93605-Hqvrgbdh Plate 4.?Skin ulcer of toe of left foot, limited to breakdown of skin?Procedure: 07019- Debride <25 sq cm Notes: Patient Educated [...] use of a nail nipper and/or dremel-type snuff grinder, to a more viable healthy nail [...] to maintain effectiveness in symptomatic relief - 14966.?Debride skin< 25 sq cm:?Open wound?Physician of record [...] of the wound post debridement is stable (48070).?Keratoma Treatment:?Parring or Cutting of Benign Hyperkeratotic Lesion(s)?(-57) [...] instrumentation by the physician of record - 60036.?Nail Avulsion:?Location?, Bilateral nail border, T2.?Anesthesia?, was accomplished [...] Motrin was recommended for pain or discomfort (53922), CIRCULATION: Matricectomy deferred at this time due to compromised circulation risk.? * Procedure Codes:?37632 DEBRI DE NAIL, 6 OR MORE, Modifiers: XS 45569 Avulsion Plate, Modifiers: T2 49646 ACTIVE WOUND CARE/20 CM OR <, Modifiers: T1 72963 TRIM SKIN LESIONS, OVER 4, Modifiers: Q8 [...] Ruff DPM Date:?2024 Generated for Luis F umaña/Hong/eTransmlukas on:?10/20/2024 02:57 PM EDT History and Physical Notes * HPI [...]
--- OUTSIDE RECORDS SUMMARY | 2024-10-20 14:57 | XMS_ITS ---
Author Organization [facility] Address [address] [place] [address] Care Team Providers Care Assistant Merchandise Manager Name Role Phone Nadeem Conn MD Primary Care Provider Unavaila Pallavi Linda Unavailable [phone] Allergies Allergen (clinical drug ingredient) Drug/Non Drug [...] Ordered Date Performed Result Body Sit e 42493-AFAASUX NAIL, 6 OR MORE 02/09/2024 N/A Encounters Encounter Location Date Provider Diagnosis [facility] [address] [address] 02/09/2024 Pallavi Black Tinea unguium B35.1 ; [...] Treatment Pending Test Test Name Order Date 48192-GVMKKXT NAIL, 6 OR MORE 02/09/2024 Next Appt Details Follow Up: prn, Reason: Provider Name:Pallavi Dover Speedy , 11/14/2024 09:00:00 AM, [address] [facility], [place], [address], Procedure Notes * Category Sub-Category Detail Notes [...] as necessary. Patient chooses, no pharmaceutical tx (63133) Progress Notes * ENRRIQUE Sanket ADOB: (68 yo F)Acc No.[id number]:02/09/2024 Progress Note Patient:?Sanket Osuna Provider:?Pallavi Ruff DPM :1955???Age:68 Y???Sex:Female D ate:02/09/2024 Address:[address] [place], [place] [address] Pcp:Nadeem Conn MD Subjective: * Chief Complaints: [...] 07/16/2014 * Hospitalization/Major Diagno stic Procedure:?Went to [facility] for severe contusion to left rib 01/2014[facility] Replacement 07[place] [place] 04/05/19[facility]- Sprained ankle 09/2020[facility] [...] as necessary. Patient chooses, no pharmaceutical tx (54850).? * Procedure Codes:?20762 DEBRI DE NAIL, 6 OR MORE, Modifiers: [...] DPM Date:?2023 Generated for Luis F umaña/Hong/eTransmitting on:?10/20/2024 02:56 PM EDT History and Physical Notes * [...]
--- OUTSIDE RECORDS SUMMARY | 2024-10-20 14:57 | XMS_ITS ---
Author Organization [facility] Address [address] [place] [address] Care Team Providers Care Director Cost Name Role Phone Nadeem Conn MD Primary Care Provider Unavaila Pallavi Linda Unavailable [phone] Allergies Allergen (clinical drug ingredient) Drug/Non Drug [...] W/U Status Risk Notes Problem Atherosclerosis of belkofski artery of both lower extremities, with unspecified presence of clinical manifestation (I70.203) Active confirmed Q7(A), Q8(2B), Q9(1B,2C) Vital Signs Height 5ft 6in in 05/12/2024 Weight 189 lbs 05/12/2024 BMI 30.5 kg/m2 05/12/2024 Encounters Encounter Location Date Provider Diagnosis [facility] [address] [address] 05/12/2024 Pallavi Black Onychomycosis B35.1 ; Atherosclerosis of belkofski artery of both lower extremities, with unspecified presence of clinical manifestation I70.203 ; Pain in right toe(s) M79.674 and Pain in left toe(s) M79.675 Assessments Encounter Date Diagnosis (ICD Code) Assessment Notes Treatment Notes Treatment Clinical Notes Section Notes 05/12/2024 Onychomycosis (ICD-10 - B35.1) 05/12/2024 Atherosclerosis of belkofski artery of both lower extremities, with unspecified presence of clinical manifestation (ICD-10 - I70.203) Q7(A), Q8(2B), Q9(1B,2C) 05/12/2024 Pain in right toe(s) (ICD-10 - M79.674) 05/12/2024 Pain in left toe(s) (ICD-10 - M79.675) Plan Of Treatment Next Appt Details Follow Up: prn, Reason: Provider Name:Pallavi Ruff , 11/14/2024 09:00:00 AM, [address] [facility], [place], [address], Procedure Notes * Category Sub-Category Detail Notes [...] use of a nail nipper and/or dremel-type graphite grinder, to a more viable healthy nail [...] to maintain effectiveness in symptomatic relief - 68043 Keratoma Treatment Parring or Cutting o f Benign Hyperkeratotic Lesion(s) , (-57) More than 4 Lesions - The Benign hyperkeratotic lesions, ( 7 ) in total, locations as stated and described in exam, were pared, and/or cut utilizing a sterile 15 blade, tissue nippers, and/or power dremel instrumentation - 99800 Progress Notes * Sanket OSUNA ADOB: (69 yo F)Acc No.[id number]:05/12/2024 Progress Note Patient:?Sanket OSUNA Provider:?Pallavi Ruff DPM :1955???Age:69 Y???Sex:Female D ate:05/12/2024 Address:[address] [place] [address] Pcp:Nadeem Conn MD Subjective: * Chief Complaints: * ???Painful nail(s) aggravate d by shoes causing difficulty standing/walkingAt Risk Footcare * HPI: ???Painful Nails:?Pt States Last PCP Visit:?Date:?11/11/2023 ???At Risk footcare:?Pt States Last PCP Visit:?Date?11/11/2023 * Medical History:? * Surgical History:?foot surge ry 1998left hip replacement 07/16/2014 * Hospitalization/Major Diagno stic Procedure:?Went to [facility] for severe contusion to left rib 01/2014[facility] Replacement 07/[place] [place] [place] 04/05/19urgent Care- Sp[facility] ankle 09/2020[facility] [...] * Assessment: 1.?Onychomycosis - B35.1???2 .?Atherosclerosis of belkofski artery of both lower extremities, with unspecified [...] use of a nail nipper and/or dremel-type graphite grinder, to a more viable healthy nail [...] to maintain effectiveness in symptomatic relief - 92321.?Keratoma Treatment:?Parring or Cutting of Benign Hyperkeratotic Lesion(s)?, (-57) More than 4 Lesions - The Benign hyperkeratotic lesions, ( 7 ) in total, locations as stated and described in exam, were pared, and/or cut utilizing a sterile 15 blade, tissue nippers, and/or power [employer] instrumentation - 52952.? * Procedure Codes:?12143 DEBRI DE NAIL, 6 OR MORE, Modifiers: XS 41430 TRIM SKIN LESIONS, OVER 4, Modifiers: Q8 [...]
--- OUTSIDE RECORDS SUMMARY | 2024-10-20 14:57 | XMS_ITS | Patient Health Record ---
Author Organization [facility] Address [address] [place] [address] Care Team Providers Care Foot Setter Name Role Phone Daphne Penaloza M.D. Primary Care Provider Gerhard Miller Jr, Kavon Unavailable [phone] Allergies Allergen (clinical drug ingredient) Drug/Non Drug [...] W/U Status Risk Notes Problem Esophageal reflux (995663146) Esophageal reflux (530.81) Active confirmed Problem Change in bowel habit (79079303) Change in bowel habits (787.99) Active confirmed Problem Colon cancer screening (228748244) Colon cancer screening (V76.51) Active confirmed Plan Of Treatment Future Test Test Name Order Date COLONOSCOPY 06/08/2013 Next Appt Details Provider Name:Kavon lucia Jr, 12/11/2024 10:40:00 AM, [address], [address], [place], [address], Insurance Providers Payer Name Payer Address Payer Phone Subscriber Number Group Number Insured Name Patient Relationship to Insured Coverage Start Date Coverage End Date [employer] [address] [address] [place] [address] [id number] HUMZA LYN Self - patient is the insured Medical (General) History Medical History History ICD Code colonoscopy 09/20/2009 hyperthyroidism disc disease GERD Denies SD,DM,CVA,Lung disease,renal dise ase Surgical History Surgery Date(Month/Year) toe surgery
--- NOTE | 2024-10-20 15:19 | A.OFFPC_ITS ---
Vital Signs 10/20/24 15:20 Height 5 ft 7 in Weight 83.461 kg BMI 28.8 BP 130/80 Blood Pressure Location Lt brachial Position Sitting Pulse 75 Pulse Source Pulse Oximeter Temp 97.5 F Temp Source Axillary Pulse Oximetry (%) 96 Oxygen Delivery Method Room Air Intake Visit Reasons: Sick Health Manager Required: No Accompanied by: Self / Same As Patient Allergies diphenhydramine [From BENADRYL] Allergy (Intermediate, Verified 10/20/24 15:24) ANXIETY/HYPERALERTNESS Sulfa (Sulfonamide Antibiotics) Allergy (Intermediate, Verified 10/20/24 15:24) SWELLING, facial swelling Benadryl Allergy (Unknown, Verified 10/20/24 15:24) aggitation latex [LATEX] Allergy (Unknown, Verified 10/20/24 15:24) RASH Latex Allergy (Mild, Uncoded 09/27/24 08:44) rash latex Allergy (Mild, Uncoded 09/27/24 08:44) rash Tobacco use date assessed: 10/20/24 Fall risk assessment: No Falls in past year Last assessed Fall Risk: 10/20/24 Dental Screening Dental Screen Date: 10/20/24 Did you have a dental visit in the last 12 months?: No Did you have a dental problem in the last 6 months where you did not have access to dental care?: No HPI HPI Comments History of Present Illness Details 69-year-old female with history of hyper tension, hypothyroidism, chronic pain presents to the office today for evaluation of upper respiratory symptoms as well as follow-up on her chronic medical conditions. She states that for the last 3 weeks, she has had a nonproductive cough with associated chest congestion. She has also had nasal congestion, hoarse voice/throat. She has been taking Robitussin without much relief. Denies any fevers, chills, otalgia, sinus pain, abdominal pain, nausea, vomiting, diarrhea, shortness of breath, or chest pain. She has been wheezing. She is a former smoker. No known history of chronic lung disease. She is not checking blood pressures at home but reports compliance with losartan as well as compliance with levothyroxine for her hypothyroidism. She does also take gabapentin for low back pain with sciatica. [facility] Medical History Macrocytic anemia Fall Alcohol abuse with withdrawal Acute kidney failure Hyperthyroidism Hypertension Family History Father No problems noted. Mother Alcohol abuse Cancer Social History Housing: House Do you presently have visiting nurse or other home services: No Alcohol intake: current Alcohol intake frequency: does not drink Patient Tobacco Use Status: Former Tobacco user e-Cigarette/Vaping Use: Former Use Advance Directives Date on File: 01/01/22 service: No Current occupational status: retired Cognitive needs: No Hearing needs: No Vision needs: Yes (rx glasses) Questionnaire PHQ-9 Over the last 2 weeks, how often have you been bothered by any of the following problems? 1. Little interest or pleasure in doing things: not at all 2. Feeling down, depressed, or hopeless: not at all 3. Trouble falling or staying asleep, or sleeping too much: not at all 4. Feeling tired or having little energy: not at all 5. Poor appetite or overeating: not at all 6. Feeling bad about yourself - or that you are a failure or have let yourself or your family down: not at all 7. Trouble concentrating on things, such as reading the newspaper or watching television: not at all 8. Moving or speaking so slowly that other people could have noticed. Or the opposite - being so fidgety or restless that you have been moving around a lot more than usual: not at all 9. Thoughts that you would be better off or of hurting yourself in some way: not at all Total score: 0 Source: Developed by Drs. Smith Rosas, Kianna Hector, Elan Hagan and colleagues, with an educational keron from [employer]. Thrive Questionnaire Date Thrive assessed: 10/20/24 I am a: Patient Within the past 12 months, did the food you bought not last and you didn't have the money to get more?: Never true Within the past 12 months, did you worry whether your food would run out before you got money to buy more?: Never true Do you have trouble paying for medicines?: No Do you have trouble getting transportation to medical appointments?: No Do you have trouble paying your heating and electricity bill?: No Do you have trouble taking care of your child, family member or friend?: No Do you have trouble with day-to-day activities such as bathing, preparing meals, shopping, managing finances, etc.?: No Are you currently unemployed and looking for a job?: No Are you interested in more education?: No THRIVE Score: 0 AUDIT C Alcohol Use Questionnaire (AUDIT-C) 1. How often do you have a drink containing alcohol?: Never 3. How often do you have six or more drinks on one occasion?: Never Total Score: 0 FRANCIS-7 AMB Questionnaire FRANCIS-7 Date FRANCIS - 7 assessed: 10/20/24 Feeling nervous, anxious, or on edge: 0 = Not at all Not being able to stop or control worryin = Not at all Worrying too much about different things: 0 = Not at all Trouble relaxin = Not at all Being so restless that it is hard to sit still: 0 = Not at all Becoming easily annoyed or irritable: 0 = Not at all Feeling afraid as if something awful might happen: 0 = Not at all Total FRANCIS-7 score (0-4 normal; 5-9 mild; 10-14 moderate; 15-21 severe): 0 Source: Developed by Drs. Smith Rosas, Kianna Hector, Elan Hagan and colleagues, with an educational keron from [employer]. Review of Systems Const All systems reviewed & are unremarkable except as noted in HPI and below Physical exam (Primary Care) Vital Signs: Last Vital Signs Temp 97.5 F 10/20/24 15:20 Pulse 75 10/20/24 15:20 BP 130/80 10/20/24 15:20 Pulse Ox 96 10/20/24 15:20 Oxygen Delivery Method Room Air 10/20/24 15:20 BMI result Body Mass Index 28.8 Tobacco/Smoking Status: Tobacco use Status Tobacco use date assessed 10/20/24 10/20/24 15:28 Patient Tobacco Use Status Former Tobacco user 10/20/24 15:21 e-Cigarette/Vaping Use Former Use 10/20/24 15:28 PHQ-9: PHQ-9 Score PHQ-9: Total score 0 10/20/24 15:53 Thrive Assessment: Date of Thrive Assessment Date Thrive assessed 10/20/24 10/20/24 15:28 Const Other: Constitutional - Awake and Alert, No apparent distress Eyes - PERRLA, EOMI Ears-external ears normal, canals clear, tympanic membranes intact and pearly lewis with good cone of light Nose-mild maxillary sinus pressure. Nasal turbinates edematous and erythematous. Scant yellow nasal drainage Cardiovascular - S1S2, RRR, No edema Respiratory - Normal lung expansion, Normal respiratory effort, No respiratory distress, scattered wheezes bilaterally, greatest in the right lower lobe Extremities - no calf tenderness bilaterally, no swelling Skin - Warm/Dry Neurological - Alert & oriented x3 Psychological - Appropriate affect Coding Level of Care Code New Pt Level 4 (68813) Complex EM visit Add On G2211 Diagnoses Acute bronchitis J20.9 Sinusitis J32.9 Hypothyroidism, unspecified type E03.9 Hypothyroidism type: unspecified Primary hypertension I10 Hypertension type: primary hypertension Hyperlipidemia E78.5 Assessment & Plan Assessment & Plan (1) Acute bronchitis: Code(s): J20.9 - Acute bronchitis, unspecified Category: Medical Plan: Likely has superimposed bacterial infection as well. She is prescribed doxycycline 100 mg twice daily, counseled on dosing instructions and side effects. Given prednisone 40 mg daily x5 days as well as albuterol inhaler as needed. She is given a short course of guaifenesin with codeine. Mass pat reviewed. (2) Sinusitis: Code(s): J32.9 - Chronic sinusitis, unspecified Category: Medical Plan: Likely bacterial component of sinusitis after 3 weeks of symptoms. Doxycycline prescribed as above. Recommend sinus rinses (3) Hypothyroid: Code(s): E03.9 - Hypothyroidism, unspecified Category: Medical Qualifiers: Hypothyroidism type: unspecified Qualified Code(s): E03.9 - Hypothyroidism, unspecified Plan: TSH within normal limits, controlled. Continue levothyroxine. (4) Hypertension: Code(s): I10 - Essential (primary) hypertension Category: Medical Qualifiers: Hypertension type: primary hypertension Qualified Code(s): I10 - Essential (primary) hypertension Plan: Blood pressure controlled. Continue losartan 50 mg daily. Low-sodium diet. Renal function and electrolyte levels are normal. (5) Hyperlipidemia: Code(s): E78.5 - Hyperlipidemia, unspecified Category: Medical Plan: Uncontrolled with LDL 148. Patient would like to proceed with lifestyle modification before medication introduction. Discussed lifestyle modifications including low-fat diet and increased exercise. Also recommend avoidance of highly processed foods. Plan Follow-up in 6 months with labs completed prior to visit Orders: Orders Lipid Panel 5 Months D64.9 - Anemia, unspecified, E03.9 - Hypothyroidism, unspecified, E78.5 - Hyperlipidemia, unspecified, I10 - Essential (primary) hypertension TSH reflex Free T4 5 Months D64.9 - Anemia, unspecified, E03.9 - Hypothyroidism, unspecified, E78.5 - Hyperlipidemia, unspecified, I10 - Essential (primary) hypertension Complete Blood Count Auto Diff 5 Months D64.9 - Anemia, unspecified, E03.9 - Hypothyroidism, unspecified, E78.5 - Hyperlipidemia, unspecified, I10 - Essential (primary) hypertension Basic Metabolic Panel 5 Months D64.9 - Anemia, unspecified, E03.9 - Hypothyroidism, unspecified, E78.5 - Hyperlipidemia, unspecified, I10 - Essential (primary) hypertension Medications: New codeine-guaifenesin 10-100 mg/5 mL 10 mL PO Q4-6H PRN 200 mL 0RF cough prednisone 40 mg (2 x 20 mg) PO DAILY 10 tabs 0RF albuterol sulfate 90 mcg/actuation 2 puffs inhalation Q6H PRN 8.5 grams 0RF shortness of breath or wheezing or cough doxycycline hyclate 100 mg PO BID 14 caps 0RF
[2024-10-20 15:20] VITALS: BP 130/80; PULSE 75; TEMP 36.4; O2SAT 96; BMI 28.8
== END 2024-10-20 16:06 | disposition home or self-care (01) ==
LOC: HO.HMCHD 14:53
PROVIDERS: PCP Internal Medicine; Visit Provider Physician Assistant
DX: J20.9 Acute bronchitis, unspecified (principal); J32.9 Chronic sinusitis, unspecified; E03.9 Hypothyroidism, unspecified; I10 Essential (primary) hypertension; E78.5 Hyperlipidemia, unspecified

== ENCOUNTER → 2024-10-20 14:52 | Outpatient (BNVA) | payer MEDICARE, SELFPAY | PROVIDERS: PCP Internal Medicine; Visit Provider Physician Assistant | DX: J20.9 Acute bronchitis, unspecified (principal); J32.9 Chronic sinusitis, unspecified; E03.9 Hypothyroidism, unspecified; I10 Essential (primary) hypertension; E78.5 Hyperlipidemia, unspecified; Z79.899 Other long term (current) drug therapy | CPT/HCPCS: 96127; 99202 ==

== ENCOUNTER 2025-01-02 08:52 | Day surgery (SDC) | payer MEDICARE, SELFPAY ==
--- OUTSIDE RECORDS SUMMARY | 2024-12-12 14:39 | XMS_ITS | Patient Health Record ---
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 . . . for . Not-Ta [facility] 11/14/2024 Active Keflex 750 MG as directed Orally B ID for 10 days 07/26/2020 Not-Taking amLODIPine Besylate 5 MG 1 tablet Orally Once a day Not-Taking Omeprazole Active Bactrim DS 800-160 MG 1 tablet Orally Tw ice a day for 10 day(s) 02/07/2020 Not-Taking Levothyroxine Sodium 25 MCG 1 tablet every morning on an empty stomach Orally Once a day for 30 day(s) Active Cipro 500 MG 1 tablet Orally ever y 12 hrs for 10 day(s) 02/12/2020 Not-Taking Losartan Potassium 25 MG 1 tablet Orally Once a day Active Keflex 500 MG 1 capsule Orally yina ry 12 hrs for 10 day(s) 11/02/2017 Not-Taking Trazodone & Diet Manage Prod Active LamISIL 250 MG 1 tablet Orally Once a day for 7 days then stop for 3 weeks repeat cylce for 12 months for 365 days 06/07/2017 Not-Taking hydrOXYzine HCl 25 MG 1 tablet as needed Orally every 8 hrs Active [facility] Active traMADol HCl 50 MG 1 tablet as needed Orally every 6 hrs Not-Taking Ibuprofen 600 MG 1 tablet Orally [...] willis hs Pt has been sober for 3 year s Problems Problem Type SNOMED Code ICD Code Onset Dates Problem Status W/U Status Risk Notes Problem [id number] Other hammer toe(s) (acquired), right foot (M20.41) Active confirmed Problem Bilateral atherosclerosis of arteries of lower limbs (disorder) (6430181968917031 7) Atherosclerosis of nez perce artery of both lower extremities, with unspecified presence of clinical manifestation (I70.203) Active confirmed Q7(A), Q8(2B), Q9(1B,2C) Problem Localized, primary osteoarthritis of the ankle and/or foot (301803502) Arthritis of joint of lesser toe, right (M19.071) Active confirmed Problem Ulcer of toe of left foot (disorder) (7739933246633174 2) Skin ulcer of toe of left foot, limited to breakdown of skin (L97.521) Active confirmed Response to treatment - Improvement Vital Signs Heart Rate 88 /min 08/11/2024 Blood pressure diastolic 92 mm Hg 08/11/2024 Height 5ft 6in in 11/14/2024 Blood pressure systolic 149 mm Hg 08/11/2024 Weight 180 lbs 11/14/2024 BMI 29.05 kg/m2 11/14/2024 Procedures Procedure Date Ordered Date Performed Result Body Sit e 47142-OFYTKOT NAIL, 6 OR MORE 02/09/2024 N/A 35354-JAVTYOZ NAIL, 6 OR MORE 08/11/2024 N/A 56840-Tobauqvn Plate 08/11/2024 N/A 78969- Debride <25 sq cm 08/11/2024 N/A 53529-TWEM SKIN LESIONS, OVER 4 08/11/2024 N/A 14317-QXZNTAL NAIL, 6 OR MORE 11/14/2024 N/A 76010- Debride <25 sq cm 11/14/2024 N/A 26133-CGAR SKIN LESIONS, OVER 4 11/14/2024 N/A Encounters Encounter Location Date Provider Diagnosis [address] [address] 02/09/2024 Pallavi Black Tinea unguium B35.1 ; Other hammer toe(s) (acquired), right foot M20.41 ; Pain in right toe(s) M79.674 ; Pain in left toe(s) M79.675 and Other hammer toe(s) (acquired), left foot M20.[address] [address] 05/12/2024 Pallavi Black Onychomycosis B35.1 ; Atherosclerosis of nez perce artery of both lower extremities, with unspecified presence of clinical manifestation I70.203 ; Pain in right toe(s) M79.674 and Pain in left toe(s) M79.[address] [address] 08/11/2024 Pallavi Black Onychomycosis B35.1 ; Atherosclerosis of nez perce artery of both lower extremities, with unspecified presence of clinical manifestation I70.203 ; Pain in right toe(s) M79.674 ; Pain in left toe(s) M79.675 ; Ingrown nail L60.0 and Skin ulcer of toe of left foot, limited to breakdown of skin L97.[address] [address] 11/14/2024 Pallavi Black Onychomycosis B35.1 ; Atherosclerosis of nez perce artery of both lower extremities, with unspecified presence of clinical manifestation I70.203 ; Pain in right toe(s) M79.674 ; Pain in left toe(s) M79.675 ; Skin ulcer of toe of left foot, limited to breakdown of skin L97.521 ; Other hammer toe(s) (acquired), right foot M20.41 ; Arthritis of joint of lesser toe, right M19.071 and Subluxation of metatarsophalangeal joint of toe, initial encounter S93.149A Assessments Encounter Date Diagnosis (ICD Code) Assessment Notes Treatment Notes Treatment Clinical Notes Section Notes 02/09/2024 Tinea unguium (ICD-1 0 - B35.1) 05/12/2024 Onychomycosis (ICD-1 0 - B35.1) 05/12/2024 Atherosclerosis of nez perce artery of both lower extremities, with unspecified presence of clinical manifestation (ICD-10 - I70.203) Q7(A), Q8(2B), Q9(1B,2C) 08/11/2024 Onychomycosis (ICD-1 0 - B35.1) 11/14/2024 Onychomycosis (ICD-1 0 - B35.1) 11/14/2024 Atherosclerosis of nez perce artery of both lower extremities, with unspecified presence of clinical manifestation (ICD-10 - I70.203) Q7(A), Q8(2B), Q9(1B,2C) 08/11/2024 Atherosclerosis of nez perce artery of both lower extremities, with unspecified presence of clinical manifestation (ICD-10 - I70.203) Q7(A), Q8(2B), Q9(1B,2C) 08/11/2024 Pain in right toe(s) (ICD-10 - M79.674) 05/12/2024 Pain in right toe(s) (ICD-10 - M79.674) 11/14/2024 Pain in right toe(s) (ICD-10 - M79.674) 02/09/2024 Other hammer toe(s) (acquired), right foot (ICD-10 - M20.41) 05/12/2024 Pain in left toe(s) (ICD-10 - M79.675) 08/11/2024 Pain in left toe(s) (ICD-10 - M79.675) 02/09/2024 Pain in right toe(s) (ICD-10 - M79.674) 11/14/2024 Pain in left toe(s) (ICD-10 - M79.675) 08/11/2024 Ingrown nail (ICD-10 - L60.0) 11/14/2024 Skin ulcer of toe of left foot, limited to breakdown of skin (ICD-10 - L97.521) Response to treatment - Improvement Patient Educated with: WOUND CARE INSTRUCTIONS .pdf (WOUND CARE INSTRUCTIONS .pdf) 02/09/2024 Pain in left toe(s) (ICD-10 - M79.675) 02/09/2024 Other hammer toe(s) (acquired), left foot (ICD-10 - M20.42) 08/11/2024 Skin ulcer of toe of left foot, limited to breakdown of skin (ICD-10 - L97.521) Response to treatment Nonapplicable Patient Educated with: WOUND CARE INSTRUCTIONS .pdf (WOUND CARE INSTRUCTIONS .pdf) 11/14/2024 Other hammer toe(s) (acquired), right foot (ICD-10 - M20.41) 11/14/2024 Arthritis of joint o f lesser toe, right (ICD-10 - M19.071) 11/14/2024 Subluxation of metatarsophalangeal joint of toe, initial encounter (ICD-10 - S93.149A) 08/11/2024 Other Plan Of Treatment Pending Test Test Name Order Date X ray : Foot, right 2V 02/01/2013 *Wound Culture 02/07/2020 *Liver Function Test (LFT) 06/01/2017 X ray : Foot, right 3V 01/18/2013 X ray : Foot, right 3V 03/01/2012 X ray : Foot, right 3V 02/14/2013 90253-SKDHIOQ NAIL, 6 OR MORE 05/16/2013 32588-TGNVSGP NAIL, 6 OR MORE 09/10/2015 10145-ASKIPEP NAIL, 6 OR MORE 03/29/2012 86202-EZVQHDD NAIL, 6 OR MORE 11/03/2012 32714-RIOVWNE NAIL, 6 OR MORE 02/14/2013 22681-QIEINZD NAIL, 6 OR MORE 03/03/2011 63029-JKVRMYF NAIL, 6 OR MORE 05/05/2011 50355-QMWMUAI NAIL, 6 OR MORE 08/18/2011 88931-XORRTDX NAIL, 6 OR MORE 11/17/2011 68929-UOPCSLC NAIL, 6 OR MORE 08/15/2013 50513-MUUZVKA NAIL, 6 OR MORE 11/14/2013 01472-IJEJCVO NAIL, 6 OR MORE 03/13/2014 66970-LZDSBWU NAIL, 6 OR MORE 06/12/2014 57807-KURHYZQ NAIL, 6 OR MORE 01/05/2020 30973-VMOIREL NAIL, 6 OR MORE 05/02/2019 00538-ECXUWUC NAIL, 6 OR MORE 10/17/2019 87490-DJTSEWW NAIL, 6 OR MORE 10/05/2017 32383-PEDCQOB NAIL, 6 OR MORE 02/01/2018 90889-XESCZBS NAIL, 6 OR MORE 05/03/2018 44175-QBAJDPT NAIL, 6 OR MORE 07/12/2018 49606-FLUNYUP NAIL, 6 OR MORE 09/20/2018 68490-BFGFMLB NAIL, 6 OR MORE 02/24/2019 90595-VNBRMRS NAIL, 6 OR MORE 03/15/2020 97096-SAINVDE NAIL, 6 OR MORE 07/24/2020 31726-EZREONU NAIL, 6 OR MORE 10/04/2020 85346-YBOFRAC NAIL, 6 OR MORE 12/13/2020 65284-QQOOEOH NAIL, 6 OR MORE 07/08/2021 81986-ROOACTP NAIL, 6 OR MORE 10/07/2021 85829-AFXDQVT NAIL, 6 OR MORE 03/20/2022 88741-RSULXJN NAIL, 6 OR MORE 06/02/2022 90788-DUXBXNY NAIL, 6 OR MORE 08/11/2022 62857-EYCLQUM NAIL, 6 OR MORE 10/20/2022 87122-JSFHHGS NAIL, 6 OR MORE 01/06/2023 36173-AAGQXRM NAIL, 6 OR MORE 02/09/2024 71652-KOILKSJ NAIL, 6 OR MORE 08/11/2024 98879-RMBQCRV NAIL, 6 OR MORE 11/14/2024 99990-Pmzhtjmp Plate 08/11/2024 88261-Grghlvzj Plate 10/07/2021 33577-Rfdedirc Plate 12/13/2020 06257-Tgtfmass Plate 07/26/2020 22315-Bdxvfpsq Plate 03/15/2020 76223-Rdmpiyps Plate 06/12/2014 87793-Zkxyliyp Plate 03/13/2014 73410-Twrashvi Plate 09/10/2015 41277-Nzgiajpj Plate 12/29/2016 37597-Oyfadcaw Plate 10/04/2014 25757-Vywxnmil Plate 01/08/2015 70777-Fxybrigm Plate Each Additional 65858- Debride <25 sq cm 08/23/2014 11865- Debride <25 sq cm 01/08/2015 01323- Debride <25 sq cm 07/09/2015 08317- Debride <25 sq cm 03/30/2017 81985- Debride <25 sq cm 05/16/2013 69292- Debride <25 sq cm 03/24/2016 20363- Debride <25 sq cm 06/02/2016 00435- Debride <25 sq cm 08/18/2016 56551- Debride <25 sq cm 10/20/2016 84626- Debride <25 sq cm 11/24/2016 33658- Debride <25 sq cm 12/29/2016 90235- Debride <25 sq cm 12/01/2019 04303- Debride <25 sq cm 01/05/2020 57888- Debride <25 sq cm 11/02/2017 56885- Debride <25 sq cm 11/26/2017 63265- Debride <25 sq cm 08/23/2020 20169- Debride <25 sq cm 08/11/2024 43441- Debride <25 sq cm 11/14/2024 92175 I&D ABSCESS- SIMPLE,SINGLE 021 88448-MLKH SKIN LESIONS, OVER 4 08/11/19 25 16128-NTUX SKIN LESIONS, OVER 4 11/15/19 25 90108-Brzh. Subungual Hematoma 8 53950-Qjhd. Subungual Hematoma 9 42322 - Tenotomy, open flexor 10/05/2017 Next Appt Details Provider Name:Pallavi Dover Speedy , 01/23/2025 08:30:00 AM, [address] [place] [address], [place], [address], Insurance Providers Payer Name Payer Address Payer Phone Subscriber Number Group Number Insured Name Patient Relationship to Insured Coverage Start Date Coverage End Date [employer] Medicare Open [address] [place] [id number] EnrriqueSanket henning Self - patient is the insured Medical (General) History Medical History History ICD Code joint implants/screws ingrown nails Other hammer toe(s) (acquired), left herson t M20.42 Surgical History Surgery Date(Month/Year) foot surgery 1997 left hip replacement 07/16/2014 shoulder replacement 02/23/2024 Hospitalization History Reason Date(Month/Year) [facility] fell 01/02/22 urgent Care- Sprained ankle 09/2020 [facility] Hypertension 04/05/19 [facility] Hip Replacement 07/16/2014 Went to [facility] for severe contusion to left rib 01/2014
[2024-12-29 10:07] VITALS: BMI 28.4
--- NOTE | 2025-01-01 08:58 | HO.ANESPROP2 ---
Documented by User: Tabatha Vora NP 01/01/25 08:59 HPI - Anesthesia Eval Consult details Narrative: 69yo F for Colonoscopy PMFSH Active Problems Active Problems: All Active Problems Hyperlipidemia (Acute) Sinusitis (Acute) Acute bronchitis (Acute) Encounter for postoperative wound check (Acute) Sebaceous cyst (Acute) Encounter to establish care (Acute) Colon cancer screening (Acute) Boil (Acute) Hypothyroid (Acute) Anemia (Acute) Arthritis of left glenohumeral joint (Acute) Adhesive capsulitis of left shoulder (Acute) Other long-term (current) drug therapy (Acute) Alcohol use disorder, severe, dependence (Acute) Osteoarthritis of right knee (Acute) Sciatic nerve pain (Acute) Rotator cuff impingement syndrome (Acute) Primary osteoarthritis of shoulders, bilateral (Acute) Hypertension (Acute) Past Medical History Medical History GERD (gastroesophageal reflux disease) Hypothyroid Hyperlipidemia Macrocytic anemia Alcohol abuse with withdrawal Hypertension Family History Family History Father No problems noted. Mother Alcohol abuse Cancer Surgical History Surgical History History of total hip replacement H/O colonoscopy History of total replacement of left shoulder joint Hx of foot surgery Social History Social History Household Members: Spouse Housing: House Do you presently have visiting nurse or other home services: No Alcohol intake: current Alcohol intake frequency: former alcohol drinker Patient Tobacco Use Status: Former Tobacco user Tobacco use type: Cigarette Smoked in Last 30 Days: No e-Cigarette/Vaping Use: Former Use Use of substances other than those prescribed or required for medical reasons: No Have you been hit, kicked, punched, or otherwise hurt by someone within the past year? If so, by whom?: No Are you DNR?: No Advance Directives: No Advance Directives Information Provided: No Advance Directives on File: No Advance Directives Date on File: 01/01/22 Patient : No : No Poor oral hygiene: No service: No Current occupational status: retired Cognitive needs: No Hearing needs: No Vision needs: Yes (rx glasses) Meds Allergies Allergy/AdvReac Type Severity Reaction Status Date / Time diphenhydramine (From Allergy Intermediate ANXIETY/HYP Verified 01/02/25 09:13 BENADRYL) ERALERTNESS latex (LATEX) Allergy Intermediate RASH Verified 01/02/25 09:13 Sulfa (Sulfonamide Allergy Intermediate SWELLING, Verified 01/02/25 09:13 Antibiotics) facial swelling Home Medications ?Medication ?Instructions ?Recorded ?Confirmed ?Last Taken ?Type losartan 50 mg tablet 50 mg PO DAILY 09/07/24 01/02/25 01/01/25 History mecobalamin (vitamin B12) 1,000 1,000 mcg PO DAILY 09/07/24 01/02/25 Unknown History mcg lozenges ibuprofen 600 mg tablet 600 mg PO TID 10/20/24 01/02/25 12/19/24 History Exam Height,Weight and Vital Signs: Height 5 ft 6.25 in Weight 80.286 kg Assessment and Plan Assessment Anesthesia Assessment: Chart Reviewed Documented by User: Alexandro Comer MD 01/02/25 09:30 [facility] Past Medical History Medical History GERD (gastroesophageal reflux disease) Hypothyroid Hyperlipidemia Macrocytic anemia Alcohol abuse with withdrawal Hypertension Cognitive capacity: normal Patient : No Family History Family History Father No problems noted. Mother Alcohol abuse Cancer Family history of problems with anesthesia: No Surgical History Surgical History History of total hip replacement H/O colonoscopy History of total replacement of left shoulder joint Hx of foot surgery History of Problems with Anesthesia: No Social History Social History Household Members: Spouse Housing: House Do you presently have visiting nurse or other home services: No Alcohol intake: current Alcohol intake frequency: former alcohol drinker Patient Tobacco Use Status: Former Tobacco user Tobacco use type: Cigarette Smoked in Last 30 Days: No e-Cigarette/Vaping Use: Former Use Use of substances other than those prescribed or required for medical reasons: No Have you been hit, kicked, punched, or otherwise hurt by someone within the past year? If so, by whom?: No Are you DNR?: No Advance Directives: No Advance Directives Information Provided: No Advance Directives on File: No Advance Directives Date on File: 01/01/22 Patient : No : No Poor oral hygiene: No service: No Current occupational status: retired Cognitive needs: No Hearing needs: No Vision needs: Yes (rx glasses) Meds Allergies Allergy/AdvReac Type Severity Reaction Status Date / Time diphenhydramine (From Allergy Intermediate ANXIETY/HYP Verified 01/02/25 09:13 BENADRYL) ERALERTNESS latex (LATEX) Allergy Intermediate RASH Verified 01/02/25 09:13 Sulfa (Sulfonamide Allergy Intermediate SWELLING, Verified 01/02/25 09:13 Antibiotics) facial swelling Home Medications ?Medication ?Instructions ?Recorded ?Confirmed ?Last Taken ?Type losartan 50 mg tablet 50 mg PO DAILY 09/07/24 01/02/25 01/01/25 History mecobalamin (vitamin B12) 1,000 1,000 mcg PO DAILY 09/07/24 01/02/25 Unknown History mcg lozenges ibuprofen 600 mg tablet 600 mg PO TID 10/20/24 01/02/25 12/19/24 History Exam Exam Date and Time: 01/02/2025 Airway Mallampati Class: II Neck ROM: Full Denture: Upper Partial: Lower (patient has upper and lower dentures) Loose/Missing/Broken Teeth: No Heart: rrr Lungs: cta Other: normal cognition Assessment and Plan Assessment Anesthesia Assessment: Anesthesia Plan Discussed Final Anesthetic Review Family History of Problems with Anesthesia: No History of Problems with Anesthesia: No NPO: Yes ASA Class: II Final Preanesthetic Review: No Changes in Pt Med Stat, Meds/Allgs Chart Reviewed, Consent Obtained/Reviewed and Anes Risks/Benef Reviewed Patient Risk: Low Procedure Risk: Low Anesthetic Plan Anesthetic Plan: MAC: Disposition: Standard PACU
--- NOTE | 2025-01-02 09:11 | P.HPSUR_ITS ---
Pre-Procedural Eval Section A - 24 Hr Update-Section A only Date of Service: 01/02/25 Section B - Complete if H&P > 30 days Chief Complaint: screening Details of Present Illness: see H&P no changes Relevant Family History (Specify if Yes): No Relevant Social History: None Present Medications: see Short Stay Collaborative assessment Medical History: No relevant PMH History of Previous Operations: No relevant previous surgery Allergies: Allergies Allergy/AdvReac Type Severity Reaction Status Date / Time diphenhydramine (From Allergy Intermediate ANXIETY/HYP Verified 10/20/24 15:24 BENADRYL) ERALERTNESS latex (LATEX) Allergy Intermediate RASH Verified 12/29/24 10:15 Sulfa (Sulfonamide Allergy Intermediate SWELLING, Verified 10/20/24 15:24 Antibiotics) facial swelling Review of Systems Sugical H&P ROS: Negative: Constitution, Cardiovascular, Respiratory, Neurological, Psychiatric, Hem-Onc, Allergic/Immunologic, Gastrointestinal, Genitourinary, Musculoskeletal, Integumentary, Endocrine and Eyes/Ears/Nose/Th roat Exam Surgical H&P Exam: Normal: HEENT, Normal: Heart, Normal: Lungs, Normal: Extremities, Normal: Abdomen, Normal: Skin and Normal: Neurological Plan Diagnosis/Plan: Unchanged I have reviewed the history and physical and performed a pertinent physical examination on my patient. No changes have occurred unless specified. Time Spent With Patient Time: Total time managing care of this patient today ____ minutes.
[2025-01-02 09:14] VITALS: BP 190/61; PULSE 98; RESP 16; TEMP 36.4; O2SAT 97; BMI 27.9
[2025-01-02] MEDS: Lactated Ringers 1,000 ML 100 ML IVCONT (09:42)
[2025-01-02 10:22] VITALS: BP 121/68; PULSE 66; RESP 12; TEMP 36.6; O2SAT 94
[2025-01-02 10:37] VITALS: BP 146/72; PULSE 80; RESP 18; TEMP 36.6; O2SAT 97
--- NOTE | 2025-01-02 11:16 | OP_ITS ---
DATE OF SERVICE: 01/02/2025 SURGEON: Kavon Miller MD INDICATIONS: Colon cancer screening and prior history of adenomatous colon polyps. PREOPERATIVE DIAGNOSIS: POSTOPERATIVE DIAGNOSIS: PROCEDURE PERFORMED: Colonoscopy to the terminal ileum with snare polypectomy. ESTIMATED BLOOD LOSS: COMPLICATIONS: ANESTHESIA: Medications; monitored anesthesia care. ASSISTANTS: SPECIMENS: DESCRIPTION OF PROCEDURE: History and physical was performed. The risks and benefits of the procedure were explained to the patient. Informed consent was obtained. The patient was placed in the left lateral decubitus position. A digital rectal exam was performed and was found to be normal. The Olympus pediatric video colonoscope was introduced into the rectum and advanced to the cecum. The cecum was identified by transillumination, palpation, and identification of ileocecal valve. Examination was performed. The scope was removed. She tolerated the procedure well and was taken to recovery room in stable condition. FINDINGS: The terminal ileum was examined and appeared normal. The visualized colonic mucosa was normal. The quality of prep was good throughout the colon except in the right colon where there was some retained liquid and semi-solid stool. This was washed and suctioned, but did limit the examination in the right colon for detection of small polyps. A single polyp measuring less than 10 mm was identified and removed using a cold snare. In the rectosigmoid, this was located at 20 cm. There was mild sigmoid diverticulosis. Retroflexed examination showed small internal hemorrhoids. IMPRESSION: Colon polyp. RECOMMENDATION: Follow up the biopsy results. MD KEVIN Sosa/RAÚL / [id number]
== END 2025-01-02 11:00 | disposition home or self-care (01) ==
PROVIDERS: PCP Internal Medicine; Visit Provider Internal Medicine Gastroenterology
PROC: 0DJD8ZZ Inspection of Lower Intestinal Tract, Via Natural or Artificial Opening Endoscopic (ICD-10-PCS; CPT 45378; principal; 2025-01-02 10:00)
DX: Z12.11 Encounter for screening for malignant neoplasm of colon (principal); Z86.0101 Personal history of adenomatous and serrated colon polyps; K63.5 Polyp of colon; K57.30 Diverticulosis of large intestine without perforation or abscess without bleeding; K64.8 Other hemorrhoids; K21.9 Gastro-esophageal reflux disease without esophagitis; Z87.891 Personal history of nicotine dependence; I10 Essential (primary) hypertension; E78.5 Hyperlipidemia, unspecified; E03.9 Hypothyroidism, unspecified; D64.9 Anemia, unspecified; Z79.899 Other long term (current) drug therapy; Z98.890 Other specified postprocedural states; Z88.2 Allergy status to sulfonamides; Z91.040 Latex allergy status; Z88.8 Allergy status to other drugs, medicaments and biological substances; Z79.1 Long term (current) use of non-steroidal anti-inflammatories (NSAID)
CPT/HCPCS: 45385; 88305; J2704

== ENCOUNTER 2025-03-21 09:22 | Outpatient (AMB) | payer MEDICARE, SELFPAY ==
--- OUTSIDE RECORDS SUMMARY | 2025-01-02 06:00 | XMS_ITS ---
Author Organization [facility] Address [address] [place] [phone] Care Team Providers Care Monitor Car Operator Name Role Phone Daphne Penaloza M.D. Primary Care Provider Kavon Stapleton Jr REASON FOR VISIT screening Encounters Encounter Location Date Provider Diagnosis [facility] [place] [address], [place] [phone] 01/02/2025 Kavon Miller Jr Plan Of Treatment No Information Progress Notes * JESUS LYNOB:1955 (69 yo F)Acc No.[id number]:01/02/2025 COLON WITH MAC Patient: HUMZA AVERY Provider: Gabriela Miller MD :1955 A ge:69 Y S ex:Female Date:01/02/2025 Address:[address] [place], [place] [phone] Pcp:Daphne Penaloza M.D. Subjective: * Chief Complaints: [...] Miller MD Date: 0 01/02/2025 Generated for Luis F umaña/Hong/eTransmitting on: 1 10:12 AM EDT
--- NOTE | 2025-03-21 08:57 | MHC.PC.OV ---
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 Required: No Accompanied by: Self / Same As Patient Allergies diphenhydramine (From BENADRYL) Allergy (Intermediate, Verified 03/21/25 08:57) ANXIETY/HYPERALERTNESS latex (LATEX) Allergy (Intermediate, Verified 03/21/25 08:57) RASH Sulfa (Sulfonamide Antibiotics) Allergy (Intermediate, Verified 03/21/25 08:57) SWELLING, facial swelling Tobacco use date assessed: 10/20/24 Fall risk assessment: No Falls in past year Last assessed Fall Risk: 03/21/25 Dental Screening Dental Screen Date: 03/21/25 Did you have a dental visit in the last 12 months?: Yes Did you have a dental problem in the last 6 months where you did not have access to dental care?: No Was dental information given to patient?: Patient has dentist HPI HPI Comments History of Present Illness Details The patient is a 69-year-old female presenting with right hip pain. She reports the pain began a long time ago, and it primarily affects her groin area. Over time, the pain has progressed, causing significant discomfort when walking, which she fears may lead to the necessity of a cane, though she prefers to remain walking without aid. Notably, she had a previous cortisone shot for her left hip in 2014 that provided relief. She was under the care of Dr. Holguin for that treatment. During the conversation, she strategically transitions the topic from her right hip to inquire about the possibility of a similar intervention for her current condition. Her recent care included a visit in August to Dr. Bull and a follow-up with Gwendolyn in October. Her medical history includes chronic issues such as hypothyroidism for which she takes levothyroxine 75 mcg daily, and essential hypertension managed with losartan 50 mg daily. Gastroesophageal Reflux Disease is managed with omeprazole 40 mg daily. She has a history of chronic insomnia, for which she took trazodone 150 mg at night but has recently ceased hydroxyzine, reporting improved sleep quality. Chronic pain issues are addressed with gabapentin 100 mg three times daily, primarily for back and hip pain. Her blood pressure remains elevated, recorded today at 156/88 mmHg. Despite adherence to medication, lifestyle modifications such as salt reduction are recommended. Laboratory tests in August highlighted hyperlipidemia, with high cholesterol levels (total cholesterol level of 243 mg/dL and LDL of 148 mg/dL) without previous statin therapy. Discussion about starting atorvastatin was held, with emphasis on potential muscle aching side effects. Medical History: - Hypothyroidism - Essential Hypertension - Gastroesophageal Reflux Disease (GERD) - Chronic Insomnia - Chronic Back Pain - Hyperlipidemia - Left Shoulder Pain Surgical History: - Hip Injection (Left hip, 2014) Medications: - Levothyroxine 75 mcg daily for Hypothyroidism - Losartan 50 mg daily for Hypertension - Omeprazole 40 mg daily for Gastroesophageal Reflux Disease - Trazodone 150 mg at night for Insomnia - Gabapentin 100 mg three times daily for Pain Diagnostic Results: - Labs: High cholesterol (243 mg/dL) and high LDL (148 mg/dL) noted in previous tests from August. - Imaging: Last hip X-ray was done a year ago; plan for a new X-ray was discussed. Social: - Not currently employed - Prefers to walk without the use of a cane - Reports consuming a diet possibly high in salt, particularly with eggs [facility] Medical History (Updated 03/21/25 @ 09:56 by Aj Tolbert MD) Chronic insomnia Hip pain GERD (gastroesophageal reflux disease) Hypothyroid Hyperlipidemia Macrocytic anemia Alcohol abuse with withdrawal Hypertension Surgical History History of total hip replacement H/O colonoscopy History of total replacement of left shoulder joint Hx of foot surgery Family History Father No problems noted. Mother Alcohol abuse Cancer Social History Household Members: Spouse Housing: House Do you presently have visiting nurse or other home services: No Alcohol intake: current Alcohol intake frequency: former alcohol drinker Patient Tobacco Use Status: Former Tobacco user Years Smoked: 30 years-quit 2014 e-Cigarette/Vaping Use: Never Used Advance Directives Date on File: 01/01/22 service: No Current occupational status: retired Cognitive needs: No Hearing needs: No Vision needs: Yes (rx glasses) Questionnaire Thrive Questionnaire Date Thrive assessed: 10/20/24 FRANCIS-7 AMB Questionnaire FRANCIS-7 Date FRANCIS - 7 assessed: 10/20/24 Source: Developed by Drs. Smith Rosas, Kianna Hector, Elan Hagan and colleagues, with an educational keron from [employer]. Review of Systems Const Details: - Musculoskeletal: Reports right hip pain, chronic back pain, and left shoulder pain - Cardiovascular: Denies shortness of breath, chest pain - Gastrointestinal: Reports gastroesophageal reflux - Neurological: Denies any neurological concerns aside from pain - Sleep: Reports chronic insomnia with improved sleep without hydroxyzine All systems reviewed & are unremarkable except as reviewed in HPI and above Physical exam (Primary Care) Vital Signs: Last Vital Signs Temp 97.2 F 03/21/25 09:31 Pulse 83 03/21/25 09:31 Resp 20 03/21/25 09:31 BP 156/88 H 03/21/25 09:31 Pulse Ox 96 03/21/25 09:31 Oxygen Delivery Method Room Air 03/21/25 09:31 BMI result Body Mass Index 23.4 Tobacco/Smoking Status: Tobacco use Status Tobacco use date assessed 10/20/24 03/21/25 08:58 Patient Tobacco Use Status Former Tobacco user 03/21/25 09:33 Tobacco use type 03/21/25 09:33 e-Cigarette/Vaping Use Never Used 03/21/25 09:33 Thrive Assessment: Date of Thrive Assessment Date Thrive assessed 10/20/24 03/21/25 08:58 Const Other: General: +Alert and oriented, Well nourished, No acute distress. Eye: Pupils are equal, round and reactive to light, Intact accommodation, Extraocular movements are intact, Normal conjunctiva, Vision unchanged. HENT: Normocephalic, Atraumatic, Tympanic membranes are clear, Normal hearing, Oral mucosa is moist, No pharyngeal erythema, Ear canals patent. Respiratory: Lungs CTA bilaterally, No wheeze, Respirations are non-labored. Cardiovascular: Regular rate, Regular rhythm, S1 auscultated, S2 auscultated, No murmur, Good pulses equal in all extremities, Normal peripheral perfusion, No edema. Gastrointestinal: Soft, Non-tender, Non-distended, Normal bowel sounds, No organomegaly. Musculoskeletal: Normal range of motion, Normal strength, Tendress laterally on palaption around hip, No swelling, No deformity, Limping on the right, Pain around the right hip on bearing down. Integumentary: Warm, Dry, [place], Intact. Neurologic: Alert, Oriented, Normal sensory, Normal motor function, No focal defects, Cranial Nerves II-XII are grossly intact, Normal deep tendon reflexes. Psychiatric: Cooperative, Appropriate mood & affect, Normal judgment. Coding Level of Care Code Est Pt Level 4 (41516) Complex EM visit Add On G2211 Diagnoses Primary hypertension I10 Hypertension type: primary hypertension Other hyperlipidemia E78.49 Hyperlipidemia type: other hyperlipidemia Hypothyroidism, unspecified type E03.9 Hypothyroidism type: unspecified Gastroesophageal reflux disease without esophagitis K21.9 Esophagitis presence: without esophagitis Pain of right hip M25.551 Laterality: right Chronic insomnia F51.04 Primary osteoarthritis of shoulders, bilateral M19.011; M19.012 Sciatic nerve pain, unspecified laterality M54.30 Laterality: unspecified laterality Assessment & Plan Assessment & Plan (1) Hypertension: Comment: - Recommended lifestyle changes including dietary salt reduction. - Added amlodipine 2.5 mg daily to losartan 50mg daily regimen for better BP control. Code(s): I10 - Essential (primary) hypertension Category: Medical Qualifiers: Hypertension type: primary hypertension Qualified Code(s): I10 - Essential (primary) hypertension (2) Hyperlipidemia: Comment: - Initiate atorvastatin for lipid control; advised on potential side effects and need for monitoring. Code(s): E78.5 - Hyperlipidemia, unspecified Category: Medical Qualifiers: Hyperlipidemia type: other hyperlipidemia Qualified Code(s): E78.49 - Other hyperlipidemia (3) Hypothyroid: Comment: - Continue current dose of levothyroxine; ordered thyroid level testing today. Code(s): E03.9 - Hypothyroidism, unspecified Category: Medical Qualifiers: Hypothyroidism type: unspecified Qualified Code(s): E03.9 - Hypothyroidism, unspecified (4) GERD (gastroesophageal reflux disease): Comment: - Continue current management with omeprazole. Code(s): K21.9 - Gastro-esophageal reflux disease without esophagitis Category: Medical Qualifiers: Esophagitis presence: without esophagitis Qualified Code(s): K21.9 - Gastro-esophageal reflux disease without esophagitis (5) Hip pain: Comment: - Discussed continuing management for right hip pain; x-ray ordered for further evaluation. - Arranged for follow-up with orthopedic for consideration of interventions like cortisone injection. Code(s): M25.559 - Pain in unspecified hip Category: Medical Qualifiers: Laterality: right Qualified Code(s): M25.551 - Pain in right hip (6) Chronic insomnia: Comment: - Continue trazodone with cessation of hydroxyzine showing improved sleep quality; advised against using hydroxyzine. Code(s): F51.04 - Psychophysiologic insomnia Category: Medical (7) Primary osteoarthritis of shoulders, bilateral: Comment: - Continue to monitor; advised on using alternative pain management to avoid NSAIDs. Code(s): M19.011 - Primary osteoarthritis, right shoulder; M19.012 - Primary osteoarthritis, left shoulder Category: Medical (8) Sciatic nerve pain: Comment: - Continue gabapentin for pain management. Code(s): M54.30 - Sciatica, unspecified side Category: Medical Qualifiers: Laterality: unspecified laterality Qualified Code(s): M54.30 - Sciatica, unspecified side Plan: Health maintenance: - Encouraged salt reduction for hypertension management. - Discussed initiation of atorvastatin for lipid management. - Ordered hip X-ray for further assessment of hip pain. - Scheduled follow-up for lab results and blood pressure monitoring. Patient was informed and verbally consented to the use of an ambient scribe for clinic note documentation during this visit. Plan I discussed in detail each aspect of the patient's healthcare today. For her right hip pain, we decided to pursue an updated x-ray before her orthopedic visit to consider further interventions such as a cortisone injection. We evaluated her hypothyroidism and essential hypertension, noting a need for better blood pressure control?hence adding amlodipine at a small dose. I warned her about potential muscle pain with atorvastatin for her hyperlipidemia and advised monitoring her cholesterol levels. Her gastroesophageal reflux disease is stable with omeprazole, and chronic insomnia improved with trazodone once she stopped hydroxyzine. Our conversation covered the importance of dietary changes for her high blood pressure and commitments to ongoing care. Follow-ups were scheduled, and labs were ordered to monitor her thyroid function. Orders: Orders XR hips KHADIJAH min 3V Today M25.559 - Pain in unspecified hip TSH reflex Free T4 Today E03.9 - Hypothyroidism, unspecified, M25.559 - Pain in unspecified hip Medications: New amlodipine 2.5 mg PO DAILY 90 tabs 0RF atorvastatin (Lipitor) 20 mg PO BEDTIME 90 tabs 3RF Patient Instructions: - Ensure to reduce salt intake in your diet to help lower blood pressure. - Take amlodipine daily as prescribed for better blood pressure control. - Begin taking atorvastatin at bedtime and watch for any muscle aches. - Avoid using hydroxyzine if your sleep remains improved without it. - Follow-up with the lab to get a blood draw for thyroid function today. - Be sure to get your hip x-ray before the upcoming orthopedic appointment. - Watch your cholesterol levels and report any muscle pain to us. - Monitor your blood pressure daily, and write the results in a log to review at your next appointment.
[2025-03-21 09:31] VITALS: BP 156/88; PULSE 83; RESP 20; TEMP 36.2; O2SAT 96; BMI 23.4
--- OUTSIDE RECORDS SUMMARY | 2025-03-21 10:13 | XMS_ITS | Patient Health Record ---
Author Organization [facility] Address [address] [place] [address] Care Team Providers Care Supervisor Machine Setter Name Role Phone Daphne Penaloza M.D. Primary Care Provider Unavail Kavon Gay Jr Unavailable Allergies Allergen (clinical drug ingredient) Drug/Non Drug Allergy documented on EMR Reaction Allergy Type Onset Date Status Sulfa Unknown Drug Allergy Active diphenhydramine Benadryl Unknown Drug Allergy A ctive Results Component Value Reference Range Notes Pathology Reviewed date:01/04/2025 11:15:58 AM Interpretation: Performing Lab:[facility], [address] [place] [address] Notes/Report: Reason For Referral No Information Medications Medication SIG (Take, Route, Frequency, Duration) Notes Start Date End Date Status Skin Hair & Nails Advanced - as directed Orally Active Gabapentin 100 MG Oral for 90 Days Active hydrOXYzine HCl 25 MG TAKE 1 TABLET BY M OUTH EVERY DAY Oral for 90 Days Active Albuterol Sulfate HFA 108 (90 Base) MCG/ACT 2 PUFF INHALED EVERY 6 HOURS NEEDED FOR SHORTNESS OF BREATH OR WHEEZING OR COUGH Inhalation for 28 Days Active Ibuprofen 600 MG Oral for 60 Days Active Losartan Potassium 50 MG TAKE 1 TABLET B Y MOUTH TWICE A DAY Oral for 90 Days Active Flax Seed Oil 1000 MG as directed Orally Active traZODone HCl 150 MG 1 tablet at bedtime Orally Once a day Active Levothyroxine Sodium 75 MCG 1 capsule in the morning on an empty stomach Orally Once a day Active Omeprazole 40 MG 1 capsule 1/2 to 1 h our before morning meal Orally Once a day Active Immunizations Vaccine Route Administration Date Status Comme nts Influenza Unknown 03/08/2024 Administered Social History Tobacco Use: Social History Observation Description Date Details (start date - stop date) Former Smoker NA - NA Tobacco Control (Standard) Question Answer Notes Tobacco use: Former smoker AUDIT-C (Standard) Question Answer Notes Did you have a drink containing alcohol in the p ast year? No Points 0 Interpretation Negative Problems Problem Type SNOMED Code ICD Code Onset Dates Problem Status W/U Status Risk Notes Problem Change in bowel habit (33992896) Change in bowel habits (787.99) Active confirmed Problem Gastro-esophagea l reflux disease without esophagitis (890659344) Gastro-esophage al reflux disease without esophagitis (K21.9) Active confirmed Problem Screening for malignant neoplasm of colon (654526259) Encounter for screening for malignant neoplasm of colon (Z12.11) Active confirmed Vital Signs Temperature 96.9 degrees Fahrenheit 12/11/2024 Blood pressure diastolic 01 mm Hg 12/11/2024 Height 66.25 in 12/11/2024 Blood pressure systolic 001 mm Hg 12/11/2024 Weight 177 lbs 12/11/2024 BMI 28.35 kg/m2 12/11/2024 Encounters Encounter Location Date Provider Diagnosis [facility] [address] [place] [id number] 01/02/2025 Kavon Miller Jr [facility] [address] [place] [phone] 12/11/2024 Kavon Miller Jr Encounter for screening for malignant neoplasm of colon Z12.11 and Gastro-esophageal reflux disease without esophagitis K21.9 [facility] [address] [place] [phone] 12/07/2024 Kavon Miller Jr [facility] [address] [place] [phone] 01/01/2025 Kavon Miller Jr [facility] [address] [place] [phone] 01/04/2025 Kavon Miller Jr Assessments Encounter Date Diagnosis (ICD Code) Assessment Notes Treatment Notes Treatment Clinical Notes Section Notes 12/11/2024 Gastro-esophage al reflux disease without esophagitis (ICD-10 - K21.9) We discussed gastroesophageal reflux disease today. We discussed diet, lifestyle modifications we discussed gastroesophageal reflux disease today. We discussed diet, lifestyle modifications, and weight management regarding the treatment of reflux. We recommended she continue her present regimen. She is due for follow-up colorectal cancer screening. This will be arranged at her convenience. She is aware of risks and benefits and agrees to proceed. She will stop ibuprofen 1 week before the procedure. 12/11/2024 Encounter for screening for malignant neoplasm of colon (ICD-10 - Z12.11) We discussed gastroesophageal reflux disease today. We discussed diet, lifestyle modifications we discussed gastroesophageal reflux disease today. We discussed diet, lifestyle modifications, and weight management regarding the treatment of reflux. We recommended she continue her present regimen. She is due for follow-up colorectal cancer screening. This will be arranged at her convenience. She is aware of risks and benefits and agrees to proceed. She will stop ibuprofen 1 week before the procedure. Plan Of Treatment Future Test Test Name Order Date COLONOSCOPY 06/08/2013 COLONOSCOPY 12/11/2024 Insurance Providers Payer Name Payer Address Payer Phone Subscriber Number Group Number Insured Name Patient Relationship to Insured Coverage Start Date Coverage End Date [facility] [address] [place], [place] [id number] HUMZA LYN Self - patient is the insured 4 Medical (General) History Medical History History ICD Code colonoscopy 09/20/2009 hyperthyroidism disc disease GERD Denies DC,DM,CVA,Lung disease,renal dise ase Surgical History Surgery Date(Month/Year) shoulder replacement left toe surgery
--- OUTSIDE RECORDS SUMMARY | 2025-03-21 10:13 | XMS_ITS | Patient Health Record ---
Author Organization [facility] Address [address] [place] [address] Care Team Providers Care Damage Adjuster Name Role Phone Daphen Sevilla Primary Care Provider Pallavi Beverly Unavailable [phone] Allergies Allergen (clinical drug ingredient) Drug/Non Drug [...] 1 tablet Orally Once a day Not-Taking Cipro 500 MG 1 tablet Orally ever y 12 hrs; Duration: 10 day(s) 02/12/2020 Not-Taking Levothyroxine Sodium 25 MCG 1 tablet every morning on an empty stomach Orally Once a day; Duration: 30 day(s) Active Bactrim DS 800-160 MG 1 tablet Orally Tw ice a day; Duration: 10 day(s) 02/07/2020 Not-Taking Omeprazole Active hydrOXYzine HCl 25 MG 1 tablet as needed Orally every 8 hrs Active Ibuprofen 600 MG 1 tablet Orally Thre e times a day Active Prevagen 11/14/2024 Active Work Note . . . .; Duration: . Not-Taking LamISIL 250 MG 1 tablet Orally Once a day for 7 days then stop for 3 weeks repeat cylce for 12 months; Duration: 365 days 06/07/2017 Not-Taking Trazodone & Diet Manage Prod Active Keflex 500 MG 1 capsule Orally yina ry 12 hrs; Duration: 10 day(s) 11/02/2017 Not-Taking Losartan Potassium 25 MG 1 tablet Orally Once a day Active traMADol HCl 50 MG 1 tablet as needed Orally every 6 hrs Not-Taking [facility] Active Immunizations Vaccine Route Administration Date Status Comme nts Influenza Unknown 04/05/2024 Administered COVID-19 Pfizer BioNTech Vaccine Unknown 06/27/2020 Administered [...] has been sober for 3 year s Pt has been sober for 3 year s Problems Problem Type SNOMED Code ICD Code Onset Dates Problem Status W/U Status Risk Notes Problem Acquired hammer toe of right foot (0134993473482983 ) Other hammer toe(s) (acquired), right foot (M20.41) Active confirmed Problem Bilateral atherosclerosis of arteries of lower limbs (disorder) (7803982474885330 7) Atherosclerosis of [place]bridge artery of both lower extremities, with unspecified presence of clinical manifestation (I70.203) Active confirmed Q7(A), Q8(2B), Q9(1B,2C) Problem Localized, primary osteoarthritis of the ankle and/or foot (103609939) Arthritis of joint of lesser toe, right (M19.071) Active confirmed Problem Ulcer of toe of left foot (disorder) (6703826971864038 2) Skin ulcer of toe of left foot, limited to breakdown of skin (L97.521) Active confirmed Response to treatment - resolved Vital Signs Heart Rate 88 /min 08/11/2024 Blood pressure diastolic 80 mm Hg 01/23/2025 Height 5ft 6in in 01/23/2025 Blood pressure systolic 140 mm Hg 01/23/2025 Weight 180 lbs 01/23/2025 BMI 29.05 kg/m2 01/23/2025 Procedures Procedure Date Ordered Date Performed Result Body Sit e 04710-FLCYEGF NAIL, 6 OR MORE 08/11/2024 N/A 96863-Rpxuwxft Plate 08/11/2024 N/A 96315- Debride <25 sq cm 08/11/2024 N/A 61664-ANWO SKIN LESIONS, OVER 4 08/11/2024 N/A 09265-QKEYYXL NAIL, 6 OR MORE 11/14/2024 N/A 69160- Debride <25 sq cm 11/14/2024 N/A 87014-IJPW SKIN LESIONS, OVER 4 11/14/2024 N/A 66340-NWVLDOW NAIL, 6 OR MORE 01/23/2025 N/A 13260-NFSB SKIN LESIONS, OVER 4 01/23/2025 N/A Encounters Encounter Location Date Provider Diagnosis [address] [place] [address] 05/12/2024 Pallavi Black Onychomycosis B35.1 ; Atherosclerosis of stockbridge artery of both lower extremities, with unspecified presence of clinical manifestation I70.203 ; Pain in right toe(s) M79.674 and Pain in left toe(s) M79.[address] [facility] [address] 08/11/2024 Pallavi Black Onychomycosis B35.1 ; Atherosclerosis of [place]bridge artery of both lower extremities, with unspecified presence of clinical manifestation I70.203 ; Pain in right toe(s) M79.674 ; Pain in left toe(s) M79.675 ; Ingrown nail L60.0 and Skin ulcer of toe of left foot, limited to breakdown of skin L97.[address] [facility] [place] [address] 11/14/2024 Pallavi Black Onychomycosis B35.1 ; Atherosclerosis of stockbridge artery of both lower extremities, with unspecified [...] metatarsophalangeal joint of toe, initial encounter S93.149A [facility] [place] [address] [place] [address] 01/23/2025 Pallavi Ruff Onychomycosis B35.1 ; Atherosclerosis of [place] artery of both lower extremities, with unspecified [...] metatarsophalangeal joint of toe, initial encounter S93.149A [facility] [place] [address] [place] [address] 01/23/2025 Pallavi Ruff Assessments Encounter Date Diagnosis (ICD Code) Assessment Notes Treatment Notes Treatment Clinical Notes Section Notes 05/12/2024 Onychomycosis (ICD-1 0 - B35.1) 05/12/2024 Atherosclerosis of stockbridge artery of both lower extremities, with unspecified presence of clinical manifestation (ICD-10 - I70.203) Q7(A), Q8(2B), Q9(1B,2C) 08/11/2024 Onychomycosis (ICD-1 0 - B35.1) 11/14/2024 Onychomycosis (ICD-1 0 - B35.1) 01/23/2025 Onychomycosis (ICD-1 0 - B35.1) 01/23/2025 Atherosclerosis of stockbridge artery of both lower extremities, with unspecified presence of clinical manifestation (ICD-10 - I70.203) Q7(A), Q8(2B), Q9(1B,2C) 01/23/2025 Pain in right toe(s) (ICD-10 - M79.674) 11/14/2024 Atherosclerosis of stockbridge artery of both lower extremities, with unspecified presence of clinical manifestation (ICD-10 - I70.203) Q7(A), Q8(2B), Q9(1B,2C) 08/11/2024 Atherosclerosis of stockbridge artery of both lower extremities, with unspecified presence of clinical manifestation (ICD-10 - I70.203) Q7(A), Q8(2B), Q9(1B,2C) 08/11/2024 Pain in right toe(s) (ICD-10 - M79.674) 05/12/2024 Pain in right toe(s) (ICD-10 - M79.674) 11/14/2024 Pain in right toe(s) (ICD-10 - M79.674) 05/12/2024 Pain in left toe(s) (ICD-10 - M79.675) 08/11/2024 Pain in left toe(s) (ICD-10 - M79.675) 11/14/2024 Pain in left toe(s) (ICD-10 - M79.675) 01/23/2025 Pain in left toe(s) (ICD-10 - M79.675) 01/23/2025 Skin ulcer of toe of left foot, limited to breakdown of skin (ICD-10 - L97.521) Response to treatment - resolved 08/11/2024 Ingrown nail (ICD-10 - L60.0) 11/14/2024 Skin ulcer of toe of left foot, limited to breakdown of skin (ICD-10 - L97.521) Response to treatment - Improvement Patient Educated with: WOUND CARE INSTRUCTIONS .pdf (WOUND CARE INSTRUCTIONS .pdf) 01/23/2025 Other hammer toe(s) (acquired), right foot (ICD-10 - M20.41) 08/11/2024 Skin ulcer of toe of left foot, limited to breakdown of skin (ICD-10 - L97.521) Response to treatment Nonapplicable Patient Educated with: WOUND CARE INSTRUCTIONS .pdf (WOUND CARE INSTRUCTIONS .pdf) 11/14/2024 Other hammer toe(s) (acquired), right foot (ICD-10 - M20.41) 11/14/2024 Arthritis of joint o f lesser toe, right (ICD-10 - M19.071) 01/23/2025 Arthritis of joint o f lesser toe, right (ICD-10 - M19.071) 11/14/2024 Subluxation of metatarsophalangeal joint of toe, initial encounter (ICD-10 - S93.149A) 01/23/2025 Subluxation of metatarsophalangeal joint of toe, initial encounter (ICD-10 - S93.149A) 08/11/2024 Other Plan Of Treatment Pending Test Test Name Order Date X ray : Foot, right 2V 02/01/2013 *Wound Culture 02/07/2020 *Liver Function Test (LFT) 06/01/2017 X ray : Foot, right 3V 01/18/2013 X ray : Foot, right 3V 03/01/2012 X ray : Foot, right 3V 02/14/2013 20461-FBOEEIQ NAIL, 6 OR MORE 05/16/2013 42853-NOVRRXC NAIL, 6 OR MORE 09/10/2015 13464-HLOZWUB NAIL, 6 OR MORE 03/29/2012 09635-YNCXONY NAIL, 6 OR MORE 11/03/2012 99237-NZWUPZN NAIL, 6 OR MORE 02/14/2013 80166-TEPWLUG NAIL, 6 OR MORE 03/03/2011 01700-UZLGNXB NAIL, 6 OR MORE 05/05/2011 01481-XLJBFCL NAIL, 6 OR MORE 08/18/2011 82622-SLEUKGA NAIL, 6 OR MORE 11/17/2011 42262-JJGIPPW NAIL, 6 OR MORE 08/15/2013 45730-FCILJJG NAIL, 6 OR MORE 11/14/2013 81068-STHREHB NAIL, 6 OR MORE 03/13/2014 15051-DQNUMBH NAIL, 6 OR MORE 06/12/2014 40753-USWFBES NAIL, 6 OR MORE 01/05/2020 07526-TOUXQOE NAIL, 6 OR MORE 05/02/2019 99011-IUZUZOC NAIL, 6 OR MORE 10/17/2019 38812-TSSHKLB NAIL, 6 OR MORE 10/05/2017 44792-HCNXRJT NAIL, 6 OR MORE 02/01/2018 71808-LOZSYSA NAIL, 6 OR MORE 05/03/2018 28902-XCGJSVL NAIL, 6 OR MORE 07/12/2018 46493-FULNWAT NAIL, 6 OR MORE 09/20/2018 46559-FPHEZWJ NAIL, 6 OR MORE 02/24/2019 66846-ICUVSLP NAIL, 6 OR MORE 03/15/2020 43356-BDTEOJR NAIL, 6 OR MORE 07/24/2020 12108-WKIRBJJ NAIL, 6 OR MORE 10/04/2020 74267-AZOHDLF NAIL, 6 OR MORE 12/13/2020 47297-GYMQYVV NAIL, 6 OR MORE 07/08/2021 26948-UJOVHGS NAIL, 6 OR MORE 10/07/2021 82227-REPYJBI NAIL, 6 OR MORE 03/20/2022 46368-AGPVCLS NAIL, 6 OR MORE 06/02/2022 65488-IIEQNPX NAIL, 6 OR MORE 08/11/2022 67520-NLPXGSM NAIL, 6 OR MORE 10/20/2022 54578-QPWNEAD NAIL, 6 OR MORE 01/06/2023 09627-NUCVLHV NAIL, 6 OR MORE 02/09/2024 23368-JLUWDDJ NAIL, 6 OR MORE 08/11/2024 15545-TKGSOHK NAIL, 6 OR MORE 11/14/2024 46665-SPHVFSG NAIL, 6 OR MORE 01/23/2025 83013-Fzkighyn Plate 08/11/2024 14346-Nvrlgpec Plate 10/07/2021 58008-Huechqif Plate 12/13/2020 31777-Ilfojyqo Plate 07/26/2020 65072-Kgcivpip Plate 03/15/2020 73470-Fhzfudun Plate 06/12/2014 06078-Ygrjdowa Plate 03/13/2014 86840-Swzwtewq Plate 09/10/2015 71252-Xbpyuewl Plate 12/29/2016 17227-Qrehtmxg Plate 10/04/2014 69745-Bzsstjzy Plate 01/08/2015 27422-Wyzsewcn Plate Each Additional 01421- Debride <25 sq cm 08/23/2014 26754- Debride <25 sq cm 01/08/2015 55472- Debride <25 sq cm 07/09/2015 08654- Debride <25 sq cm 03/30/2017 41277- Debride <25 sq cm 05/16/2013 58190- Debride <25 sq cm 03/24/2016 54998- Debride <25 sq cm 06/02/2016 77724- Debride <25 sq cm 08/18/2016 85822- Debride <25 sq cm 10/20/2016 57455- Debride <25 sq cm 11/24/2016 36021- Debride <25 sq cm 12/29/2016 46442- Debride <25 sq cm 12/01/2019 12458- Debride <25 sq cm 01/05/2020 78400- Debride <25 sq cm 11/02/2017 18753- Debride <25 sq cm 11/26/2017 86083- Debride <25 sq cm 08/23/2020 65054- Debride <25 sq cm 08/11/2024 41303- Debride <25 sq cm 11/14/2024 01705 I&D ABSCESS- SIMPLE,SINGLE 021 72660-KXMV SKIN LESIONS, OVER 4 08/11/19 55007-VXYQ SKIN LESIONS, OVER 4 11/15/19 43339-UUTB SKIN LESIONS, OVER 4 01/24/20 95593-Rtbe. Subungual Hematoma 8 29585-Okdd. Subungual Hematoma 9 45231 - Tenotomy, open flexor 10/05/2017 Next Appt Details Provider Name:Pallavi Ruff , 04/04/2025 02:30:00 PM, [address] [facility], [place], [address], Insurance Providers Payer Name Payer Address Payer Phone Subscriber Number Group Number Insured Name Patient Relationship to Insured Coverage Start Date Coverage End Date [employer] Medicare Open [address] [place] [address] [id number] Sanket Osuna Self - patient is the insured Medical (General) History Medical History History ICD Code joint implants/screws ingrown nails Other hammer toe(s) (acquired), left herson t M20.42 Surgical History Surgery Date(Month/Year) foot surgery 1997 left hip replacement 07/16/2014 shoulder replacement 02/23/2024 Hospitalization History Reason Date(Month/Year) [facility] fell 01/02/22 urgent Care- Sprained ankle 09/2020 [facility] Hypertension 04/05/19 [facility] Hip Replacement 07/16/2014 Went to [facility] for severe contusion to left rib 01/2014
== END 2025-03-21 09:50 | disposition home or self-care (01) ==
LOC: HO.HMCHD 09:22
PROVIDERS: PCP Student in an Organized Health Care Education/Training Program; Visit Provider Student in an Organized Health Care Education/Training Program
DX: I10 Essential (primary) hypertension (principal); E78.49 Other hyperlipidemia; E03.9 Hypothyroidism, unspecified; K21.9 Gastro-esophageal reflux disease without esophagitis; M25.551 Pain in right hip; F51.04 Psychophysiologic insomnia; M19.011 Primary osteoarthritis, right shoulder; M19.012 Primary osteoarthritis, left shoulder; M54.30 Sciatica, unspecified side

== ENCOUNTER → 2025-03-21 09:22 | Outpatient (BNVA) | payer MEDICARE, SELFPAY | PROVIDERS: PCP Internal Medicine; Visit Provider Student in an Organized Health Care Education/Training Program | DX: I10 Essential (primary) hypertension (principal); E78.49 Other hyperlipidemia; E03.9 Hypothyroidism, unspecified; K21.9 Gastro-esophageal reflux disease without esophagitis; M25.551 Pain in right hip; F51.04 Psychophysiologic insomnia; M19.011 Primary osteoarthritis, right shoulder; M19.012 Primary osteoarthritis, left shoulder; M54.30 Sciatica, unspecified side; Z79.899 Other long term (current) drug therapy | CPT/HCPCS: 99212 ==

== ENCOUNTER 2025-03-21 09:52 | Outpatient (REF) | payer MEDICARE, SELFPAY | END 2025-03-21 09:53 | disposition home or self-care (01) | LOC: HO.10HDL 09:52 | PROVIDERS: Visit Provider Student in an Organized Health Care Education/Training Program | DX: E03.9 Hypothyroidism, unspecified (principal) | CPT/HCPCS: 36415; 84443 ==

== ENCOUNTER 2025-03-27 12:49 | Outpatient (AMB) | payer MEDICARE, SELFPAY ==
--- OUTSIDE RECORDS SUMMARY | 2025-01-02 06:00 | XMS_ITS ---
Author Organization [facility] Address [address] [place] [phone] Care Team Providers Care Applications Packager Name Role Phone Daphne Penaloza M.D. Primary Care Provider Kavon Stapleton Jr [phone] REASON FOR VISIT screening Encounters Encounter Location Date Provider Diagnosis [facility] [place] [address] [place], [place] [phone] 01/02/2025 Kavon Miller Jr Plan Of Treatment No Information Progress Notes * JESUS LYNOB:1955 (69 yo F)Acc No.[id number]:01/02/2025 COLON WITH MAC Patient: HUMZA AVERY Provider: Gabriela Miller MD :1955 A ge:69 Y S ex:Female Date:01/02/2025 Address:[address] [place], [place] [id number] Pcp:Daphne Penaloza M.D. Subjective: * Chief Complaints: [...] 01/02/2025 Generated for Elizabethi ng/Fajoyg/eTransmitting on: 1 03:39 PM EDT
[2025-03-27 13:02] VITALS: BP 122/80; PULSE 100; TEMP 36.4; O2SAT 98; BMI 28.2
--- NOTE | 2025-03-27 13:02 | MHC.PC.OV ---
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: No Accompanied by: Self / Same As Patient Allergies diphenhydramine (From BENADRYL) Allergy (Intermediate, Verified 03/27/25 13:02) ANXIETY/HYPERALERTNESS latex (LATEX) Allergy (Intermediate, Verified 03/27/25 13:02) RASH Sulfa (Sulfonamide Antibiotics) Allergy (Intermediate, Verified 03/27/25 13:02) SWELLING, facial swelling Medication List - Last Reconciled 03/27/25 by Aj Tolbert MD amlodipine 2.5 mg PO DAILY atorvastatin (Lipitor) 20 mg PO BEDTIME cholecalciferol (vitamin D3) 25 mcg PO DAILY gabapentin 100 mg PO TID levothyroxine 75 mcg PO DAILY 90 days mecobalamin (vitamin B12) 1,000 mcg PO DAILY omeprazole 40 mg PO DAILY trazodone 150 mg PO BEDTIME Tobacco use date assessed: 03/27/25 Fall risk assessment: No Falls in past year Last assessed Fall Risk: 03/27/25 Dental Screening Dental Screen Date: 03/27/25 Did you have a dental visit in the last 12 months?: Yes Did you have a dental problem in the last 6 months where you did not have access to dental care?: No HPI HPI Comments History of Present Illness Details The patient is a 69-year-old female presenting with high blood pressure management and medication review. Patient reports experiencing elevated blood pressure readings reaching the 180s when checked at a healthcare facility. This hypertensive episode was associated with confusion, described by her family as transient encephalopathy. No similar episodes of confusion reported prior to this incident. She has been on losartan but has only taken a portion of her prescribed dose since September, leading to concerns about medication compliance and its impact on her blood pressure. The patient recounts recent episodes of confusion occurring over the last day, potentially linked to inadequate blood pressure control. Since the initiation of amlodipine, her blood pressure has stabilized to 128, which compares favorably to previous readings. Her family also expressed concerns about her adherence to the current regimen due to observed medication discrepancies. Previous to this visit, the patient had an evaluation in a hospital setting including a CT scan of the brain and a chest x-ray, which showed no abnormalities. Additionally, recent bloodwork and urinalysis did not suggest any acute pathology. She has also been noted to have a recent conjunctivitis. 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 - Tests: CT scan of the brain and chest x-ray?normal findings. Social History: - The patient is visited by a family member during vacation and is supported in medication management. - The patient lives independently but receives episodic assistance and check-ins from her family. - The patient prepares her own meals, typically including chicken and broccoli, but reportedly eats very little. - The patient has experienced episodes of confusion potentially linked to medication mismanagement. [facility] Medical History (Updated 03/27/25 @ 13:48 by Aj Tolbert MD) Encephalopathy acute Chronic insomnia Hip pain GERD (gastroesophageal reflux disease) Hypothyroid Hyperlipidemia Macrocytic anemia Alcohol abuse with withdrawal Hypertension Surgical History History of total hip replacement H/O colonoscopy History of total replacement of left shoulder joint Hx of foot surgery Family History Father No problems noted. Mother Alcohol abuse Cancer Social History Household Members: Spouse Housing: House Do you presently have visiting nurse or other home services: No Alcohol intake: current Alcohol intake frequency: former alcohol drinker Patient Tobacco Use Status: Former Tobacco user Years Smoked: 30 years-quit 2014 e-Cigarette/Vaping Use: Former Use Advance Directives Date on File: 01/01/22 service: No Current occupational status: retired Cognitive needs: No Hearing needs: No Vision needs: Yes (rx glasses) Questionnaire PHQ-9 Over the last 2 weeks, how often have you been bothered by any of the following problems? 1. Little interest or pleasure in doing things: not at all 2. Feeling down, depressed, or hopeless: not at all 3. Trouble falling or staying asleep, or sleeping too much: not at all 4. Feeling tired or having little energy: not at all 5. Poor appetite or overeating: not at all 6. Feeling bad about yourself - or that you are a failure or have let yourself or your family down: not at all 7. Trouble concentrating on things, such as reading the newspaper or watching television: not at all 8. Moving or speaking so slowly that other people could have noticed. Or the opposite - being so fidgety or restless that you have been moving around a lot more than usual: not at all Source: Developed by Drs. Smith Rosas, Kianna Hector, Elan Hagan and colleagues, with an educational keron from [employer]. Thrive Questionnaire Date Thrive assessed: 03/27/25 I am a: Patient Within the past 12 months, did the food you bought not last and you didn't have the money to get more?: Never true Within the past 12 months, did you worry whether your food would run out before you got money to buy more?: Never true Do you have trouble paying for medicines?: No Do you have trouble getting transportation to medical appointments?: No Do you have trouble paying your heating and electricity bill?: No Do you have trouble taking care of your child, family member or friend?: No Do you have trouble with day-to-day activities such as bathing, preparing meals, shopping, managing finances, etc.?: No Are you currently unemployed and looking for a job?: No Are you interested in more education?: No THRIVE Score: 0 AUDIT C Alcohol Use Questionnaire (AUDIT-C) 1. How often do you have a drink containing alcohol?: Never 3. How often do you have six or more drinks on one occasion?: Never Total Score: 0 FRANCIS-7 AMB Questionnaire FRANCIS-7 Date FRANCIS - 7 assessed: 03/27/25 Feeling nervous, anxious, or on edge: 0 = Not at all Not being able to stop or control worryin = Not at all Worrying too much about different things: 0 = Not at all Trouble relaxin = Not at all Being so restless that it is hard to sit still: 0 = Not at all Becoming easily annoyed or irritable: 0 = Not at all Source: Developed by Drs. Smith Rosas, Kianna Hector, Elan Hagan and colleagues, with an educational keron from [employer]. Review of Systems Const Details: - Neurological: Reports recent confusion. - Cardiovascular: Reports episodic high blood pressure. - Ophthalmologic: Recent diagnosis of conjunctivitis. - Gastrointestinal: History of GERD. - Sleep: Reports insomnia, currently taking trazodone. All systems reviewed & are unremarkable except as reviewed in HPI and above Physical exam (Primary Care) Vital Signs: Last Vital Signs Temp 97.5 F 03/27/25 13:02 Pulse 100 03/27/25 13:02 BP 122/80 03/27/25 13:02 Pulse Ox 98 03/27/25 13:02 Oxygen Delivery Method Room Air 03/27/25 13:02 BMI result Body Mass Index 28.2 Tobacco/Smoking Status: Tobacco use Status Tobacco use date assessed 03/27/25 03/27/25 13:04 Patient Tobacco Use Status Former Tobacco user 03/27/25 13:04 Tobacco use type 03/21/25 09:49 e-Cigarette/Vaping Use Former Use 03/27/25 13:04 Thrive Assessment: Date of Thrive Assessment Date Thrive assessed 03/27/25 03/27/25 13:04 Const Other: General: Alert and oriented, Well nourished, No acute distress. Eye: Pupils are equal, round and reactive to light, Intact accommodation, Extraocular movements are intact, Normal conjunctiva, Vision unchanged. HENT: Normocephalic, Atraumatic, Tympanic membranes are clear, Normal hearing, Oral mucosa is moist, No pharyngeal erythema, Ear canals patent. Respiratory: Lungs CTA bilaterally, No wheeze, Respirations are non-labored. Cardiovascular: Regular rate, Regular rhythm, S1 auscultated, S2 auscultated, No murmur, Good pulses equal in all extremities, Normal peripheral perfusion, No edema. Gastrointestinal: Soft, Non-tender, Non-distended, Normal bowel sounds, No organomegaly. Musculoskeletal: Normal range of motion, Normal strength, No tenderness, No swelling, No deformity, Normal gait. Integumentary: Warm, Dry, [place], Intact. Neurologic: Alert, Oriented, Normal sensory, Normal motor function, No focal defects, Cranial Nerves II-XII are grossly intact, Normal deep tendon reflexes. Psychiatric: Cooperative, Appropriate mood & affect, Normal judgment. Coding Level of Care Code Est Pt Level 4 (51609) Complex EM visit Add On G2211 Diagnoses Encephalopathy acute G93.40 Primary hypertension I10 Hypertension type: primary hypertension Other hyperlipidemia E78.49 Hyperlipidemia type: other hyperlipidemia Hypothyroidism, unspecified type E03.9 Hypothyroidism type: unspecified Gastroesophageal reflux disease without esophagitis K21.9 Esophagitis presence: without esophagitis Sciatic nerve pain, unspecified laterality M54.30 Laterality: unspecified laterality Chronic insomnia F51.04 Time Spent (min) 45 Assessment & Plan Assessment & Plan (1) Encephalopathy acute: Comment: Admitted to [facility] recently (CAD visit) for elevated blood pressures. She underwent evaluation because she was encephalopathic and underwent CT imaging and blood work which was overall unremarkable. Likely secondary to press. Code(s): G93.40 - Encephalopathy, unspecified Category: Medical (2) Hypertension: Comment: - Continue monitoring blood pressure with a digital cuff. - Hold losartan given recent improvement in blood pressure readings. - Continue amlodipine 2.5 mg daily. Code(s): I10 - Essential (primary) hypertension Category: Medical Qualifiers: Hypertension type: primary hypertension Qualified Code(s): I10 - Essential (primary) hypertension (3) Hyperlipidemia: Comment: - Continue atorvastatin at bedtime. Code(s): E78.5 - Hyperlipidemia, unspecified Category: Medical Qualifiers: Hyperlipidemia type: other hyperlipidemia Qualified Code(s): E78.49 - Other hyperlipidemia (4) Hypothyroid: Comment: - Continue levothyroxine, with instructions to take on an empty stomach, at least an hour before breakfast. Code(s): E03.9 - Hypothyroidism, unspecified Category: Medical Qualifiers: Hypothyroidism type: unspecified Qualified Code(s): E03.9 - Hypothyroidism, unspecified (5) GERD (gastroesophageal reflux disease): Comment: - Continue omeprazole in the morning Code(s): K21.9 - Gastro-esophageal reflux disease without esophagitis Category: Medical Qualifiers: Esophagitis presence: without esophagitis Qualified Code(s): K21.9 - Gastro-esophageal reflux disease without esophagitis (6) Sciatic nerve pain: Comment: - Continue gabapentin 100 mg three times daily Code(s): M54.30 - Sciatica, unspecified side Category: Medical Qualifiers: Laterality: unspecified laterality Qualified Code(s): M54.30 - Sciatica, unspecified side (7) Chronic insomnia: Comment: - Continue with trazodone for sleep. - Discontinue hydroxyzine as it was not aiding sleep. Code(s): F51.04 - Psychophysiologic insomnia Category: Medical Plan: Health care maintenance: - Monitoring of blood pressure post-medication for cardiovascular risk reduction. - Emphasized importance of medication adherence. - Discussed importance of dietary intake and possible supplementation with nutritional drinks like Ensure if eating remains insufficient. Patient was informed and verbally consented to the use of an ambient scribe for clinic note documentation during this visit. Plan During the consultation, I explained to the patient and her family the importance of consistent medication adherence to manage her medical conditions effectively, especially in controlling high blood pressure to prevent future episodes of confusion and other complications, such as stroke. I highlighted the benefit of continuing current medications like amlodipine and atorvastatin, and discussed the reduction of medications not currently necessary, such as losartan and hydroxyzine. I addressed the need for dietary management to ensure adequate nutrition and provided suggestions such as using Ensure as a supplement. We agreed upon a follow-up plan, including blood pressure monitoring at home and a three-week appointment to reassess her management and adjust the plan as necessary. The possibility of medication non-adherence necessitating escalated care was also discussed. Patient Instructions: - Continue taking amlodipine, atorvastatin, levothyroxine, gabapentin, omeprazole, and trazodone as directed. - Hold the losartan for now due to controlled blood pressure on current regimen. - Ensure levothyroxine is taken on an empty stomach, at least half an hour before breakfast. - Check blood pressure at home daily, approximately one hour after taking morning medications. - Eat regular, balanced meals to maintain nutritional health. Consider supplementing with Ensure as recommended. - Follow up in three weeks for reassessment of condition and medication plan. - Call healthcare provider if experiencing confusion, significant changes in blood pressure readings, or any other concerning symptoms.
--- OUTSIDE RECORDS SUMMARY | 2025-03-27 15:39 | XMS_ITS | Patient Health Record ---
[facility] Address [address] [place] [address] Care Team Providers Care Rn Clinical Coordinator Name Role Phone Daphne Sevilla Primary Care Provider Pallavi Beverly Unavailable [phone] Allergies Allergen (clinical drug ingredient) Drug/Non Drug [...] Problem Acquired hammer toe of right foot (4461433888421245 ) Other hammer toe(s) (acquired), right foot (M20.41) Active confirmed Problem Bilateral atherosclerosis of arteries of lower limbs (disorder) (0703762727826645 7) Atherosclerosis of [place] artery of both lower extremities, with unspecified presence of clinical manifestation (I70.203) Active confirmed Q7(A), Q8(2B), Q9(1B,2C) Problem Localized, primary osteoarthritis of the ankle and/or foot (522949726) Arthritis of joint of lesser toe, right (M19.071) Active confirmed Problem Ulcer of toe of left foot (disorder) (7332140548785797 2) Skin ulcer of toe of left [...] Ordered Date Performed Result Body Sit e 85744-EZVXBAN NAIL, 6 OR MORE 08/11/2024 N/A 44737-Zilmgbsh Plate 08/11/2024 N/A 33499- Debride <25 sq cm 08/11/2024 N/A 85459-ESUG SKIN LESIONS, OVER 4 08/11/2024 N/A 60450-OCCXRQW NAIL, 6 OR MORE 11/14/2024 N/A 57282- Debride <25 sq cm 11/14/2024 N/A 51606-WZKN SKIN LESIONS, OVER 4 11/14/2024 N/A 30982-WYWMHQA NAIL, 6 OR MORE 01/23/2025 N/A 17207-DDCQ SKIN LESIONS, OVER 4 01/23/2025 N/A Encounters Encounter Location Date Provider Diagnosis [address] [place] [address] 05/12/2024 Pallavi Black Onychomycosis B35.1 ; Atherosclerosis of [place] artery of both lower extremities, with unspecified presence of clinical manifestation I70.203 ; Pain in right toe(s) M79.674 and Pain in left toe(s) M79.[address] [place] [address] 08/11/2024 Pallavi Black Onychomycosis B35.1 ; Atherosclerosis of [place] artery of both lower extremities, with unspecified presence of clinical manifestation I70.203 ; Pain in right toe(s) M79.674 ; Pain in left toe(s) M79.675 ; Ingrown nail L60.0 and Skin ulcer of toe of left foot, limited to breakdown of skin L97.[address] [place] [address] 11/14/2024 Pallavi Black Onychomycosis B35.1 ; Atherosclerosis of [place] artery of both lower extremities, with unspecified [...] metatarsophalangeal joint of toe, initial encounter S93.149A [facility] [place] [address] [place] [address] 01/23/2025 Pallavi Ruff Onychomycosis B35.1 ; Atherosclerosis of [place] artery of both lower extremities, with unspecified [...] metatarsophalangeal joint of toe, initial encounter S93.149A [facility] [place] [address] [place] [address] 01/23/2025 Pallavi Ruff Assessments Encounter Date Diagnosis (ICD Code) Assessment Notes Treatment Notes Treatment Clinical Notes Section Notes 05/12/2024 Onychomycosis (ICD-1 0 - B35.1) 05/12/2024 Atherosclerosis of [place] artery of both lower extremities, with unspecified presence of clinical manifestation (ICD-10 - I70.203) Q7(A), Q8(2B), Q9(1B,2C) 08/11/2024 Onychomycosis (ICD-1 0 - B35.1) 11/14/2024 Onychomycosis (ICD-1 0 - B35.1) 01/23/2025 Onychomycosis (ICD-1 0 - B35.1) 01/23/2025 Atherosclerosis of [place] artery of both lower extremities, with unspecified presence of clinical manifestation (ICD-10 - I70.203) Q7(A), Q8(2B), Q9(1B,2C) 01/23/2025 Pain in right toe(s) (ICD-10 - M79.674) 11/14/2024 Atherosclerosis of [place] artery of both lower extremities, with unspecified presence of clinical manifestation (ICD-10 - I70.203) Q7(A), Q8(2B), Q9(1B,2C) 08/11/2024 Atherosclerosis of [place] artery of both lower extremities, with unspecified [...] X ray : Foot, right 3V 02/14/2013 85979-MOZGFQO NAIL, 6 OR MORE 05/16/2013 73869-PGNLKEN NAIL, 6 OR MORE 09/10/2015 85159-XLYZFWJ NAIL, 6 OR MORE 03/29/2012 44116-LQXKPHG NAIL, 6 OR MORE 11/03/2012 59600-JRFPIHO NAIL, 6 OR MORE 02/14/2013 29003-OEUUJGT NAIL, 6 OR MORE 03/03/2011 64504-LINYQCJ NAIL, 6 OR MORE 05/05/2011 97498-WVJKZEH NAIL, 6 OR MORE 08/18/2011 73413-SSTQOVF NAIL, 6 OR MORE 11/17/2011 31425-HWPQUNX NAIL, 6 OR MORE 08/15/2013 71413-SVCNCJY NAIL, 6 OR MORE 11/14/2013 73322-GLXAJFN NAIL, 6 OR MORE 03/13/2014 58074-UCEBLVP NAIL, 6 OR MORE 06/12/2014 35040-FFAAGTR NAIL, 6 OR MORE 01/05/2020 88283-GPYZCFE NAIL, 6 OR MORE 05/02/2019 87636-TJEDJEC NAIL, 6 OR MORE 10/17/2019 12729-SWBRKUL NAIL, 6 OR MORE 10/05/2017 16860-BMFOWXR NAIL, 6 OR MORE 02/01/2018 19282-IDXYQOQ NAIL, 6 OR MORE 05/03/2018 96901-YUAGKKQ NAIL, 6 OR MORE 07/12/2018 79701-BMFYUMM NAIL, 6 OR MORE 09/20/2018 72083-HFAOHQY NAIL, 6 OR MORE 02/24/2019 91928-PKYYIRT NAIL, 6 OR MORE 03/15/2020 85931-WAYBYER NAIL, 6 OR MORE 07/24/2020 04269-PINFAAB NAIL, 6 OR MORE 10/04/2020 25188-DHPKNCV NAIL, 6 OR MORE 12/13/2020 03274-JZPCUNV NAIL, 6 OR MORE 07/08/2021 20796-JVJXQNW NAIL, 6 OR MORE 10/07/2021 44636-XLMKVHH NAIL, 6 OR MORE 03/20/2022 68099-GOPIEWB NAIL, 6 OR MORE 06/02/2022 85890-ZNZMUFS NAIL, 6 OR MORE 08/11/2022 94933-MVMPDSB NAIL, 6 OR MORE 10/20/2022 06865-POZSGME NAIL, 6 OR MORE 01/06/2023 50897-XMCTKKC NAIL, 6 OR MORE 02/09/2024 75983-TKYXSVG NAIL, 6 OR MORE 08/11/2024 28501-LOYZUZM NAIL, 6 OR MORE 11/14/2024 41334-PPLRURD NAIL, 6 OR MORE 01/23/2025 53520-Rxkklvbs Plate 08/11/2024 05207-Wglbqkjo Plate 10/07/2021 95276-Lbmjrojd Plate 12/13/2020 00529-Nhjmospo Plate 07/26/2020 58188-Xdqtixtu Plate 03/15/2020 40690-Dhtywdap Plate 06/12/2014 32974-Buuqizfa Plate 03/13/2014 13013-Etjsshxn Plate 09/10/2015 04627-Afracxrx Plate 12/29/2016 64389-Cyabmqts Plate 10/04/2014 99661-Tmgglqdb Plate 01/08/2015 44041-Oqbqrtgs Plate Each Additional 37812- Debride <25 sq cm 08/23/2014 59916- Debride <25 sq cm 01/08/2015 71823- Debride <25 sq cm 07/09/2015 79600- Debride <25 sq cm 03/30/2017 36003- Debride <25 sq cm 05/16/2013 11842- Debride <25 sq cm 03/24/2016 67351- Debride <25 sq cm 06/02/2016 13580- Debride <25 sq cm 08/18/2016 04815- Debride <25 sq cm 10/20/2016 07582- Debride <25 sq cm 11/24/2016 23971- Debride <25 sq cm 12/29/2016 80603- Debride <25 sq cm 12/01/2019 70116- Debride <25 sq cm 01/05/2020 93736- Debride <25 sq cm 11/02/2017 01694- Debride <25 sq cm 11/26/2017 49062- Debride <25 sq cm 08/23/2020 04472- Debride <25 sq cm 08/11/2024 02873- Debride <25 sq cm 11/14/2024 16932 I&D ABSCESS- SIMPLE,SINGLE 021 47343-USPL SKIN LESIONS, OVER 4 08/11/19 88949-HCAJ SKIN LESIONS, OVER 4 11/15/19 26869-DABF SKIN LESIONS, OVER 4 01/24/20 88550-Opzh. Subungual Hematoma 8 01451-Ytay. Subungual Hematoma 9 60937 - Tenotomy, open flexor 10/05/2017 Next Appt Details Provider Name:Pallavi Ruff , 04/04/2025 02:30:00 PM, [address] [facility], [place], [address], Insurance Providers Payer Name Payer Address Payer Phone Subscriber Number Group Number Insured Name Patient Relationship to Insured Coverage Start Date Coverage End Date [employer] Medicare Open [address] [place] [address] [id number] Sanket Osuna Self - patient is the [...] [facility] Hypertension 04/05/19 [facility] Hip Replacement 07/16/2014 Went to [facility] for severe contusion to left rib 01/2014
--- OUTSIDE RECORDS SUMMARY | 2025-03-27 15:40 | XMS_ITS | Patient Health Record ---
Author Organization [facility] Address [address] [place] [address] Care Team Providers Care Cableman Name Role Phone Daphne Penaloza M.D. Primary Care Provider Unavail Kavon Gay Jr Unavailable Allergies Allergen (clinical drug ingredient) Drug/Non Drug Allergy documented on EMR Reaction Allergy Type Onset Date Status Sulfa Unknown Drug Allergy Active diphenhydramine Benadryl Unknown Drug Allergy A ctive Results Component Value Reference Range Notes Pathology Reviewed date:01/04/2025 11:15:58 AM Interpretation: Performing Lab:[facility], [address] [place] [address] Notes/Report: Reason For Referral No Information Medications [...] Risk Notes Problem Change in bowel habit (36057554) Change in bowel habits (787.99) Active confirmed Problem Gastro-esophagea l reflux disease without esophagitis (510022216) Gastro-esophage al reflux disease without esophagitis (K21.9) Active confirmed Problem Screening for malignant neoplasm of colon (105441876) Encounter for screening for malignant neoplasm of colon (Z12.11) Active confirmed Vital Signs Temperature 96.9 degrees Fahrenheit 12/11/2024 Blood pressure diastolic 01 mm Hg 12/11/2024 Height 66.25 in 12/11/2024 Blood pressure systolic 001 mm Hg 12/11/2024 Weight 177 lbs 12/11/2024 BMI 28.35 kg/m2 12/11/2024 Encounters Encounter Location Date Provider Diagnosis [facility] [address] [place] [phone] 01/02/2025 Kavon Miller Jr [facility] [address] [place] [phone] 12/11/2024 Kavon Miller Jr Encounter for screening for malignant neoplasm of colon Z12.11 and Gastro-esophageal reflux disease without esophagitis K21.9 [facility] [address] [place] [phone] 12/07/2024 Kavon Miller Jr [facility] [address] [place] [phone] 01/01/2025 Kavon Miller Jr [facility] [address] [place] [phone] 01/04/2025 Kavon Mliler Jr Assessments Encounter Date Diagnosis (ICD Code) [...] Insured Coverage Start Date Coverage End Date [facility] [address] [place], [place] [id number] HUMZA LYN Self - patient is the insured 4 Medical (General) History Medical History History ICD Code colonoscopy 09/20/2009 hyperthyroidism disc disease GERD Denies CO,DM,CVA,Lung disease,renal dise ase Surgical History Surgery Date(Month/Year) shoulder replacement left toe surgery
== END 2025-03-27 14:00 | disposition home or self-care (01) ==
LOC: HO.HMCHD 12:49
PROVIDERS: PCP Student in an Organized Health Care Education/Training Program; Visit Provider Student in an Organized Health Care Education/Training Program
DX: G93.40 Encephalopathy, unspecified (principal); I10 Essential (primary) hypertension; E78.49 Other hyperlipidemia; E03.9 Hypothyroidism, unspecified; K21.9 Gastro-esophageal reflux disease without esophagitis; M54.30 Sciatica, unspecified side; F51.04 Psychophysiologic insomnia

== ENCOUNTER → 2025-03-27 12:49 | Outpatient (BNVA) | payer MEDICARE, SELFPAY | PROVIDERS: PCP Student in an Organized Health Care Education/Training Program; Visit Provider Student in an Organized Health Care Education/Training Program | DX: I10 Essential (primary) hypertension (principal); G93.40 Encephalopathy, unspecified; E03.9 Hypothyroidism, unspecified; E78.49 Other hyperlipidemia; K21.9 Gastro-esophageal reflux disease without esophagitis; M54.30 Sciatica, unspecified side; F51.04 Psychophysiologic insomnia; Z13.30 Encounter for screening examination for mental health and behavioral disorders, unspecified | CPT/HCPCS: 99212 ==

== ENCOUNTER 2025-04-05 09:19 | Emergency (ER) | payer MEDICARE, SELFPAY ==
--- OUTSIDE RECORDS SUMMARY | 2025-01-02 06:00 | XMS_ITS ---
Author Organization [facility] Address [address] [place] [phone] Care Team Providers Care Mitochondrial Disorders Counselor Name Role Phone Daphne Penaloza M.D. Primary Care Provider Kavon Stapleton Jr REASON FOR VISIT screening Encounters Encounter Location Date Provider Diagnosis [facility] [place] Out[facility] [address] [place], [place] [phone] 01/02/2025 Kavon Miller Jr Plan Of Treatment No Information Progress Notes * JESUS LYNOB:1955 (69 yo F)Acc No.[id number]:01/02/2025 COLON WITH MAC Patient: HUMZA AVERY Provider: Gabriela Miller MD :1955 A ge:69 Y S ex:Female Date:01/02/2025 Address:[address] [place], [place] [phone] Pcp:Daphne Penaloza M.D. Subjective: * Chief Complaints: [...] 01/02/2025 Generated for Elizabethi ng/Fajoyg/eTransmitting on: 1 12:49 PM EDT
--- OUTSIDE RECORDS SUMMARY | 2025-04-04 10:30 | XMS_ITS ---
Author Organization [facility] Address [address] [place] [address] Care Team Providers Care Field Education Coordinator Name Role Phone Daphne Sevilla Primary Care Provider Pallavi Beverly [phone] Encounters Encounter Location Date Provider Diagnosis [address] [address] 04/04/2025 Pallavi Ruff Plan Of Treatment No Information Progress Notes * Sanket LYN ADOB: (69 yo F)Acc No.[id number]:04/04/2025 Progress Note Patient: Sanket AVERY Provider: Kristine Ruff DPM :1955 A ge:69 Y S ex:Female Date:04/04/2025 Address:[address] [place], [place] [id number] Pcp:Daphne Sevilla Subjective: * Chief Complaints: * * Medical History: Objective: * Vitals: Assessment: Plan: * Treatment: * Images: * The named appointment provid er may or may not be the originator of this progress note, and it is not deemed complete until electronically signed by the appointment provider. Sign off status: Pending * Provider: Kristine Ruff DPM Date: Generated for Luis F ng/Fajoyg/eTransmitting on: 12:50 PM EDT
[2025-04-05] VITALS (10 sets, daily range): BP systolic 157–203; BP diastolic 91–105; PULSE 84–97; RESP 14–20; TEMP 36.4–36.8; O2SAT 95–100; BMI 29.0
--- NOTE | 2025-04-05 09:23 | ECG_ITS ---
Test Reason : high bp Blood Pressure : */* mmHG Vent. Rate : 92 BPM Atrial Rate : 92 BPM P-R Int : 206 ms QRS Dur : 78 ms QT Int : 354 ms P-R-T Axes : 75 5 43 degrees QTcB Int : 437 ms Sinus rhythm with frequent Premature ventricular complexes Septal infarct , age undetermined Abnormal ECG When compared with ECG of 31-Dec-2021 19:57, Premature ventricular complexes are now Present Septal infarct is now Present Referred By: Generic ED Physician Electronically Signed By: Krunal Brown
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
[2025-04-05 12:10] LABS: MANUAL DIFF FLAG NO
[2025-04-05 12:11] LABS: Hematocrit 38.6 % (37.0-47.0); Hemoglobin 12.5 g/dl (12.0-16.0); Imm Gran Abs Auto 0.02 X10*3/uL (0.00-0.03); Imm Gran Pct Auto 0.2 % (0.0-0.4); Lymphocytes Absolute Auto 1.3 X10*3/uL (1.2-4.9); Mean Corpuscular HGB Conc 32.4 g/dl (31.0-35.0); Mean Corpuscular Hemoglobin 26.4 pg (27.0-33.0); Mean Corpuscular Volume 81.6 fL (80.0-98.0); NRBC Abs Auto 0.000 X10*3/uL (0.0-0.012); NRBC Pct Auto 0.0 /100WBC (0.0-0.2); Platelet Count 329 X10*3/uL (160-400); Red Blood Count 4.73 X10*6/uL (4.20-5.50); White Blood Count 8.2 X10*3/uL (4.8-10.8)
[2025-04-05 12:25] LABS: Anion Gap 15 (12-20); Blood Urea Nitrogen 9 mg/dL (9-16); Calcium 10.1 mg/dL (8.4-10.2); Carbon Dioxide 26 mmol/L (22-29); Chloride 100 mmol/L (96-108); Creatinine Clr Calc Pharmacy 75.1; Estimated Glomerular Filt Rate > 60; Potassium 3.4 mmol/L (3.3-5.1); Sodium 138 mmol/L (135-145)
[2025-04-05 12:38] LABS: Troponin-I High Sensitivity < 2.7 ng/L (<3.5-17.0)
--- OUTSIDE RECORDS SUMMARY | 2025-04-05 12:50 | XMS_ITS | Patient Health Record ---
[facility] Address [address] [place] [address] Care Team Providers Care Food Assembler Commissary Kitchen Name Role Phone Daphne Sevilla Primary Care Provider Pallavi Beverly Unavailable [phone] Allergies Allergen (clinical drug ingredient) Drug/Non Drug [...] Problem Acquired hammer toe of right foot (6854398722587295 ) Other hammer toe(s) (acquired), right foot (M20.41) Active confirmed Problem Bilateral atherosclerosis of arteries of lower limbs (disorder) (0880135176964368 7) Atherosclerosis of [place] artery of both lower extremities, with unspecified presence of clinical manifestation (I70.203) Active confirmed Q7(A), Q8(2B), Q9(1B,2C) Problem Localized, primary osteoarthritis of the ankle and/or foot (388393804) Arthritis of joint of lesser toe, right (M19.071) Active confirmed Problem Ulcer of toe of left foot (disorder) (5548440477676506 2) Skin ulcer of toe of left [...] Ordered Date Performed Result Body Sit e 43060-WPIQLTS NAIL, 6 OR MORE 08/11/2024 N/A 21699-Evfaotur Plate 08/11/2024 N/A 33430- Debride <25 sq cm 08/11/2024 N/A 89815-IKEL SKIN LESIONS, OVER 4 08/11/2024 N/A 57875-CZKDOTS NAIL, 6 OR MORE 11/14/2024 N/A 14975- Debride <25 sq cm 11/14/2024 N/A 12975-QJRD SKIN LESIONS, OVER 4 11/14/2024 N/A 05272-BCYURFT NAIL, 6 OR MORE 01/23/2025 N/A 98351-ZTVY SKIN LESIONS, OVER 4 01/23/2025 N/A Encounters Encounter Location Date Provider Diagnosis [address] [place] [address] 05/12/2024 Pallavi Black Onychomycosis B35.1 ; Atherosclerosis of [place] artery of both lower extremities, with unspecified presence of clinical manifestation I70.203 ; Pain in right toe(s) M79.674 and Pain in left toe(s) M79.[address] [place] [place] [address] 08/11/2024 Pallavi Black Onychomycosis B35.1 ; Atherosclerosis of [place] artery of both lower extremities, with unspecified presence of clinical manifestation I70.203 ; Pain in right toe(s) M79.674 ; Pain in left toe(s) M79.675 ; Ingrown nail L60.0 and Skin ulcer of toe of left foot, limited to breakdown of skin L97.[address] [place] [address] 11/14/2024 Pallavi Black Onychomycosis B35.1 ; Atherosclerosis of [place] artery of both lower extremities, with unspecified [...] metatarsophalangeal joint of toe, initial encounter S93.149A [facility] [address] 01/23/2025 Pallavi Ruff Onychomycosis B35.1 ; Atherosclerosis of [place] artery of both lower extremities, with unspecified [...] metatarsophalangeal joint of toe, initial encounter S93.149A [facility] [address] [place] [address] 01/23/2025 Pallavi Speedy [address] [address] 04/04/2025 Pallavi Ruff Assessments Encounter Date Diagnosis (ICD Code) Assessment Notes Treatment Notes Treatment Clinical Notes Section Notes 05/12/2024 Onychomycosis (ICD-1 0 - B35.1) 05/12/2024 Atherosclerosis of [place] artery of both lower extremities, with unspecified presence of clinical manifestation (ICD-10 - I70.203) Q7(A), Q8(2B), Q9(1B,2C) 08/11/2024 Onychomycosis (ICD-1 0 - B35.1) 11/14/2024 Onychomycosis (ICD-1 0 - B35.1) 01/23/2025 Onychomycosis (ICD-1 0 - B35.1) 01/23/2025 Atherosclerosis of [place] artery of both lower extremities, with unspecified presence of clinical manifestation (ICD-10 - I70.203) Q7(A), Q8(2B), Q9(1B,2C) 01/23/2025 Pain in right toe(s) (ICD-10 - M79.674) 11/14/2024 Atherosclerosis of [place] artery of both lower extremities, with unspecified presence of clinical manifestation (ICD-10 - I70.203) Q7(A), Q8(2B), Q9(1B,2C) 08/11/2024 Atherosclerosis of [place] artery of both lower extremities, with unspecified [...] X ray : Foot, right 3V 02/14/2013 76617-BUSJYYK NAIL, 6 OR MORE 05/16/2013 62575-WSEYSOS NAIL, 6 OR MORE 09/10/2015 42502-HRMNCEW NAIL, 6 OR MORE 03/29/2012 43679-MZRELOY NAIL, 6 OR MORE 11/03/2012 03895-NOIWZEO NAIL, 6 OR MORE 02/14/2013 14465-FJOEVEQ NAIL, 6 OR MORE 03/03/2011 31806-SUTQSWM NAIL, 6 OR MORE 05/05/2011 32659-DQULXND NAIL, 6 OR MORE 08/18/2011 25777-ROHDFCH NAIL, 6 OR MORE 11/17/2011 89496-DYYXBFQ NAIL, 6 OR MORE 08/15/2013 43038-CXEFFVH NAIL, 6 OR MORE 11/14/2013 15185-WQEZJJF NAIL, 6 OR MORE 03/13/2014 93591-BEKHDLI NAIL, 6 OR MORE 06/12/2014 84865-ZWKMXBC NAIL, 6 OR MORE 01/05/2020 20360-WCAVKVG NAIL, 6 OR MORE 05/02/2019 48859-SCPJJSX NAIL, 6 OR MORE 10/17/2019 12535-YXFYTKT NAIL, 6 OR MORE 10/05/2017 49602-RKJFLDN NAIL, 6 OR MORE 02/01/2018 56605-PJFUKUQ NAIL, 6 OR MORE 05/03/2018 12620-XTUCJCZ NAIL, 6 OR MORE 07/12/2018 07689-QDMAWOA NAIL, 6 OR MORE 09/20/2018 72536-LSJRLTZ NAIL, 6 OR MORE 02/24/2019 74562-QZBGYFN NAIL, 6 OR MORE 03/15/2020 92791-BHBXVEQ NAIL, 6 OR MORE 07/24/2020 95132-NMEPWNS NAIL, 6 OR MORE 10/04/2020 14992-NPUDYYU NAIL, 6 OR MORE 12/13/2020 51897-CDNTZIA NAIL, 6 OR MORE 07/08/2021 37000-TDWSVQV NAIL, 6 OR MORE 10/07/2021 63127-DXFRJOI NAIL, 6 OR MORE 03/20/2022 44803-CRXGSLM NAIL, 6 OR MORE 06/02/2022 79580-DMKROZV NAIL, 6 OR MORE 08/11/2022 72034-ODBUVZY NAIL, 6 OR MORE 10/20/2022 19258-LTVWVOA NAIL, 6 OR MORE 01/06/2023 91198-HUNEFFZ NAIL, 6 OR MORE 02/09/2024 53000-BHPJGSP NAIL, 6 OR MORE 08/11/2024 97239-LBTNPQJ NAIL, OR MORE 11/14/2024 90744-IFQIFKP NAIL, 6 OR MORE 01/23/2025 94727-Kyiraixv Plate 08/11/2024 90849-Qxzxocfk Plate 10/07/2021 73391-Umvovblz Plate 12/13/2020 49354-Gfgihbyr Plate 07/26/2020 60660-Inuqdsoy Plate 03/15/2020 68830-Gzwekphk Plate 06/12/2014 13100-Ntfenfil Plate 03/13/2014 23320-Jwyhvwvh Plate 09/10/2015 07085-Odehikwe Plate 12/29/2016 53134-Zmyugdwl Plate 10/04/2014 56721-Tpfqzcvw Plate 01/08/2015 67717-Wfkdcrgt Plate Each Additional 30603- Debride <25 sq cm 08/23/2014 73170- Debride <25 sq cm 01/08/2015 34937- Debride <25 sq cm 07/09/2015 05460- Debride <25 sq cm 03/30/2017 06997- Debride <25 sq cm 05/16/2013 42427- Debride <25 sq cm 03/24/2016 14598- Debride <25 sq cm 06/02/2016 86550- Debride <25 sq cm 08/18/2016 56531- Debride <25 sq cm 10/20/2016 39760- Debride <25 sq cm 11/24/2016 99415- Debride <25 sq cm 12/29/2016 26196- Debride <25 sq cm 12/01/2019 24825- Debride <25 sq cm 01/05/2020 35803- Debride <25 sq cm 11/02/2017 89972- Debride <25 sq cm 11/26/2017 23254- Debride <25 sq cm 08/23/2020 24703- Debride <25 sq cm 08/11/2024 90592- Debride <25 sq cm 11/14/2024 21246 I&D ABSCESS- SIMPLE,SINGLE 021 35093-EUAA SKIN LESIONS, OVER 4 08/11/19 25 21257-LGZB SKIN LESIONS, OVER 4 11/15/19 25 17591-QJCD SKIN LESIONS, OVER 4 01/24/20 80915-Etnc. Subungual Hematoma 8 49049-Hyjz. Subungual Hematoma 9 30647 - Tenotomy, open flexor 10/05/2017 Insurance Providers Payer Name Payer Address Payer Phone Subscriber Number Group Number Insured Name Patient Relationship to Insured Coverage Start Date Coverage End Date [employer] Medicare Open [address] [place] [address] [id number] Enrrique Sanket Self - patient is the insured Medical (General) History Medical History History ICD Code joint implants/screws ingrown nails Other hammer toe(s) (acquired), left herson t M20.42 Surgical History Surgery Date(Month/Year) foot surgery 1997 left hip replacement 07/16/2014 shoulder replacement 02/23/2024 Hospitalization History Reason Date(Month/Year) [facility] fell 01/02/22 urgent Care- Sprained ankle 09/2020 [facility] Hypertension 04/05/19 [facility] Hip Replacement 07/16/2014 Went to [facility] for severe contusion to left rib 01/2014
--- OUTSIDE RECORDS SUMMARY | 2025-04-05 12:50 | XMS_ITS | Patient Health Record ---
Author Organization [facility] Address [address] [place] [address] Care Team Providers Care Belt Brander Name Role Phone Daphne Penaloza M.D. Primary Care Provider Unavail Kavon Gay Jr Unavailable Allergies Allergen (clinical drug ingredient) Drug/Non Drug Allergy documented on EMR Reaction Allergy Type Onset Date Status Sulfa Unknown Drug Allergy Active diphenhydramine Benadryl Unknown Drug Allergy A ctive Results Component Value Reference Range Notes Pathology Reviewed date:01/04/2025 11:15:58 AM Interpretation: Performing Lab:[facility], [address] [place] [address] Notes/Report: Reason For Referral No Information Medications Medication SIG (Take, Route, Frequency, Duration) Notes Start Date End Date Status Skin Hair & Nails Advanced - as directed Orally Active Gabapentin 100 MG Oral; Duration: 90 Days Active hydrOXYzine HCl 25 MG TAKE 1 TABLET BY M OUTH EVERY DAY Oral; Duration: 90 Days Active Albuterol Sulfate HFA 108 (90 Base) MCG/ACT 2 PUFF INHALED EVERY 6 HOURS NEEDED FOR SHORTNESS OF BREATH OR WHEEZING OR COUGH Inhalation; Duration: 28 Days Active Ibuprofen 600 MG Oral; Duration: 60 Days Active Losartan Potassium 50 MG TAKE 1 TABLET B Y MOUTH TWICE A DAY Oral; Duration: 90 Days Active Flax Seed Oil 1000 [...] Risk Notes Problem Change in bowel habit (26088252) Change in bowel habits (787.99) Active confirmed Problem Gastro-esophagea l reflux disease without esophagitis (506535560) Gastro-esophage al reflux disease without esophagitis (K21.9) Active confirmed Problem Screening for malignant neoplasm of colon (734081454) Encounter for screening for malignant neoplasm of colon (Z12.11) Active confirmed Vital Signs Temperature 96.9 degrees Fahrenheit 12/11/2024 Blood pressure diastolic 01 mm Hg 12/11/2024 Height 66.25 in 12/11/2024 Blood pressure systolic 001 mm Hg 12/11/2024 Weight 177 lbs 12/11/2024 BMI 28.35 kg/m2 12/11/2024 Encounters Encounter Location Date Provider Diagnosis [facility] Outpatient [address] [place] [id number] 01/02/2025 Kavon Miller Jr [facility] [address] [place] [phone] 12/11/2024 Kavon Miller Jr Encounter for screening for malignant neoplasm of colon Z12.11 and Gastro-esophageal reflux disease without esophagitis K21.9 [facility] [address] [place] [phone] 12/07/2024 Kavon Miller Jr [facility] [address] [place] [address] 01/01/2025 Kavon Miller Jr [facility] [address] [address] 01/04/2025 Kavon Miller Jr Assessments Encounter Date [...] Insured Coverage Start Date Coverage End Date [facility] [address] [place], [place] [id number] EBONI HUMZA Self - patient is the insured 4 Medical (General) History Medical History History ICD Code colonoscopy 09/20/2009 hyperthyroidism disc disease GERD Denies ID,DM,CVA,Lung disease,renal dise ase Surgical History Surgery Date(Month/Year) shoulder replacement left toe surgery
--- NOTE | 2025-04-05 13:39 | MHC.CM.ED ---
Received case management consult from Samara WILLS. Patient came to the ER due to HTN. Work up still in progress. Met with patient, daughter Kimberly and son Ryan in regards to discharge planning. Patient lives alone and is not active with any services. Patient was supposed to be taking medications for high blood pressure twice a day. Unfortunately, patient did not take her meds since September. In March, BP meds were changed to daily. Kimberly started setting up a med box with morning and evening meds. Patient has been taking them. However, BP is still elevated. Patient and children agreeable to referral to [facility]. Also agreeable to referral to [facility] to see if they can assist with arranging a med-minder or any additional services. Jesus CRUZ and Samara WILLS aware. Continue to monitor for d/c needs.
== END 2025-04-05 16:29 | disposition home or self-care (01) ==
PROVIDERS: Physician Assistant; Emergency Provider Emergency Medicine; PCP Student in an Organized Health Care Education/Training Program
DX: R51.9 Headache, unspecified (principal); F41.9 Anxiety disorder, unspecified; R94.31 Abnormal electrocardiogram [ECG] [EKG]; Z87.891 Personal history of nicotine dependence; Z79.899 Other long term (current) drug therapy
CPT/HCPCS: 36415; 80048; 84484; 85025; 93005; 99283; 99285

== ENCOUNTER → 2025-04-05 09:23 | Outpatient (BNV) | payer MEDICARE, SELFPAY | PROVIDERS: Emergency Provider Emergency Medicine; PCP Student in an Organized Health Care Education/Training Program; Visit Provider Internal Medicine Cardiovascular Disease | DX: I49.3 Ventricular premature depolarization (principal) | CPT/HCPCS: 93010 ==

== ENCOUNTER 2025-04-06 08:07 | Outpatient (REF) | payer MEDICARE, SELFPAY ==
--- OUTSIDE RECORDS SUMMARY | 2025-01-02 06:00 | XMS_ITS ---
Author Organization [facility] Address [address] [place] [phone] Care Team Providers Care Flame Cutting Supervisor Name Role Phone Daphne Penaloza M.D. Primary Care Provider Kavon Stapleton Jr REASON FOR VISIT screening Encounters Encounter Location Date Provider Diagnosis [facility] [place] Out[facility] [address], [place] [phone] 01/02/2025 Kavon Miller Jr Plan Of Treatment No Information Progress Notes * JESUS LYNOB:1955 (70 yo F)Acc No.[id number]:01/02/2025 COLON WITH MAC Patient: HUMZA AVERY Provider: Gabriela Miller MD :1955 A ge:69 Y S ex:Female Date:01/02/2025 Address:[address] [place], [place] [phone] Pcp:Daphne Penaloza M.D. Subjective: * Chief Complaints: * 1 . Screening. * Medical History: Objective: * Vitals: Assessment: Plan: * Treatment: * * The named appointment provid er may or may not be the originator of this progress note, and it is not deemed complete until electronically signed by the appointment provider. Sign off status: Pending * Provider: Gabriela Miller MD Date: 0 01/02/2025 Generated for Elizabethi ng/Fajoyg/eTransmitting on: 1 08:14 AM EDT
--- OUTSIDE RECORDS SUMMARY | 2025-04-04 10:30 | XMS_ITS ---
Author Organization [facility] Address [address] [place] [address] Care Team Providers Care Smoking Pipes Cleaner Name Role Phone Daphne Sevilla Primary Care Provider Pallavi Beverly [phone] Encounters Encounter Location Date Provider Diagnosis [address] [address] 04/04/2025 Pallavi Ruff Plan Of Treatment No Information Progress Notes * Sanket LYN ADOB: (70 yo F)Acc No.[id number]:04/04/2025 Progress Note Patient: Sanket AVERY Provider: Kristine Ruff DPM :1955 A ge:69 Y S ex:Female Date:04/04/2025 Address:[address] [place], [place] [phone] Pcp:Daphne Sevilla Subjective: * Chief Complaints: * [...] Date: Generated for Luis F ng/Fajoyg/eTransmitting on: 08:14 AM EDT
--- OUTSIDE RECORDS SUMMARY | 2025-04-09 08:14 | XMS_ITS | Patient Health Record ---
[facility] Address [address] [place] [address] Care Team Providers Care Draw Frame Tender Name Role Phone Daphne Sevilla Primary Care Provider Pallavi Beverly Unavailable [phone] Allergies Allergen (clinical drug ingredient) Drug/Non Drug [...] Problem Acquired hammer toe of right foot (1167196845373887 ) Other hammer toe(s) (acquired), right foot (M20.41) Active confirmed Problem Bilateral atherosclerosis of arteries of lower limbs (disorder) (4026567450243912 7) Atherosclerosis of [place] artery of both lower extremities, with unspecified presence of clinical manifestation (I70.203) Active confirmed Q7(A), Q8(2B), Q9(1B,2C) Problem Localized, primary osteoarthritis of the ankle and/or foot (783309776) Arthritis of joint of lesser toe, right (M19.071) Active confirmed Problem Ulcer of toe of left foot (disorder) (3608538943843532 2) Skin ulcer of toe of left [...] Ordered Date Performed Result Body Sit e 25646-CCNNWQJ NAIL, 6 OR MORE 08/11/2024 N/A 34727-Mygmzuqq Plate 08/11/2024 N/A 93390- Debride <25 sq cm 08/11/2024 N/A 59847-AJSK SKIN LESIONS, OVER 4 08/11/2024 N/A 74797-DILDPBW NAIL, 6 OR MORE 11/14/2024 N/A 25339- Debride <25 sq cm 11/14/2024 N/A 81663-AZLR SKIN LESIONS, OVER 4 11/14/2024 N/A 23484-IFFXCOZ NAIL, 6 OR MORE 01/23/2025 N/A 85562-YHOW SKIN LESIONS, OVER 4 01/23/2025 N/A Encounters Encounter Location Date Provider Diagnosis [address] [place] [address] 05/12/2024 Pallavi Black Onychomycosis B35.1 ; Atherosclerosis of [place] artery of both lower extremities, with unspecified presence of clinical manifestation I70.203 ; Pain in right toe(s) M79.674 and Pain in left toe(s) M79.[address] [place] [place] [address] 08/11/2024 Pallavi Black Onychomycosis B35.1 ; Atherosclerosis of [place] artery of both lower extremities, with unspecified presence of clinical manifestation I70.203 ; Pain in right toe(s) M79.674 ; Pain in left toe(s) M79.675 ; Ingrown nail L60.0 and Skin ulcer of toe of left foot, limited to breakdown of skin L97.[address] [place] [address] 11/14/2024 Pallavi Black Onychomycosis B35.1 ; Atherosclerosis of [place] artery of both lower extremities, with unspecified [...] metatarsophalangeal joint of toe, initial encounter S93.149A [facility] [address] 01/23/2025 Pallavi Ruff Onychomycosis B35.1 ; Atherosclerosis of [place] artery of both lower extremities, with unspecified [...] metatarsophalangeal joint of toe, initial encounter S93.149A [facility] [address] [place] [address] 01/23/2025 Pallavi Speedy [address] [address] 04/04/2025 Pallavi Ruff Assessments Encounter Date Diagnosis (ICD Code) Assessment Notes Treatment Notes Treatment Clinical Notes Section Notes 05/12/2024 Onychomycosis (ICD-1 0 - B35.1) 05/12/2024 Atherosclerosis of [place] artery of both lower extremities, with unspecified presence of clinical manifestation (ICD-10 - I70.203) Q7(A), Q8(2B), Q9(1B,2C) 08/11/2024 Onychomycosis (ICD-1 0 - B35.1) 11/14/2024 Onychomycosis (ICD-1 0 - B35.1) 01/23/2025 Onychomycosis (ICD-1 0 - B35.1) 01/23/2025 Atherosclerosis of [place] artery of both lower extremities, with unspecified presence of clinical manifestation (ICD-10 - I70.203) Q7(A), Q8(2B), Q9(1B,2C) 01/23/2025 Pain in right toe(s) (ICD-10 - M79.674) 11/14/2024 Atherosclerosis of [place] artery of both lower extremities, with unspecified presence of clinical manifestation (ICD-10 - I70.203) Q7(A), Q8(2B), Q9(1B,2C) 08/11/2024 Atherosclerosis of [place] artery of both lower extremities, with unspecified [...] X ray : Foot, right 3V 02/14/2013 54570-LVKDOXN NAIL, 6 OR MORE 05/16/2013 26793-OPOZENG NAIL, 6 OR MORE 09/10/2015 91333-ZSSOTES NAIL, 6 OR MORE 03/29/2012 77611-IIGMFUW NAIL, 6 OR MORE 11/03/2012 44868-GLPWPPW NAIL, 6 OR MORE 02/14/2013 42806-YRRIPUJ NAIL, 6 OR MORE 03/03/2011 39127-SBIUUDY NAIL, 6 OR MORE 05/05/2011 29979-KEXXIVK NAIL, 6 OR MORE 08/18/2011 58635-GJRVTGW NAIL, 6 OR MORE 11/17/2011 65387-EXNXTYT NAIL, 6 OR MORE 08/15/2013 34452-KHBQFJN NAIL, 6 OR MORE 11/14/2013 23732-HNRPBMN NAIL, 6 OR MORE 03/13/2014 00745-TIRRHKA NAIL, 6 OR MORE 06/12/2014 18449-CHDMYGP NAIL, 6 OR MORE 01/05/2020 68726-WZCAFJO NAIL, 6 OR MORE 05/02/2019 47535-MCHIRAM NAIL, 6 OR MORE 10/17/2019 19414-ADMOPRA NAIL, 6 OR MORE 10/05/2017 61573-REHAPPS NAIL, 6 OR MORE 02/01/2018 33570-HEETATB NAIL, 6 OR MORE 05/03/2018 16743-WKNZKND NAIL, 6 OR MORE 07/12/2018 46797-ORIZKAD NAIL, 6 OR MORE 09/20/2018 98738-TBVBTER NAIL, 6 OR MORE 02/24/2019 30655-IEQKXEZ NAIL, 6 OR MORE 03/15/2020 98656-LBTVEGE NAIL, 6 OR MORE 07/24/2020 96723-KUUNWFC NAIL, 6 OR MORE 10/04/2020 79145-KJWKTGF NAIL, 6 OR MORE 12/13/2020 17645-GRHAWGO NAIL, 6 OR MORE 07/08/2021 84684-XCCSNSS NAIL, 6 OR MORE 10/07/2021 82227-JPVITDV NAIL, 6 OR MORE 03/20/2022 28730-IBKVKAG NAIL, 6 OR MORE 06/02/2022 55598-RWCOJJW NAIL, 6 OR MORE 08/11/2022 53952-NVCQMET NAIL, 6 OR MORE 10/20/2022 16868-ASEQJOE NAIL, 6 OR MORE 01/06/2023 51224-YBDDZGM NAIL, 6 OR MORE 02/09/2024 03474-WCGRTVT NAIL, 6 OR MORE 08/11/2024 41325-HCKIBRI NAIL, OR MORE 11/14/2024 60567-JJFZUIV NAIL, 6 OR MORE 01/23/2025 18721-Ugrrahyj Plate 08/11/2024 55154-Edxbvymm Plate 10/07/2021 60078-Tvkrlcve Plate 12/13/2020 26525-Jmnaqtrx Plate 07/26/2020 09041-Dprjbcqn Plate 03/15/2020 68893-Vxhthoep Plate 06/12/2014 42619-Kgwwkbgb Plate 03/13/2014 63991-Zijnojpi Plate 09/10/2015 33763-Fftrttrz Plate 12/29/2016 69001-Ahcfscpt Plate 10/04/2014 43958-Fzjuojvu Plate 01/08/2015 33982-Bwdtndnr Plate Each Additional 13350- Debride <25 sq cm 08/23/2014 24233- Debride <25 sq cm 01/08/2015 82305- Debride <25 sq cm 07/09/2015 27046- Debride <25 sq cm 03/30/2017 13268- Debride <25 sq cm 05/16/2013 21013- Debride <25 sq cm 03/24/2016 23941- Debride <25 sq cm 06/02/2016 53158- Debride <25 sq cm 08/18/2016 22595- Debride <25 sq cm 10/20/2016 67367- Debride <25 sq cm 11/24/2016 83288- Debride <25 sq cm 12/29/2016 61207- Debride <25 sq cm 12/01/2019 36286- Debride <25 sq cm 01/05/2020 61551- Debride <25 sq cm 11/02/2017 85648- Debride <25 sq cm 11/26/2017 63007- Debride <25 sq cm 08/23/2020 56205- Debride <25 sq cm 08/11/2024 30103- Debride <25 sq cm 11/14/2024 21872 I&D ABSCESS- SIMPLE,SINGLE 021 57791-JGOD SKIN LESIONS, OVER 4 08/11/19 25 99322-CSHX SKIN LESIONS, OVER 4 11/15/19 25 19960-XRWO SKIN LESIONS, OVER 4 01/24/20 50523-Nkat. Subungual Hematoma 8 50095-Mrie. Subungual Hematoma 9 70233 - Tenotomy, open flexor 10/05/2017 Insurance Providers Payer Name Payer Address Payer Phone Subscriber Number Group Number Insured Name Patient Relationship to Insured Coverage Start Date Coverage End Date [employer] Medicare Open [address] [place] [address] [id number] Enrrique Sanket Self - patient is the insured Medical (General) History Medical History History ICD Code joint implants/screws ingrown nails Other hammer toe(s) (acquired), left herson t M20.42 Surgical History Surgery Date(Month/Year) foot surgery 1997 left hip replacement 07/16/2014 shoulder replacement 02/23/2024 Hospitalization History Reason Date(Month/Year) [facility] fell 01/02/22 urgent Care- Sprained ankle 09/[address] [facility] Hypertension 04/05/19 [facility] Hip Replacement 07/16/2014 Went to [facility] for severe contusion to left rib 01/2014
--- OUTSIDE RECORDS SUMMARY | 2025-04-09 08:15 | XMS_ITS | Patient Health Record ---
Author Organization [facility] Address [address] [place] [address] Care Team Providers Care Institutional Nutrition Consultant Name Role Phone Daphne Penaloza M.D. Primary Care Provider Unavail Kavon Gay Jr Unavailable Allergies Allergen (clinical drug ingredient) Drug/Non Drug Allergy documented on EMR Reaction Allergy Type Onset Date Status Sulfa Unknown Drug Allergy Active diphenhydramine Benadryl Unknown Drug Allergy A ctive Results Component Value Reference Range Notes Pathology Reviewed date:01/04/2025 11:15:58 AM Interpretation: Performing Lab:[facility], [address] [place] [address] Notes/Report: Reason For Referral No Information Medications [...] Risk Notes Problem Change in bowel habit (83951967) Change in bowel habits (787.99) Active confirmed Problem Gastro-esophagea l reflux disease without esophagitis (235097324) Gastro-esophage al reflux disease without esophagitis (K21.9) Active confirmed Problem Screening for malignant neoplasm of colon (355662568) Encounter for screening for malignant neoplasm of colon (Z12.11) Active confirmed Vital Signs Temperature 96.9 degrees Fahrenheit 12/11/2024 Blood pressure diastolic 01 mm Hg 12/11/2024 Height 66.25 in 12/11/2024 Blood pressure systolic 001 mm Hg 12/11/2024 Weight 177 lbs 12/11/2024 BMI 28.35 kg/m2 12/11/2024 Encounters Encounter Location Date Provider Diagnosis [facility] Outpatient [address] [place] [phone] 01/02/2025 Kavon Miller Jr [facility] [address] [place] [address] 12/11/2024 Kavon Miller Jr Encounter for screening for malignant neoplasm of colon Z12.11 and Gastro-esophageal reflux disease without esophagitis K21.9 [facility] [address] [place] [address] 12/07/2024 Kavon Miller Jr [facility] [address] [place] [phone] 01/01/2025 Kavon Miller Jr [facility] [address] [address] 01/04/2025 Kavon Miller Jr Assessments Encounter Date [...] Insured Coverage Start Date Coverage End Date [facility] [address] [place], [place] [id number] EBONI HUMZA Self - patient is the insured 4 Medical (General) History Medical History History ICD Code colonoscopy 09/20/2009 hyperthyroidism disc disease GERD Denies [place],DM,CVA,Lung disease,renal dise ase Surgical History Surgery Date(Month/Year) shoulder replacement left toe surgery
== END 2025-04-06 08:08 | disposition home or self-care (01) ==
LOC: HO.HOSX 08:07
PROVIDERS: Visit Provider Physician Assistant
DX: Z13.89 Encounter for screening for other disorder (principal)